=== PATIENT | female | born 1940 | race African-American/Black ===

== ENCOUNTER 2018-07-02 09:41 | Inpatient (IN) | payer OTHER ==
[2018-07-02] MEDS ORDERED: ATROPINE SULF 1 MG/10 ML SYR IV ONE (10:00)
[2018-07-02] MEDS ORDERED: NA CHLORIDE 0.9% 1,000 ML ONE (10:00)
[2018-07-02 10:28] LABS: Absolute Lymphocytes (CBC) 0.7 K/uL (0.7-4.9); Absolute Monocytes 0.2 K/uL (0.1-1.3); Basophils % 0.2 % (0-1.3); Eosinophils % 1.6 % (0-4.4); Hematocrit 30.8 % (36.0-45.0); Lymphocytes % 24.1 % (15.3-44.8); MCH 28.4 pg (27.0-35.0); MCV 88.4 fL (80-100); MPV 7.7 fL (7.6-11.3); Monocytes % 6.3 % (3.3-12.3); RBC Red Blood Cell Count 3.49 M/uL (3.86-4.86)
[2018-07-02 10:29] LABS: Protime INR 1.03
[2018-07-02] MEDS ORDERED: VANCOMYCIN 0 GM/0 ML BAG ONE (10:38)
[2018-07-02] MEDS ORDERED: NA CHLORIDE 0.9% 2,000 ML ONE (10:38)
[2018-07-02] MEDS ORDERED: PIPER/TAZO/NS 3.375gm 0 GM/0 ML BAG ONE (10:38)
[2018-07-02] MEDS ORDERED: Levofloxacin 750mg IV 750 MG/150 ML BAG IV ONE (10:38)
[2018-07-02 10:45] LABS: ALT/SGPT 71 U/L (12-78); AST/SGOT 72 U/L (15-37); Albumin 2.8 g/dL (3.4-5.0); Alkaline Phosphatase 123 U/L (45-117); BUN Blood Urea Nitrogen 32 mg/dL (7-18); Bicarbonate 27 mmol/L (21-32); Glucose Level 173 mg/dL (74-106); Lipase 374 U/L (73-393); Potassium 5.3 mmol/L (3.5-5.1); Protein, Total 7.2 g/dL (6.4-8.2); Sodium Level 145 mmol/L (136-145)
[2018-07-02] MEDS ORDERED: NOREPINEPHRINE 4 MG in D5W 250 ML IV PRN ×2 (10:45→19:56)
--- NOTE | 2018-07-02 11:13 | RAD REPORT ---
EXAM DESCRIPTION: RAD - Chest Single View - 07/02/2018 10:44 am CLINICAL HISTORY: Altered mental status, hypotension, bradycardia COMPARISON: None. TECHNIQUE: AP portable chest image was obtained 1030 hours . FINDINGS: Lung volumes are low. Patchy lung base opacification B bilateral atelectasis or bilateral pneumonia. Elevation of the right hemidiaphragm noted. Cardiomegaly is present without vascular engor gement. Significant failure or volume overload are doubtful. Lung markings are accentuated by signifi cantly shallow inspiratory effort. No measurable pleural effusion and no pneumothorax. No gross bony abnormality seen. No acute aortic findings suspected. IMPRESSION: Limited shallow inspiration film showing bilateral lung base opacification that could be atelectasis or pneumonia.
[2018-07-02] MEDS ORDERED: PIPER/TAZO/NS 3.375gm 3.375 GM/100 ML BAG ONE (11:19)
[2018-07-02 11:27] LABS: Bilirubin Total < 0.1 mg/dL (0.2-1.0)
[2018-07-02 11:27] LABS: Urine Blood NEGATIVE (NEG); Urine Glucose NEGATIVE (NEG); Urine Protein 2+ (NEG); Urine Specific Gravity 1.025 (1.005-1.030); Urine pH 5.5 (5.0-7.0)
[2018-07-02 11:42] LABS: Urine Amorphous Sediment 2+ /HPF (NONE SEEN); Urine Bacteria <20 /HPF (<20); Urine Culture Reflex Order NOT NEEDED; Urine RBC <5 /HPF (NONE SEEN)
--- NOTE | 2018-07-02 12:28 | RAD REPORT ---
EXAM DESCRIPTION: [place] Single View07/02/2018 12:16 pm CLINICAL HISTORY: Device placement central line placement COMPARISON: July 02, 2018 FINDINGS: A central line has been inserted with its tip in the superior vena cava. A pneumothorax is not seen. No other change is noted IMPRESSION: Central venous line with its tip in the superior vena cava
[2018-07-02] MEDS ORDERED: VANCOMYCIN 1 GM/250 ML BAG ONE (13:10)
--- NOTE | 2018-07-02 13:17 | ER ---
Nurse's Notes [facility] Name: Sharda Dewey Age: 78 yrs Sex: Female : 1940 Arrival Date: 07/02/2018 Time: 09:48 Bed 2 Private MD: Diagnosis: Altered Mental Status;Bradycardia;Hypotension;Bilateral Pneumonia;Lactic Acidosis Presentation: 07/02 10:00 Initial Sepsis Screen: Does the patient have a suspected source of infection? No. aj Patient's initial sepsis screen is negative. 10:06 Presenting complaint: EMS states: PT with increased AMS, hypotension and bradycardia, la1 recent history or UTI at long term. Transition of care: patient was not received from another setting of care. Onset of symptoms was July 02, 2018. Risk Assessment: Do you want to hurt yourself or someone else? Patient reports no desire to harm self or others. Initial Sepsis Screen: Does the patient meet any 2 criteria? No. Patient's initial sepsis screen is negative. Care prior to arrival: None. 10:06 Method Of Arrival: EMS: [facility] la1 10:06 Acuity: TITUS 2 la1 Historical: - Allergies: 10:15 No Known Allergies; la1 - Home Meds: 10:15 allopurinol 100 mg Oral tab 1 tab once daily [Active]; amlodipine 2.5 mg tab 1 tab once la1 daily [Active]; Aricept 10 mg Oral tab 1 tab once daily [Active]; aspirin 81 mg Oral TbEC 1 tab once daily [Active]; carvedilol 12.5 mg oral tab 1 tab 2 times per day [Active]; Celexa 10 mg Oral tab 1 tab every other day [Active]; ferrous sulfate 325 mg (65 mg iron) Oral tab [Active]; lorazepam 0.5 mg Oral tab 1 tab at bedtime [Active]; losartan 100 mg oral tab 1 tab once daily [Active]; memantine 28mg oral tab once daily [Active]; metformin 500 mg Oral Tb24 1 tab 2 times per day [Active]; Norvasc 5 mg Oral tab 1 tab BID [Active]; Novolog 100 unit/mL Sub-Q soln [Active]; risperidone 0.5 mg oral tab 1 tabs once daily [Active]; Tresiba FlexTouch U-100 100 unit/mL (3 mL) subcutaneous inpn [Active]; - PMHx: 10:15 Alzheimers; Anxiety; Diabetes - NIDDM; Anemia; dysphagia; ataxic gait; Hypertension; la1 - PSHx: 10:15 None; la1 - Immunization history:: Adult Immunizations up to date. - Social history:: Smoking status: Patient/guardian denies using tobacco. - Ebola Screening: : No symptoms or risks identified at this time. Screenin:57 Abuse screen: Denies threats or abuse. Denies injuries from another. Nutritional aj screening: No deficits noted. Tuberculosis screening: No symptoms or risk factors identified. Fall Risk None identified. Assessment: 10:35 Reassessment: Placed on REGINE Hugger warmer. aj 10:53 General: Appears in no apparent distress. comfortable, Behavior is calm, cooperative, aj appropriate for age. Pain: Denies pain. Neuro: Level of Consciousness is awake, confused, lethargic, Oriented to none Speech with expressive aphasia noted. Neuro: Reports Family reports patient is not oriented to norm. Respiratory: Airway is patent Respiratory effort is even, unlabored, Respiratory pattern is regular, symmetrical. Derm: Skin is intact, is healthy with good turgor, Skin is dry, Skin is normal, Skin temperature is cool. 12:00 Reassessment: Patient appears in no apparent distress at this time. No changes from aj previously documented assessment. Patient and/or family updated on plan of care and expected duration. Pain level reassessed. Patient repositioned in bed. NAD. 13:37 Reassessment: Patient appears in no apparent distress at this time. No changes from aj previously documented assessment. Patient and/or family updated on plan of care and expected duration. Pain level reassessed. Escorted patient to CT with no complications. Patient in room with daughter at bedside. Patient is awake but not alert. 14:28 Reassessment: Dr. Valencia requests to have MRI obtained and resulted prior to giving ss room assignment. 16:43 Reassessment: Patient returned to room by MRI. aj 16:50 Reassessment: Patient appears in no apparent distress at this time. No changes from aj previously documented assessment. Patient and/or family updated on plan of care and expected duration. Pain level reassessed. Patient repositioned in bed. Vital Signs: 09:53 BP 86 / 55; Pulse 36; Resp 12; Pulse Ox 96% on R/A; jb4 09:59 BP 97 / 54; Pulse 36; Resp 13; ss 10:25 Weight 68.04 kg (R); la1 10:26 BP 86 / 66; Pulse 45; Resp 16; Pulse Ox 95% on R/A; la1 10:27 Temp 85(C); la1 10:33 BP 79 / 58; Pulse 44; Resp 16; Temp 85.2(C); Pulse Ox 95% on R/A; dh3 10:50 BP 117 / 72; Pulse 62; Resp 15; Temp 85.5(C); Pulse Ox 99% on R/A; aj 10:55 BP 92 / 64; Pulse 50; Resp 16; Temp 85.5(C); Pulse Ox 98% on R/A; aj 11:00 BP 86 / 59; Pulse 45; Resp 17; Temp 85.7; Pulse Ox 96% on R/A; aj 11:05 BP 65 / 48; Pulse 43; Resp 9; Temp 85.7; Pulse Ox 95% ; dm5 11:10 BP 97 / 57; Pulse 64; Resp 15; Temp 86; Pulse Ox 97% ; dm5 11:15 BP 109 / 72; Pulse 59; Resp 10; Pulse Ox 100% ; dm5 11:20 BP 117 / 71; Pulse 58; Resp 10; dm5 11:25 BP 131 / 68; Pulse 59; Resp 10; Pulse Ox 100% ; dm5 11:30 BP 101 / 65; Pulse 58; Resp 12; Pulse Ox 100% ; dm5 12:12 BP 100 / 63; Pulse 57; Resp 12; Pulse Ox 100% on R/A; dh3 12:20 BP 101 / 67; Pulse 55; Resp 12; Pulse Ox 99% ; sv 12:25 BP 106 / 65; Pulse 55; Resp 11; Pulse Ox 100% ; sv 12:30 BP 94 / 70; Pulse 55; Resp 11; Pulse Ox 100% ; sv 12:52 BP 137 / 110; Pulse 58; Resp 13; Temp 88.3(C); Pulse Ox 99% on R/A; aj 12:59 BP 199 / 181; Pulse 55; Resp 15; Temp 88.6(C); Pulse Ox 97% on R/A; aj 13:13 BP 182 / 117; Pulse 56; Resp 16; Pulse Ox 96% ; aj 13:35 BP 95 / 63; Pulse 56; Resp 15; Pulse Ox 97% on R/A; aj 13:49 BP 100 / 61; Pulse 58; Resp 16; Temp 90.0; Pulse Ox 99% on R/A; aj 14:02 BP 114 / 63; Pulse 60; Resp 12; Temp 90.2; Pulse Ox 99% on R/A; aj 14:12 BP 109 / 67; Pulse 59; Resp 17; Pulse Ox 96% on R/A; aj 14:20 BP 104 / 79; Pulse 61; Resp 11; Temp 90.8(C); Pulse Ox 100% ; sv 14:25 BP 107 / 85; Pulse 64; Resp 12; Pulse Ox 100% on R/A; sv 14:30 BP 91 / 73; Pulse 60; Resp 12; Pulse Ox 99% on R/A; sv 14:40 BP 104 / 70; Pulse 64; Resp 14; Pulse Ox 99% ; sv 14:45 BP 113 / 81; Pulse 64; Resp 14; Temp 91.4; Pulse Ox 99% ; sv 14:50 BP 111 / 74; Pulse 66; Resp 18; Temp 91.7(C); Pulse Ox 100% ; sv 16:44 BP 127 / 72; Pulse 59; Resp 17; Pulse Ox 97% on R/A; aj 16:55 BP 148 / 97; Pulse 64; Resp 19; Pulse Ox 99% on R/A; aj 12:52 Cuff repositioned and levophed deccreased aj Vitals: 09:59 Cardiac Rhythm Assessment Sinus zuly W/couplets. ss ED Course: 09:45 Inserted saline lock: 22 gauge in right forearm, using aseptic technique. Blood ss collected. insertion by Sanket Anaya RN. 09:48 Patient arrived in ED. la1 09:52 Reji Noble MD is Attending Physician. ps1 09:53 EKG done, by operating room tech. reviewed by Reji Noble MD. at1 09:59 cafeteria monitor on. Pulse ox on. NIBP on. ss 10:00 Patient has correct armband on for positive identification. Placed in gown. Bed in low aj position. Side rails up X2. Adult w/ patient. Warm blanket given. 10:00 Patient placed in an exam room. aj 10:07 Triage completed. la1 10:30 Inserted saline lock: 20 gauge in left antecubital area, using aseptic technique. dh3 10:35 Dowell cath inserted, using sterile technique, 16 Fr., by me, balloon inflated, to aj gravity drainage, urine specimen collected. returned clear yellow urine. Patient tolerated well. 10:43 Chest Single View XRAY In Process Unspecified. EDMS 10:52 Sima Olmstead, RN is Primary Nurse. aj 10:56 Note: delay per shannan to call when pt ready. kw1 11:26 Notified ED physician of a critical lab result(s). Lactate 2.2. la1 11:32 Assisted provider with central line placement. Set up central line tray. Triple lumen aj line placed in right internal jugular. Line placed by Reji Noble MD Placement verified by blood return, Dressed with Tegaderm, Patient tolerated well. Before procedure, did Practitioner(s) obtain informed consent? Yes. Patient \\T\\ family education about procedure, CLABSI prevention and S/S of infection? Yes. Time-out/Briefing performed prior to start of procedure? Yes. Was handwashing/sanitizing done immediately prior to procedure? Yes. Was patient positioned to in a way to prevent air embolism? Yes. Was procedure site sterilized? Yes, with chlorhexidine. Was the site allowed to dry? Yes. Was local anesthetic and/or sedation utilized? Yes. During the procedure, did the Practitioner(s) maintain a sterile field? Yes. Were unused ports clamped during insertion? Yes. Was a 2nd qualified MD obtained after 3 unsuccessful insertion attempts? No. Was blood aspirated from each lumen? Yes. After the procedure, did the Practitioner(s) clean the site and apply a sterile dressing? Yes. 12:16 XRAY Chest (1 view) In Process Unspecified. EDMS 12:58 Notified ED physician of other Vital signs. Order to discontinue Levophed. aj 13:14 Rishabh Hoff DO is Hospitalizing Provider. ps1 13:27 CT completed. Patient tolerated procedure well. Patient moved to CT via stretcher. vr Patient moved back from CT. 13:28 CT Head Brain wo Cont In Process Unspecified. EDMS 14:48 Attempted to call report to ICU. Gretchen "We were told not to take report until the MRI aj report was back.". 14:59 underwriting technician at bedside. aj 15:19 Patient moved to MRI via stretcher. sv 15:19 Dowell cath removed intact, balloon deflated, MRI advised removal of Criticore dowell as aj wire could be problematic. Dr Noble ordered dowell to be removed and not replaced, to prevent infection. 16:33 Patient moved back from MRI. sv 17:00 Patient admitted, IV remains in place. intact. aj 17:04 Attempted to give report. Oralia "Let me see if I can find her." Placed on hold for 5 aj min. Unable to give report. 17:15 Report given to Irlanda HOPKINS. Administered Medications: Discontinued: Norepinephrine (4 mg/250 mL D5W) 4 mcg/min IV at calculated rate Per protocol; (final concentration is 16 microgram/mL) 09:58 Drug: Atropine 0.5 mg {Note: administered by SANDEEP Coles.} Route: IVP; Site: right forearm; ss 10:25 Follow up: Response: Other; HR increased la1 10:55 Drug: NS 0.9% (30 ml/kg) 30 ml/kg Route: IV; Rate: bolus; Site: right forearm; sv 11:50 Follow up: Response: No adverse reaction; IV Status: Completed infusion; IV Intake: sv 2000ml 10:55 Drug: LevaQUIN 750 mg Volume: 150 ml; Route: IVPB; Infused Over: 90 mins; Site: left aj antecubital; 12:22 Follow up: Response: No adverse reaction; IV Status: Completed infusion; IV Intake: sv 150ml 11:20 Drug: Norepinephrine (4 mg/250 mL D5W) 5 mcg/min Route: IV; Rate: calculated rate; sv Site: right jugular; 12:52 Follow up: Rate change 3 mcg/kg/min aj 12:23 Drug: Zosyn 3.375 grams Route: IVPB; Infused Over: 60 mins; Site: left antecubital; sv 13:12 Drug: vancoMYCIN 1 grams Route: IVPB; Infused Over: 2 hrs; Site: right jugular; aj 14:30 Follow up: Response: No adverse reaction; IV Status: Completed infusion; IV Intake: aj 200ml 16:00 Drug: Ativan 1 mg Route: IVP; Site: right jugular; aj 17:06 Follow up: Response: No adverse reaction Point of Care Testing: Blood Glucose: 09:59 Blood Glucose: 176 mg/dL; ss 17:07 Blood Glucose: 173 mg/dL; aj Ranges: Intake: 11:50 IV: 2000ml; Total: 2000ml. sv 12:22 IV: 150ml; Total: 2150ml. sv 14:30 IV: 200ml; Total: 2350ml. aj Outcome: 13:16 Decision to Hospitalize by Provider. ps1 17:20 Admitted to ICU accompanied by nurse, accompanied by tech, via stretcher, room 3. aj 17:20 Condition: stable 17:20 Instructed on the need for admit. 17:22 Patient left the ED. ss 17:44 Patient left the ED. aj Signatures: Dispatcher [employer] EDMS Vanda Vargas RN RN dm5 Verde, Stephanie RN Sima Kaplan RN RN aj Smirch, Shelby, RN RN ss Davis, Victoria vr gonzales, Amanda, learning operations specialist EKG Tat1 Sanket Anaya RN RN la1 Bryson, James RN RN [id number] Bonnie Leon 3 Reji Noble MD MD ps1 Josee Lama kw1 Corrections: (The following items were deleted from the chart) 10:00 09:45 Inserted saline lock: 22 gauge in right forearm, using aseptic technique. Blood ss collected. ss 10:56 10:50 BP 117 / 72; Pulse 92bpm; Resp 15bpm; Pulse Ox 99% RA; Temp 85.5F Catheter; aj aj 15:38 15:19 Dowell cath removed intact, balloon deflated, aj aj 17:41 16:50 Reassessment: Patient appears in no apparent distress at this time. No changes aj from previously documented assessment. Patient and/or family updated on plan of care and expected duration. Pain level reassessed. Patient repositioned in bed. aj :42 17:41 Patient admitted, IV remains in place. intact, bleeding controlled, No aj redness/swelling at site. Pressure dressing applied, aj :42 17:00 Patient admitted, IV remains in place. intact, bleeding controlled, No aj redness/swelling at site. Pressure dressing applied, aj
--- NOTE | 2018-07-02 13:17 | EDPHYS ---
Physician Documentation [facility] Name: Sharda Dewey Age: 78 yrs Sex: Female : 1940 Arrival Date: 07/02/2018 Time: 09:48 Bed 2 Private MD: ED Physician Reji Noble HPI: 07/02 09:53 This 78 yrs old Black Female presents to ER via Unassigned with complaints of altered ps1 mental status. 09:53 NH patient with recent UTI was treated with rocephin yesterday. Progressive decline and ps1 now unresponsive and bradycardic in 30s and hypotensive. Pt not providing history. . Historical: - Allergies: 10:15 No Known Allergies; la1 - Home Meds: 10:15 allopurinol 100 mg Oral tab 1 tab once daily [Active]; amlodipine 2.5 mg tab 1 tab once la1 daily [Active]; Aricept 10 mg Oral tab 1 tab once daily [Active]; aspirin 81 mg Oral TbEC 1 tab once daily [Active]; carvedilol 12.5 mg oral tab 1 tab 2 times per day [Active]; Celexa 10 mg Oral tab 1 tab every other day [Active]; ferrous sulfate 325 mg (65 mg iron) Oral tab [Active]; lorazepam 0.5 mg Oral tab 1 tab at bedtime [Active]; losartan 100 mg oral tab 1 tab once daily [Active]; memantine 28mg oral tab once daily [Active]; metformin 500 mg Oral Tb24 1 tab 2 times per day [Active]; Norvasc 5 mg Oral tab 1 tab BID [Active]; Novolog 100 unit/mL Sub-Q soln [Active]; risperidone 0.5 mg oral tab 1 tabs once daily [Active]; Tresiba FlexTouch U-100 100 unit/mL (3 mL) subcutaneous inpn [Active]; - PMHx: 10:15 Alzheimers; Anxiety; Diabetes - NIDDM; Anemia; dysphagia; ataxic gait; Hypertension; la1 - PSHx: 10:15 None; la1 - Immunization history:: Adult Immunizations up to date. - Social history:: Smoking status: Patient/guardian denies using tobacco. - Ebola Screening: : No symptoms or risks identified at this time. ROS: 10:08 Unable to obtain ROS due to altered mental status. ps1 Exam: 09:53 Head/Face: Normocephalic, atraumatic. Eyes: Pupils equal round and reactive to light, ps1 extra-ocular motions intact. Lids and lashes normal. Conjunctiva and sclera are non-icteric and not injected. Chest/axilla: Normal chest wall appearance and motion. Nontender with no deformity. No lesions are appreciated. Respiratory: Lungs have equal breath sounds bilaterally, clear to auscultation and percussion. No rales, rhonchi or wheezes noted. No increased work of breathing, no retractions or nasal flaring. Abdomen/GI: Soft, non-tender, with normal bowel sounds. No distension or tympany. No guarding or rebound. No evidence of tenderness throughout. Skin: Warm, dry with normal turgor. Normal color with no rashes, no lesions, and no evidence of cellulitis. MS/ Extremity: Pulses equal, no cyanosis. Neurovascular intact. Full, normal range of motion. 09:53 Constitutional: The patient appears alert, lethargic. 09:53 Cardiovascular: Rate: bradycardic, Rhythm: regular, Pulses: no pulse deficits are appreciated. Vital Signs: 09:53 BP 86 / 55; Pulse 36; Resp 12; Pulse Ox 96% on R/A; jb4 09:59 BP 97 / 54; Pulse 36; Resp 13; ss 10:25 Weight 68.04 kg (R); la1 10:26 BP 86 / 66; Pulse 45; Resp 16; Pulse Ox 95% on R/A; la1 10:27 Temp 85(C); la1 10:33 BP 79 / 58; Pulse 44; Resp 16; Temp 85.2(C); Pulse Ox 95% on R/A; dh3 10:50 BP 117 / 72; Pulse 62; Resp 15; Temp 85.5(C); Pulse Ox 99% on R/A; aj 10:55 BP 92 / 64; Pulse 50; Resp 16; Temp 85.5(C); Pulse Ox 98% on R/A; aj 11:00 BP 86 / 59; Pulse 45; Resp 17; Temp 85.7; Pulse Ox 96% on R/A; aj 11:05 BP 65 / 48; Pulse 43; Resp 9; Temp 85.7; Pulse Ox 95% ; dm5 11:10 BP 97 / 57; Pulse 64; Resp 15; Temp 86; Pulse Ox 97% ; dm5 11:15 BP 109 / 72; Pulse 59; Resp 10; Pulse Ox 100% ; dm5 11:20 BP 117 / 71; Pulse 58; Resp 10; dm5 11:25 BP 131 / 68; Pulse 59; Resp 10; Pulse Ox 100% ; dm5 11:30 BP 101 / 65; Pulse 58; Resp 12; Pulse Ox 100% ; dm5 12:12 BP 100 / 63; Pulse 57; Resp 12; Pulse Ox 100% on R/A; dh3 12:20 BP 101 / 67; Pulse 55; Resp 12; Pulse Ox 99% ; sv 12:25 BP 106 / 65; Pulse 55; Resp 11; Pulse Ox 100% ; sv 12:30 BP 94 / 70; Pulse 55; Resp 11; Pulse Ox 100% ; sv 12:52 BP 137 / 110; Pulse 58; Resp 13; Temp 88.3(C); Pulse Ox 99% on R/A; aj 12:59 BP 199 / 181; Pulse 55; Resp 15; Temp 88.6(C); Pulse Ox 97% on R/A; aj 13:13 BP 182 / 117; Pulse 56; Resp 16; Pulse Ox 96% ; aj 13:35 BP 95 / 63; Pulse 56; Resp 15; Pulse Ox 97% on R/A; aj 13:49 BP 100 / 61; Pulse 58; Resp 16; Temp 90.0; Pulse Ox 99% on R/A; aj 14:02 BP 114 / 63; Pulse 60; Resp 12; Temp 90.2; Pulse Ox 99% on R/A; aj 14:12 BP 109 / 67; Pulse 59; Resp 17; Pulse Ox 96% on R/A; aj 14:20 BP 104 / 79; Pulse 61; Resp 11; Temp 90.8(C); Pulse Ox 100% ; sv 14:25 BP 107 / 85; Pulse 64; Resp 12; Pulse Ox 100% on R/A; sv 14:30 BP 91 / 73; Pulse 60; Resp 12; Pulse Ox 99% on R/A; sv 14:40 BP 104 / 70; Pulse 64; Resp 14; Pulse Ox 99% ; sv 14:45 BP 113 / 81; Pulse 64; Resp 14; Temp 91.4; Pulse Ox 99% ; sv 14:50 BP 111 / 74; Pulse 66; Resp 18; Temp 91.7(C); Pulse Ox 100% ; sv 16:44 BP 127 / 72; Pulse 59; Resp 17; Pulse Ox 97% on R/A; aj 16:55 BP 148 / 97; Pulse 64; Resp 19; Pulse Ox 99% on R/A; aj 12:52 Cuff repositioned and levophed deccreased aj Procedures: 11:47 Central Line: the site was prepped with Betadine, in sterile fashion, a triple lumen ps1 catheter was inserted, in the right internal jugular vein, in 1 attempts. placement was verified, by CXR, by blood return, the site was dressed with Tegaderm, using sterile technique, the patient tolerated the procedure, well. MDM: 10:36 Patient medically screened. ps1 07/02 10:08 Order name: Glucose, Ancillary Testing; Complete Time: 10:36 EDMS 07/02 10:08 Order name: Blood Culture Adult (2) ps1 07/02 10:08 Order name: CBC with Diff; Complete Time: 10:36 ps1 07/02 10:08 Order name: Lactate; Complete Time: 12:14 ps1 07/02 10:08 Order name: Lipase; Complete Time: 12:14 ps1 07/02 10:08 Order name: Protime (+inr); Complete Time: 10:36 ps1 07/02 10:08 Order name: Troponin (emerg Dept Use Only); Complete Time: 10:50 ps1 07/02 10:08 Order name: CMP; Complete Time: 12:14 ps1 07/02 10:55 Order name: Urine Microscopic Only; Complete Time: 12:14 07/02 10:55 Order name: Urine Culture 07/02 11:01 Order name: Urine Dipstick--Ancillary (enter results); Complete Time: 12:14 ss 07/02 13:28 Order name: Blood Culture EDCA 07/02 13:28 Order name: Potassium EDMS 07/02 10:08 Order name: Chest Single View XRAY; Complete Time: 12:14 ps1 07/02 10:32 Order name: CT Head Brain wo Cont; Complete Time: 14:40 ps1 07/02 11:58 Order name: XRAY Chest (1 view); Complete Time: 12:33 ag 07/02 13:28 Order name: Echo with Doppler ED[facility] 07/02 13:28 Order name: Procalcitonin [facility] 07/02 13:28 Order name: Lactate [facility] 07/02 14:17 Order name: Lactate Sepsis 2 HR Follow-up; Complete Time: 14:40 EDMS 07/02 17:01 Order name: MRI; Complete Time: 17:07 EDMS 07/02 17:04 Order name: MRI; Complete Time: 17:07 EDCA 07/02 10:08 Order name: Accucheck; Complete Time: 10:16 ps1 07/02 10:08 Order name: Cardiac monitoring; Complete Time: 10:16 ps1 07/02 10:08 Order name: EKG - Nurse/Tech; Complete Time: 10:16 ps1 07/02 10:08 Order name: IV Saline Lock - Large Bore; Complete Time: 10:17 ps1 07/02 10:08 Order name: Labs collected and sent; Complete Time: 10:17 ps1 07/02 10:08 Order name: O2 Per Protocol; Complete Time: 10: ps1 07/02 10:08 Order name: O2 Sat Monitoring; Complete Time: 10: ps1 07/02 10:08 Order name: Urine Dipstick-Ancillary (obtain specimen); Complete Time: 10:59 ps1 07/02 11:01 Order name: EKG Electrocardiogram [facility] 07/02 13:28 Order name: CONS Pharmacy Consult [facility] 07/02 13:28 Order name: CONS Physician Consult [facility] 07/02 13:28 Order name: Respiratory Therapy Consult [facility] 07/02 13:28 Order name: Heart Healthy EDCA Administered Medications: Discontinued: Norepinephrine (4 mg/250 mL D5W) 4 mcg/min IV at calculated rate Per protocol; (final concentration is 16 microgram/mL) 09:58 Drug: Atropine 0.5 mg {Note: administered by SANDEEP Coles.} Route: IVP; Site: right forearm; ss 10:25 Follow up: Response: Other; HR increased la1 10:55 Drug: NS 0.9% (30 ml/kg) 30 ml/kg Route: IV; Rate: bolus; Site: right forearm; sv 11:50 Follow up: Response: No adverse reaction; IV Status: Completed infusion; IV Intake: sv 2000ml 10:55 Drug: LevaQUIN 750 mg Volume: 150 ml; Route: IVPB; Infused Over: 90 mins; Site: left aj antecubital; 12:22 Follow up: Response: No adverse reaction; IV Status: Completed infusion; IV Intake: sv 150ml 11:20 Drug: Norepinephrine (4 mg/250 mL D5W) 5 mcg/min Route: IV; Rate: calculated rate; sv Site: right jugular; 12:52 Follow up: Rate change 3 mcg/kg/min aj 12:23 Drug: Zosyn 3.375 grams Route: IVPB; Infused Over: 60 mins; Site: left antecubital; sv 13:12 Drug: vancoMYCIN 1 grams Route: IVPB; Infused Over: 2 hrs; Site: right jugular; aj 14:30 Follow up: Response: No adverse reaction; IV Status: Completed infusion; IV Intake: aj 200ml 16:00 Drug: Ativan 1 mg Route: IVP; Site: right jugular; aj 17:06 Follow up: Response: No adverse reaction Point of Care Testing: Blood Glucose: 09:59 Blood Glucose: 176 mg/dL; 17:07 Blood Glucose: 173 mg/dL; Ranges: Critical Glucose Levels:Adult <50 mg/dl or >400 mg/dl <40 mg/dl or >180 mg/dl Disposition: 07/02/18 13:16 Hospitalization ordered by Rishabh Hoff for Inpatient Admission. Preliminary diagnosis are Altered Mental Status, Bradycardia, Hypotension, Bilateral Pneumonia, Lactic Acidosis. - Bed requested for Intensive Care Unit. - Status is Inpatient Admission. aj - Condition is Serious. - Problem is new. - Symptoms have worsened. UTI on Admission? No Signatures: Dispatcher [employer] [facility] Loretta Joe RN RN sv Myers, Amanda, RN RN aj Smirch, Shelby, RN RN Sanket Anaya RN RN laAislinn Durán Diane RN Reji Toth MD MD ps1 Corrections: (The following items were deleted from the chart) 10:10 10:09 BASIC METABOLIC PANEL+[id number].LAB.BRZ ordered. [facility] 14:42 13:16 Hospitalization Ordered by Rishabh Hoff DO for Inpatient Admission. Preliminary ag diagnosis is Altered Mental Status; Bradycardia; Hypotension; Bilateral Pneumonia; Lactic Acidosis. Bed requested for Intensive Care Unit. Status is Inpatient Admission. Condition is Serious. Problem is new. Symptoms have worsened. UTI on Admission? No. ps1 17:11 14:42 07/02/2018 13:16 Hospitalization Ordered by Rishabh Hoff DO for Inpatient df Admission. Preliminary diagnosis is Altered Mental Status; Bradycardia; Hypotension; Bilateral Pneumonia; Lactic Acidosis. Bed requested for Intensive Care Unit. Status is Inpatient Admission. Condition is Serious. Problem is new. Symptoms have worsened. UTI on Admission? No. ag 17:22 17:11 07/02/2018 13:16 Hospitalization Ordered by Rishabh Hoff DO for Inpatient ss Admission. Preliminary diagnosis is Altered Mental Status; Bradycardia; Hypotension; Bilateral Pneumonia; Lactic Acidosis. Bed requested for Intensive Care Unit. Status is Inpatient Admission. Condition is Serious. Problem is new. Symptoms have worsened. UTI on Admission? No. df 17:44 17:22 07/02/2018 13:16 Hospitalization Ordered by Rishabh Hoff DO for Inpatient aj Admission. Preliminary diagnosis is Altered Mental Status; Bradycardia; Hypotension; Bilateral Pneumonia; Lactic Acidosis. Bed requested for Intensive Care Unit. Status is Inpatient Admission. Condition is Serious. Problem is new. Symptoms have worsened. UTI on Admission? No. ss
[2018-07-02] MEDS ORDERED: LORazepam 2 MG/ML VIAL IV PRN (13:18)
[2018-07-02] MEDS ORDERED: ONDANSETRON 4 MG/2 ML VIAL IV PRN (13:18)
[2018-07-02] MEDS ORDERED: ACETAMINOPHEN 500 MG TAB PO PRN (13:18)
[2018-07-02] MEDS ORDERED: ZIPRASIDONE MESYLA 20 MG/VIAL IM PRN (13:18)
[2018-07-02] MEDS ORDERED: WATER FOR INJ,STERILE 10 ML IM PRN (13:18)
[2018-07-02] MEDS ORDERED: SODIUM CHLORIDE 0.9% 10ML INJ IV PRN (13:18)
[2018-07-02] MEDS ORDERED: ACETAMINOPHEN 650MG/RECT SUPP PR PRN (13:18)
--- NOTE | 2018-07-02 13:41 | RAD REPORT ---
EXAM DESCRIPTION: CT - Head Brain Wo Cont - 07/02/2018 1:28 pm CLINICAL HISTORY: Transient alteration of awareness, hypotension and bradycardia COMPARISON: None. TECHNIQUE: Axial 5 mm thick images of the head were obtained without IV contrast. All CT scans are performed using dose optimization technique as appropriate and may include automated exposure control or mA/KV adjustment according to patient size. FINDINGS: No intracranial hemorrhage, mass, edema or shift of mid-line structures. No acute cortical based infarction. There is no cortical edema or sulcal effacement. Arterial and physiologic calcific ations are present. The patient has prominent chronic ischemic change throughout the cerebral white m atter. Focal diminished attenuation in the right thalamus is probably old ischemic injury. Atrophy is moderate. Ventricles are enlarged out of proportion to the amount of volume loss. The No abnormal ex tra-axial fluid collections. Mastoid air cells and visualized portions of the paranasal sinuses are clear. No acute bony findings. IMPRESSION: No hemorrhage or mass lesion present. No acute cortical based infarction. Moderate chronic ischemic change. Diminished attenuation in the right thalamus is also believed to be old ischemia. Nonhemorrhagic infarction can easily be masked by this extent of chronic ischemic wei ge. Moderate atrophy with ventriculomegaly out of proportion to volume loss. Correlation is needed with a ny exam findings for normal pressure hydrocephalus.
--- NOTE | 2018-07-02 13:43 | EKG ---
Test Date: 2018-07-02 Test Time: 09:46:51 Scientist: VEENA MEASUREMENT RESULTS: Intervals: Rate: 35 MD: 254 QRSD: 94 QT: 600 QTc: 458 Speed: P: 63 MD: 254 QRS: -6 T: 161 INTERPRETIVE STATEMENTS: Marked sinus bradycardia with 1st degree AV block Moderate voltage criteria for LVH, may be normal variant T wave abnormality, consider lateral ischemia Abnormal ECG No previous ECG available for comparison Electronically Signed On 07-02-18 13:42:25 CDT by Jason Shrestha
[2018-07-02] MEDS: ENOXAPARIN 40 MG/0.4 ML SQ SCH (14:00)
--- NOTE | 2018-07-02 14:10 | P.HP ---
Certification for Inpatient Patient admitted to: Inpatient With expected LOS: >2 Midnights Patient will require the following post-hospital care: Other Practitioner: I am a practitioner with admitting privileges, knowledge of patient current condition, hospital course, and medical plan of care. Services: Services provided to patient in accordance with Admission requirements found in Title 42 Section 412.3 of the Code of Federal Regulations Patient History Date of Service: 07/02/18 Primary Care Provider: [facility] Reason for admission: Altered mental status History of Present Illness: 78-year-old Afro[place] female [facility] with altered mental status. Patient with history of severe dementia, hypertension and diabetes. Most information came from the ER physician and daughter who was present. Daughter reports that the patient was feeling weak yesterday. The daughter reports that the patient was able to get to the dining alfred using her wheelchair but did not eat. This was unusual for her. ER reports that the patient had gotten Rocephin in the [facility]. This morning she had altered mental status changes. She was not acting appropriately. Daughter reports that she has been having a cough recently. In the ER patient was evaluated. Blood pressures were low with systolics in the 60s. She was also hypothermic with a temperature of 83 F. patient was also bradycardic. In the ER patient got a central line placed. She Received atropine and started on Levophed. Blood pressures have improved. She is currently off Levophed at this time. Blood pressure now elevated. White count 3.0. Hemoglobin 9.9. Sodium 145, potassium 5.3. BUN of 32, creatinine 1.1. GFR 58. Glucose 173. Lactic acid 2.2. Urinalysis showed possible UTI. X-ray shows possible pneumonia. CT scan shows no hemorrhagic or mass lesion. Moderate chronic ischemic changes noted. Diminished attenuation to the right thalamus believed to be old ischemia noted. Nonhemorrhagic infarction cannot be excluded. Moderate atrophy and ventriculomegaly noted. Possible normal pressure hydrocephalus noted. When I saw the patient the ER, she appeared stable. Patient was severe dementia. Daughter at bedside. Patient does not smoke or drink. [facility]. Patient has not had any prior medical problems except hypertension and diabetes along with dementia. Allergies No Known Allergies Allergy (Unverified 07/02/18 10:45) Home medications list reviewed: No - Past Medical/Surgical History Diabetic: Yes -: Diabetes mellitus type 2 -: Hypertension -: Severe dementia Past Surgical History: Patient denies surgical history Psychosocial/ Personal History: [facility] in a [facility] for almost 2 years. She has 2 children. She is currently . - Family History Family History: Reviewed- Non-Contributory - Social History Alcohol use: No CD- Drugs: No Caffeine use: No [facility] Review of Systems General: Weakness, Malaise, As per HPI Eyes: Unremarkable ENT: Unremarkable Respiratory: Cough, As per HPI Cardiovascular: Unremarkable Gastrointestinal: Unremarkable Genitourinary: As per HPI Musculoskeletal: As per HPI Integumentary: As per HPI Neurological: Weakness, Confusion, As per HPI Lymphatics: Unremarkable Physical Examination - Physical Exam General: Alert, In no apparent distress, Demented (Patient was severe dementia) HEENT: Atraumatic, Normocephalic, Other (Dry mucous membranes) Neck: Supple, No Thyromegaly Respiratory: Crackles/rales (To the bases bilateral) Cardiovascular: Normal pulses, Regular rate/rhythm Gastrointestinal: Normal bowel sounds, Soft and benign, Non-distended, No tenderness, No masses, No rebound, No guarding Musculoskeletal: No erythema, No tenderness, No warmth Integumentary: No erythema, No warmth, No cyanosis Neurological: Normal strength at 5/5 x4 extr, Normal tone, Other (Patient appears to be moving all 4s appropriately.), Dementia (Severe dementia) - Studies Laboratory Data (last 24 hrs) 07/02/18 09:45: PT 12.2, INR 1.03 18 09:45: WBC 3.0 L, Hgb 9.9 L, Hct 30.8 L, Plt Count 248 07/02/18 09:45: Sodium 145, Potassium 5.3 H, BUN 32 H, Creatinine 1.10, Glucose 173 H, Total Bilirubin < 0.1 L, AST 72 H, ALT 71, Alkaline Phosphatase 123 H, Lipase 374 Assessment and Plan - Problems (Diagnosis) (1) Encephalopathy Current Visit: Yes Status: Acute Plan: Encephalopathy likely related to infectious process. We need to rule out stroke. Patient with severe dementia. CT scan shows possible old stroke. Spoke with Neurology. Neurology recommends to get stroke protocol MRI prior to admission if significantly abnormal patient may require transfer to higher level of care center to further assess. Patient currently on IV antibiotic therapy. Blood cultures and urine cultures obtained. Will consult pulmonology and Neurology. (2) Septic shock Current Visit: Yes Status: Acute Plan: Patient off Levophed. Blood and urine cultures obtained. Continue IV fluids and antibiotics. (3) Pneumonia Current Visit: Yes Status: Acute Plan: Bilateral pneumonia noted. Continue antibiotic therapy. Pulmonology consulted. Will maintain sats above 90%. Qualifiers: Aspiration pneumonia type: unspecified Laterality: bilateral Lung location: lower lobe of lung (4) UTI (urinary tract infection) Current Visit: Yes Status: Acute Plan: UTI suspected. Continue as above. Qualifiers: Urinary tract infection type: site unspecified Hematuria presence: without hematuria Qualified Code(s): N39.0 - Urinary tract infection, site not specified (5) Hypothermia Current Visit: Yes Status: Acute Plan: Continue with bear hugger to improved temperature. Qualifiers: Encounter type: initial encounter Qualified Code(s): T68.XXXA - Hypothermia , initial encounter (6) Hypotension Current Visit: Yes Status: Acute Plan: Patient with initially hypotension. Now with elevated blood pressure. Will provide medication. Patient off Levophed. Qualifiers: Hypotension type: other hypotension type Qualified Code(s): I95.89 - Other hypotension (7) Bradycardia Current Visit: Yes Status: Acute Plan: Likely from hypothermia. Improved. Will monitor closely. (8) Dementia Current Visit: Yes Status: Chronic Plan: Patient with severe dementia likely vascular. Continue as above. Discuss case with neurology. Qualifiers: Dementia type: unspecified type (9) Hyperkalemia Current Visit: Yes Status: Acute Plan: Will recheck potassium. Patient may require Kayexalate. (10) CVA (cerebral vascular accident) Current Visit: Yes Status: Suspected Plan: CT scan shows possible old or subacute infarct. Patient with severe dementia and chronic ischemic changes. Case discussed at length with Neurology. Recommend stroke protocol MRI to further evaluate her encephalopathy. If significantly abnormal patient may require transfer to higher level of care center. If unremarkable patient will be admitted for further treatment. (11) Normal pressure hydrocephalus Current Visit: Yes Status: Suspected Plan: Normal-pressure hydrocephalus possible. MRI stroke protocol obtained. If abnormal patient may require higher level of care. This will need to be verified. Case discussed with Neurology. (12) Anemia Current Visit: Yes Status: Chronic Plan: This is likely chronic. Will check iron and B12 studies. Qualifiers: Anemia type: unspecified type Qualified Code(s): D64.9 - Anemia, unspecified (13) Diabetes mellitus Current Visit: Yes Status: Acute Plan: Will provide sliding scale. Will check A1c. Qualifiers: Diabetes mellitus type: type 2 Diabetes mellitus intermediate insulin use: without supervisor intermediates use Diabetes mellitus complication status: with other specified complication Qualified Code(s): E11.69 - Type 2 diabetes mellitus with other specified complication Discharge Plan: [facility] Plan to discharge in: Greater than 2 days - Advance Directives Does patient have a Living Will: No Does patient have a Durable POA for Healthcare: No - Code Status/Comfort Care Code Status Assessed: Yes (Discuss with family. Patient full code.) Time Spent Managing Pts Care (In Minutes): 65
[2018-07-02] MEDS ORDERED: LORazepam 2 MG/ML VIAL ONE (15:47)
[2018-07-02] MEDS: INSULIN -REGULAR HUMAN 50 UNIT/0.5 ML ML SQ SCH ×2 (16:30→21:00)
[2018-07-02] MEDS ORDERED: PIPER/TAZO/NS 3.375gm 3.375 GM/100 ML BAG IVPB SCH (17:00)
--- NOTE | 2018-07-02 17:00 | RAD REPORT ---
EXAM DESCRIPTION: MRI - Brain Wo Cont - 07/02/2018 4:29 pm CLINICAL HISTORY: ENCEPHALOPATHY CVA COMPARISON: MRA Head Wo Cont dated 07/02/2018; Head Brain Wo Cont dated 07/02/2018 TECHNIQUE: Multi-sequence, multiplanar MR imaging of the brain was performed without contrast. FINDINGS: Motion degradation is present on multiple sequences, degrading image quality. No intracran ial hemorrhage, hydrocephalus or extra-axial fluid collections. Advanced confluent T2/FLAIR hyperinte nsity in the periventricular and deep white matter is present compatible with chronic microvascular i schemic changes. No edema or shift of midline structures. No findings to suspect brain mass. DWI is n egative for acute CVA. Midline structures are normally formed. Mastoid air cells and paranasal sinuses are clear. IMPRESSION: No evidence of acute CVA or other acute intracranial process. Examination is limited by patient motion artifact.
--- NOTE | 2018-07-02 17:04 | RAD REPORT ---
EXAM DESCRIPTION: MRI - MRA Head Wo Cont - 07/02/2018 4:29 pm CLINICAL HISTORY: Encephalopathy, Evaluate for CVA COMPARISON: Head Brain Wo Cont dated 07/02/2018; Brain Wo Cont dated 07/02/2018 FINDINGS: Motion degradation is present. 3D noncontrast [id number] MR angiography of the [place] was performed. No flow-limiting stenosis, vascular malformation or aneurysm seen. IMPRESSION: No significant flow abnormality of the [place] is identified.
[2018-07-02] MEDS ORDERED: ENOXAPARIN 40 MG/0.4 ML SQ ONE (17:09)
[2018-07-02] MEDS: NA CHLORIDE 0.9% 1,000 ML IV SCH (18:30)
[2018-07-02] MEDS ORDERED: VANCOMYCIN/NS 1 gm 1 GM/250 ML BAG IVPB ONE (21:00)
[2018-07-02] MEDS ORDERED: GLUCAGON 1 MG/VIAL IM PRN (21:23)
[2018-07-03] MEDS: PIPER/TAZO/NS 3.375gm 3.375 GM/100 ML BAG IVPB SCH ×3 (00:14→17:01)
[2018-07-03] MEDS: NA CHLORIDE 0.9% 1,000 ML IV SCH ×2 (05:01)
[2018-07-03 05:03] LABS: Absolute Lymphocytes (CBC) 0.9 K/uL (0.7-4.9); Absolute Monocytes 0.7 K/uL (0.1-1.3); Absolute Neutrophil 4.4 K/uL (1.8-8.0); Basophils % 0.3 % (0-1.3); Eosinophils % 0.4 % (0-4.4); Hematocrit 27.4 % (36.0-45.0); Lymphocytes % 14.8 % (15.3-44.8); MCH 28.8 pg (27.0-35.0); MCV 88.1 fL (80-100); MPV 7.4 fL (7.6-11.3); Monocytes % 11.2 % (3.3-12.3); RBC Red Blood Cell Count 3.11 M/uL (3.86-4.86)
[2018-07-03] MEDS: INSULIN -REGULAR HUMAN 50 UNIT/0.5 ML ML SQ SCH ×5 (05:29→23:53)
[2018-07-03 05:32] LABS: Magnesium 1.6 mg/dL (1.8-2.4); Potassium 5.3 mmol/L (3.5-5.1)
[2018-07-03 05:37] LABS: Thyroid Stimulating Hormone 4.27 uIU/mL (0.36-3.74)
[2018-07-03] MEDS ORDERED: SOD POLYSTYREN SUL 15 GM/60 ML UCUP PO ONE ×2 (08:28→16:19)
[2018-07-03] MEDS: D5 0.45 NS 1,000 ML IV SCH ×2 (08:36→17:10)
[2018-07-03] MEDS: ENOXAPARIN 40 MG/0.4 ML SQ SCH (08:45)
[2018-07-03] MEDS: PANTOPRAZOLE 40 MG INJ IVP SCH (08:46)
[2018-07-03] MEDS ORDERED: VANCOMYCIN 1 GM in NA CHLORIDE 0.9% 500 ML IVPB SCH (09:00)
[2018-07-03] MEDS ORDERED: MAGNESIUM SULFATE 1 gm IVPB 1 GM/100 ML BAG IV ONE (09:00)
--- NOTE | 2018-07-03 11:31 | RAD REPORT ---
EXAM DESCRIPTION: RAD - Chest Single View - 07/03/2018 6:07 am CLINICAL HISTORY: follow up pneumonia Chest pain. COMPARISON: No comparisonsChest Single View dated 07/02/2018; Chest Single View dated 07/02/2018 FINDINGS: Portable technique limits examination quality. The lungs are grossly clear. The heart is mildly enlarged in size. Right-sided venous catheter tip in the SVC. Degenerative changes present both shoulders. IMPRESSION: No acute intrathoracic process suspected.
--- NOTE | 2018-07-03 12:06 | RAD REPORT ---
EXAM DESCRIPTION: RAD - Abdomen 1 View (KUB) - 07/03/2018 11:49 am CLINICAL HISTORY: dobhoff placement Enteric tube placement. COMPARISON: No comparisons FINDINGS: The tip of the enteric tube is just entering the stomach.
--- NOTE | 2018-07-03 13:40 | RAD REPORT ---
EXAM DESCRIPTION: CT - Abdomen Pelvis Wo Contrast - 07/03/2018 1:29 pm CLINICAL HISTORY: Abdominal pain. ridigd abd COMPARISON: None TECHNIQUE: CT imaging of the abdomen and pelvis was performed without contrast. Solid organ, bowel a nd vascular assessment is limited due to lack of IV and oral contrast. All CT scans are performed using dose optimization technique as appropriate and may include automated exposure control or mA/KV adjustment according to patient size. FINDINGS: Mild linear atelectasis with trace pleural fluid is present in both posterior lung bases.E nteric tube descends into the stomach. The liver, spleen, pancreas, adrenal glands and kidneys are within normal limits for a limited non-co ntrast examination. No bowel obstruction, free air, free fluid or abscess. Small fat containing umbilical hernia. The sam endix is normal. The uterus appears markedly enlarged with multiple calcified fibroids. Moderate lumbosacral degenerative changes.Old catheter is present in the urinary bladder. IMPRESSION: Significant enlargement of the uterus with multiple calcified fibroids. No acute intra-abdominopelvic finding identified. A limited non-contrast examination was performed as detailed.
[2018-07-03] MEDS: JEVITY 1.5 CAL LIQUID 1,000 ML BOT FT SCH (17:11)
[2018-07-03] MEDS ORDERED: JEVITY 1.5 CAL LIQUID 1,000 ML BOT FT SCH (18:00)
[2018-07-04] MEDS: PIPER/TAZO/NS 3.375gm 3.375 GM/100 ML BAG IVPB SCH ×3 (01:01→16:32)
[2018-07-04] MEDS: HYDRALAZINE HCL 20 MG/ML VIAL IV PRN ×2 (01:29→14:55)
[2018-07-04] MEDS: D5 0.45 NS 1,000 ML IV SCH ×2 (02:27→14:52)
--- NOTE | 2018-07-04 03:05 | HP ---
Date of Admission: 07/02/2018 Chief Complaint: Altered mental status and low blood pressure. History Of Present Illness: This is a 78-year-old female patient living at [facility], o was in her usual state of health until evening. Nurse contacted and informed me that the patient's urine was foul smelling and was concerned about possibility of urinary tract infection, so at that time nurse was advised to collect a straight cath urine specimen for urinalysis and urine cul ture and give 1 dose of Rocephin 1 g IM and start the patient on Bactrim DS 1 tablet p.o. b.i.d., whi ch was initiated yesterday, and the patient received her Rocephin injection night. Yesterda y morning, nurse contacted me from [facility] and informed me that the patient's condition had wors ened, now she has altered mental status, and blood pressure was running low between systolic 100 to 1 10. Normally, she has hypertension problem requiring antihypertensive medication. In any case, with this change in condition, she was sent to emergency room after she was evaluated in ER. The patient was admitted to the hospital. After patient was evaluated in ER, ER physician did not realize this was my patient and admitted the patient to hospitalist, and Dr. Hoff had evaluated the patient and then later on in the evening, I did communicate with Dr. Hoff about this mistake, and I took over h er care. When I saw her this morning, she was lying in bed in ICU, not in any distress, did not resp ond or answer any questions. Family member was at bedside. Allergies: NO KNOWN ALLERGIES. Medications: List reviewed. 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 Genitourinary: As mentioned above. All other systems unable to obtain because of the patient's altered mental status and current conditi on. Social History: Negative for smoking and alcohol use. Family History: Not pertinent. Past Medical History: Significant for hypertension, diabetes mellitus, dementia. Past Surgical History: Negative. Physical Examination: Vital Signs: Height 5 feet 1 inch, weight 162 pounds, initial blood pressure 88/55, respiratory rate 12, pulse rate 36, temperature 91.4. General: The patient lying in bed, not in any distress, but not answering any questions, not followi ng any commands. HEENT: Head atraumatic, normocephalic. Conjunctivae nonerythematous. Sclerae white. Mouth, no thr ush or edema noted. Ears/Nose, no mass, lesion, discharge noted. Neck: Supple. No JVD, lymph nodes, bruit, thyromegaly noted. Lungs: Bilateral good equal air entry. Clear to auscultation. No rhonchi. No rales. Heart: Normal heart sounds, no murmur or gallop. Abdomen: Appeared slightly firm. Bowel sounds normoactive. No guarding, rigidity. No tenderness. Extremities: No leg edema. No calf tenderness. Skin: No rash, ulcer, cellulitis. Lymphatics: No lymph node enlargement in neck, supraclavicular, infraclavicular region. Neuro: No focal neurological deficit. Chest: Unremarkable. External Genitalia: Deferred. Rectal: Deferred. Laboratory Data: White count 3, hemoglobin 9.9, platelets 248 yesterday. Today, white count 6, hemo globin 9, platelets 225. INR 1.03 yesterday. Sodium 145, potassium 5.3, chloride 114, bicarb 27, BU N 32, creatinine 1.10, glucose 173. SGOT 72, SGPT 71, alkaline phosphatase 123, troponin 0.02, lacti c acid 2.2. Procalcitonin level less than 0.04. This morning, sodium 148, potassium 5.3, chloride 1 20, BUN 33, creatinine 1.60, glucose 78. TSH 4.2. Urinalysis shows trace esterase, 5 to 10 wbc's, b acteria less than 20. On 07/01/2018, urinalysis had shown bacteria less than 20, wbc less than 5, es terase negative. Chest x-ray shows limited shallow inspiration film showing bilateral lung base opacification that cou ld be atelectasis or pneumonia. CAT scan of the head negative for any acute intracranial changes. M RI of the brain, no evidence of acute stroke or any other acute intracranial process. Electrocardiog efrain; sinus bradycardia, first-degree AV block. Impression: 1.Encephalopathy. 2.Septic shock. 3.Pneumonia. 4.Urinary tract infection. 5.Anemia. 6.Hypothermia. 7.Hypotension. 8.Hyperkalemia. 9.Dementia. 10.Diabetes mellitus. 11.Hypertension. Plan: Admit the patient to hospital for further evaluation and management of this problem. The jonathan ent is appropriate for inpatient and is expected to spend 2 midnights in hospital. IV fluid was give n to patient. IV antibiotics were started. We will continue current empiric antibiotic. Follow up on culture results. Currently, the patient is on Zosyn and vancomycin. Pharmacy consultation is in place for monitoring and managing vancomycin dose. The patient has received vasopressor medication, and when I saw her this morning, she did not require vasopressor medication at that time. Blood pres sure was stable. We will continue to monitor in ICU. The patient's altered mental status has not im proved this morning yet. IV fluid was ordered using D5 half-normal saline at 100 cc/hour, and also, it was ordered to have a Dobhoff tube placement and then to start her on feeding through the Dobhoff tube. We will continue current IV fluid. Monitor electrolytes, renal function. After I examined he r, CAT scan of the abdomen and pelvis was done today without contrast, which came back unremarkable f or any acute change except uterus appears to be enlarged consistent with fibroid uterus, but no other acute intraabdominal abnormality detected. We will keep the patient in ICU today. DVT prophylaxis and GI prophylaxis are in place using Lovenox and Protonix. Overall, prognosis is guarded. I will see her tomorrow for followup. ANUPAMA/RANDALL Voice ID: [id number]
[2018-07-04 05:49] LABS: Absolute Lymphocytes (CBC) 1.5 K/uL (0.7-4.9); Absolute Monocytes 1.2 K/uL (0.1-1.3); Absolute Neutrophil 4.2 K/uL (1.8-8.0); Basophils % 0.1 % (0-1.3); Eosinophils % 0.9 % (0-4.4); Hematocrit 24.9 % (36.0-45.0); Lymphocytes % 21.9 % (15.3-44.8); MCH 28.9 pg (27.0-35.0); MCV 86.7 fL (80-100); MPV 7.8 fL (7.6-11.3); Monocytes % 17.4 % (3.3-12.3); RBC Red Blood Cell Count 2.87 M/uL (3.86-4.86)
[2018-07-04] MEDS: INSULIN -REGULAR HUMAN 50 UNIT/0.5 ML ML SQ SCH ×3 (06:00→18:21)
[2018-07-04] MEDS: D50W 25 GM/50 ML SYRINGE IV PRN ×3 (06:10→06:50)
[2018-07-04 06:19] LABS: Magnesium 1.8 mg/dL (1.8-2.4); Potassium 3.6 mmol/L (3.5-5.1)
[2018-07-04] MEDS ORDERED: MAGNESIUM SULFATE 1 gm IVPB 1 GM/100 ML BAG IV ONE (06:32)
[2018-07-04] MEDS ORDERED: D50W 25 GM/50 ML SYRINGE IV ONE (08:31)
[2018-07-04] MEDS: PANTOPRAZOLE 40 MG INJ IVP SCH (08:34)
[2018-07-04] MEDS: ENOXAPARIN 30 MG/0.3 ML SQ SCH (08:35)
[2018-07-04] MEDS ORDERED: VANCOMYCIN 1.5 GM in NA CHLORIDE 0.9% 500 ML IVPB SCH (09:00)
[2018-07-04 09:25] LABS: Blood Morphology Comment NOT SEEN (NOT SEEN); Platelet Estimate ADEQ
[2018-07-04 09:47] LABS: Arterial Blood Carboxyhemoglob 0.1 % (0-1.5); Blood Gas Oxyhemoglobin 94.6 % (94-97)
--- NOTE | 2018-07-04 09:54 | P.CNS ---
Date of Consult: 07/04/18 Primary Care Provider: longterm physician Chief Complaint: Altered mental status History of Present Illness: Patient is 78 years of age a [facility] resident admitted with altered mental status hypotension tachycardia as a history of end-stage dementia. Admitted with possible sepsis patient was found to be hypoglycemic secondary to an insulin drip he is unresponsive oxygenation satisfactory. Cultures so far negative Vital signs are satisfactory patient admitted with mild renal insufficiency anemia and no history of GI bleed Allergies No Known Allergies Allergy (Verified 07/02/18 18:57) Home Medications: Acetaminophen [Tylenol] 650 mg PO DAILY PRN 07/02/18 Allopurinol 100 mg PO BID 07/02/18 Amlodipine [Norvasc] 5 mg PO BID 07/02/18 Aspirin Chewable [Aspirin Chewable*] 81 mg PO DAILY 07/02/18 Carvedilol [Coreg] 12.5 mg PO BID 07/02/18 Cholecalciferol (Vitamin D3) [Vitamin D 5,000 Iu Cap] 5,000 unit PO DAILY Citalopram [Celexa] 10 mg PO BEDTIME 07/02/18 Donepezil [Aricept*] 10 mg PO BEDTIME 07/02/18 Ferrous Sulfate [Feosol] 325 mg PO DAILY 07/02/18 Insulin Aspart [Novolog Flexpen] See Protocol SQ AC 07/02/18 Insulin Degludec [Tresiba Flextouch U-100] 8 units SQ BEDTIME 07/02/18 Lorazepam [Ativan] 0.5 mg PO BEDTIME 07/02/18 Losartan Potassium [Cozaar] 100 mg PO DAILY 07/02/18 Mag Hydroxide 8% [Milk Of Magnesia] 30 ml PO Q7D 07/02/18 Memantine HCl [Memantine HCl ER] 28 mg PO DAILY 07/02/18 Metformin HCl [Glucophage] 500 mg PO BIDWM 07/02/18 Multivitamin [Multivitamins] 1 each PO DAILY 07/02/18 Sennosides/Docusate Sodium [Stimulant Laxative Plus Tablet] 1 each PO DAILY 09/09 risperiDONE [Risperdal 0.25 MG TAB*] 1 tab PO DAILY 07/02/18 - Past Medical/Surgical History Diabetic: Yes -: Diabetes mellitus type 2 -: Hypertension -: Severe dementia -: CAD -: anemia -: muscle weakness -: depression Psychosocial/ Personal History: [facility] lives in a [facility] for almost [facility] years. She has 2 children. She is currently . - Social History Alcohol use: No CD- Drugs: No Caffeine use: No Place of Residence: Intermediate Review of Systems is unable to be obtained Physical Examination Temp Pulse Resp BP Pulse Ox 98.7 F 89 15 150/76 H 99 07/04/18 09:05 07/04/18 07:00 07/04/18 07:00 07/04/18 07:00 07/04/18 07:00 General: Comatose Neck: Supple Respiratory: Clear to auscultation bilaterally, Diminished Cardiovascular: No edema, Normal S1 S2 Gastrointestinal: Normal bowel sounds, Soft and benign - Problems (1) Altered auditory perception Current Visit: Yes Status: Acute Plan: Patient is 78 years of a [facility] resident with dementia admitted with altered mental status she is currently unresponsive hypoglycemic at the glycemia probably secondary to the insulin drip which has been discontinued mildly anemic normal white count cultures are so far negative vital signs stable oxygenation satisfactory ABGs satisfactory patient's chest x-rays clear free T4 is normal she is currently a broad-spectrum antibiotics extensive workup including MRI is negative
[2018-07-04] MEDS: THIAMINE 200 MG/2 ML INJ IVP SCH (11:24)
--- NOTE | 2018-07-04 12:01 | PN ---
Date of Progress Note: 07/04/2018 Subjective: The patient was seen this morning for followup. She was lying in bed, not following any commands, but was making some moaning type of noise as respiratory therapist was trying to do suctio n. Details were discussed with ICU nursing staff yesterday. During the course of day, she was tryin g to grab things, but still did not wake up, did not get back to her baseline. Overnight, her condit ion remained stable, except early this morning, she had hypoglycemia noted on the blood test. Her ch em-7 drawn at 5 a.m. had shown blood glucose of 11. Her last fingerstick blood sugar was 138 at 2351 last night. Nursing staff contacted physician who was fashion journalist for me and IV D50 was given for treat ment of this hypoglycemia problem. By the time I saw her this morning in ICU, her glucose was back t o normal anywhere in range of 140 to 200 range. Objective: Vital signs: Reviewed. Intake and output records reviewed. HEENT: Unremarkable. Lungs: Clear to auscultation. No rhonchi or rales. Heart: Sounds normal. Abdomen: Soft. Bowel sounds normal. No guarding, rigidity, tenderness, distention. Extremities: No leg edema. Laboratory Data: Sodium 149, potassium 3.6, chloride 119, bicarb 22, BUN 21, creatinine 1.40, glucos e 11, magnesium 1.8. Blood gas done this morning; pH 7.34, pCO2 38.2, pO2 90.9, this was done on [place] m air. White count 7, hemoglobin 8.3, platelets 185. Impression: 1.Urinary tract infection. 2.Pneumonia. 3.Septic shock. 4.Probable stroke. 5.Hypoglycemia. 6.Diabetes mellitus. 7.Hypertension. 8.Volume depletion. 9.Dementia. Plan: So far culture remains negative, we will continue current empiric antibiotics. Continue IV fl uid. Her hypernatremia problem and volume depletion problem are slowly improving. We will continue that current IV fluid, her Dobhoff tube feeding. She was getting currently at 50 cc/hour and is tole rating that very well, we will continue that. Her CAT scan of the brain and MRI of the brain were ne gative when she came into the hospital, but I still suspect that we need to keep in mind about possib ility of small stroke along with septic shock to account for this current altered mental status. Oth er contributing factor as of this morning for this hypoglycemia that she has could be that medication entered by night nurse. It was brought to my attention by ICU nurse this morning that she found out insulin bag that was supposed to be given to another ICU patient was hanging on this the patient's I V pole and nurse did not know if the patient received this insulin dose or not and as soon as she inf ormed me, I have asked her to investigate this and notify appropriate hospital lease administrator to inves tigate this matter into details so that way appropriate actions can be taken. 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 In any case, we will continue to keep her in ICU for close monitoring. I also have informed the patient's daughter about all these details including possibility of medica tions. Prior to finding of this medication, I did communicate with the patient's son as well this mo rning. As per my discussion with the patient's son this morning, the patient remains full code. Det ails were also discussed with Dr. Joaquin, security risk analyst. ANUPAMA/MODL Voice ID: [id number] Report ID: [id number]
[2018-07-04] MEDS: JEVITY 1.5 CAL LIQUID 1,000 ML BOT FT SCH (16:33)
[2018-07-04] MEDS ORDERED: GLUCAGON 1 MG/VIAL IM PRN (18:25)
[2018-07-04] MEDS ORDERED: D50W 25 GM/50 ML SYRINGE IV PRN (18:25)
[2018-07-05] MEDS: INSULIN -REGULAR HUMAN 50 UNIT/0.5 ML ML SQ SCH ×4 (00:34→18:00)
[2018-07-05] MEDS: PIPER/TAZO/NS 3.375gm 3.375 GM/100 ML BAG IVPB SCH ×3 (00:34→16:14)
[2018-07-05] MEDS: HYDRALAZINE HCL 20 MG/ML VIAL IV PRN (01:15)
[2018-07-05] MEDS: D5 0.45 NS 1,000 ML IV SCH (01:18)
[2018-07-05 05:24] LABS: Absolute Lymphocytes (CBC) 1.3 K/uL (0.7-4.9); Absolute Monocytes 1.2 K/uL (0.1-1.3); Basophils % 0.6 % (0-1.3); Eosinophils % 1.8 % (0-4.4); Hematocrit 27.8 % (36.0-45.0); Lymphocytes % 16.6 % (15.3-44.8); MCH 28.5 pg (27.0-35.0); MCV 86.2 fL (80-100); MPV 8.1 fL (7.6-11.3); Monocytes % 15.4 % (3.3-12.3); RBC Red Blood Cell Count 3.23 M/uL (3.86-4.86)
[2018-07-05 05:50] LABS: Magnesium 1.9 mg/dL (1.8-2.4); Potassium 4.1 mmol/L (3.5-5.1)
--- NOTE | 2018-07-05 07:02 | ECHO ---
HEIGHT: 5 ft 1 in WEIGHT: 172 lb 1.6 oz DATE OF STUDY: 07/02/[address]: Rishabh Hoff DO 2-DIMENSIONAL: YES M.MODE: YES DOPPLER: YES COLOR FLOW: YES TDS: PORTABLE: DEFINITY: BUBBLE STUDY: DIAGNOSIS: HYPERTENSION, SEPSIS CARDIAC HISTORY: CATHERIZATION: NO SURGERY: NO PROSTHETIC VALVE: NO PACEMAKER: NO MEASUREMENTS (cm) DIASTOLIC (NORMALS) SYSTOLIC (NORMALS) IVSd 1.0 (0.6-1.2) LA Diam 3.8 (1.9-4.0) LVEF 73% LVIDd 4.3 (3.5-5.7) LVIDs 2.5 (2.0-3.5) %FS 42% LVPWd 1.0 (0.6-1.2) Ao Diam 2.8 (2.0-3.7) 2 DIMENSIONAL ASSESSMENT: RIGHT ATRIUM: NORMAL LEFT ATRIUM: NORMAL RIGHT VENTRICLE: NORMAL LEFT VENTRICLE: NORMAL TRICUSPID VALVE: NORMAL MITRAL VALVE: MITRAL ANNULAR CALCIFICATION PULMONIC VALVE: NORMAL AORTIC VALVE: SCLEROSIS PERICARDIAL EFFUSION: NONE AORTIC ROOT: NORMAL LEFT VENTRICULAR WALL MOTION: DOPPLER/COLOR FLOW: MILD TRICUSPID REGURGITATION. MILD PULMONARY HYPERTENSION. NO AORTIC STENOSIS OR AORTIC REGURGITATION. ESTIMATED RIGHT VENTRICULAR SYSTOLIC PRESSURE 38 mmHg. COMMENTS: NORMAL LEFT VENTRICULAR EJECTION FRACTION. MITRAL ANNULAR CALCIFICATION. AORTIC SCLEROSIS WITH NO AORTIC STENOSIS OR AORTIC REGURGITATION. MILD TRICUSPID REGURGITATION. MILD PULMONARY HYPERTENSION. TECHNOLOGIST: DELFINA OLIVAS
[2018-07-05] MEDS: PANTOPRAZOLE 40 MG INJ IVP SCH (08:24)
[2018-07-05] MEDS: ENOXAPARIN 30 MG/0.3 ML SQ SCH (08:24)
[2018-07-05] MEDS: THIAMINE 200 MG/2 ML INJ IVP SCH (08:25)
[2018-07-05] MEDS: INSULIN GLARGINE 100 UNITS/ML SQ SCH (08:25)
[2018-07-05] MEDS: VANCOMYCIN 1.5 GM in NA CHLORIDE 0.9% 500 ML IVPB SCH (09:28)
[2018-07-05] MEDS ORDERED: D5 0.45 NS 1,000 ML IV SCH (11:00)
[2018-07-05] MEDS ORDERED: FUROSEMIDE 40 MG/4 ML VIAL IV ONE (11:21)
--- NOTE | 2018-07-05 12:20 | RAD REPORT ---
EXAM DESCRIPTION: Charissa Single View07/05/2018 11:55 am CLINICAL HISTORY: Shortness of breath COMPARISON: July 03, 2018 FINDINGS: The lungs appear clear of acute infiltrate. The heart is mildly to moderately enlarged. A central venous line has its tip in the superior vena cava. A feeding tube has its tip 6 centimeters into the stomach IMPRESSION: No acute abnormalities displayed
[2018-07-05] MEDS: JEVITY 1.5 CAL LIQUID 1,000 ML BOT FT SCH (17:32)
--- NOTE | 2018-07-05 22:12 | PN ---
Date of Progress Note: 07/05/2018 Subjective: The patient was seen this morning for followup. She was lying in bed in ICU. No new co mplaints or problems reported by her, but her mental status was better. She was noted to be moving h er left upper extremity spontaneously, and she did try to communicate with me, even though her speech was not quite clear, but at least this is much better than last 2 to 3 days. Objective: Vital Signs: Reviewed. HEENT: Unremarkable. Lungs: Bilateral good equal air entry. No rhonchi or rales. Heart: Sounds normal. Abdomen: Soft. Bowel sounds normal. No guarding, rigidity, tenderness, or distention. Extremities: No leg edema. Laboratory Data: Labs reviewed. Impression: 1.Urinary tract infection. 2.Pneumonia. 3.Septic shock. 4.Hypovolemia. 5.Probable stroke. 6.Diabetes mellitus. 7.Hypertension. Plan: Fingerstick blood sugar readings reviewed. When I saw her this morning, she had nasal trumpet in place in left nostril, and she was sounding nasally congested, and I did ask nurse to see if Dr. Joaquin is okay to remove this nasal trumpet, and her IV fluid was reduced to 40 cc/hour. She is to lerating tube feeding very well through Dobhoff tube, which is at 50 cc/hour. Her volume depletion p roblem has improved. Hypernatremia problem has improved. We will continue current antibiotics and I V fluid rate was reduced to 40 cc/hour. This afternoon when nurse contacted and informed me that the patient had rales in both lungs, at that time, IV fluid was ordered to be stopped and chest x-ray wa s ordered and 40 mg Lasix IV times 1 dose was ordered. I will see her tomorrow for followup. Depend ing on her condition tomorrow, we will decide if we can move her out of ICU to regular room tomorrow or not. Hypoglycemia and hypothermia problems have resolved. ANUPAMA/MODL Voice ID: [id number] Report ID: [id number]
[2018-07-06] MEDS: PIPER/TAZO/NS 3.375gm 3.375 GM/100 ML BAG IVPB SCH ×3 (00:21→16:24)
[2018-07-06] MEDS: INSULIN -REGULAR HUMAN 50 UNIT/0.5 ML ML SQ SCH ×5 (04:59→23:23)
[2018-07-06 05:38] LABS: Absolute Lymphocytes (CBC) 1.4 K/uL (0.7-4.9); Absolute Monocytes 1.3 K/uL (0.1-1.3); Absolute Neutrophil 3.6 K/uL (1.8-8.0); Basophils % 0.3 % (0-1.3); Eosinophils % 3.7 % (0-4.4); Hematocrit 26.6 % (36.0-45.0); Lymphocytes % 20.8 % (15.3-44.8); MCH 28.6 pg (27.0-35.0); MCV 86.7 fL (80-100); MPV 8.1 fL (7.6-11.3); Monocytes % 19.7 % (3.3-12.3); RBC Red Blood Cell Count 3.06 M/uL (3.86-4.86)
[2018-07-06 05:42] LABS: Magnesium 1.8 mg/dL (1.8-2.4); Potassium 4.1 mmol/L (3.5-5.1)
[2018-07-06] MEDS ORDERED: MAGNESIUM SULFATE 1 gm IVPB 1 GM/100 ML BAG IV ONE (05:51)
[2018-07-06] MEDS: THIAMINE 200 MG/2 ML INJ IVP SCH (08:44)
[2018-07-06] MEDS: PANTOPRAZOLE 40 MG INJ IVP SCH (08:44)
[2018-07-06] MEDS: ENOXAPARIN 40 MG/0.4 ML SQ SCH (08:45)
[2018-07-06] MEDS: INSULIN GLARGINE 100 UNITS/ML SQ SCH (08:46)
[2018-07-06] MEDS: VANCOMYCIN 1.5 GM in NA CHLORIDE 0.9% 500 ML IVPB SCH (08:47)
[2018-07-06] MEDS: CARVEDILOL 12.5 MG TAB FT SCH ×2 (08:54→20:40)
[2018-07-06] MEDS: MULTIVIT W/ MINERAL TAB FT SCH (08:54)
[2018-07-06] MEDS: AMLODIPINE 5 MG TAB FT SCH ×2 (08:54→20:40)
[2018-07-06] MEDS: ASPIRIN 81 MG CHEWABLE TABLET FT SCH (08:55)
[2018-07-06] MEDS: ALLOPURINOL 100 MG TAB FT SCH ×2 (08:55→20:39)
[2018-07-06] MEDS ORDERED: MAGNESIUM HYDROXIDE 8% 30 ML FT SCH (09:00)
[2018-07-06] MEDS: JEVITY 1.5 CAL LIQUID 1,000 ML BOT FT SCH (14:26)
[2018-07-06] MEDS: CITALOPRAM 10 MG TABLET FT SCH (20:39)
[2018-07-06] MEDS: DONEPEZIL HCL 5 MG TAB FT SCH (20:39)
[2018-07-07] MEDS: PIPER/TAZO/NS 3.375gm 3.375 GM/100 ML BAG IVPB SCH ×3 (00:04→16:47)
--- NOTE | 2018-07-07 00:28 | PN ---
Date of Progress Note: 07/06/2018 Subjective: The patient was seen this morning for followup. She was lying in bed in ICU, not in dis tress. Dobhoff tube present. Tolerating feeding very well. Intake and output records reviewed. Objective: Vital Signs: Reviewed. HEENT: Unremarkable. Lungs: Clear to auscultation. No rhonchi. No rales. Heart: Sounds normal. Abdomen: Soft, bowel sounds normal. No guarding, rigidity, tenderness, or distention. Extremities: No leg edema. 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 She does not follow commands to m ove her upper extremity on verbal command, but spontaneously she was noted to be moving left upper ex tremity. She does not move her right upper extremity. Laboratory Data: Chest x-ray from yesterday, no acute changes. White count today 6.6, hemoglobin 8. 8, platelets 187. Sodium 142, potassium 4.1, chloride 108, bicarb 27, BUN 15, creatinine 1.10, gluco se 174, magnesium 1.8. Impression: 1.Septic shock, improved. 2.Pneumonia. 3.Urinary tract infection. 4.Hypoglycemia, resolved. 5.Anemia. 6.Hypertension. 7.Diabetes mellitus. 8.Probable stroke. Plan: We will go ahead and consult Physical Therapy, Speech Therapy, Occupational Therapy. Continue current tube feeding. Home medications will be continued including antihypertensive medication per order and I will see her tomorrow for followup. The patient's family has decided do not intubate as the decision for advance directive as per my discussion with [facility] nursing staff. ANUPAMA/MODL Voice ID: [id number] Report ID: [id number]
[2018-07-07] MEDS: INSULIN -REGULAR HUMAN 50 UNIT/0.5 ML ML SQ SCH ×3 (05:04→18:00)
[2018-07-07 05:44] LABS: Absolute Lymphocytes (CBC) 0.9 K/uL (0.7-4.9); Absolute Monocytes 1.4 K/uL (0.1-1.3); Absolute Neutrophil 4.9 K/uL (1.8-8.0); Basophils % 0.2 % (0-1.3); Eosinophils % 5.2 % (0-4.4); Hematocrit 27.1 % (36.0-45.0); Lymphocytes % 12.5 % (15.3-44.8); MCH 28.6 pg (27.0-35.0); MCV 86.7 fL (80-100); MPV 7.8 fL (7.6-11.3); Monocytes % 18.2 % (3.3-12.3); RBC Red Blood Cell Count 3.13 M/uL (3.86-4.86)
[2018-07-07 05:49] LABS: Magnesium 2.4 mg/dL (1.8-2.4); Potassium 4.6 mmol/L (3.5-5.1)
[2018-07-07] MEDS: PANTOPRAZOLE 40 MG INJ IVP SCH (09:06)
[2018-07-07] MEDS: INSULIN GLARGINE 100 UNITS/ML SQ SCH (09:06)
[2018-07-07] MEDS: THIAMINE 200 MG/2 ML INJ IVP SCH (09:06)
[2018-07-07] MEDS: MULTIVIT W/ MINERAL TAB FT SCH (09:07)
[2018-07-07] MEDS: ENOXAPARIN 40 MG/0.4 ML SQ SCH (09:07)
[2018-07-07] MEDS: ALLOPURINOL 100 MG TAB FT SCH ×2 (09:07→21:10)
[2018-07-07] MEDS: CARVEDILOL 12.5 MG TAB FT SCH ×2 (09:07→21:12)
[2018-07-07] MEDS: ASPIRIN 81 MG CHEWABLE TABLET FT SCH (09:08)
[2018-07-07] MEDS: AMLODIPINE 5 MG TAB FT SCH ×2 (09:08→21:11)
--- NOTE | 2018-07-07 12:28 | RAD REPORT ---
EXAM DESCRIPTION: RAD - Barium Swallow Modified - 07/07/2018 11:54 am CLINICAL HISTORY: Coughing/choking FINDINGS: Laryngeal Penetration: not cleared with thin via teaspoon Aspiration: no cough with thin via cup sip. Pharyngeal residue: Vallecular and Pyriform. Fluoroscopy time 2 minutes 19 seconds Fifteen fluoroscopic spot series were obtained
[2018-07-07] MEDS: JEVITY 1.5 CAL LIQUID 1,000 ML BOT FT SCH (12:52)
[2018-07-07] MEDS ORDERED: VANCOMYCIN 1.5 GM in NA CHLORIDE 0.9% 500 ML IVPB SCH (21:00)
[2018-07-07] MEDS: DONEPEZIL HCL 5 MG TAB FT SCH (21:10)
[2018-07-07] MEDS: CITALOPRAM 10 MG TABLET FT SCH (21:10)
[2018-07-08] MEDS: PIPER/TAZO/NS 3.375gm 3.375 GM/100 ML BAG IVPB SCH ×3 (00:27→18:29)
--- NOTE | 2018-07-08 02:14 | PN ---
Date of Progress Note: 07/07/2018 Subjective: The patient was seen this morning for followup. No new complaints or problems reported by ICU nurse. The patient was sleeping, not in distress. Dobbhoff tube was present. Objective: Vital Signs: Reviewed. HEENT: Unremarkable. Lungs: Clear to auscultation. Heart: Heart sounds normal. Abdomen: Soft. Bowel sounds normal. No guarding, rigidity, tenderness, or distention. Extremities: No leg edema. Laboratory Data: Reviewed. Impression: 1.Urinary tract infection. 2.Pneumonia. 3.Volume depletion. 4.Diabetes mellitus. 5.Hypertension. 6.Stroke. Plan: We will continue current medications. Speech therapy and modified barium swallow were done to day. Diet was started as per recommendation from speech therapy, which she has tolerated very well. Order was given to ICU nurse to go ahead and continue Dobhoff tube feeding with current formula that she has in her bag and after that, not to reorder any more tube feeding, but to continue to keep her Dobbhoff tube in place in case if she needed and in next day or 2 days, we will decide if we can rem ove Dobbhoff tube or not. Continue other current medications. Fingerstick blood sugar readings revi ewed. We will continue current insulin and antihypertensive medications. We will see her tomorrow for judy vital. ANUPAMA/MODL Voice ID: [id number] Report ID: [id number]
[2018-07-08] MEDS: INSULIN -REGULAR HUMAN 50 UNIT/0.5 ML ML SQ SCH ×5 (06:00→21:00)
[2018-07-08 06:14] LABS: Absolute Lymphocytes (CBC) 1.2 K/uL (0.7-4.9); Absolute Monocytes 1.4 K/uL (0.1-1.3); Absolute Neutrophil 5.1 K/uL (1.8-8.0); Basophils % 0.2 % (0-1.3); Eosinophils % 4.5 % (0-4.4); Hematocrit 26.3 % (36.0-45.0); MCH 28.4 pg (27.0-35.0); MCV 86.4 fL (80-100); Monocytes % 17.2 % (3.3-12.3); RBC Red Blood Cell Count 3.04 M/uL (3.86-4.86)
[2018-07-08 06:31] LABS: Magnesium 2.3 mg/dL (1.8-2.4); Potassium 4.9 mmol/L (3.5-5.1)
[2018-07-08 07:34] LABS: Blood Morphology Comment NOT SEEN (NOT SEEN); Platelet Estimate ADEQ; Urine White Blood Cell Casts OK
[2018-07-08] MEDS: CARVEDILOL 12.5 MG TAB FT SCH ×2 (08:31→22:16)
[2018-07-08] MEDS: AMLODIPINE 5 MG TAB FT SCH ×2 (08:31→22:16)
[2018-07-08] MEDS: MULTIVIT W/ MINERAL TAB FT SCH (08:31)
[2018-07-08] MEDS: ASPIRIN 81 MG CHEWABLE TABLET FT SCH (08:34)
[2018-07-08] MEDS: ENOXAPARIN 40 MG/0.4 ML SQ SCH (08:34)
[2018-07-08] MEDS: THIAMINE 200 MG/2 ML INJ IVP SCH (08:34)
[2018-07-08] MEDS: PANTOPRAZOLE 40 MG INJ IVP SCH (08:35)
[2018-07-08] MEDS: ALLOPURINOL 100 MG TAB FT SCH ×2 (08:35→22:17)
[2018-07-08] MEDS: INSULIN GLARGINE 100 UNITS/ML SQ SCH (08:45)
[2018-07-08] MEDS ORDERED: D50W 25 GM/50 ML SYRINGE IV PRN (10:17)
[2018-07-08] MEDS ORDERED: GLUCAGON 1 MG/VIAL IM PRN (10:17)
[2018-07-08] MEDS: CITALOPRAM 10 MG TABLET FT SCH (22:16)
[2018-07-08] MEDS: DONEPEZIL HCL 5 MG TAB FT SCH (22:17)
--- NOTE | 2018-07-09 00:30 | PN ---
Date of Progress Note: 07/08/2018 Subjective: The patient was seen this morning for followup. She was lying in bed in ICU, not in dis tress. She was trying to communicate answer, but not appropriately because of her underlying dementi a problem. She was smiling and she is back to her normal self as far as her overall appearance and a bility to communicate these concerns. Objective: Vital Signs: Reviewed. HEENT: Examination unremarkable. Lungs: Clear to auscultation. Heart: Sounds normal. Abdomen: Soft. Bowel sounds normal. No guarding, rigidity, tenderness, or distention. Extremities: No leg edema. Laboratory Data: White count 8.1, hemoglobin 8.6, platelets 195. Sodium 140, potassium 4.9, chlorid e 106, bicarb 31, BUN 19, creatinine 1.10, glucose 126, magnesium 2.3. Impression: 1.Urinary tract infection. 2.Septic shock, resolved. 3.Hypertension. 4.Diabetes mellitus. 5.Anemia. 6.Stroke. 7.Dementia. Plan: We will continue current medications. Continue current antibiotic. Vancomycin was discontinu ed yesterday. We will continue Zosyn. Continue current diabetes management and antihypertensive med ication. Physical therapy to continue to work with the patient. The patient is tolerating diet very well. She did pull out her Dobhoff tube last night and considering she is tolerating diet very well . As per recommendation from Speech Therapy, there is no need to replace tube at this point. The lenin marquis is stable for transfer from out of ICU to regular medical floor and see copy of transfer order for more details. ANUPAMA/MODL Voice ID: [id number] Report ID: [id number]
[2018-07-09] MEDS: PIPER/TAZO/NS 3.375gm 3.375 GM/100 ML BAG IVPB SCH ×3 (00:59→16:24)
[2018-07-09] MEDS: HYDRALAZINE HCL 20 MG/ML VIAL IV PRN (04:41)
[2018-07-09] MEDS: INSULIN -REGULAR HUMAN 50 UNIT/0.5 ML ML SQ SCH ×4 (07:30→21:00)
[2018-07-09] MEDS: INSULIN GLARGINE 100 UNITS/ML SQ SCH (08:44)
[2018-07-09] MEDS: MULTIVIT W/ MINERAL TAB FT SCH (09:00)
[2018-07-09] MEDS: ENOXAPARIN 40 MG/0.4 ML SQ SCH (09:00)
[2018-07-09] MEDS: ASPIRIN 81 MG CHEWABLE TABLET FT SCH (09:00)
[2018-07-09] MEDS: AMLODIPINE 5 MG TAB FT SCH ×2 (09:00→21:20)
[2018-07-09] MEDS: ALLOPURINOL 100 MG TAB FT SCH ×2 (09:00→21:21)
[2018-07-09] MEDS: CARVEDILOL 12.5 MG TAB FT SCH ×2 (09:00→21:21)
[2018-07-09] MEDS: THIAMINE 200 MG/2 ML INJ IVP SCH (09:00)
[2018-07-09] MEDS: PANTOPRAZOLE 40 MG INJ IVP SCH (09:00)
[2018-07-09] MEDS: CITALOPRAM 10 MG TABLET FT SCH (21:20)
[2018-07-09] MEDS: DONEPEZIL HCL 5 MG TAB FT SCH (21:20)
[2018-07-10] MEDS: PIPER/TAZO/NS 3.375gm 3.375 GM/100 ML BAG IVPB SCH ×3 (01:55→16:50)
--- NOTE | 2018-07-10 03:32 | PN ---
Date of Progress Note: 07/09/2018 Subjective: The patient was seen this morning for followup. No new complaints or problems reported by her. She was lying in bed. She was trying to communicate with me, but it was hard to understand, but this is like her back to normal self. She is smiling every time we try to communicate with her. Objective: Vital Signs: Reviewed. HEENT: Examination unremarkable. Lungs: Clear to auscultation. Heart: Sounds normal. Abdomen: Soft. Bowel sounds normal. No guard ing, rigidity, tenderness, or distention. Extremities: No leg edema. Impression: 1.Septic shock. 2.Urinary tract infection. 3.Hypertension. 4.Diabetes mellitus. Plan: Continue current medications. Continue Zosyn. Lovenox other current antihypertensive medicat ion, diabetes management. I will see her tomorrow for followup. ANUPAMA/MODL Voice ID: [id number] Report ID: [id number]
[2018-07-10] MEDS: INSULIN -REGULAR HUMAN 50 UNIT/0.5 ML ML SQ SCH ×4 (07:30→21:00)
[2018-07-10] MEDS: PANTOPRAZOLE 40 MG INJ IVP SCH (09:25)
[2018-07-10] MEDS: CARVEDILOL 12.5 MG TAB FT SCH ×2 (09:25→21:29)
[2018-07-10] MEDS: MULTIVIT W/ MINERAL TAB FT SCH (09:25)
[2018-07-10] MEDS: ENOXAPARIN 40 MG/0.4 ML SQ SCH (09:25)
[2018-07-10] MEDS: AMLODIPINE 5 MG TAB FT SCH ×2 (09:25→21:28)
[2018-07-10] MEDS: ALLOPURINOL 100 MG TAB FT SCH ×2 (09:26→21:30)
[2018-07-10] MEDS: ASPIRIN 81 MG CHEWABLE TABLET FT SCH (09:26)
[2018-07-10] MEDS: THIAMINE 200 MG/2 ML INJ IVP SCH (09:26)
[2018-07-10] MEDS: INSULIN GLARGINE 100 UNITS/ML SQ SCH (10:22)
[2018-07-10 11:07] LABS: Absolute Lymphocytes (CBC) 1.1 K/uL (0.7-4.9); Absolute Monocytes 0.8 K/uL (0.1-1.3); Absolute Neutrophil 3.7 K/uL (1.8-8.0); Basophils % 0.4 % (0-1.3); Eosinophils % 4.4 % (0-4.4); Hematocrit 28.5 % (36.0-45.0); Lymphocytes % 18.6 % (15.3-44.8); MCV 86.4 fL (80-100); MPV 7.3 fL (7.6-11.3); Monocytes % 14.3 % (3.3-12.3)
[2018-07-10 11:21] LABS: Potassium 5.1 mmol/L (3.5-5.1)
--- NOTE | 2018-07-10 12:35 | RAD REPORT ---
EXAM DESCRIPTION: Charissa Single View07/10/2018 11:56 am CLINICAL HISTORY: Chest pain COMPARISON: July 05 FINDINGS: The right hemidiaphragm is elevated The lungs appear clear of acute infiltrate. The heart is mildly enlarged A central venous line has its tip in the superior vena cava
--- NOTE | 2018-07-10 14:37 | PN ---
Date of Progress Note: 07/10/2018 Subjective: The patient was seen this morning for followup. No new complaints or problems reported by patient, lying in bed. She is smiling, communicating lot better today than last few days. Her fa alicia was present with her at bedside. Objective: Vital Signs: Reviewed. HEENT: Examination unremarkable. Lungs: Clear to auscultation. No rhonchi or rales. Heart: Sounds normal. Abdomen: Soft. Bowel sounds normal. No guarding, rigidity, tenderness, or distention. Extremities: No leg edema. Laboratory Data: White count 6, hemoglobin 9.3, platelets 240. Sodium 139, potassium 5.1, chloride 105, bicarb 28, BUN 23, creatinine 1.40, glucose 155. Impression: 1.Pneumonia. 2.Urinary tract infection. 3.Hypertension. 4.Diabetes mellitus. 5.Anemia. 6.Stroke with right-sided hemiparesis. Plan: We will continue current medications. Continue current antihypertensive medication, diabetes management. Fingerstick blood sugar readings reviewed. We will get a chest x-ray done today. Remove Londono catheter and possible discharge to go to snf tomorrow. Details were discussed with the patient and family. ANUPAMA/MODL Voice ID: [id number] Report ID: [id number]
[2018-07-10] MEDS: CITALOPRAM 10 MG TABLET FT SCH (21:29)
[2018-07-10] MEDS: DONEPEZIL HCL 5 MG TAB FT SCH (21:29)
[2018-07-11] MEDS: PIPER/TAZO/NS 3.375gm 3.375 GM/100 ML BAG IVPB SCH ×3 (00:07→16:46)
[2018-07-11 06:49] VITALS: BMI 31.2
[2018-07-11] MEDS: INSULIN -REGULAR HUMAN 50 UNIT/0.5 ML ML SQ SCH ×4 (07:30→21:00)
[2018-07-11] MEDS: ENOXAPARIN 40 MG/0.4 ML SQ SCH (09:18)
[2018-07-11] MEDS: AMLODIPINE 5 MG TAB FT SCH ×2 (09:18→20:36)
[2018-07-11] MEDS: ASPIRIN 81 MG CHEWABLE TABLET FT SCH (09:18)
[2018-07-11] MEDS: ALLOPURINOL 100 MG TAB FT SCH ×2 (09:18→20:37)
[2018-07-11] MEDS: MULTIVIT W/ MINERAL TAB FT SCH (09:18)
[2018-07-11] MEDS: PANTOPRAZOLE 40 MG INJ IVP SCH (09:18)
[2018-07-11] MEDS: THIAMINE 200 MG/2 ML INJ IVP SCH (09:19)
[2018-07-11] MEDS: CARVEDILOL 12.5 MG TAB FT SCH ×2 (09:19→20:36)
[2018-07-11] MEDS: INSULIN GLARGINE 100 UNITS/ML SQ SCH (09:54)
--- NOTE | 2018-07-11 15:15 | PN ---
Date of Progress Note: 07/11/2018 Subjective: The patient was seen this morning for followup. She was sitting in bed. Denied any com plaints. Not in any distress. Objective: Vital Signs: Reviewed. HEENT: Unremarkable. Lungs: Clear to auscultation. Heart: Sounds normal. Abdomen: Soft. Bowel sounds normal. No guarding, rigidity, tenderness, distention. Extremities: No leg edema. Impression: 1.Pneumonia. 2.Urinary tract infection. 3.Hypertension. 4.Diabetes mellitus. 5.Septic shock, resolved. 6.Anemia. Plan: We will continue current medication. Continue current antibiotics. The patient is tolerating diet very well. Continue current blood pressure medicine, diabetes management, and I did communicat e with the senior care today about possible discharge and senior care has suggested to possibly drea t until tomorrow as they will need some more clinical information from hospital. The patient will no t require any IV medications or IV antibiotics at senior care, but she will need physical therapy, o ccupational therapy and speech therapy at senior care upon discharge. ANUPAMA/MODL Voice ID: [id number] Report ID: [id number]
[2018-07-11] MEDS: DONEPEZIL HCL 5 MG TAB FT SCH (20:37)
[2018-07-11] MEDS: CITALOPRAM 10 MG TABLET FT SCH (20:37)
[2018-07-11 22:44] VITALS: O2SAT 98
[2018-07-12] MEDS: PIPER/TAZO/NS 3.375gm 3.375 GM/100 ML BAG IVPB SCH (00:52)
[2018-07-12 06:40] LABS: Potassium 4.3 mmol/L (3.5-5.1)
[2018-07-12] MEDS: INSULIN -REGULAR HUMAN 50 UNIT/0.5 ML ML SQ SCH ×3 (07:22→16:30)
[2018-07-12] MEDS: INSULIN GLARGINE 100 UNITS/ML SQ SCH (08:52)
[2018-07-12] MEDS: PANTOPRAZOLE 40 MG INJ IVP SCH (08:53)
[2018-07-12] MEDS: ENOXAPARIN 40 MG/0.4 ML SQ SCH (08:54)
[2018-07-12] MEDS: THIAMINE 200 MG/2 ML INJ IVP SCH (08:55)
[2018-07-12] MEDS: MULTIVIT W/ MINERAL TAB FT SCH (08:56)
[2018-07-12] MEDS: ASPIRIN 81 MG CHEWABLE TABLET FT SCH (08:56)
[2018-07-12] MEDS: AMLODIPINE 5 MG TAB FT SCH (08:56)
[2018-07-12] MEDS: ALLOPURINOL 100 MG TAB FT SCH (08:57)
[2018-07-12] MEDS: CARVEDILOL 12.5 MG TAB FT SCH (08:57)
--- NOTE | 2018-07-12 11:43 | PN ---
Date of Progress Note: 07/12/2018 Subjective: The patient was seen this morning for followup. No new complaints or problems reported by the patient. She was lying in bed, not in distress. Objective: Vital Signs: Reviewed. HEENT: Unremarkable. Lungs: Clear to auscultation. No rhonchi or rales. Heart: Sounds normal. Abdomen: Soft. Bowel sounds normal. No guarding, rigidity, tenderness, distention. Extremities: No leg edema. Laboratory Data: Sodium 140, potassium 4.3, chloride 106, bicarb 28, BUN 16, creatinine 1.10, glucos e 66 this morning. Repeat glucose from recent lab that was just done about 2 minutes ago is pending. Impression: 1.Pneumonia, resolved. 2.Urinary tract infection, resolved. 3.Hypertension. 4.Diabetes mellitus. 5.Septic shock, resolved. 6.Anemia, stable. Plan: We will go ahead and discontinue IV antibiotic which is Zosyn. The patient is clinically now stable for discharge. We will wait for snf to evaluate the patient and plan for discharge h opefully today. ANUPAMA/MODL Voice ID: [id number] Report ID: [id number]
[2018-07-12 18:06] VITALS: BP 119/59; TEMP 97.6
--- NOTE | 2018-07-13 06:14 | DS ---
Date of Discharge: 07/12/2018 Disposition: Discharged to go home. Physical Examination: HEENT: Unremarkable. Lungs: Clear to auscultation. Heart: Sounds normal. Abdomen: Soft. Bowel sounds normal. No guarding, rigidity, tenderness, or distention. Extremities: No leg edema. Neuro: Right-sided hemiparesis, old. Laboratory Data: Labs done during this hospitalization, initial white count 3, hemoglobin 9.9, plate lets 248. Last white count yesterday 6, hemoglobin 9.3, platelets 240. Initial sodium 145, potassiu m 5.3, chloride 114, bicarb 27, BUN 32, creatinine 1.10, glucose 173. Lactic acid 2.2. SGOT 72, SGP T 71, alkaline phosphatase 123, troponin 0.02. Last chemistry today, creatinine 1.10, day before yes terday creatinine 1.40. Hospital Course: A 78-year-old female patient living at longterm came into emergency room with a ltered mental status and low blood pressure. Please see dictated H and P for more information. Afte r the patient was evaluated in the ER, she will be admitted to ICU. She also had hypothermia. She d id receive IV fluid and vasopressor medication and warming blankets. Overall, her condition improved and stabilized in ICU. Vasopressor medication was discontinued. She was started on empiric IV anti biotic, vancomycin, and Zosyn for pneumonia and urinary tract infection. She had brief period of hyp oglycemia, which was due to accidental insulin administration by ICU nurse, which was corrected. Sub sequently, her condition started improving and she is now back to her normal self, which is confused due to her underlying dementia, but at least she tries to communicate, not necessarily answering any questions appropriately. She tries to talk, smiles every time we try to talk to her. Speech Therapy , Physical Therapy, Occupational Therapy was consulted. Modified barium swallow was done and as per speech therapist's recommendation diet order was started and the patient has tolerated diet very well . Once her condition was stable, she was transferred out of ICU to regular room, and we discontinued her IV vancomycin few days ago and Zosyn was discontinued yesterday. Overall, the patient's conditi on has improved back to her normal usual self. Advance directive according to the patient's family m ember do not intubate order was written per family's decision. Her CAT scan of the brain was negativ e, MRI of the brain was negative for any stroke. Final Diagnoses: 1.Toxic encephalopathy. 2.Septic shock. 3.Pneumonia. 4.Urinary tract infection. 5.Anemia. 6.Hypothermia. 7.Hyperkalemia. 8.Dementia. 9.Hypertension. 10.Diabetes mellitus. ANUPAMA/MODL Voice ID: [id number] Report ID: [id number]
== END 2018-07-12 18:05 | DRG 871 ==
LOC: ER 09:41 → ERHOLD 13:18 → 3RD-ICU 17:15 → 4TH 07-08 14:25
PROVIDERS: ADMIT Internal Medicine; ATTEND Internal Medicine
PROC: 02HV33Z Insertion of Infusion Device into Superior Vena Cava, Percutaneous Approach (ICD-10-PCS; principal; 2018-07-02)
PROC: 3E033XZ Introduction of Vasopressor into Peripheral Vein, Percutaneous Approach (ICD-10-PCS; 2018-07-02)
DX: A41.9 Sepsis, unspecified organism (principal); G93.41 Metabolic encephalopathy; R65.21 Severe sepsis with septic shock; J69.0 Pneumonitis due to inhalation of food and vomit; N39.0 Urinary tract infection, site not specified; E87.2 Acidosis; E87.0 Hyperosmolality and hypernatremia; I69.351 Hemiplegia and hemiparesis following cerebral infarction affecting right dominant side; T68.XXXA Hypothermia, initial encounter; R00.1 Bradycardia, unspecified; F01.50 Vascular dementia, unspecified severity, without behavioral disturbance, psychotic disturbance, mood disturbance, and anxiety; E87.5 Hyperkalemia; D64.9 Anemia, unspecified; Z79.82 Long term (current) use of aspirin; Z79.4 Long term (current) use of insulin; E11.649 Type 2 diabetes mellitus with hypoglycemia without coma; T38.3X5A Adverse effect of insulin and oral hypoglycemic [antidiabetic] drugs, initial encounter; Y92.230 Patient room in hospital as the place of occurrence of the external cause
CPT/HCPCS: 36415; 51702; 70450; 70544; 70551; 71045; 74018; 74176; 74230; 80048; 80053; 80061; 80202; 81003; 81015; 82805; 82947; 82962; 83605; 83690; 83735; 84132; 84145; 84439; 84443; 84484; 85025; 85610; 87040; 87086; 87088; 93005; 93306; 97163; 99291; 99292; C9113; J0360; J1650; J2543; J3370; J3411; J3475; J7030; J7060

== ENCOUNTER 2018-07-18 21:21 | Inpatient (IN) | payer OTHER ==
[2018-07-18] MEDS ORDERED: NA CHLORIDE 0.9% 1,000 ML ONE (21:58)
[2018-07-18 21:59] LABS: Urine Blood NEGATIVE (NEG); Urine Glucose NEGATIVE (NEG); Urine Protein 2+ (NEG); Urine Specific Gravity >1.030 (1.005-1.030)
[2018-07-18 22:12] LABS: Absolute Lymphocytes (CBC) 0.5 K/uL (0.7-4.9); Absolute Monocytes 0.3 K/uL (0.1-1.3); Absolute Neutrophil 10.8 K/uL (1.8-8.0); Basophils % 0.2 % (0-1.3); Eosinophils % 0.2 % (0-4.4); Hematocrit 24.2 % (36.0-45.0); Lymphocytes % 4.4 % (15.3-44.8); MCH 28.7 pg (27.0-35.0); MCV 88.5 fL (80-100); MPV 7.3 fL (7.6-11.3); Monocytes % 2.3 % (3.3-12.3); RBC Red Blood Cell Count 2.74 M/uL (3.86-4.86)
[2018-07-18 22:30] LABS: Protime INR 1.08
[2018-07-18 22:35] LABS: Urine Amorphous Sediment 3+ /HPF (NONE SEEN); Urine Bacteria <20 /HPF (<20); Urine Culture Reflex Order NOT NEEDED; Urine RBC <5 /HPF (NONE SEEN); Urine Yeast PRESENT (NONE SEEN)
[2018-07-18 22:37] LABS: ALT/SGPT 38 U/L (12-78); AST/SGOT 33 U/L (15-37); Albumin 2.6 g/dL (3.4-5.0); Alkaline Phosphatase 127 U/L (45-117); BUN Blood Urea Nitrogen 43 mg/dL (7-18); Bicarbonate 24 mmol/L (21-32); Bilirubin Direct < 0.1 mg/dL (0-0.2); CKMB Creatine Kinase MB 3.9 ng/mL (0.3-3.6); Creatine Phosphokinase 32 U/L (26-192); Glucose Level 131 mg/dL (74-106); Lipase 10654 U/L (73-393); Potassium 4.8 mmol/L (3.5-5.1); Protein, Total 7.1 g/dL (6.4-8.2); Sodium Level 149 mmol/L (136-145)
[2018-07-18 22:46] LABS: Bilirubin Total < 0.1 mg/dL (0.2-1.0)
[2018-07-18 23:15] LABS: Blood Morphology Comment NOT SEEN (NOT SEEN); Platelet Estimate ADEQ
[2018-07-18] MEDS ORDERED: DOPAMINE/D5W 400 MG/250 ML BAG IV ONE (23:28)
[2018-07-19] MEDS ORDERED: CEFTRIAXONE/SWI 1gm 1 GM/10 ML SYR ONE (00:28)
[2018-07-19] MEDS ORDERED: Levofloxacin 750mg IV 750 MG/150 ML BAG IV ONE (01:55)
[2018-07-19] MEDS ORDERED: NA CHLORIDE 0.9% 1,000 ML ONE (01:55)
--- NOTE | 2018-07-19 02:58 | ER ---
Nurse's Notes [facility] Name: Sharda Dewey Age: 78 yrs Sex: Female : 1940 Arrival Date: 07/18/2018 Time: 21:36 Bed 2 Private MD: Diagnosis: Hypothermia;Pneumonia;Dehydration;Acute pancreatitis;Hypotension Presentation: 07/18 21:20 Presenting complaint: EMS states: that they were toned out for pt having low fc temperature. Heart rate also low in the 40's. Pt also lethargic. Was ok at dinner time per care home. Transition of care: patient was received from another setting of care (long-term care [facility]. Onset of symptoms was July 18, 2018. Risk Assessment: Do you want to hurt yourself or someone else? Patient reports no desire to harm self or others. Initial Sepsis Screen: Does the patient meet any 2 criteria? Temp <36.0*C (96.8*F)) or > 38.3*C (100.4*F). Mean Arterial Pressure (MAP) < 65. Altered Mental Status. Yes Does the patient have a suspected source of infection? Yes: Other: currently being treated for pneumonia. Care prior to arrival: Medication(s) given: Normal saline infusion, IV initiated. 20 GA, in the left antecubital area, Glucose check: 180. 21:20 Method Of Arrival: EMS: [facility] 21:20 Acuity: TITUS 2 Triage Assessment: 22:35 General: Behavior is cooperative, drowsy. ak1 Historical: - Allergies: 22:01 No Known Allergies; fc - Home Meds: 22:01 allopurinol 100 mg Oral tab 1 tab 2 times per day [Active]; amlodipine 5 mg oral tab 1 fc tab twice a day [Active]; aspirin 81 mg oral chew 1 tab once daily [Active]; carvedilol 12.5 mg Oral tab 1 tab 2 times per day [Active]; Celexa 10 mg Oral tab 1 tab nightly [Active]; Aricept 10 mg Oral tab 1 tab nightly [Active]; ferrous sulfate 325 mg (65 mg iron) Oral tab daily [Active]; lorazepam 0.5 mg Oral tab 1 tab at bedtime [Active]; losartan 100 mg Oral tab 1 tab once daily [Active]; memantine 28mg Oral tab once daily [Active]; Milk of Magnesia 400 mg/5 mL Oral susp 30 mL every thursday [Active]; multivitamin oral tab daily [Active]; Novolin R Sub-Q per sliding scale tid [Active]; risperidone 0.25 mg oral TbDL daily [Active]; sennosides-docusate sodium 8.6-50 mg oral tab 2 tabs twice a day [Active]; Tresiba FlexTouch U-100 100 unit/mL (3 mL) subcutaneous inpn 8 unit nightly [Active]; tylenol 325 mg 2 tab daily [Active]; Vitamin D Oral 5000 unit daily [Active]; - PMHx: 22:01 Allergic Rhinitis; Anxiety; Delusional disorder; Pneumonia; Anemia; Diabetes - NIDDM; fc Dementia; Depression; Alzheimers; insomnia; Hypertension; CAD; DYSPHAGIA; ataxic gait; - Immunization history:: Last tetanus immunization: unknown. - Social history:: Smoking status: unknown. - Ebola Screening: : Patient negative for fever greater than or equal to 101.5 degrees Fahrenheit, and additional compatible Ebola Virus Disease symptoms Patient denies exposure to infectious person Patient denies travel to an Ebola-affected area in the 21 days before illness onset. - Family history:: not pertinent. - Hospitalizations: : The patient was recently seen at [facility]. Screenin:20 Abuse screen: Denies threats or abuse. Nutritional screening: No deficits noted. fc Tuberculosis screening: No symptoms or risk factors identified. Fall Risk Fall in past 12 months (25 points). Secondary diagnosis (15 points) Alzheimer's, dementia, IV access (20 points). Ambulatory Aid- None/Bed Rest/Nurse Assist (0 pts). Gait- Impaired (20 pts.). Mental Status- Overestimates/Forgets Limitations (15 pts.). Total Lara Fall Scale indicates High Risk Score (45 or more points). Fall prevention measures have been instituted. Side Rails Up X 2 Placed Close to Nursing Station Frequent Obs/Assessments Occuring As available patient and family educated on Fall Prevention Program and Strategies. Assessment: 21:40 General: Appears uncomfortable. Pain: Unable to use pain scale. Patient is disoriented. ao Pain: Unable to use pain scale. Neuro: Level of Consciousness is awake, confused, lethargic, listless, Oriented to none Weakness. Neuro: Level of Consciousness is. Cardiovascular: Capillary refill is > 3 seconds is sluggish fingers skin cold. Respiratory: Airway is patent Respiratory effort is even, unlabored, Respiratory pattern is regular. GI: Abdomen is round obese, bruised on right lower quadrant and left lower quadrant. : Londono cath inserted. Urine cloudy cliff in color returned about 40 ml. EENT: No signs and/or symptoms were reported regarding the EENT system. Derm: Skin is intact, Skin is normal, Skin temperature is cool. Musculoskeletal: Amputation of Range of motion: intact in all extremities. 21:55 Reassessment: Patient had a large BM. Patient had been cleaned and a new diaper had ao been put. 22:17 Reassessment: Started fluids with the fluids warmer as ordered by Dr Aguirre. ao 22:26 Reassessment: pt daughter at bedside. ak1 22:42 Reassessment: Patient and/or family updated on plan of care and expected duration. Pain ao level reassessed. 23:40 Reassessment: assist Dr. Aguirre with central line. Dopamine started at 5mcg/kg/min. to ak1 right femoral cental line. US at bedside at this time. pt suctioned while in Trendelenburg position but able to swallow own secretions once placed back upright with head of bed at 30 degrees. 07/19 00:38 Reassessment: pt remains on bear hugger and warmed fluids. pt dopamine remains at ak1 5mcg/kg/min to central line. 01:03 Reassessment: Patient back from CT. Continue with fluids and Dopamine. ao 01:57 Reassessment: pt remains on bear hugger and warmed fluids. pt dopamine remains at ak1 5mcg/kg/min to central line. 04:08 Reassessment: pt remains on bear hugger and warmed fluids. pt dopamine remains at ak1 5mcg/kg/min. to central line. 05:20 Reassessment: Patient and/or family updated on plan of care and expected duration. Pain ao level reassessed. Pt remains on bear hugger and warmed fluids, Pt on dopamine at 5mcg/kg/min. 06:18 Reassessment: Patient and/or family updated on plan of care and expected duration. Pain ao level reassessed. Pt remains on bear hugger and warmed fluids. Pt on dopamine at 5mcg/kg/min. 06:55 Reassessment: pt remains on warmed fluids and bear hugger, bear hugger temperature ak1 reduced to low. pt dopamine remains at 5mcg/kg/min. 07:10 Reassessment: report given to Andrea. ak1 07:15 Reassessment: See [facility] for future documentation. ao Vital Signs: 07/18 21:20 BP 94 / 65; Pulse 45; Resp 18; Temp 86.8(R); Pulse Ox 97% on R/A; Weight 104.33 kg (R); fc Height 5 ft. 8 in. (172.72 cm) (R); Pain 0/10; 22:17 BP 88 / 58; Pulse 44; Resp 12; Temp 87.2(C); Pulse Ox 99% on R/A; ao 22:34 BP 91 / 51; Pulse 42; Resp 10; Temp 87.7(C); Pulse Ox 98% on R/A; Pain 0/10; ak1 22:58 BP 72 / 44; Pulse 47; Resp 12; Temp 88.6; Pulse Ox 99% on R/A; Pain 0/10; ak1 23:09 BP 72 / 46; Pulse 37; Resp 12 S; Temp 88.6(C); Pulse Ox 99% on R/A; Pain 0/10; ak1 23:21 BP 63 / 45; Pulse 37; Resp 12; Temp 88.8(C); Pulse Ox 97% on R/A; ak1 23:39 BP 105 / 62; Pulse 53; Resp 13; Temp 89.4(C); Pulse Ox 96% on R/A; Pain 0/10; ak1 23:53 BP 102 / 51; Pulse 60; Resp 21; Temp 89.7(C); Pulse Ox 97% on R/A; Pain 0/10; ak1 07/19 00:00 BP 111 / 56; Pulse 62; Resp 19; Temp 90.3(C); Pulse Ox 99% on R/A; Pain 0/10; ak1 00:15 BP 112 / 55; Pulse 67; Resp 18; Temp 90.6(C); Pulse Ox 97% on R/A; Pain 0/10; ak1 00:37 BP 103 / 54; Pulse 67; Resp 18; Temp 91.0(C); Pulse Ox 97% on R/A; Pain 0/10; ak1 01:02 BP 98 / 49; Pulse 61; Resp 12; Temp 91.5(C); Pulse Ox 98% on R/A; ak1 01:15 BP 97 / 68; Pulse 73; Resp 12; Temp 92.0(C); Pulse Ox 96% on R/A; ak1 01:30 BP 113 / 47; Pulse 77; Resp 20; Temp 92.4(C); Pulse Ox 96% on R/A; ak1 01:53 BP 104 / 49; Pulse 72; Resp 17; Temp 92.4(C); Pulse Ox 97% ; ao 02:02 BP 109 / 91; Pulse 76; Resp 15; Temp 93.2(C); Pulse Ox 97% on R/A; ak1 02:30 BP 93 / 63; Pulse 80; Resp 17; Temp 93.9(C); Pulse Ox 98% on R/A; ak1 02:45 BP 109 / 82; Pulse 84; Resp 15; Temp 94.2(C); Pulse Ox 97% on R/A; ak1 03:00 BP 124 / 53; Pulse 82; Resp 18; Temp 94.9(C); Pulse Ox 97% on R/A; Pain 0/10; ak1 03:15 BP 120 / 52; Pulse 86; Resp 18; Temp 95.1(C); Pulse Ox 97% on R/A; ak1 03:30 BP 109 / 56; Pulse 84; Resp 20; Temp 95.5(C); Pulse Ox 97% on R/A; ak1 03:45 BP 109 / 66; Pulse 83; Resp 17; Temp 95.9(C); Pulse Ox 97% on R/A; ak1 04:00 BP 109 / 85; Pulse 81; Resp 18; Temp 96.3(C); Pulse Ox 97% on R/A; ak1 04:15 BP 114 / 52; Pulse 98; Resp 21; Temp 96.7(C); Pulse Ox 95% on R/A; ak1 04:32 BP 114 / 52; Pulse 84; Resp 25; Temp 97.0(C); Pulse Ox 97% on R/A; ao 04:45 BP 117 / 50; Pulse 83; Resp 20; Temp 97.3(C); Pulse Ox 98% on R/A; ao 05:00 BP 99 / 86; Pulse 86; Resp 20; Temp 97.6(C); Pulse Ox 99% ; ao 05:15 BP 138 / 54; Pulse 86; Resp 18; Temp 97.9; Pulse Ox 94% ; ao 05:30 BP 116 / 54; Pulse 86; Resp 18; Temp 98.1; Pulse Ox 96% ; ao 05:45 BP 114 / 53; Pulse 88; Resp 21; Temp 98.4(C); Pulse Ox 97% ; ao 06:18 BP 118 / 50; Pulse 90; Resp 21; Temp 98.9; Pulse Ox 97% ; Pain 0/10; ao 06:54 BP 122 / 57; Pulse 96; Resp 23; Temp 99.3(C); Pulse Ox 96% on R/A; ak1 07/18 21:20 Body Mass Index 34.97 (104.33 kg, 172.72 cm) fc ED Course: 07/18 21:20 Arm band placed on Patient placed in an exam room, on a stretcher, on cardiac care unit nurse, fc on pulse oximetry. 21:20 Placed in gown. Bed in low position. Call light in reach. Side rails up X2. Cardiac fc monitor on. Pulse ox on. NIBP on. 21:20 Maintain EMS IV. Dressing intact. Good blood return noted. Site clean \T\ dry. Gauge \T\ fc site: 20 gauge to left a/c. 21:20 Inserted saline lock: 20 gauge in right antecubital area, using aseptic technique. ak1 21:35 Londono cath inserted, using sterile technique, 16 Fr., by ED staff, balloon inflated, to fc gravity drainage, other per Suleman HOPKINS. 21:36 Patient arrived in ED. kb 21:42 Landry Aguirre MD is Attending Physician. rn 21:46 Triage completed. fc 21:52 Suleman Guerrero, SANDEEP is Primary Nurse. ao 22:35 Chest Single View XRAY In Process Unspecified. EDMS 23:37 Radiology exam delayed due to Patient currently having US done. kw1 23:42 US Abdomen Limited Sent. ak1 23:45 Accessed cental line to right groin placed by Dr. Aguirre. Good blood return. Flushes ak1 easily. 23:45 Assisted provider with central line placement. Set up central line tray. Triple lumen ak1 line placed in right femoral. Line placed by Landry Aguirre MD Patient tolerated well. 23:46 US Abdomen Limited In Process Unspecified. EDMS 07/19 00:[address] via stretcher. kw1 01:00 CT completed. Patient tolerated procedure well. Patient moved back from CT. kw1 01:02 CT Abd/Pelvis - Without Cont In Process Unspecified. EDMS 02:56 Ghassan Savage MD is Hospitalizing Provider. rn 02:57 German Govea MD is Hospitalizing Provider. rn 06:00 Patient admitted, IV remains in place. ao : Report given to montrell Holder RN. Patient to be admitted to ICU after shift change. ao 08:07 Agustín Rodriguez RN is Primary Nurse. jl7 Administered Medications: 07/18 22:13 Drug: NS 0.9% 1000 ml Route: IV; Rate: 125 ml/hr; Site: right antecubital; ao 07/19 03:35 Follow up: IV Status: Infusion continued upon admission ak1 07/18 23:00 Drug: NS 0.9% 500 ml Route: IV; Rate: bolus; Site: left antecubital; ak1 23:09 Follow up: IV Status: Completed infusion ak1 :28 Drug: Dopamine drip 3 mcg/kg/min - (DOPamine 400 mg, D5W 250 ml) {Note: 5mcg/kg/min .} ak1 Route: IV; Rate: calculated rate; Site: right femoral; 07/19 03:35 Follow up: IV Status: Infusion continued upon admission ak1 07/18 23:28 Drug: NS 0.9% 500 ml Route: IV; Rate: bolus; Site: right antecubital; ak1 07/19 00:00 Follow up: IV Status: Completed infusion ak1 Drug: Rocephin - (cefTRIAXone) 1 grams Route: IVPB; Infused Over: 30 mins; Site: right ao antecubital; 01:00 Follow up: IV Status: Completed infusion ak1 01:56 Drug: LevaQUIN 750 mg Volume: 150 ml; Route: IVPB; Infused Over: 90 mins; Site: right ak1 femoral; 03:34 Follow up: IV Status: Completed infusion ak1 Point of Care Testing: Blood Glucose: 07/18 21:52 Blood Glucose: 140 mg/dL; ao Ranges: Outcome: 07/19 02:57 Decision to Hospitalize by Provider. rn 06:00 Admitted to ER Hold. Please see [facility] for further documentation. ao 06:00 Condition: stable 06:00 Instructed on the need for admit. 13:19 Patient left the ED. ashlie Signatures: Dispatcher [employer] EDMS Ute Sullivan, MANAGER ORGANIZATIONAL-C MANAGER ORGANIZATIONAL-Sima Way RN RN Mallory Santizo RN Landry Rangel MD MD rn Krenek, Amber, RN RN ak1 Suleman Guerrero RN RN ao Leal, Jahala, RN RN jl7 Wilhelm, Kimberly kw1 Corrections: (The following items were deleted from the chart) 07/18 23:38 23:[address] via stretcher. kw1 kw1 07/19 01:03 00:15 BP 112 / 55; Pulse 67bpm; Resp 18bpm; Pulse Ox 97% RA; Temp 90.6F Temporal; Pain ak1 0/10; ak1 03:11 02:45 BP 124 / 53; Pulse 82bpm; Resp 18bpm; Pulse Ox 97% RA; Temp 94.9F Catheter; Pain ak1 0/10; ak1 03:33 07/18 21:20 Transition of care: patient was not received from another setting of care. fc fc
--- NOTE | 2018-07-19 02:58 | EDPHYS ---
Physician Documentation [facility] Name: Sharda Dewey Age: 78 yrs Sex: Female : 1940 Arrival Date: 07/18/2018 Time: 21:36 Bed 2 Private MD: ED Physician Landry Aguirre HPI: 07/18 22:48 This 78 yrs old Black Female presents to ER via EMS with complaints of Hypothermic. rn 22:48 The patient presents with confusion, decreased mental status, decreased responsiveness. rn Onset: The symptoms/episode began/occurred today. Possible causes: unknown. Associated signs and symptoms: Pertinent positives: confusion. Current symptoms: In the emergency department the patient's symptoms are unchanged from the initial presentation. The patient has not experienced similar symptoms in the past. The patient has been recently seen by a physician:. Recently admitted and treated for pneumonia, sent to group home, daughter states normally more alert, unsure when began declining again, sent here because temp low, decreased responsiveness, daughter states full code.. Historical: - Allergies: 22:01 No Known Allergies; fc - Home Meds: 22:01 allopurinol 100 mg Oral tab 1 tab 2 times per day [Active]; amlodipine 5 mg oral tab 1 fc tab twice a day [Active]; aspirin 81 mg oral chew 1 tab once daily [Active]; carvedilol 12.5 mg Oral tab 1 tab 2 times per day [Active]; Celexa 10 mg Oral tab 1 tab nightly [Active]; Aricept 10 mg Oral tab 1 tab nightly [Active]; ferrous sulfate 325 mg (65 mg iron) Oral tab daily [Active]; lorazepam 0.5 mg Oral tab 1 tab at bedtime [Active]; losartan 100 mg Oral tab 1 tab once daily [Active]; memantine 28mg Oral tab once daily [Active]; Milk of Magnesia 400 mg/5 mL Oral susp 30 mL every thursday [Active]; multivitamin oral tab daily [Active]; Novolin R Sub-Q per sliding scale tid [Active]; risperidone 0.25 mg oral TbDL daily [Active]; sennosides-docusate sodium 8.6-50 mg oral tab 2 tabs twice a day [Active]; Tresiba FlexTouch U-100 100 unit/mL (3 mL) subcutaneous inpn 8 unit nightly [Active]; tylenol 325 mg 2 tab daily [Active]; Vitamin D Oral 5000 unit daily [Active]; - PMHx: 22:01 Allergic Rhinitis; Anxiety; Delusional disorder; Pneumonia; Anemia; Diabetes - NIDDM; fc Dementia; Depression; Alzheimers; insomnia; Hypertension; CAD; DYSPHAGIA; ataxic gait; - Immunization history:: Last tetanus immunization: unknown. - Social history:: Smoking status: unknown. - Ebola Screening: : Patient negative for fever greater than or equal to 101.5 degrees Fahrenheit, and additional compatible Ebola Virus Disease symptoms Patient denies exposure to infectious person Patient denies travel to an Ebola-affected area in the 21 days before illness onset. - Family history:: not pertinent. - Hospitalizations: : The patient was recently seen at [facility]. ROS: 22:48 Unable to obtain ROS due to altered mental status, baseline dementia. rn Exam: 22:48 Constitutional: thin female, awake but doesn't seem aware of her surroundings rn Head/Face: Normocephalic, atraumatic. ENT: dry MM Neck: Trachea midline, no thyromegaly or masses palpated, and no cervical lymphadenopathy. Supple, full range of motion without nuchal rigidity, or vertebral point tenderness. No Meningismus. Cardiovascular: regular, bradycardic, no murmur Respiratory: slow respirations with poor inspiratory air movement Abdomen/GI: soft, non tender, non-distended MS/ Extremity: Pulses equal, no cyanosis. Neuro: Awake, does not answer or follow commands, withdraws all 4 ext from pain Vital Signs: 21:20 BP 94 / 65; Pulse 45; Resp 18; Temp 86.8(R); Pulse Ox 97% on R/A; Weight 104.33 kg (R); fc Height 5 ft. 8 in. (172.72 cm) (R); Pain 0/10; 22:17 BP 88 / 58; Pulse 44; Resp 12; Temp 87.2(C); Pulse Ox 99% on R/A; ao 22:34 BP 91 / 51; Pulse 42; Resp 10; Temp 87.7(C); Pulse Ox 98% on R/A; Pain 0/10; ak1 22:58 BP 72 / 44; Pulse 47; Resp 12; Temp 88.6; Pulse Ox 99% on R/A; Pain 0/10; ak1 23:09 BP 72 / 46; Pulse 37; Resp 12 S; Temp 88.6(C); Pulse Ox 99% on R/A; Pain 0/10; ak1 23:21 BP 63 / 45; Pulse 37; Resp 12; Temp 88.8(C); Pulse Ox 97% on R/A; ak1 23:39 BP 105 / 62; Pulse 53; Resp 13; Temp 89.4(C); Pulse Ox 96% on R/A; Pain 0/10; ak1 23:53 BP 102 / 51; Pulse 60; Resp 21; Temp 89.7(C); Pulse Ox 97% on R/A; Pain 0/10; ak1 07/19 00:00 BP 111 / 56; Pulse 62; Resp 19; Temp 90.3(C); Pulse Ox 99% on R/A; Pain 0/10; ak1 00:15 BP 112 / 55; Pulse 67; Resp 18; Temp 90.6(C); Pulse Ox 97% on R/A; Pain 0/10; ak1 00:37 BP 103 / 54; Pulse 67; Resp 18; Temp 91.0(C); Pulse Ox 97% on R/A; Pain 0/10; ak1 01:02 BP 98 / 49; Pulse 61; Resp 12; Temp 91.5(C); Pulse Ox 98% on R/A; ak1 01:15 BP 97 / 68; Pulse 73; Resp 12; Temp 92.0(C); Pulse Ox 96% on R/A; ak1 01:30 BP 113 / 47; Pulse 77; Resp 20; Temp 92.4(C); Pulse Ox 96% on R/A; ak1 01:53 BP 104 / 49; Pulse 72; Resp 17; Temp 92.4(C); Pulse Ox 97% ; ao 02:02 BP 109 / 91; Pulse 76; Resp 15; Temp 93.2(C); Pulse Ox 97% on R/A; ak1 02:30 BP 93 / 63; Pulse 80; Resp 17; Temp 93.9(C); Pulse Ox 98% on R/A; ak1 02:45 BP 109 / 82; Pulse 84; Resp 15; Temp 94.2(C); Pulse Ox 97% on R/A; ak1 03:00 BP 124 / 53; Pulse 82; Resp 18; Temp 94.9(C); Pulse Ox 97% on R/A; Pain 0/10; ak1 03:15 BP 120 / 52; Pulse 86; Resp 18; Temp 95.1(C); Pulse Ox 97% on R/A; ak1 03:30 BP 109 / 56; Pulse 84; Resp 20; Temp 95.5(C); Pulse Ox 97% on R/A; ak1 03:45 BP 109 / 66; Pulse 83; Resp 17; Temp 95.9(C); Pulse Ox 97% on R/A; ak1 04:00 BP 109 / 85; Pulse 81; Resp 18; Temp 96.3(C); Pulse Ox 97% on R/A; ak1 04:15 BP 114 / 52; Pulse 98; Resp 21; Temp 96.7(C); Pulse Ox 95% on R/A; ak1 04:32 BP 114 / 52; Pulse 84; Resp 25; Temp 97.0(C); Pulse Ox 97% on R/A; ao 04:45 BP 117 / 50; Pulse 83; Resp 20; Temp 97.3(C); Pulse Ox 98% on R/A; ao 05:00 BP 99 / 86; Pulse 86; Resp 20; Temp 97.6(C); Pulse Ox 99% ; ao 05:15 BP 138 / 54; Pulse 86; Resp 18; Temp 97.9; Pulse Ox 94% ; ao 05:30 BP 116 / 54; Pulse 86; Resp 18; Temp 98.1; Pulse Ox 96% ; ao 05:45 BP 114 / 53; Pulse 88; Resp 21; Temp 98.4(C); Pulse Ox 97% ; ao 06:18 BP 118 / 50; Pulse 90; Resp 21; Temp 98.9; Pulse Ox 97% ; Pain 0/10; ao 06:54 BP 122 / 57; Pulse 96; Resp 23; Temp 99.3(C); Pulse Ox 96% on R/A; ak1 07/18 21:20 Body Mass Index 34.97 (104.33 kg, 172.72 cm) fc Procedures: 07/18 23:35 Central Line: the site was prepped with Betadine, in sterile fashion, a triple lumen rn catheter was inserted, in the right in 1 attempts. placement was verified, by blood return, the patient tolerated the procedure, well. MDM: 21:42 Patient medically screened. rn 07/19 02:55 Differential Diagnosis: electrolyte abnormality, pneumonia, sepsis, UTI, volume rn depletion. Data reviewed: vital signs, nurses notes, lab test result(s), EKG, radiologic studies, CT scan, ultrasound, and as a result, I will admit patient. Counseling: I had a detailed discussion with the patient and/or guardian regarding: the historical points, exam findings, and any diagnostic results supporting the discharge/admit diagnosis, lab results, radiology results, the need for further work-up and treatment in the hospital. Response to treatment: the patient's symptoms have mildly improved after treatment, and as a result, I will admit patient. Admission orders: after a detailed discussion of the patient's condition and case, the admit orders are written by me. ED course: Pt with pneumonia, likely aspiration, hypothermia, which has improved to 94.5 from 86 with warmed fluids and antony hugger. CT shows acute pancreatitis without clear etiology, will admit here to Dr. Govea in ICu.. 07/18 21:43 Order name: Urine Culture rn 07/18 21:43 Order name: Urine Microscopic Only; Complete Time: 22:56 07/18 21:43 Order name: Basic Metabolic Panel; Complete Time: 22:56 07/18 21:43 Order name: Blood Culture Adult (2) rn 07/18 21:43 Order name: CBC with Diff; Complete Time: 23:20 07/18 21:43 Order name: Ckmb; Complete Time: 22:56 07/18 21:43 Order name: CPK; Complete Time: 22:56 07/18 21:43 Order name: Lactate; Complete Time: 22:56 07/18 21:43 Order name: LFT's; Complete Time: 22:56 07/18 21:43 Order name: Lipase; Complete Time: 22:56 07/18 21:43 Order name: Procalcitonin; Complete Time: 22:56 07/18 21:43 Order name: Protime (+inr); Complete Time: 22:56 07/18 21:43 Order name: Ptt, Activated; Complete Time: 22:56 rn 07/18 21:43 Order name: Troponin (emerg Dept Use Only); Complete Time: 22:56 rn 07/18 21:43 Order name: Chest Single View XRAY rn 07/18 21:43 Order name: Accucheck; Complete Time: 21:58 rn 07/18 21:43 Order name: Cardiac monitoring; Complete Time: 21:58 rn 07/18 21:43 Order name: EKG - Nurse/Tech; Complete Time: 22:14 rn 07/18 21:43 Order name: TSH; Complete Time: 22:56 rn 07/18 21:43 Order name: T4 Free; Complete Time: 22:56 rn 07/18 21:46 Order name: Urine Dipstick--Ancillary (enter results); Complete Time: 22:24 mt 07/18 22:58 Order name: CT Abd/Pelvis - Without Cont rn 07/18 22:58 Order name: US Abdomen Limited rn 07/18 23:15 Order name: Manual Differential; Complete Time: 23:20 EDMS 07/18 21:43 Order name: IV Saline Lock - Large Bore; Complete Time: 21:58 rn 07/18 21:43 Order name: Labs collected and sent; Complete Time: 21:58 rn 07/18 21:43 Order name: O2 Per Protocol; Complete Time: 21:58 rn 07/18 21:43 Order name: O2 Sat Monitoring; Complete Time: 21:58 rn 07/18 21:43 Order name: Urine Dipstick-Ancillary (obtain specimen); Complete Time: 21:58 rn 07/18 21:43 Order name: Antony Mendez; Complete Time: 21:57 rn Administered Medications: 07/18 22:13 Drug: NS 0.9% 1000 ml Route: IV; Rate: 125 ml/hr; Site: right antecubital; ao 07/19 03:35 Follow up: IV Status: Infusion continued upon admission ak1 07/18 23:00 Drug: NS 0.9% 500 ml Route: IV; Rate: bolus; Site: left antecubital; ak1 23:09 Follow up: IV Status: Completed infusion ak1 23:28 Drug: Dopamine drip 3 mcg/kg/min - (DOPamine 400 mg, D5W 250 ml) {Note: 5mcg/kg/min .} ak1 Route: IV; Rate: calculated rate; Site: right femoral; 07/19 03:35 Follow up: IV Status: Infusion continued upon admission ak1 07/18 23:28 Drug: NS 0.9% 500 ml Route: IV; Rate: bolus; Site: right antecubital; ak1 07/19 00:00 Follow up: IV Status: Completed infusion ak1 00:27 Drug: Rocephin - (cefTRIAXone) 1 grams Route: IVPB; Infused Over: 30 mins; Site: right ao antecubital; 01:00 Follow up: IV Status: Completed infusion ak1 01:56 Drug: LevaQUIN 750 mg Volume: 150 ml; Route: IVPB; Infused Over: 90 mins; Site: right ak1 femoral; 03:34 Follow up: IV Status: Completed infusion ak1 Point of Care Testing: Blood Glucose: 07/18 21:52 Blood Glucose: 140 mg/dL; ao Ranges: Critical Glucose Levels:Adult <50 mg/dl or >400 mg/dl <40 mg/dl or >180 mg/dl Disposition: 07/19 02:55 Critical Care:. rn Disposition: 07/19/18 02:57 Hospitalization ordered by German Govea for Inpatient Admission. Preliminary diagnosis are Hypothermia, Pneumonia, Dehydration, Acute pancreatitis, Hypotension. - Bed requested for Intensive Care Unit. - Status is Inpatient Admission. aj - Condition is Fair. - Problem is new. - Symptoms have improved. UTI on Admission? No Critical care time excluding procedures: 02:55 Critical care time: Bedside Care: 55 minutes, Family Intervention: 10 minutes. Total rn time: 65 minutes Signatures: Dispatcher [employer] EDJosee Palacio RN RN kl Myers, Amanda, RN RN aj Chretien, Felicia, RN RN fc Nieto, Roman, MD MD rn Krenek, Amber, RN RN ak1 Ortiz, Alex, RN RN ao Fitzgerald, Diane RN SANDEEP df Corrections: (The following items were deleted from the chart) 06:17 02:57 Hospitalization Ordered by German Govea MD for Inpatient Admission. Preliminary kl diagnosis is Hypothermia; Pneumonia; Dehydration; Acute pancreatitis; Hypotension. Bed requested for Intensive Care Unit. Status is Inpatient Admission. Condition is Fair. Problem is new. Symptoms have improved. UTI on Admission? No. rn 11:48 06:17 07/19/2018 02:57 Hospitalization Ordered by A Jeferson ARREOLA for Inpatient Admission. df Preliminary diagnosis is Hypothermia; Pneumonia; Dehydration; Acute pancreatitis; Hypotension. Bed requested for [facility] ER HOLD. Status is Inpatient Admission. Condition is Fair. Problem is new. Symptoms have improved. UTI on Admission? No. kl 13:19 11:48 07/19/2018 02:57 Hospitalization Ordered by A Jeferson ARREOLA for Inpatient Admission. aj Preliminary diagnosis is Hypothermia; Pneumonia; Dehydration; Acute pancreatitis; Hypotension. Bed requested for Intensive Care Unit. Status is Inpatient Admission. Condition is Fair. Problem is new. Symptoms have improved. UTI on Admission? No. df
[2018-07-19] MEDS ORDERED: D5.45NS W/KCL 20MEQ 20 MEQ/1,000 ML BAG IV SCH (06:00)
--- NOTE | 2018-07-19 06:45 | RAD REPORT ---
EXAM DESCRIPTION: RAD - Chest Single View - 07/18/2018 10:35 pm CLINICAL HISTORY: Hypothermia, shortness of breath. A preliminary report was provided at the time of the study and reviewed prior to final report. COMPARISON: July 10 TECHNIQUE: AP portable chest image was obtained 2222 hours . FINDINGS: Lung volumes are low. Cardiomegaly is present. No peripheral mass or consolidation. Centra l vasculature and lung markings are prominent. Trachea is midline. No measurable pleural effusion and no pneumothorax. No gross bony abnormality seen. No acute aortic findings suspected. IMPRESSION: Limited shallow inspiration film without peripheral mass or consolidation. Cardiomegaly, vasculature and lung markings are accentuated by low lung volumes. Minimal failure or volume overload suspected.
--- NOTE | 2018-07-19 06:49 | RAD REPORT ---
EXAM DESCRIPTION: US - Abdomen Exam Limited - 07/18/2018 11:46 pm CLINICAL HISTORY: Abdominal pain, right upper quadrant pain COMPARISON: None. FINDINGS: No gallstones, sludge or other abnormalities within the gallbladder lumen. There is no wal l thickening or pericholecystic fluid. No common duct stone or biliary tree dilatation identified. IMPRESSION: Normal gallbladder and biliary tree ultrasound.
--- NOTE | 2018-07-19 07:58 | RAD REPORT ---
EXAM DESCRIPTION: CT - Abdomen Pelvis Wo Contrast - 07/19/2018 5:36 am CLINICAL HISTORY: Fever, bradycardia, lethargy COMPARISON: CT imaging July 03, 2018 TECHNIQUE: Axial [address] imaging of the abdomen and pelvis was performed without IV contrast. No IV contrast was given because of allergy, abnormal renal function, patient refusal or physician re quest. Oral contrast was given. All CT scans are performed using dose optimization technique as appropriate and may include automated exposure control or mA/KV adjustment according to patient size. FINDINGS: Airspace consolidation is present in the right lung base. This is only partially imaged on this study. Right lower lobe pneumonia is likely. No pericardial thickening or effusion. The liver and spleen show no suspicious findings. No gallbladder or biliary tree abnormality. Motion degradation is present in the upper abdomen. Body and tail of the pancreas show no significant findings. There is some questionable stranding or edema in the region of the pancreatic head. Patien t likely has a moderate-sized duodenal diverticulum. No hydronephrosis or suspicious renal mass. No significant adrenal finding. Isodense renal masses an d pyelonephritis cannot be excluded in the absence of IV contrast. Urinary bladder is contracted arou nd a Londono catheter. The patient has a massive multi fibroid uterus with most of the fibroids contain ing dense calcification. Pattern is similar to the short interval July 03 study. No dilated bowel loops or bowel wall thickening. No free air, free fluid or inflammatory stranding. N o other mass and no bulky lymphadenopathy. Fat only umbilical hernia is present. No acute bone finding. IMPRESSION: Right lower lobe pneumonia. Questionable fluid in stranding around the head of the pancreas in a motion degraded portion of the examination. No discrete masses seen on noncontrast imaging. Correlation is needed with any clinical or laboratory findings of pancreatitis. Massive multi fibroid uterus. Full assessment is limited is the absence of IV contrast.
--- NOTE | 2018-07-19 09:41 | EKG ---
Test Date: 2018-07-18 Test Time: 22:05:08 Property Consultant: LEYDI MEASUREMENT RESULTS: Intervals: Rate: 43 MS: QRSD: 104 QT: 550 QTc: 464 Sage: P: MS: QRS: 15 T: 64 INTERPRETIVE STATEMENTS: Sinus bradycardia First degree AV block Non specific T abnormality Cannot rule out Anterior infarct, age undetermined Abnormal ECG Compared to ECG 07/02/2018 09:46:51 questionable myocardial infarct finding now present Left ventricular hypertrophy no longer present Electronically Signed On 07-19-18 09:40:40 CDT by Jason Shrestha
[2018-07-19] MEDS ORDERED: NA CHLORIDE 0.9% 500 ML ONE (10:12)
[2018-07-19] MEDS ORDERED: PNEUMOCOCCAL VACCINE 0.5 ML IMVAC ONE (11:00)
[2018-07-19] MEDS ORDERED: IPRATROPIUM BROM 0.5MG/2.5ML NEB PRN (12:49)
[2018-07-19] MEDS ORDERED: DOPAMINE/D5W 400 MG/250 ML BAG IV PRN (12:49)
[2018-07-19] MEDS ORDERED: ONDANSETRON 4 MG/2 ML VIAL IV PRN (12:49)
[2018-07-19] MEDS ORDERED: GLUCAGON 1 MG/VIAL IM PRN (13:41)
[2018-07-19] MEDS ORDERED: VANCOMYCIN 1.75 GM in NA CHLORIDE 0.9% 500 ML IVPB SCH (14:00)
[2018-07-19] MEDS ORDERED: D5 0.45 NS 1,000 ML IV SCH (14:00)
[2018-07-19] MEDS: PIPER/TAZO/NS 3.375gm 3.375 GM/100 ML BAG IVPB SCH (14:31)
[2018-07-19 14:35] LABS: Absolute Lymphocytes (CBC) 0.6 K/uL (0.7-4.9); Absolute Monocytes 0.6 K/uL (0.1-1.3); Absolute Neutrophil 6.8 K/uL (1.8-8.0); Basophils % 0.1 % (0-1.3); Eosinophils % 0.3 % (0-4.4); Hematocrit 21.9 % (36.0-45.0); Lymphocytes % 7.9 % (15.3-44.8); MCH 28.9 pg (27.0-35.0); MCV 87.9 fL (80-100); MPV 6.9 fL (7.6-11.3); Monocytes % 7.8 % (3.3-12.3); RBC Red Blood Cell Count 2.49 M/uL (3.86-4.86)
[2018-07-19 14:51] LABS: Magnesium 2.3 mg/dL (1.8-2.4); Potassium 5.5 mmol/L (3.5-5.1)
[2018-07-19] MEDS: INSULIN -REGULAR HUMAN 50 UNIT/0.5 ML ML SQ SCH ×2 (17:56→23:46)
[2018-07-19] MEDS ORDERED: D50W 25 GM/50 ML SYRINGE IV ONE (21:11)
[2018-07-19] MEDS ORDERED: INSULIN -REGULAR HUMAN 50 UNIT/0.5 ML ML IV ONE (21:13)
[2018-07-19] MEDS: ALBUTEROL 2.5 MG/3 ML NEB SOL NEB PRN (21:18)
[2018-07-19] MEDS: D5W 1,000 ML IV SCH (21:31)
[2018-07-19] MEDS: ENOXAPARIN 30 MG/0.3 ML SQ SCH (21:31)
[2018-07-19] MEDS: D50W 25 GM/50 ML SYRINGE IV PRN (23:45)
[2018-07-20] MEDS: PIPER/TAZO/NS 3.375gm 3.375 GM/100 ML BAG IVPB SCH ×3 (00:21→18:18)
[2018-07-20] MEDS: ALBUTEROL 2.5 MG/3 ML NEB SOL NEB PRN (00:31)
[2018-07-20] MEDS: D5W 1,000 ML IV SCH ×3 (03:57→20:16)
--- NOTE | 2018-07-20 05:09 | HP ---
Date of Admission: 07/19/2018 Chief Complaint: Hypothermia. History Of Presenting Illness: A 78-year-old female patient who was admitted to the hospital and rel eased approximately 1 week ago during her last hospital admission. She had septic shock, urinary tra ct infection, and pneumonia problem. She had complete workup done during her last hospital admission including CAT scan and MRI of the brain shows no evidence of any stroke. She also had a modified ba rium swallow test done and speech therapy consultation. According to speech therapy, diet was starte d which she tolerated very well and she was discharged to go to shelter and she was back to her normal baseline state. I saw her yesterday at shelter and this was yesterday morning when I saw her for my routine visit and she was sitting in the wheelchair as per my discussion with the shelter nurse. She was back to her normal usual self and eating well, had no complaints. Yesterday evening, nurse from shelter contacted me, informed me that the patient's temperature was low and with that she was sent to emergency room. After she was evaluated in the ER, she was admitted to hospital. Her temperature dropped down further in the emergency room. Blood pressure dropped down. Heart rate dropped down. She was given IV fluid, IV antibiotics, dopamine drip was started, and he r condition was stabilized and I was contacted requesting admission to ICU. Franko Hugger was started. Warm IV fluid was given to help with her core body temperature. When I saw her this morning, she w as in the emergency room, lying in bed, not communicating, not in any distress and there was no famil y member in the emergency room when I saw her. Medications: List reviewed. Review of Systems: Constitutional: As mentioned above. All other systems unable to obtain due to patient's current condition and there are no family member at bedside. Allergies: NO KNOWN ALLERGIES. Social History: Negative for smoking or alcohol use. Family History: Not pertinent. Past Medical History: Significant for hypertension, diabetes mellitus, dementia, and prior history o f stroke with right-sided hemiparesis. Past Surgical History: Negative. Physical Examination: Vital Signs: Her initial body temperature was 86.8 degrees Fahrenheit, respiratory rate 18, oxygen s aturation 97%, weight 104.33 kg, height 5 feet 8 inches, pulse rate was 45, blood pressure 94/65. Lo west blood pressure in the emergency room was 63/45 with pulse rate 37. General: The patient is not communicating, not answering any questions. Not in any distress. HEENT: Head atraumatic, normocephalic. Conjunctivae nonerythematous. Sclerae white. Mouth, no thr ush or edema noted. Ears/Nose, no mass, lesion, discharge noted. Neck: Supple. No JVD, lymph nodes, bruit, thyromegaly noted. Lungs: Bilateral good equal air entry. Clear to auscultation. No rhonchi. No rales. Heart: Normal heart sounds, no murmur or gallop. Abdomen: Soft, bowel sounds normal. No guarding, rigidity, tenderness, mass, hepatosplenomegaly, dis tention, or bruit noted. Extremities: Right groin examination has presence of central line catheter which was placed in the e [facility] room. Skin: No rash, ulcer, cellulitis. Lymphatics: No lymph node enlargement in neck, supraclavicular, infraclavicular region. Neuro: No focal neurological deficit. Chest: Unremarkable. External Genitalia: Deferred. Rectal: Deferred. WIRING TECHNICIAN: Detail exam not possible because patient does not follow any commands. Laboratory Data: White count 11.6, hemoglobin 7.8, platelets 332. Sodium 149, potassium 4.8, chlori de 117, bicarb 24, BUN 43, creatinine 1.80, glucose 131, lactic acid 1.8. Procalcitonin 2.17. TSH 2 .08. Liver function tests unremarkable. Troponin 0.02. Lipase 10,654. Urinalysis negative for nit rite, esterase, 2+ protein, negative for wbc and bacteria. Chest x-ray limited shallow inspiration f ilm, no acute changes noted on the x-ray. Right upper quadrant abdominal ultrasound shows normal gal lbladder and biliary tree. Impression: 1.Septic shock. 2.Pneumonia, rule out aspiration pneumonia. 3.Anemia. 4.Volume depletion. 5.Hypothermia. 6.Diabetes mellitus. 7.Dementia. 8.History of stroke with right-sided hemiparesis. 9.Hypertension. Plan: Admit the patient to hospital for further evaluation and management of this problem. The jonathan ent is appropriate for inpatient and is expected to spend 2 midnights in hospital. We will admit her to ICU. IV fluid, IV antibiotics, DVT prophylaxis using Lovenox. Monitor the patient's hemoglobin. If necessary give blood transfusion. Monitor electrolytes and renal function and we will consult g astroenterologist and we will discuss with family to see if family is agreeable for any kind of feedi ng tube type placement as I am concerned that the patient might have aspiration pneumonia problem cau sing this recent hospital admission. I did see her yesterday morning and she was in her normal usual state of health and yesterday evening, her condition deteriorated significantly enough to require ho spital admission to intensive care unit, and as per my discussion with ER physician when he talked to family, they wanted everything done, so she remains full code. During her last hospital admission i nitially, she was full code and later on family had decided to have decision of do not intubate, but this admission to start which she remains full code. ANUPAMA/MODL Voice ID: [id number]
[2018-07-20] MEDS: INSULIN -REGULAR HUMAN 50 UNIT/0.5 ML ML SQ SCH ×3 (06:00→18:00)
[2018-07-20 06:06] LABS: Potassium 4.4 mmol/L (3.5-5.1)
[2018-07-20 06:07] LABS: Absolute Lymphocytes (CBC) 1.3 K/uL (0.7-4.9); Absolute Monocytes 0.8 K/uL (0.1-1.3); Basophils % 0.6 % (0-1.3); Eosinophils % 0.9 % (0-4.4); Hematocrit 21.6 % (36.0-45.0); Lymphocytes % 12.5 % (15.3-44.8); MCH 28.9 pg (27.0-35.0); MCV 87.7 fL (80-100); MPV 7.6 fL (7.6-11.3); Monocytes % 8.1 % (3.3-12.3); RBC Red Blood Cell Count 2.46 M/uL (3.86-4.86)
--- NOTE | 2018-07-20 12:20 | P.CNS ---
Date of Consult: 07/20/18 Chief Complaint: Sepsis possible pneumonia History of Present Illness: Patient is 69 years of age was just recently discharged with a diagnosis of sepsis and hypernatremia she is found to be hypothermic lethargic low pulse this with the [facility] admitted with a diagnosis of sepsis also was found to have possible pancreatitis. CT scan of the abdomen shows a new right lower lobe infiltrate patient has a chronically elevated right hemidiaphragm. Patient is nonverbal Allergies No Known Allergies Allergy (Verified 07/02/18 18:57) Home Medications: Acetaminophen [Tylenol] 650 mg PO DAILY PRN 07/02/18 Allopurinol 100 mg PO BID 07/02/18 Amlodipine [Norvasc] 5 mg PO BID 07/02/18 Aspirin Chewable [Aspirin Chewable*] 81 mg PO DAILY 07/02/18 Carvedilol [Coreg] 12.5 mg PO BID 07/02/18 Cholecalciferol (Vitamin D3) [Vitamin D 5,000 Iu Cap] 5,000 unit PO DAILY Citalopram [Celexa] 10 mg PO BEDTIME 07/02/18 Donepezil [Aricept*] 10 mg PO BEDTIME 07/02/18 Ferrous Sulfate [Feosol] 325 mg PO DAILY 07/02/18 Insulin Aspart [Novolog Flexpen] See Protocol SQ AC 07/02/18 Insulin Degludec [Tresiba Flextouch U-100] 8 units SQ BEDTIME 07/02/18 Lorazepam [Ativan] 0.5 mg PO BEDTIME 07/02/18 Losartan Potassium [Cozaar] 100 mg PO DAILY 07/02/18 Mag Hydroxide 8% [Milk Of Magnesia] 30 ml PO Q7D 07/02/18 Memantine HCl [Memantine HCl ER] 28 mg PO DAILY 07/02/18 Metformin HCl [Glucophage] 500 mg PO BIDWM 07/02/18 Multivitamin [Multivitamins] 1 each PO DAILY 07/02/18 Sennosides/Docusate Sodium [Stimulant Laxative Plus Tablet] 1 each PO DAILY 09/09 risperiDONE [Risperdal 0.25 MG TAB*] 1 tab PO DAILY 07/02/18 - Past Medical/Surgical History Diabetic: Yes -: Diabetes mellitus type 2 -: Hypertension -: Severe dementia -: CAD -: anemia -: muscle weakness -: depression Psychosocial/ Personal History: Patient lives in a custodial for almost 2 years. She has 2 children. She is currently . - Social History Alcohol use: No CD- Drugs: No Caffeine use: No Review of Systems is unable to be obtained Physical Examination Temp Pulse Resp BP Pulse Ox 97.1 F 91 H 22 H 147/70 H 100 07/20/18 04:00 07/20/18 09:00 07/20/18 09:00 07/20/18 09:00 07/20/18 08:00 General: Unresponsive Respiratory: Clear to auscultation bilaterally Cardiovascular: No edema, Normal S1 S2 Gastrointestinal: Normal bowel sounds, Tenderness (Generalized tenderness) Musculoskeletal: No clubbing, No swelling Integumentary: Skin breakdown (Patient has decubitus ulcers) - Problems (1) Pneumonia Onset Date: 07/05/18 Current Visit: No Status: Acute Plan: Patient is 78 years of age admitted with a right lower lobe infiltrate possible pneumonia this appears to be new waited lipase possible pancreatitis no evidence of gallstones patient is anemic worsening renal function hypernatremic with altered mental status previous barium swallow possible aspiration patient is now hemodynamically stable oxygenation satisfactory of ordered IV thymine patient is on IV fluids patient's lipase was over 10,000 is not declining patient is high risk for aspiration Qualifiers: Pneumonia type: due to unspecified organism
[2018-07-20] MEDS ORDERED: THIAMINE 200 MG/2 ML INJ IVP ONE (12:22)
[2018-07-20] MEDS: ENOXAPARIN 30 MG/0.3 ML SQ SCH (20:17)
--- NOTE | 2018-07-20 23:48 | PN ---
Date of Progress Note: 07/20/2018 Subjective: The patient was seen this morning. She was in ICU, sitting in bed, not in distress. bello was more responsive today than yesterday, does not communicate but at least tries to open her eyes. Objective: Vital Signs: Reviewed. Intake and output records reviewed. HEENT: Unremarkable. Lungs: Clear to auscultation. No rhonchi or rales. Heart: Heart sounds normal. Abdomen: Soft. Bowel sounds normal. No guarding, rigidity, tenderness, or distention. Extremities: Soft. No leg edema. Laboratory Data: White count 10.3, hemoglobin 7.1, platelets 321. Sodium 148, potassium 4.4, chlori de 118, bicarb 21, BUN 39, creatinine 2.30, glucose 90, lipase 1492. Impression: 1.Septic shock. 2.Aspiration pneumonia. 3.Acute pancreatitis. 4.Acute renal failure. 5.Anemia. 6.Hypertension. 7.Diabetes mellitus. Plan: We will continue current medications. Continue IV fluid. Renal failure has gotten slightly w orse. I am hoping by tomorrow, we should see some improvement in renal function. Sodium level is be tter today than yesterday. GI consultation is pending. I have requested consultation from Lauri sandro to evaluate and see if the patient will benefit from feeding tube placement. She did have maris fied barium swallow test done about a week to 2 weeks ago, so no need to repeat it at this point. We will continue current antibiotics which is Zosyn, discontinue vancomycin. I did try to reach out to the patient's daughter this morning and she was not available. The patient's son-in-law answered e phone and I tried to reach the patient's daughter this evening and she was not available this evening. ANUPAMA/MODL Voice ID: [id number] Report ID: [id number]
[2018-07-21] MEDS: PIPER/TAZO/NS 3.375gm 3.375 GM/100 ML BAG IVPB SCH ×3 (01:34→17:01)
[2018-07-21] MEDS: D5W 1,000 ML IV SCH ×3 (05:31→21:17)
[2018-07-21 05:43] LABS: Absolute Lymphocytes (CBC) 1.1 K/uL (0.7-4.9); Absolute Monocytes 0.7 K/uL (0.1-1.3); Basophils % 0.2 % (0-1.3); Eosinophils % 3.3 % (0-4.4); Hematocrit 21.5 % (36.0-45.0); Lymphocytes % 15.3 % (15.3-44.8); MCH 29.5 pg (27.0-35.0); MCV 86.8 fL (80-100); MPV 7.2 fL (7.6-11.3); Monocytes % 10.4 % (3.3-12.3); RBC Red Blood Cell Count 2.48 M/uL (3.86-4.86)
[2018-07-21 05:51] LABS: Magnesium 1.9 mg/dL (1.8-2.4); Potassium 4.3 mmol/L (3.5-5.1)
[2018-07-21] MEDS: INSULIN -REGULAR HUMAN 50 UNIT/0.5 ML ML SQ SCH ×4 (05:58→17:43)
--- NOTE | 2018-07-21 07:40 | RAD REPORT ---
EXAM DESCRIPTION: Charissa Single View07/21/2018 7:01 am CLINICAL HISTORY: Shortness of breath COMPARISON: July 18, 2018 FINDINGS: Partial resolution in right lower lobe opacities has occurred. No other change is noted IMPRESSION: Mild improvement in a right lower lobe pneumonia
--- NOTE | 2018-07-21 14:25 | CON ---
Date of Consultation: 07/20/2018 Reason For Consultation: Pancreatitis. History Of Present Illness: The patient is a 78-year-old woman, who was just discharged around a wee k ago from the hospital. She had been admitted with UTI and pneumonia and had been in septic shock. At that time, she had, had a CT and MRI of the brain without any stroke. Also had undergone a modif ied barium swallow by Speech Pathology and had passed. She was in the senior living and then apparent ly by evening time found to be unresponsive with an altered mental status and hypothermic, was sent t o the ER, currently being managed for sepsis, a new pneumonia as well as acute pancreatitis. GI cons ultation has been requested. Also, there is a suspicion of possible aspiration even though the modif ied barium study was negative last time around without any evidence. Medications: List reviewed. Past Medical History: Hypertension, diabetes, dementia, history of stroke with right-sided hemipares is. Past Surgical History: None. Family History: Noncontributory. Social History: Unable to obtain due to her current status. Review of Systems: Unable to obtain due to current status. Allergies: NO KNOWN DRUG ALLERGIES. Physical Examination: Vitals: Initial body temperature actually was 86.8 degrees Fahrenheit, then subsequently improved to 97, pulse of 78, respiratory rate 13, and blood pressure 147/73. General: She seems to be awake and alert, but oriented x0. HEENT: Pupils are equally reactive. Neck: Supple. Chest: Bilateral air entry heard. Abdomen: Obese, but soft, nontender, does not appear to be tender. Bowel sounds are present. Extremities: Trace pedal edema. CVS: S1 and S2 plus. Imaging: Reviewed. She did have a CT, which is showing fluid and stranding around head of the pancr eas, also pneumonia. Laboratory Data: Reviewed. White count was initially 11.6, improved to 10.3, her hemoglobin is 7.1- 7.2. Coagulation profile shows INR of 1.08. Chemistry panel also reviewed. Her lipase has improved from 10,000 to 1400 today. Impression: A 78-year-old woman with a recent hospitalization with septic shock, however, this impro osiel with treatment and discharged, now presents with sepsis, hypothermia and also found to have pancr eatitis. Also, there is a question of she has high risk for aspiration, however, with negative modif ied barium swallow last time around. Plan: At this time, we will continue current management. Broad-spectrum antibiotics as she is alrea dy on. Continue fluid. Etiology of pancreatitis exactly is unclear. Of course, alcohol and gallsto jameel have been ruled out. Could be related to hypothermia and sepsis, but difficult to say at this po int, however, the pancreatitis seems to be improving quite rapidly. In regard to the swallowing, we will have to wait for a better swallow study to be done, maybe she may need to be more awake for that , probably Speech Pathology will have to come and re-evaluate for the modified barium swallow versus doing a regular barium esophagogram. If she fails the studies or if the calorie count is deemed to b e insufficient, she may be a candidate for PEG tube placement only if the family wants it to be done. We will likely have to wait for several days because of the fluid around the pancreas and the duode num that has been due to the pancreatitis. Also, we will need for the pancreatitis to significantly improve or so, GI will continue to follow. US/MODL Voice ID: [id number] Report ID: [id number]
[2018-07-21] MEDS: ENOXAPARIN 30 MG/0.3 ML SQ SCH (21:18)
--- NOTE | 2018-07-21 22:55 | PN ---
Date of Progress Note: 07/21/2018 Subjective: The patient was seen this morning for followup. She was lying in bed, not in any distre ss, sleeping. Intake and output records reviewed. Objective: Vital Signs: Vital signs reviewed. HEENT: Examination unremarkable. Lungs: Clear to auscultation. No rhonchi. No rales. Heart: Heart sounds normal. Abdomen: Soft. Bowel sounds normal. No guarding, rigidity, tenderness, or distention. Extremities: No leg edema. Laboratory Data: White count 7.1, hemoglobin 7.3, platelets 302. Lipase 407. Sodium 141, potassium 4.3, chloride 110, bicarb 23, BUN 26, creatinine 1.70, and glucose 95. Impression: 1.Aspiration pneumonia. 2.Septic shock, resolved. 3.Acute renal failure, improving. 4.Anemia. 5.Hypertension. 6.Diabetes mellitus. Plan: We will go ahead and continue current antibiotic, which is Zosyn. The patient's condition is improving. Renal failure is improving. We will continue IV fluid. Dr. Montemayor has seen her from [facility], and he has communicated with family regarding feeding tube placement. Today, he has order ed modified barium swallow. Depending on that result, he will make his final decision. Speech Therapy consultation reviewed. ANUPAMA/MODL Voice ID: [id number] Report ID: [id number]
[2018-07-22] MEDS: PIPER/TAZO/NS 3.375gm 3.375 GM/100 ML BAG IVPB SCH ×3 (00:54→17:46)
[2018-07-22] MEDS: D5W 1,000 ML IV SCH ×3 (04:59→19:20)
[2018-07-22 05:32] LABS: Absolute Lymphocytes (CBC) 1.1 K/uL (0.7-4.9); Absolute Monocytes 0.8 K/uL (0.1-1.3); Absolute Neutrophil 4.9 K/uL (1.8-8.0); Basophils % 0.2 % (0-1.3); Eosinophils % 2.4 % (0-4.4); Hematocrit 23.5 % (36.0-45.0); Lymphocytes % 15.2 % (15.3-44.8); MCH 29.6 pg (27.0-35.0); MCV 85.8 fL (80-100); MPV 7.2 fL (7.6-11.3); Monocytes % 11.6 % (3.3-12.3); RBC Red Blood Cell Count 2.74 M/uL (3.86-4.86)
[2018-07-22 05:56] LABS: Magnesium 1.7 mg/dL (1.8-2.4); Potassium 3.9 mmol/L (3.5-5.1)
[2018-07-22] MEDS: INSULIN -REGULAR HUMAN 50 UNIT/0.5 ML ML SQ SCH ×4 (06:00→17:47)
[2018-07-22] MEDS ORDERED: MAGNESIUM SULFATE 1 gm IVPB 1 GM/100 ML BAG IV ONE (06:01)
[2018-07-22] MEDS ORDERED: KCL 20 MEQ/100 mL IVPB 20 MEQ/100 ML BAG IV SCH (07:00)
--- NOTE | 2018-07-22 08:45 | RAD REPORT ---
EXAM DESCRIPTION: RAD - Abdomen 1 View (KUB) - 07/22/2018 8:02 am CLINICAL HISTORY: Device placement Dobhoff tube placement FINDINGS: The tip of a Dobhoff tube lies within the distal stomach. The tip is coiled
--- NOTE | 2018-07-22 12:20 | RAD REPORT ---
EXAM DESCRIPTION: RAD - Barium Swallow Modified - 07/22/2018 12:01 pm CLINICAL HISTORY: swallowing evaluation COMPARISON: Abdomen Pelvis Wo Contrast dated 07/19/2018 TECHNIQUE: The patient was given liquid, semi-solid and solid forms of barium. Lateral view fluorosc opic imaging was performed in conjunction with speech pathology service. FINDINGS: LARYNGEAL PENETRATION: NOT CLEARED WITH NECTAR THICK LIQUID ASPIRATION LIKELY TO OCCUR BY WAY OF GRAVITY. Pharyngeal residue: Vallecular and Pyriform, significant anount fatigue is a factor Delay in swallow approximate @ 45-60 sec with max stimulation. Total fluoroscopy time: 7 minutes and 56 seconds.
[2018-07-22] MEDS: ENOXAPARIN 30 MG/0.3 ML SQ SCH (22:44)
[2018-07-23] MEDS: PIPER/TAZO/NS 3.375gm 3.375 GM/100 ML BAG IVPB SCH ×3 (01:42→16:31)
--- NOTE | 2018-07-23 02:30 | PN ---
Date of Progress Note: 07/22/2018 Subjective: The patient was seen this morning for followup. No new complaints or problems reported by the patient's nurse in ICU. She was lying in bed. Dobhoff tube was present. This was placed thi s morning. Objective: Vital Signs: Reviewed. HEENT: Examination. Lungs: Clear to auscultation. Heart: Sounds normal. Abdomen: Soft. Bowel sounds normal. No guarding, rigidity, tenderness, or distention. Extremities: No leg edema. Laboratory Data: White count 6.9, hemoglobin 8.1, and platelets 354. Sodium 141, potassium 3.9, chl oride 108, bicarb 25, BUN 16, creatinine 1.50, glucose 81, and magnesium 1.7. Impression: 1.Aspiration pneumonia. 2.Old stroke with right-sided hemiparesis. 3.Hypertension. 4.Diabetes mellitus. 5.Anemia. 6.Dementia. Plan: We will continue current medication, antibiotics, and IV fluids. Tube feeding will be started today. Monitor fingerstick blood sugar, vital signs. At some point, we will have to consider to re start her antihypertensive medication. We will continue to monitor fingerstick blood sugar and continue to follow up with service car driver for decision on PEG tube pl acement. ANUPAMA/MODL Voice ID: [id number] Report ID: [id number]
[2018-07-23] MEDS: INSULIN -REGULAR HUMAN 50 UNIT/0.5 ML ML SQ SCH ×4 (06:00→17:50)
[2018-07-23] MEDS: D5W 1,000 ML IV SCH ×3 (07:15→22:53)
[2018-07-23] MEDS: ALBUTEROL 2.5 MG/3 ML NEB SOL NEB PRN (14:31)
[2018-07-23] MEDS ORDERED: GLUCERNA 1.5 CAL 1,000 ML BOT RTH SCH (15:00)
--- NOTE | 2018-07-23 16:59 | P.PN ---
Subjective Date of Service: 07/23/18 Chief Complaint: Sepsis possible pneumonia Patient seen and examined at bedside with RN. Chart reviewed. -No complaints to offer overnight -patient still remained weak easily arousable however not able to swallow are not able to follow commands appropriately. Review of Systems 10-point ROS is otherwise unremarkable Physical Examination - Vital Signs Temperature: 97.6 F Blood Pressure: 156/68 Pulse: 90 Respirations: 15 Pulse Ox (%): 98 - Physical Exam General: Alert, Oriented x1, Mild distress, Other (Lethargic) HEENT: Atraumatic, PERRLA, EOMI Neck: Supple, JVD not distended Respiratory: Normal air movement, Rhonchi/gurgles Cardiovascular: Regular rate/rhythm, Normal S1 S2 Gastrointestinal: Normal bowel sounds, Soft and benign, Non-distended, No tenderness Musculoskeletal: No tenderness Integumentary: Other (Left lower extremity with abscess on the fregoso) Lymphatics: No axilla or inguinal lymphadenopathy - Studies Medications List Reviewed: Yes Assessment And Plan - Current Problems (Diagnosis) (1) Pneumonia Onset Date: 07/05/18 Current Visit: No Status: Acute Plan: Aspiration pneumonia -currently on IV antibiotics. Will continue at this time. -follow up with the sputum culture and blood culture -patient currently has been debilitated due to acute sickness. Nutrition is of concern currently on TPN. GI has been consulted. Patient to have a repeat modified barium swallow once more alert and oriented. Will continue TPN until then. Will follow up with dietary in GI recommendation as well Qualifiers: Pneumonia type: aspiration pneumonia Aspiration pneumonia type: due to gastric secretions Laterality: right Lung location: lower lobe of lung Qualified Code(s): J69.0 - Pneumonitis due to inhalation of food and vomit (2) Dementia Onset Date: 07/05/18 Current Visit: No Status: Chronic Qualifiers: Dementia type: unspecified type Dementia behavioral disturbance: without behavioral disturbance Qualified Code(s): F03.90 - Unspecified dementia without behavioral disturbance (3) CVA (cerebral vascular accident) Onset Date: 07/05/18 Current Visit: No Status: Chronic Qualifiers: CVA mechanism: embolism Precerebral and cerebral artery: unspecified precerebral artery Qualified Code(s): I63.10 - Cerebral infarction due to embolism of unspecified precerebral artery (4) Diabetes mellitus Onset Date: 07/05/18 Current Visit: No Status: Acute Qualifiers: Diabetes mellitus type: type 2 Diabetes mellitus skilled nursing insulin use: without skilled nursing use Diabetes mellitus complication status: with other specified complication Qualified Code(s): E11.69 - Type 2 diabetes mellitus with other specified complication Discharge Plan: Home Plan to discharge in: 72 Hours - Code Status/Comfort Care Code Status Assessed: Yes Critical Care: No
--- NOTE | 2018-07-23 19:34 | RAD REPORT ---
EXAM DESCRIPTION: US - Extremity Nonvascular Complete - 07/23/2018 7:08 pm CLINICAL HISTORY: Left leg mass COMPARISON: none FINDINGS: The patient has a palpable mass within the anterolateral aspect of lower leg inferior to k nee. Ultrasound demonstrates a 5.4 x 0.6 x 2.3 centimeter hypoechoic mass. It is heterogeneous containing hypo and isoechoic areas. Blood flow within the mass is not noted. IMPRESSION: 5.4 x 0.6 x 2.3 centimeter heterogeneous mass along the anterolateral aspect of the lowe r leg which is palpable. It has a nonspecific appearance on ultrasound. It may represent a hematoma o r benign complex cyst. A malignancy is doubtful. Followup ultrasound in 2 months would be helpful to assess stability/resolution
[2018-07-23] MEDS: ENOXAPARIN 30 MG/0.3 ML SQ SCH (22:53)
[2018-07-24] MEDS: PIPER/TAZO/NS 3.375gm 3.375 GM/100 ML BAG IVPB SCH ×3 (02:04→16:54)
[2018-07-24] MEDS: INSULIN -REGULAR HUMAN 50 UNIT/0.5 ML ML SQ SCH ×4 (06:00→17:27)
[2018-07-24 07:18] LABS: Magnesium 2.1 mg/dL (1.8-2.4)
[2018-07-24] MEDS: D5W 1,000 ML IV SCH ×2 (08:17→13:00)
--- NOTE | 2018-07-24 13:56 | P.PN ---
Subjective Date of Service: 07/24/18 Chief Complaint: Sepsis possible pneumonia Patient seen and examined at bedside with RN. Chart reviewed. -No complaints to offer overnight -patient still remained weak easily arousable however not able to swallow are not able to follow commands appropriately. -Family still deciding on PEG tube placement. Will F.u with GI and family Review of Systems 10-point ROS is otherwise unremarkable Physical Examination - Vital Signs Temperature: 97.2 F Blood Pressure: 137/98 Pulse: 85 Respirations: 16 Pulse Ox (%): 98 - Physical Exam General: Alert, Oriented x1, Cachectic, Other (Lethargic) HEENT: Atraumatic, PERRLA, EOMI Neck: Supple, JVD not distended Respiratory: Normal air movement, Crackles/rales Cardiovascular: Regular rate/rhythm, Normal S1 S2 Gastrointestinal: Normal bowel sounds, Soft and benign, Non-distended, No tenderness Musculoskeletal: No tenderness Integumentary: No rashes Neurological: Normal speech, Normal tone, Normal affect Lymphatics: No axilla or inguinal lymphadenopathy - Studies Microbiology Data (last 24 hrs): 07/18/18 22:10 Blood - Blood Aerobic Blood Culture - Final No growth in 5 days. 07/18/18 22:10 Blood - Blood Anaerobic Blood Culture - Final No growth in 5 days. 07/18/18 21:50 Blood - Blood Aerobic Blood Culture - Final No growth in 5 days. 07/18/18 21:50 Blood - Blood Anaerobic Blood Culture - Final No growth in 5 days. Medications List Reviewed: Yes Assessment And Plan - Current Problems (Diagnosis) (1) Pneumonia Onset Date: 07/05/18 Current Visit: No Status: Acute Plan: Aspiration pneumonia -currently on IV antibiotics. Will continue at this time. -follow up with the sputum culture and blood culture -patient currently has been debilitated due to acute PNA. Nutrition is of concern, is however, currently on TPN. GI has been consulted. Patient to have a repeat modified barium swallow once more alert and oriented. Will continue TPN until then. Will follow up with dietary in GI recommendation as well. Family still deciding on PEG tube placement Qualifiers: Pneumonia type: aspiration pneumonia Aspiration pneumonia type: due to gastric secretions Laterality: right Lung location: lower lobe of lung Qualified Code(s): J69.0 - Pneumonitis due to inhalation of food and vomit (2) Dementia Onset Date: 07/05/18 Current Visit: No Status: Chronic Qualifiers: Dementia type: unspecified type Dementia behavioral disturbance: without behavioral disturbance Qualified Code(s): F03.90 - Unspecified dementia without behavioral disturbance (3) CVA (cerebral vascular accident) Onset Date: 07/05/18 Current Visit: No Status: Chronic Qualifiers: CVA mechanism: embolism Precerebral and cerebral artery: unspecified precerebral artery Qualified Code(s): I63.10 - Cerebral infarction due to embolism of unspecified precerebral artery (4) Diabetes mellitus Onset Date: 07/05/18 Current Visit: No Status: Acute Qualifiers: Diabetes mellitus type: type 2 Diabetes mellitus mcfp insulin use: without intermodal dispatcher use Diabetes mellitus complication status: with other specified complication Qualified Code(s): E11.69 - Type 2 diabetes mellitus with other specified complication Discharge Plan: Senior Care Plan to discharge in: 72 Hours - Code Status/Comfort Care Code Status Assessed: Yes Critical Care: No
--- NOTE | 2018-07-24 19:40 | CON ---
Date of Consultation: 07/23/2018 Brief History Of Present Illness: The patient is a 78-year-old female admitted to [facility] 1 week prior with septic shock, urinary tract infection, pneumonia. She had a workup, wh ich did not reveal a stroke at that time. She was started on a diet, went to a retirement and retu rned with a low-grade temperature, evaluated in the ER, and found to have hypothermia, hypotension, a nd bradycardia. She was brought to the ICU for management at that time. Past Medical History: Significant for hypertension, diabetes, and dementia. Prior history of a stro ke with right-sided hemiparesis. Past Surgical History: Negative and unable to obtain. I am unable to obtain a history from the jonathan ent as she is nonverbal during my examination. Family History: All unremarkable. Social History: All unremarkable. Allergies: NO KNOWN DRUG ALLERGIES BY REPORT. Review of Systems: Unable to obtain. Physical Examination: General: At the time of my examination, she is awake, but non-conversive. Vital Signs: Blood pressure 152/76, pulse is 93, respiratory rate 16, temperature 97.2. Head: On examination of her head, she has a left to midline frontal soft cystic mass consistent with a sebaceous cyst. Extremities: Focused examination of her left tibia, which was the reason for my consultation, shows a soft tissue cystic mass of the left tibial region, which is approximately 5 cm in size. There is n o evidence of infection. There is no tenderness to palpation. There is no erythematous change. No skin changes overlying this. This likely has been present for some time versus a possible hematoma. I am unable to do a neurologic exam for distal involvement of our neurologic dysfunction. Laboratory Data: Revealed a white blood cell count of 6.9, hemoglobin 8.1, hematocrit 23.5, platelet count is 354. Her coags showed a PT 12.7, INR 1.08, PTT is 42.6. Chemistry was not drawn recently. Urine was reviewed. Assessment And Plan: This is a 78-year-old female who has a cystic mass of the left tibia. 1.Order ultrasound of this area to better delineate and better define this. 2.Serial exams. 3.Continue medical management. I will follow along with you. Thank you for this interesting consult. ARMAND/RANDALL Voice ID: [id number] Report ID: [id number]
[2018-07-24] MEDS: ENOXAPARIN 30 MG/0.3 ML SQ SCH (21:48)
[2018-07-25] MEDS: PIPER/TAZO/NS 3.375gm 3.375 GM/100 ML BAG IVPB SCH ×3 (00:32→16:59)
[2018-07-25] MEDS: D5W 1,000 ML IV SCH ×4 (00:36→19:56)
[2018-07-25] MEDS: INSULIN -REGULAR HUMAN 50 UNIT/0.5 ML ML SQ SCH ×4 (06:00→18:00)
[2018-07-25] MEDS: D50W 25 GM/50 ML SYRINGE IV PRN (11:58)
--- NOTE | 2018-07-25 12:16 | P.PN ---
Subjective Date of Service: 07/25/18 Chief Complaint: Sepsis possible pneumonia Patient seen and examined at bedside with RN. Chart reviewed. -No complaints to offer overnight -patient still remained weak easily arousable however not able to swallow are not able to follow commands appropriately. -Family still deciding on PEG tube placement. Will F.u with GI and family Review of Systems 10-point ROS is otherwise unremarkable Physical Examination - Vital Signs Temperature: 97.6 F Blood Pressure: 158/56 Pulse: 71 Respirations: 16 Pulse Ox (%): 100 - Physical Exam General: In no apparent distress, Cachectic HEENT: Atraumatic, PERRLA, EOMI Neck: Supple, JVD not distended Respiratory: Normal air movement, Crackles/rales Cardiovascular: Regular rate/rhythm, Normal S1 S2 Gastrointestinal: Normal bowel sounds, No tenderness Musculoskeletal: No tenderness Integumentary: No rashes Neurological: Normal speech, Normal tone, Normal affect Lymphatics: No axilla or inguinal lymphadenopathy - Studies Medications List Reviewed: Yes Assessment And Plan - Current Problems (Diagnosis) (1) Pneumonia Onset Date: 07/05/18 Current Visit: No Status: Acute Plan: Aspiration pneumonia -currently on IV antibiotics. Will continue at this time. -follow up with the sputum culture and blood culture -patient currently has been debilitated due to acute PNA. Nutrition is of concern, is however, currently on TPN. GI has been consulted. Patient to have a repeat modified barium swallow once more alert and oriented. Will continue TPN until then. Will follow up with dietary in GI recommendation as well. Family still deciding on PEG tube placement Qualifiers: Pneumonia type: aspiration pneumonia Aspiration pneumonia type: due to gastric secretions Laterality: right Lung location: lower lobe of lung Qualified Code(s): J69.0 - Pneumonitis due to inhalation of food and vomit (2) Dementia Onset Date: 07/05/18 Current Visit: No Status: Chronic Qualifiers: Dementia type: unspecified type Dementia behavioral disturbance: without behavioral disturbance Qualified Code(s): F03.90 - Unspecified dementia without behavioral disturbance (3) CVA (cerebral vascular accident) Onset Date: 07/05/18 Current Visit: No Status: Chronic Qualifiers: CVA mechanism: embolism Precerebral and cerebral artery: unspecified precerebral artery Qualified Code(s): I63.10 - Cerebral infarction due to embolism of unspecified precerebral artery (4) Diabetes mellitus Onset Date: 07/05/18 Current Visit: No Status: Acute Qualifiers: Diabetes mellitus type: type 2 Diabetes mellitus usp insulin use: without usp use Diabetes mellitus complication status: with other specified complication Qualified Code(s): E11.69 - Type 2 diabetes mellitus with other specified complication Discharge Plan: Group Home Plan to discharge in: Greater than 2 days - Code Status/Comfort Care Code Status Assessed: Yes Critical Care: No
[2018-07-25] MEDS: ENOXAPARIN 30 MG/0.3 ML SQ SCH (19:56)
[2018-07-26] MEDS: PIPER/TAZO/NS 3.375gm 3.375 GM/100 ML BAG IVPB SCH ×3 (01:08→16:51)
[2018-07-26 04:46] VITALS: BMI 24.8
[2018-07-26] MEDS: INSULIN -REGULAR HUMAN 50 UNIT/0.5 ML ML SQ SCH ×4 (05:19→18:00)
[2018-07-26] MEDS: D5W 1,000 ML IV SCH ×3 (05:20→20:01)
[2018-07-26 07:12] LABS: Absolute Lymphocytes (CBC) 1.1 K/uL (0.7-4.9); Absolute Monocytes 0.8 K/uL (0.1-1.3); Absolute Neutrophil 4.3 K/uL (1.8-8.0); Basophils % 0.3 % (0-1.3); Eosinophils % 3.3 % (0-4.4); Hematocrit 24.3 % (36.0-45.0); Lymphocytes % 17.5 % (15.3-44.8); MCH 28.5 pg (27.0-35.0); MCV 86.6 fL (80-100); MPV 7.4 fL (7.6-11.3); Monocytes % 12.3 % (3.3-12.3)
--- NOTE | 2018-07-26 07:27 | RAD REPORT ---
EXAM DESCRIPTION: RAD - Chest Single View - 07/26/2018 6:54 am CLINICAL HISTORY: aspiration pneumonia<Reason For Exam>aspiration pneumonia COMPARISON: Abdomen 1 View (KUB) dated 07/22/2018; Chest Single View dated 07/21/2018; Chest Single Vi ew dated 07/18/2018; Chest Single View dated 07/10/2018<Comparisons> TECHNIQUE: AP portable chest image was obtained 0641 hours . FINDINGS: Lung volumes are low. Continued improvement in the right lung base opacification. Cardiac silhouette remains enlarged. No new or progressive vascular engorgement. No measurable pleural effusi on and no pneumothorax. No gross bony abnormality seen. No acute aortic findings suspected. IMPRESSION: Further clearing of right base opacification. Stable cardiomegaly.
[2018-07-26 07:28] LABS: Albumin 2.4 g/dL (3.4-5.0); Bilirubin Total 0.2 mg/dL (0.2-1.0); Magnesium 2.1 mg/dL (1.8-2.4); Potassium 4.8 mmol/L (3.5-5.1); Protein, Total 7.4 g/dL (6.4-8.2)
[2018-07-26] MEDS: CARVEDILOL 6.25 MG TAB FT SCH ×2 (08:32→20:00)
--- NOTE | 2018-07-26 11:26 | PN ---
Date of Progress Note: 07/26/2018 Subjective: The patient was seen this morning for followup. She was lying in bed in ICU, not in dis tress. Has a Dobhoff tube present and tolerating feeding very well through the Dobhoff tube. She wa s sleeping, but she did wake up with verbal commands and was trying to talk and was smiling. This is like her normal usual self when you try to communicate with her when I normally see her at the [facility] at her baseline condition. Objective: Vital Signs: Reviewed. HEENT: Unremarkable. Lungs: Clear to auscultation. Heart: Sounds normal. Abdomen: Soft. Bowel sounds normal. No guarding, rigidity, tenderness, or distention. Extremities: No leg edema. Left lower anterior [id number]-fqf-[id number] has soft to firm swelling consistent with lipoma type of swelling. No evidence of any abscess. Extremity exam does not show any edema. BOWL SANDER: Right hemiparesis old. Laboratory Data: White count 6.5, hemoglobin 8, platelets 282 this morning. Sodium 140, potassium 4 .8, chloride 104, bicarb 30, BUN 16, creatinine 1.50, glucose 119. Liver function tests unremarkable . Lipase 1189. Chest x-ray from this morning, further clearing of right base opacification. Impression: 1.Aspiration pneumonia. 2.Volume depletion. 3.Anemia. 4.Hypertension. 5.Diabetes mellitus. Plan: Blood pressure has been elevated. She is currently not on any antihypertensive medication [facility]lynn [facility] and in view of her vitals signs, we will initiate carvedilol 6.25 mg twice a day as of this morning. Continue Dobhoff tube feeding. I did talk to Dr. Sim baxter ast week on Thursday. He was planning to consider PEG tube placement sometime this week. In view of p ancreatitis problem that she had presented with, he wanted to wait for a while. That is why I repeat ed another lipase level and lipase was in range of 400 last week on Thursday. Today, it has gone up. We will continue to follow up with Dr. Montemayor. The patient has central line catheter present in he r groin and I have asked ICU nurse to try to get a PICC line so we can remove the central line from t he groin to reduce chances of any infection and once we remove the central line, then we will remove Londono catheter. I have also requested nurse to contact me when the patient's daughter visits her tod ay, so I can communicate with her. ANUPAMA/RANDALL Voice ID: [id number] Report ID: [id number]
[2018-07-26] MEDS: ENOXAPARIN 30 MG/0.3 ML SQ SCH (20:00)
--- NOTE | 2018-07-26 23:38 | RAD REPORT ---
EXAM DESCRIPTION: RAD - Chest Single View - 07/26/2018 11:15 pm CLINICAL HISTORY: S/P PICC insertion COMPARISON: Chest Single View dated 07/26/2018; Abdomen 1 View (KUB) dated 07/22/2018; Chest Single Vie w dated 07/21/2018; Chest Single View dated 07/18/2018 FINDINGS: Portable chest was obtained following placement of a right upper extremity PICC line. The catheter tip projects over the SVC - right atrium junction.
[2018-07-27] MEDS: PIPER/TAZO/NS 3.375gm 3.375 GM/100 ML BAG IVPB SCH ×3 (00:30→16:52)
[2018-07-27] MEDS ORDERED: SODIUM CHLORIDE 0.9% 10ML INJ IV PRN (04:38)
[2018-07-27] MEDS: D5W 1,000 ML IV SCH ×3 (05:00→21:00)
[2018-07-27] MEDS: INSULIN -REGULAR HUMAN 50 UNIT/0.5 ML ML SQ SCH ×5 (06:00→23:53)
--- NOTE | 2018-07-27 08:33 | RAD REPORT ---
EXAM DESCRIPTION: RAD - Abdomen 1 View (KUB) - 07/27/2018 3:28 am CLINICAL HISTORY: Enteric tube placement. Pain COMPARISON: Abdomen 1 View (KUB) dated 07/22/2018; Abdomen 1 View (KUB) dated 07/03/2018 FINDINGS: The bowel gas pattern is non-obstructive. No evidence of free air or pneumatosis. No suspi cious calcifications. Enteric tube appears to be within the stomach proximally however kinked/ turned on itself.
[2018-07-27] MEDS: CARVEDILOL 6.25 MG TAB FT SCH ×2 (09:00→21:00)
--- NOTE | 2018-07-27 10:28 | RAD REPORT ---
EXAM DESCRIPTION: CT - Abdomen Pelvis Wo Contrast - 07/27/2018 9:43 am CLINICAL HISTORY: Pancreatitis, abdominal pain, possible pneumonia COMPARISON: CT study July 19 TECHNIQUE: Axial [address] imaging of the abdomen and pelvis was performed without IV contrast. No IV contrast was given because of allergy, abnormal renal function, patient refusal or physician re quest. All CT scans are performed using dose optimization technique as appropriate and may include automated exposure control or mA/KV adjustment according to patient size. FINDINGS: Right lower lobe airspace disease has almost fully resolved. There is some minimal atelect asis change present. No progressive lung base finding. No pericardial thickening or effusion. Heart s ize is stable. The liver, spleen, gallbladder and biliary tree show no suspicious findings. Motion degradation is pr esent in the upper abdomen. There does appear to be some stranding in the peripancreatic fat adjacent to the head of the pancreas. No new or enlarging solid or cystic mass of the pancreas. Mild dilatation of the right pelvis and proximal ureter without obstructing or nonobstructing calculi . No left-sided hydronephrosis. No significant adrenal finding. Isodense renal masses and pyelonephr itis cannot be excluded in the absence of IV contrast. Urinary bladder is only partially filled. 2 sm all air collections are present in the bladder presumed to be from a catheterization procedure. Patie nt previously had a Londono catheter. The catheter has been removed. Again noted is the extremely large multi fibroid uterus most of which contain dense calcifications. No clear change from prior imaging. The mass effect of the multi fibroid uterus likely causes extrinsic compression of the right ureter. No dilated bowel loops or bowel wall thickening. No free air or pneumatosis. No abnormal free fluid c ollection. No new mass or bulky lymphadenopathy. No new hernia findings. Disc and bony degenerative changes are present and stable. Calcifications of the arterial tree noted. IMPRESSION: Mild pancreatitis changes are seen around the head of the pancreas. No new pancreatic ma ss seen. Detail is limited by the absence of contrast and presence of motion. Near complete resolution of the posterior right base pneumonia. Minimal infiltrate and atelectasis re main. Additional nonacute findings detailed in the body of the report. Full assessment is limited is the absence of IV contrast.
[2018-07-27] MEDS: ENOXAPARIN 30 MG/0.3 ML SQ SCH (21:01)
[2018-07-28] MEDS: D5W 1,000 ML IV SCH ×3 (00:23→17:53)
[2018-07-28] MEDS: PIPER/TAZO/NS 3.375gm 3.375 GM/100 ML BAG IVPB SCH ×3 (00:23→17:55)
--- NOTE | 2018-07-28 01:29 | PN ---
Date of Progress Note: 07/27/2018 Subjective: The patient was seen this morning for followup. No new complaints problems reported by nursing staff. The patient was lot more awake, alert this morning. Last night, the patient pulled o ut her Dobhoff tube and nurse did replace another Dobhoff tube and she pulled that out also. So when nurse contacted me early this morning, she was advised not to replace anymore Dobhoff tube as I was planning to do CAT scan. Objective: Vital Signs: Reviewed. HEENT: Unremarkable. Lungs: Clear to auscultation. Heart: Sounds normal. Abdomen: Soft. Bowel sounds normal. No guarding, rigidity, tenderness, distention. Extremities: No leg edema. Laboratory Data: Reviewed from yesterday. Today's CAT scan results reviewed. Impression: 1.Acute pancreatitis. 2.Aspiration pneumonia. 3.Hypertension. 4.Dementia. 5.Diabetes mellitus. Plan: We will continue current medication, antibiotic, IV fluid and we will repeat blood work tomorr ow. The patient's mental status has improved as of this morning when I saw her and depending on jorge gaffney's lab results, we will communicate with family regarding PEG tube placement. Yesterday, I had a long discussion with the patient's daughter. Also had discussion with Dr. Montemayor regarding PEG tu be placement. The patient's family is leaning towards having PEG tube placement. They have not deci ded for sure but they are not ready right now as we speak. There was no evidence of pseudocyst of pancreas on the CAT scan today. ANUPAMA/MODL Voice ID: [id number] Report ID: [id number]
[2018-07-28 05:27] LABS: Absolute Lymphocytes (CBC) 1.2 K/uL (0.7-4.9); Absolute Monocytes 0.7 K/uL (0.1-1.3); Absolute Neutrophil 3.2 K/uL (1.8-8.0); Basophils % 0.8 % (0-1.3); Eosinophils % 4.8 % (0-4.4); Hematocrit 24.4 % (36.0-45.0); Lymphocytes % 22.3 % (15.3-44.8); MCH 29.1 pg (27.0-35.0); MPV 7.5 fL (7.6-11.3); Monocytes % 13.5 % (3.3-12.3); RBC Red Blood Cell Count 2.84 M/uL (3.86-4.86)
[2018-07-28 05:43] LABS: Potassium 4.2 mmol/L (3.5-5.1)
[2018-07-28 05:44] LABS: Albumin 2.3 g/dL (3.4-5.0); Bilirubin Total 0.3 mg/dL (0.2-1.0); Magnesium 1.9 mg/dL (1.8-2.4); Protein, Total 7.4 g/dL (6.4-8.2)
[2018-07-28] MEDS: INSULIN -REGULAR HUMAN 50 UNIT/0.5 ML ML SQ SCH ×3 (06:00→17:39)
[2018-07-28 07:21] LABS: Protime INR 1.14
[2018-07-28] MEDS: CARVEDILOL 6.25 MG TAB FT SCH ×2 (08:17→21:00)
[2018-07-28] MEDS: ENOXAPARIN 30 MG/0.3 ML SQ SCH (21:00)
--- NOTE | 2018-07-28 23:07 | PN ---
Date of Progress Note: 07/28/2018 Subjective: The patient was seen this morning for followup. The patient's daughter and son were pre sent in room. She was lying in bed. This morning, she was not quite as awake and alert as yesterday . Objective: Vital Signs: Reviewed. HEENT: Unremarkable. Lungs: Clear to auscultation. Heart: Heart sounds normal. Abdomen: Soft. Bowel sounds normal. No guarding, rigidity, tenderness, distention. Extremities: No leg edema. Laboratory Data: White count 5.5, hemoglobin 8.3, platelets 303. Potassium 4.2, chloride 103, bicar b 30, BUN 13, creatinine 1.70, glucose 128, lipase 645 and amylase 135. Impression: 1.Acute pancreatitis. 2.Aspiration pneumonia. 3.Hypertension. 4.Diabetes mellitus. Plan: We will continue current IV fluid. Continue antibiotics. Pneumonia has almost resolved with current antibiotics. I did talk to patient's family members in detail and they have decided to go ah ead and go with a PEG tube placement. I did call and discuss details with Dr. Montemayor regarding tod ay's blood test results as well as yesterday's CAT scan result and he is planning to do EGD with PEG tube placement for tomorrow. I also informed different possibilities to patient's family member this morning, but for some technical reason, if Dr. Montemayor is not able to put the feeding tube tomorrow through endoscopy, then next option would be to place a feeding tube surgically and if we are not ab le to do that, then last option will be to consider to take the patient back [facility]. All of this detail discussion happened this morning in the patient's room and family's ques tions were answered. I will see her tomorrow for followup. The family also had question if she will come back to her baseline or not and I did inform them that there is a good possibility that she may not be able to get back to her baseline and that is something that we do observe in patients like th at every time they get sick, they may not get back to their previous level of functioning, but only t vasquez will tell us. ANUPAMA/MODL Voice ID: [id number] Report ID: [id number]
[2018-07-29] MEDS: PIPER/TAZO/NS 3.375gm 3.375 GM/100 ML BAG IVPB SCH ×3 (01:01→17:06)
[2018-07-29] MEDS: D5W 1,000 ML IV SCH ×3 (02:00→21:12)
[2018-07-29] MEDS: INSULIN -REGULAR HUMAN 50 UNIT/0.5 ML ML SQ SCH ×4 (06:00→17:15)
[2018-07-29] MEDS ORDERED: NA CHLORIDE 0.9% 1,000 ML ONE (06:41)
[2018-07-29] MEDS ORDERED: PROPOFOL 200 MG/20 ML VIAL IV ONE (06:46)
[2018-07-29] MEDS ORDERED: LIDOCAINE 1% MPF 2 ML AMPULE ONE (06:46)
[2018-07-29] MEDS: CARVEDILOL 6.25 MG TAB FT SCH ×2 (09:00→21:00)
[2018-07-29] MEDS: NITROGLYCERIN 1 GM PKT TD SCH ×2 (12:17→17:06)
[2018-07-29] MEDS: ENOXAPARIN 30 MG/0.3 ML SQ SCH (21:13)
--- NOTE | 2018-07-30 00:32 | PN ---
Date of Progress Note: 07/29/2018 Subjective: The patient was seen this morning for followup. She was seen downstairs in the endoscop y room after her PEG tube placement this morning by Dr. Montemayor. Objective: Vital signs: Reviewed. Family was at bedside. HEENT: Examination unremarkable. Lungs: Clear to auscultation. No rhonchi. No rales. Heart: Sounds normal. Abdomen: Soft. Bowel sounds normal. No guarding, rigidity, tenderness, or distention. Extremities: No leg edema. Impression: 1.Aspiration pneumonia. 2.Dysphagia. 3.Diarrhea. 4.Stroke. 5.Hypertension. Plan: After the patient had feeding tube placement, she was brought back to her room; and later on d uring the course of day, nurse called and informed me that the patient had diarrhea, and stool was fo ul-smelling. There was concerned about Clostridium difficile. The stool was sent for Clostridium di fficile test. We will follow up on the result. As per Dr. Montemayor, we will start percutaneous endo scopic gastrostomy tube feeding tomorrow. Continue IV fluid today. Continue current antibiotic Zosy n. Her blood pressure was elevated this afternoon, and nitro paste 1 inch every 6 hours was ordered. Starting tomorrow, we will start using percutaneous endoscopic gastrostomy tube for medication administration as well, and we will start percutaneous endoscopic gastrostomy tube fee ding tomorrow. ANUPAMA/MODL Voice ID: [id number] Report ID: [id number]
[2018-07-30] MEDS: PIPER/TAZO/NS 3.375gm 3.375 GM/100 ML BAG IVPB SCH ×3 (01:11→16:50)
[2018-07-30 05:06] LABS: Absolute Lymphocytes (CBC) 1.7 K/uL (0.7-4.9); Absolute Monocytes 0.9 K/uL (0.1-1.3); Absolute Neutrophil 5.1 K/uL (1.8-8.0); Basophils % 0.7 % (0-1.3); Eosinophils % 3.5 % (0-4.4); Hematocrit 23.3 % (36.0-45.0); Lymphocytes % 21.3 % (15.3-44.8); MCH 29.5 pg (27.0-35.0); MCV 85.5 fL (80-100); MPV 7.1 fL (7.6-11.3); Monocytes % 11.5 % (3.3-12.3); RBC Red Blood Cell Count 2.72 M/uL (3.86-4.86)
[2018-07-30 05:25] LABS: Albumin 2.4 g/dL (3.4-5.0); Bilirubin Total 0.3 mg/dL (0.2-1.0); Magnesium 1.6 mg/dL (1.8-2.4); Potassium 3.6 mmol/L (3.5-5.1); Protein, Total 7.5 g/dL (6.4-8.2)
[2018-07-30] MEDS ORDERED: MAGNESIUM SULFATE 1 gm IVPB 1 GM/100 ML BAG IV ONE (05:54)
[2018-07-30] MEDS: INSULIN -REGULAR HUMAN 50 UNIT/0.5 ML ML SQ SCH ×4 (06:00→18:00)
[2018-07-30] MEDS ORDERED: KCL 20 MEQ/100 mL IVPB 20 MEQ/100 ML BAG IV SCH (06:00)
[2018-07-30] MEDS: D5W 1,000 ML IV SCH ×3 (06:53→21:33)
[2018-07-30] MEDS: NITROGLYCERIN 1 GM PKT TD SCH ×4 (07:01→16:47)
[2018-07-30] MEDS: CARVEDILOL 6.25 MG TAB FT SCH ×2 (08:31→21:32)
[2018-07-30] MEDS ORDERED: GLUCERNA 1.2 CAL 1,000 ML BOT FT SCH ×2 (09:00)
[2018-07-30] MEDS ORDERED: GLUCERNA 1.5 CAL 1,000 ML BOT RTH SCH (10:00)
[2018-07-30] MEDS: ENOXAPARIN 30 MG/0.3 ML SQ SCH (21:33)
[2018-07-31] MEDS: NITROGLYCERIN 1 GM PKT TD SCH ×4 (00:51→17:28)
[2018-07-31] MEDS: PIPER/TAZO/NS 3.375gm 3.375 GM/100 ML BAG IVPB SCH ×3 (00:52→17:27)
[2018-07-31 05:10] LABS: Magnesium 1.9 mg/dL (1.8-2.4); Potassium 3.8 mmol/L (3.5-5.1)
[2018-07-31] MEDS: INSULIN -REGULAR HUMAN 50 UNIT/0.5 ML ML SQ SCH ×4 (06:00→18:00)
[2018-07-31] MEDS ORDERED: KCL 20 MEQ/100 mL IVPB 20 MEQ/100 ML BAG IV SCH (06:00)
[2018-07-31] MEDS: D5W 1,000 ML IV SCH ×3 (06:04→17:28)
[2018-07-31] MEDS: CARVEDILOL 6.25 MG TAB FT SCH (08:48)
[2018-07-31] MEDS ORDERED: AMLODIPINE 5 MG TAB FT ONE (09:24)
[2018-07-31] MEDS ORDERED: MEMANTINE HCL 10 MG TABLET FT SCH (09:45)
--- NOTE | 2018-07-31 09:49 | PN ---
Date of Progress Note: 07/30/2018 Subjective: The patient was seen this morning for followup. No new complaints or problems reported by her or nursing staff. This morning, she was lot more awake, alert, just like the way she was day before yesterday. Objective: Vital Signs: Reviewed. HEENT: Unremarkable. Lungs: Clear to auscultation. Heart: Sounds normal. Abdomen: Soft. Bowel sounds normal. No guarding, rigidity, tenderness, or distention. Extremities: No leg edema. Laboratory Data: White count 8, hemoglobin 8, platelets 384. BUN 9, creatinine 1.80, glucose 122, m agnesium 1.6. Amylase 109, lipase 312. Impression: 1.Aspiration pneumonia. 2.Dysphagia. 3.Anemia. 4.Chronic kidney disease, stage 3. 5.Hypomagnesemia. 6.Hypertension. 7.Diabetes mellitus. Plan: We will continue current medication, antibiotic. PEG tube feeding will be started today as pe r order and was started at 10 cc/hour and increase the rate as per order as she tolerates. Nursing s taff to check residual, and if residual is more than 200 cc, then to hold the feeding and recheck it in 1 hour, and if it is still more than 200 cc, then to contact physician. All these specific instru ctions were redone. Pancreatitis problem has improved, and I will see her tomorrow for followup. Pl an is to discharge her to go back to [facility] hopefully in next 2 to 3 days which is hopefully by Thursday of next week. Replac e magnesium per protocol. ANUPAMA/MODL Voice ID: [id number] Report ID: [id number]
[2018-07-31] MEDS ORDERED: MAGNESIUM HYDROXIDE 8% 30 ML FT SCH (10:00)
[2018-07-31] MEDS: LOSARTAN POTASSIUM 50 MG TABLET FT SCH (10:10)
[2018-07-31] MEDS: CLOTRIMAZ/BETAMETH CREAM 15GM TOP SCH ×2 (11:53→21:57)
--- NOTE | 2018-07-31 12:46 | PN ---
Date of Progress Note: 07/31/2018 Subjective: The patient was seen this morning for followup. Her daughter was present with her at [facility]. She is tolerating PEG tube feeding very well at 60 cc/hour. No residual problem. No nausea, vomiting. She did have a bowel movement last night as reported by nursing staff. Objective: HEENT: Unremarkable. Lungs: Clear to auscultation. Heart: Sounds normal. Abdomen: Soft. Bowel sounds normal. No guarding, rigidity, tenderness, distention. Extremities: No leg edema. Skin: The patient's face has red color rash on both cheeks, more so on right side than the left side . Her skin was examined in her buttocks, sacrococcygeal region, groin area, and she has pink color r bola in all this region, but there is no evidence of any decubitus ulcer. Laboratory Data: Reviewed. Impression: 1.Aspiration pneumonia. 2.Dysphagia. 3.Hypertension. 4.Dermatophytosis. 5.Rosacea. Plan: We will continue current antibiotics. Hopefully, we might be able to discontinue her antibiot ics by tomorrow. Continue current antihypertensive medication, and I have made some adjustment on he r antihypertensive medication because blood pressure is elevated, and we will continue to monitor her blood pressure also. For her dermatophytosis, we will start her on Lotrisone cream and wanted to st art her on Metrogel cream for the rosacea on her face, but it is not available in the hospital [facility] [employer] Details were discussed with the patient's daughter. I will see her tomorrow for followup and gini dorado was made aware of our plan of possible discharge this coming week on Thursday. ANUPAMA/RANDALL Voice ID: [id number] Report ID: [id number]
[2018-07-31] MEDS: CARVEDILOL 12.5 MG TAB PO SCH (21:54)
[2018-07-31] MEDS: LORAZEPAM 1 MG TABLET FT SCH (21:54)
[2018-07-31] MEDS: CITALOPRAM 10 MG TABLET FT SCH (21:55)
[2018-07-31] MEDS: ALLOPURINOL 100 MG TAB FT SCH (21:55)
[2018-07-31] MEDS: AMLODIPINE 5 MG TAB FT SCH (21:55)
[2018-07-31] MEDS: ENOXAPARIN 30 MG/0.3 ML SQ SCH (21:57)
[2018-07-31] MEDS: DONEPEZIL HCL 5 MG TAB FT SCH (22:00)
[2018-08-01] MEDS: NITROGLYCERIN 1 GM PKT TD SCH ×4 (00:59→17:05)
[2018-08-01] MEDS: PIPER/TAZO/NS 3.375gm 3.375 GM/100 ML BAG IVPB SCH ×3 (01:07→17:11)
[2018-08-01] MEDS: INSULIN -REGULAR HUMAN 50 UNIT/0.5 ML ML SQ SCH ×4 (06:00→18:00)
[2018-08-01] MEDS: D5W 1,000 ML IV SCH (06:18)
[2018-08-01] MEDS: CARVEDILOL 12.5 MG TAB PO SCH ×2 (08:36→20:47)
[2018-08-01] MEDS: ASPIRIN 81 MG CHEWABLE TABLET FT SCH (08:36)
[2018-08-01] MEDS: LOSARTAN POTASSIUM 50 MG TABLET FT SCH (08:36)
[2018-08-01] MEDS: MULTIVITAMIN TAB PO SCH (08:37)
[2018-08-01] MEDS: ALLOPURINOL 100 MG TAB FT SCH ×2 (08:37→20:49)
[2018-08-01] MEDS: RISPERIDONE 0.25 MG TABLET FT SCH (08:37)
[2018-08-01] MEDS: MEMANTINE HCL 10 MG TABLET FT SCH ×2 (08:37→20:48)
[2018-08-01] MEDS: CLOTRIMAZ/BETAMETH CREAM 15GM TOP SCH ×2 (08:38→20:49)
[2018-08-01] MEDS: AMLODIPINE 5 MG TAB FT SCH ×2 (08:39→20:47)
[2018-08-01] MEDS: DOCUSATE NA/SENNA CONC 1 TAB FT SCH (08:40)
[2018-08-01 08:58] LABS: Absolute Lymphocytes (CBC) 1.2 K/uL (0.7-4.9); Absolute Monocytes 0.7 K/uL (0.1-1.3); Absolute Neutrophil 5.3 K/uL (1.8-8.0); Basophils % 0.5 % (0-1.3); Eosinophils % 5.2 % (0-4.4); Hematocrit 22.1 % (36.0-45.0); Lymphocytes % 15.9 % (15.3-44.8); MCH 29.2 pg (27.0-35.0); MCV 86.6 fL (80-100); MPV 7.2 fL (7.6-11.3); Monocytes % 8.8 % (3.3-12.3); RBC Red Blood Cell Count 2.55 M/uL (3.86-4.86)
[2018-08-01] MEDS ORDERED: AMLODIPINE 5 MG TAB FT SCH (09:00)
[2018-08-01 09:20] LABS: Potassium 4.8 mmol/L (3.5-5.1)
[2018-08-01 09:21] LABS: Bilirubin Total 0.1 mg/dL (0.2-1.0); Protein, Total 7.3 g/dL (6.4-8.2)
[2018-08-01 09:22] LABS: Albumin 2.3 g/dL (3.4-5.0)
[2018-08-01 09:23] LABS: Magnesium 1.9 mg/dL (1.8-2.4)
--- NOTE | 2018-08-01 12:24 | PN ---
Date of Progress Note: 08/01/2018 Subjective: The patient was seen this morning for followup. No new complaints or problems reported by the patient. Lying in bed, she is still somewhat sleepy this morning when I saw her. Objective: HEENT: Examination unremarkable. Lungs: Clear to auscultation. Heart: Sounds normal. Abdomen: Soft. Bowel sounds normal. No guarding, rigidity, tenderness, or distention. Extremities: No leg edema. Laboratory Data: Labs were pending when I saw her. The only result that is available right now to sobia monsalve is hemoglobin 7.5. Impression: 1.Aspiration pneumonia. 2.Anemia. 3.Dysphagia. 4.Hypertension. 5.Diabetes mellitus. Plan: We will continue current medications. Continue PEG tube feeding. She has tolerated that very well. We will continue iron supplement and her lowest hemoglobin during this hospitalization was 7. 3 on 07/21/2018 and without blood transfusion her hemoglobin had improved to 8.3 and it is down to 7. 5. No need to do any further intervention except monitoring at this point and continue iron suppleme nt. Possible discharge to go to [facility] tomorrow depending on her condition. Her blood pressur e is much better today with adjustment of antihypertensive medication, which was made yesterday. ANUPAMA/MODL Voice ID: [id number] Report ID: [id number]
[2018-08-01] MEDS: ENOXAPARIN 30 MG/0.3 ML SQ SCH (20:46)
[2018-08-01] MEDS: LORAZEPAM 1 MG TABLET FT SCH (20:46)
[2018-08-01] MEDS: DONEPEZIL HCL 5 MG TAB FT SCH (20:48)
[2018-08-01] MEDS: CITALOPRAM 10 MG TABLET FT SCH (20:48)
[2018-08-01] MEDS: GLUCERNA 1.2 CAL 1,000 ML BOT RTH SCH (22:12)
[2018-08-02] MEDS: NITROGLYCERIN 1 GM PKT TD SCH ×5 (00:03→23:53)
[2018-08-02] MEDS: PIPER/TAZO/NS 3.375gm 3.375 GM/100 ML BAG IVPB SCH ×2 (00:08→08:46)
[2018-08-02 05:00] LABS: Absolute Lymphocytes (CBC) 1.2 K/uL (0.7-4.9); Absolute Monocytes 0.7 K/uL (0.1-1.3); Absolute Neutrophil 5.9 K/uL (1.8-8.0); Basophils % 0.5 % (0-1.3); Eosinophils % 6.2 % (0-4.4); Hematocrit 22.6 % (36.0-45.0); Lymphocytes % 14.1 % (15.3-44.8); MCV 86.2 fL (80-100); MPV 7.1 fL (7.6-11.3); Monocytes % 8.7 % (3.3-12.3); RBC Red Blood Cell Count 2.63 M/uL (3.86-4.86)
[2018-08-02] MEDS: INSULIN -REGULAR HUMAN 50 UNIT/0.5 ML ML SQ SCH ×4 (05:27→18:00)
[2018-08-02] MEDS: CARVEDILOL 12.5 MG TAB PO SCH ×2 (08:46→22:38)
[2018-08-02] MEDS: ALLOPURINOL 100 MG TAB FT SCH ×2 (08:47→22:37)
[2018-08-02] MEDS: AMLODIPINE 5 MG TAB FT SCH ×2 (08:47→22:39)
[2018-08-02] MEDS: DOCUSATE NA/SENNA CONC 1 TAB FT SCH (08:48)
[2018-08-02] MEDS: RISPERIDONE 0.25 MG TABLET FT SCH (08:48)
[2018-08-02] MEDS: MEMANTINE HCL 10 MG TABLET FT SCH ×2 (08:48→22:38)
[2018-08-02] MEDS: MULTIVITAMIN TAB PO SCH (08:48)
[2018-08-02] MEDS: LOSARTAN POTASSIUM 50 MG TABLET FT SCH (08:48)
[2018-08-02] MEDS: ASPIRIN 81 MG CHEWABLE TABLET FT SCH (08:49)
[2018-08-02] MEDS: CLOTRIMAZ/BETAMETH CREAM 15GM TOP SCH ×2 (08:49→22:40)
[2018-08-02] MEDS: GLUCERNA 1.2 CAL 1,000 ML BOT RTH SCH (15:43)
[2018-08-02] MEDS: ENOXAPARIN 30 MG/0.3 ML SQ SCH (22:37)
[2018-08-02] MEDS: DONEPEZIL HCL 5 MG TAB FT SCH (22:37)
[2018-08-02] MEDS: LORAZEPAM 1 MG TABLET FT SCH (22:38)
[2018-08-02] MEDS: CITALOPRAM 10 MG TABLET FT SCH (22:39)
--- NOTE | 2018-08-03 | PN ---
Date of Progress Note: 08/02/2018 Subjective: The patient was seen this morning for followup. No new complaints or problems reported by her, lying in bed, not in distress. Objective: Vital Signs: Reviewed. HEENT: Unremarkable. Lungs: Clear to auscultation. No rhonchi or rales. Heart: Sounds normal. Abdomen: Soft. Bowel sounds normal. No guarding, rigidity, tenderness, or distention. Extremities: No leg edema. Laboratory Data: White count 8.3, hemoglobin 7.9, platelets 494. Impression: 1.Aspiration pneumonia. 2.Dysphagia. 3.Old stroke with right-sided hemiparesis. 4.Hypertension. 5.Diabetes mellitus. Plan: We will continue current medications. Continue PEG tube feeding. She is tolerating that very well. We will discontinue her antibiotic, which is Zosyn as she has received adequate duration of a ntibiotic, and consultation was placed for Social Service to make arrangements for the patient to go back to senior care, and my plan is to discharge her to go to senior care tomorrow. Fingerstick bl ood sugar readings reviewed. I will see her tomorrow for followup. ANUPAMA/MODL Voice ID: [id number] Report ID: [id number]
--- NOTE | 2018-08-03 02:52 | OP ---
Date of Procedure: 07/29/2018 Surgeon: Derrek Montemayor MD Procedure To Be Performed: Esophagogastroduodenoscopy with PEG placement. Performing Physician: Derrek Montemayor M.D. Indication For Procedure: Recurrent aspirations, dysphagia, failure to thrive. Plan For Anesthesia: Monitored anesthesia care. Complexity: High due to the patient's medical status, comorbidities, and high-risk procedure. Technique: After obtaining informed consent from the patient's family and explaining risks and compl ications which include, but are not limited to bleeding, infection, perforation, anesthesia complicat ions, and cardiorespiratory distress, the patient was placed in a supine position and sedation was gi terri. From then on, the scope was advanced in the mouth and carefully guided up until the second port ion of the duodenum. After the completion of examination and all therapeutic and diagnostic maneuver s, the scope and equipment were withdrawn and procedure terminated in a safe manner. Findings: Esophagus: No gross lesion seen in the entire esophagus. Stomach: Mild erythema seen an d patchy erythema seen in the antrum. Retroflexion did reveal a possible submucosal lesion, which ap peared to be smooth in the fundus. This was small. Biopsies were taken from this area. Duodenum: The duodenal papilla appeared more prominent. Biopsies were also taken from this region. Subsequent ly, attention was placed to the gastric body. With the help of transillumination and one-to-one pres sure, good area was identified for PEG tube placement. The skin was then cleaned and stabilized, and then with the help of a pull guidewire technique, [employer] 20-Wolof PEG was placed under a septic condition. The external bumper was around 3.5 to 4 cm. Position was also confirmed by repeat endoscopy. Complications: None. Tolerance To Anesthesia: Excellent. Postoperative Diagnoses: Questionable submucosal gastric lesion, prominent duodenal papilla, mild ga stritis, status post PEG placement. Plan: 1.Await pathology results. 2.Keep n.p.o. for 24 hours. 3.Start diet tomorrow 20 cc/hour and then advance as tolerated. Keep head of the bed elevated to 45 degrees. Recall GI if needed. US/MODL Voice ID: [id number] Report ID: [id number]
[2018-08-03] MEDS: NITROGLYCERIN 1 GM PKT TD SCH ×3 (05:39→18:21)
[2018-08-03] MEDS: INSULIN -REGULAR HUMAN 50 UNIT/0.5 ML ML SQ SCH ×4 (06:00→18:00)
[2018-08-03 06:23] LABS: Magnesium 2.1 mg/dL (1.8-2.4); Potassium 5.1 mmol/L (3.5-5.1)
[2018-08-03] MEDS: CLOTRIMAZ/BETAMETH CREAM 15GM TOP SCH ×2 (09:00→22:08)
[2018-08-03 09:06] LABS: Absolute Lymphocytes (CBC) 1.3 K/uL (0.7-4.9); Absolute Monocytes 0.7 K/uL (0.1-1.3); Absolute Neutrophil 5.3 K/uL (1.8-8.0); Basophils % 0.6 % (0-1.3); Eosinophils % 7.5 % (0-4.4); Hematocrit 23.5 % (36.0-45.0); Lymphocytes % 16.7 % (15.3-44.8); MCV 87.2 fL (80-100); MPV 6.9 fL (7.6-11.3); Monocytes % 8.7 % (3.3-12.3)
[2018-08-03] MEDS: DOCUSATE NA/SENNA CONC 1 TAB FT SCH (10:00)
[2018-08-03] MEDS: ASPIRIN 81 MG CHEWABLE TABLET FT SCH (10:00)
[2018-08-03] MEDS: LOSARTAN POTASSIUM 50 MG TABLET FT SCH (10:00)
[2018-08-03] MEDS: MULTIVITAMIN TAB PO SCH (10:00)
[2018-08-03] MEDS: MEMANTINE HCL 10 MG TABLET FT SCH ×2 (10:00→22:06)
[2018-08-03] MEDS: AMLODIPINE 5 MG TAB FT SCH ×2 (10:01→22:06)
[2018-08-03] MEDS: RISPERIDONE 0.25 MG TABLET FT SCH (10:03)
[2018-08-03] MEDS: CARVEDILOL 12.5 MG TAB PO SCH ×2 (10:03→22:07)
[2018-08-03] MEDS: ALLOPURINOL 100 MG TAB FT SCH ×2 (10:03→22:06)
[2018-08-03 11:04] VITALS: O2SAT 97
[2018-08-03] MEDS: DONEPEZIL HCL 5 MG TAB FT SCH (22:06)
[2018-08-03] MEDS: CITALOPRAM 10 MG TABLET FT SCH (22:06)
[2018-08-03] MEDS: LORAZEPAM 1 MG TABLET FT SCH (22:07)
--- NOTE | 2018-08-04 | PN ---
Date of Progress Note: 08/03/2018 Subjective: Patient was seen this morning for followup. No new complaints or problems reported by h er, but nursing staff reported that dressing around the PEG tube site was saturated with blood. Ther e was no active oozing or bleeding. Objective: Vital signs: Reviewed. HEENT: Unremarkable. Lungs: Clear to auscultation. Heart: Sounds normal. Abdomen: Soft. Bowel sounds normal. No guarding, rigidity, tenderness, or distention. Extremities: No leg edema. Laboratory Data: Reviewed. CBC and chem-7 from today reviewed. Impression: 1.Dysphagia. 2.Aspiration pneumonia. 3.Anemia. 4.Hypertension. 5.Diabetes mellitus. Plan: The patient is tolerating tube feeding very well. We will continue current medications. Cont inue current tube feeding and Dr. Montemayor was requested to evaluate the patient for this bleeding pr oblem. Hemoglobin is stable. No need for blood transfusion. We will monitor her for bleeding today and then possible discharge to go to senior living tomorrow. ANUPAMA/MODL Voice ID: [id number] Report ID: [id number]
[2018-08-04] MEDS: NITROGLYCERIN 1 GM PKT TD SCH ×3 (00:25→12:24)
[2018-08-04] MEDS: INSULIN -REGULAR HUMAN 50 UNIT/0.5 ML ML SQ SCH ×3 (06:00→12:00)
[2018-08-04 07:41] LABS: Absolute Lymphocytes (CBC) 1.6 K/uL (0.7-4.9); Absolute Monocytes 0.8 K/uL (0.1-1.3); Absolute Neutrophil 4.5 K/uL (1.8-8.0); Basophils % 1.1 % (0-1.3); Eosinophils % 8.4 % (0-4.4); Hematocrit 23.1 % (36.0-45.0); Lymphocytes % 21.1 % (15.3-44.8); MCH 29.3 pg (27.0-35.0); MCV 86.7 fL (80-100); MPV 7.2 fL (7.6-11.3); Monocytes % 10.8 % (3.3-12.3); RBC Red Blood Cell Count 2.67 M/uL (3.86-4.86)
[2018-08-04 07:47] LABS: Potassium 5.4 mmol/L (3.5-5.1)
[2018-08-04] MEDS: DOCUSATE NA/SENNA CONC 1 TAB FT SCH (09:23)
[2018-08-04] MEDS: MULTIVITAMIN TAB PO SCH (09:23)
[2018-08-04] MEDS: AMLODIPINE 5 MG TAB FT SCH (09:25)
[2018-08-04] MEDS: CARVEDILOL 12.5 MG TAB PO SCH (09:26)
[2018-08-04] MEDS: MEMANTINE HCL 10 MG TABLET FT SCH (09:27)
[2018-08-04] MEDS: LOSARTAN POTASSIUM 50 MG TABLET FT SCH (09:27)
[2018-08-04] MEDS: RISPERIDONE 0.25 MG TABLET FT SCH (09:27)
[2018-08-04] MEDS: ALLOPURINOL 100 MG TAB FT SCH (09:27)
[2018-08-04] MEDS: CLOTRIMAZ/BETAMETH CREAM 15GM TOP SCH (09:28)
[2018-08-04] MEDS: ASPIRIN 81 MG CHEWABLE TABLET FT SCH (09:28)
[2018-08-04] MEDS ORDERED: SOD POLYSTYREN SUL 15 GM/60 ML UCUP FT ONE (09:44)
[2018-08-04 12:25] VITALS: BP 165/70
[2018-08-04 13:25] VITALS: TEMP 97.1
--- NOTE | 2018-08-05 17:16 | DS ---
Date of Discharge: 08/04/2018 Disposition: Discharged to go to [facility]. Physical Examination: HEENT: Unremarkable. Lungs: Clear to auscultation. Heart: Sounds normal. Abdomen: Soft. Bowel sounds normal. No guarding, rigidity, tenderness, distention. Extremities: No leg edema. Laboratory Data: Yesterday, white count 8, hemoglobin 7.8, platelets 520. Yesterday, sodium 140, po tassium 5.1, chloride 105, bicarb 31, BUN 25, creatinine 1.50, glucose 137. Today, potassium was 5.4 and Kayexalate 30 g was ordered to be given per PEG tube. Hospital Course: A 78-year-old female patient, living at [facility], was admitted to the hospital with hypothermia problem. Please see dictated H and P for more information. The patient was evaluat ed in ER and was admitted to ICU with septic shock. She had hypothermia, bradycardia, and hypotensio n. Etiology for this septic shock was aspiration pneumonia. She did not require any ventilator supp ort. Initially, she was kept n.p.o. and subsequently we did start her on Dobhoff feeding. Speech Th erapy was consulted and GI consultation was obtained from Dr. Montemayor. She did receive IV antibioti c, which was Zosyn. Her pneumonia problem has improved and multiple chest x-rays were done for follo wup. Speech Therapy and Dr. Montemayor recommended PEG tube placement and that was my recommendation a s well for the patient to have PEG tube placement and not to eat or drink anything by mouth and not t o take any medications by mouth because of this aspiration pneumonia. Family was agreeable and Dr. Jayde moreau did place this feeding tube last week. After the feeding tube was placed, she was started on PEG tube feeding. She has tolerated that very well. She had some bleeding from the PEG tube site t hat was noted on the dressing yesterday by nursing staff and Dr. Montemayor did evaluate her and did no t suggest any further intervention. Her hemoglobin has remained stable for that. Final Diagnoses: 1.Septic shock. 2.Aspiration pneumonia. 3.Anemia. 4.Volume depletion. 5.Hyperkalemia. 6.Diabetes mellitus. 7.Hypertension. 8.Dementia. 9.History of stroke with right-sided hemiparesis. Discharge Medications And Instructions: 1.Continue all prior home medications, except discontinue insulin Tresiba, discontinue Namenda 23 mg dose and discontinue metformin. 2.Start Namenda 5 mg 2 times a day. 3.The patient should not eat or drink anything by mouth and should not take any medications by mouth . 4.All of her medications to be given via PEG tube. 5.Provide PEG tube feeding using Glucerna 1.2 at 60 cc/hour. 6.Flush back tube with 50 cc water before and after each use and give 100 cc water via PEG tube ever y 6 hours. 7.Check PEG tube residual every 6 hours and p.r.n. and if residual is higher than 200 cc, then hold PEG tube feeding and recheck residual in 1 hour, and if it is still higher than 200 cc, then contact physician. 8.Keep the patient's upper body which is head and chest elevated at 45 degrees all the time. 9.Consult dietitian at [facility] and have dietitian make adjustment on PEG tube feeding and water intake per recommendation. Dietitian to change PEG tube feeding from continuous feeding to bolus fe ANUPAMA/MODL Voice ID: [id number] Report ID: [id number]
== END 2018-08-04 12:40 | DRG 871 ==
LOC: ER 21:21 → ERHOLD 07-19 05:08 → 3RD-ICU 07-19 12:47 → 4TH 07-26 18:26
PROVIDERS: ADMIT Internal Medicine; ATTEND Internal Medicine
PROC: 06HM33Z Insertion of Infusion Device into Right Femoral Vein, Percutaneous Approach (ICD-10-PCS; 2018-07-19)
PROC: 3E043XZ Introduction of Vasopressor into Central Vein, Percutaneous Approach (ICD-10-PCS; 2018-07-19)
PROC: 02HV33Z Insertion of Infusion Device into Superior Vena Cava, Percutaneous Approach (ICD-10-PCS; 2018-07-26)
PROC: 0DB98ZX Excision of Duodenum, Via Natural or Artificial Opening Endoscopic, Diagnostic (ICD-10-PCS; 2018-07-29)
PROC: 0DB68ZX Excision of Stomach, Via Natural or Artificial Opening Endoscopic, Diagnostic (ICD-10-PCS; 2018-07-29)
PROC: 0DH63UZ Insertion of Feeding Device into Stomach, Percutaneous Approach (ICD-10-PCS; principal; 2018-07-29 07:00)
DX: A41.9 Sepsis, unspecified organism (principal); R65.21 Severe sepsis with septic shock; J69.0 Pneumonitis due to inhalation of food and vomit; K85.90 Acute pancreatitis without necrosis or infection, unspecified; I69.351 Hemiplegia and hemiparesis following cerebral infarction affecting right dominant side; N17.9 Acute kidney failure, unspecified; D64.9 Anemia, unspecified; F03.90 Unspecified dementia, unspecified severity, without behavioral disturbance, psychotic disturbance, mood disturbance, and anxiety; E11.9 Type 2 diabetes mellitus without complications; E87.5 Hyperkalemia; E86.9 Volume depletion, unspecified; R13.10 Dysphagia, unspecified; R62.7 Adult failure to thrive; K29.70 Gastritis, unspecified, without bleeding; A48.8 Other specified bacterial diseases; L71.9 Rosacea, unspecified; E11.22 Type 2 diabetes mellitus with diabetic chronic kidney disease; I12.9 Hypertensive chronic kidney disease with stage 1 through stage 4 chronic kidney disease, or unspecified chronic kidney disease; N18.3 Chronic kidney disease, stage 3 (moderate); R19.7 Diarrhea, unspecified; M85.662 Other cyst of bone, left lower leg; E66.9 Obesity, unspecified; Z79.82 Long term (current) use of aspirin; Z79.4 Long term (current) use of insulin; F32.9 Major depressive disorder, single episode, unspecified; T68.XXXA Hypothermia, initial encounter; Z68.34 Body mass index [BMI] 34.0-34.9, adult
CPT/HCPCS: 36415; 51702; 71045; 74018; 74176; 74230; 76705; 76881; 80048; 80053; 80076; 81003; 81015; 82150; 82550; 82553; 82962; 83605; 83690; 83735; 84145; 84439; 84443; 84484; 85025; 85610; 85730; 87040; 87086; 87088; 87493; 88305; 88312; 93005; 94640; 94667; 94760; 97163; 99285; J0696; J1265; J1650; J2001; J2543; J3411; J3475; J7030

== ENCOUNTER 2018-08-20 21:38 | Inpatient (IN) | payer OTHER ==
[2018-08-20] MEDS: JEVITY 1.5 CAL LIQUID 1,000 ML BOT FT SCH (22:00)
[2018-08-20] MEDS: CARVEDILOL 12.5 MG TAB FT SCH (22:00)
[2018-08-20] MEDS: AMLODIPINE 5 MG TAB FT SCH (22:00)
[2018-08-20] MEDS ORDERED: NA CHLORIDE 0.9% 500 ML ONE (22:35)
[2018-08-20] MEDS ORDERED: NA CHLORIDE 0.9% 1,000 ML ONE (22:35)
[2018-08-20] MEDS ORDERED: THIAMINE 200 MG/2 ML INJ ONE (22:35)
[2018-08-20 23:34] LABS: Absolute Lymphocytes (CBC) 1.8 K/uL (0.7-4.9); Absolute Monocytes 1.1 K/uL (0.1-1.3); Absolute Neutrophil 4.9 K/uL (1.8-8.0); Basophils % 0.2 % (0-1.3); Eosinophils % 3.2 % (0-4.4); Hematocrit 26.9 % (36.0-45.0); Lymphocytes % 22.6 % (15.3-44.8); MCH 29.7 pg (27.0-35.0); MCV 87.6 fL (80-100); MPV 7.6 fL (7.6-11.3); Monocytes % 13.6 % (3.3-12.3); RBC Red Blood Cell Count 3.07 M/uL (3.86-4.86)
[2018-08-20 23:38] LABS: Protime INR 1.03
[2018-08-20 23:46] LABS: Urine Blood NEGATIVE (NEG); Urine Glucose NEGATIVE (NEG); Urine Protein NEGATIVE (NEG)
[2018-08-21 00:10] LABS: ALT/SGPT 27 U/L (12-78); AST/SGOT 26 U/L (15-37); Albumin 2.7 g/dL (3.4-5.0); Alkaline Phosphatase 133 U/L (45-117); BUN Blood Urea Nitrogen 51 mg/dL (7-18); Bicarbonate 27 mmol/L (21-32); Bilirubin Direct < 0.1 mg/dL (0-0.2); Bilirubin Total 0.2 mg/dL (0.2-1.0); Glucose Level 86 mg/dL (74-106); Lipase 715 U/L (73-393); Magnesium 2.6 mg/dL (1.8-2.4); NT PRO-BNP 141 pg/mL (<450); Protein, Total 8.1 g/dL (6.4-8.2); Sodium Level 130 mmol/L (136-145); Troponin (Emerg Dept Use Only) < 0.02 ng/mL (0.0-0.045)
[2018-08-21 00:11] LABS: Potassium 6.8 mmol/L (3.5-5.1)
[2018-08-21] MEDS ORDERED: CEFTRIAXONE/SWI 1gm 1 GM/10 ML SYR ONE (00:18)
[2018-08-21] MEDS ORDERED: FUROSEMIDE 20 MG/ 2ML VIAL ONE (00:33)
[2018-08-21] MEDS ORDERED: D50W 25 GM/50 ML SYRINGE IV ONE ×2 (00:34→06:52)
[2018-08-21] MEDS ORDERED: IPRATROPIUM BROM 0.5MG/2.5ML ONE (00:34)
[2018-08-21] MEDS ORDERED: INSULIN -REGULAR HUMAN 50 UNIT/0.5 ML ML ONE (00:34)
[2018-08-21] MEDS ORDERED: ALBUTEROL 2.5 MG/3 ML NEB SOL ONE (00:34)
[2018-08-21] MEDS ORDERED: NA CHLORIDE 0.9% 100 ML IV ONE (00:34)
[2018-08-21] MEDS ORDERED: SOD POLYSTYREN SUL 15 GM/60 ML UCUP ONE (00:35)
--- NOTE | 2018-08-21 00:42 | ER ---
Nurse's Notes [facility] Name: Sharda Dewey Age: 78 yrs Sex: Female : 1940 Arrival Date: 08/20/2018 Time: 21:41 Bed 7 Private MD: Diagnosis: Altered mental status, unspecified;Unspecified kidney failure;Hyperkalemia;Dementia in other diseases classified elsewhere;Anemia, unspecified;Cystitis Presentation: 08/20 21:42 Presenting complaint: EMS states: NH staff reports pt to have AMS and decrease in LOC aa1 and has been drooling on herself as well. States symptoms began 2 days ago. Reports pt has hx of dementia and normally mumbles and has minimal verbal response however for the past 3 days her level of responsiveness has been much less than normal. Upon arrival to ED pt responds to noxious stimuli only and is drooling on herself with no verbal response. Transition of care: patient was received from another setting of care (long-term care facility), [facility]. Onset of symptoms was August 18, 2018. Risk Assessment: Do you want to hurt yourself or someone else? Other: unable to answer. Initial Sepsis Screen: Does the patient meet any 2 criteria? No. Patient's initial sepsis screen is negative. Does the patient have a suspected source of infection? No. Patient's initial sepsis screen is negative. Care prior to arrival: Glucose check: 138. 21:42 Method Of Arrival: EMS: [facility] aa1 21:42 Acuity: TITUS 2 aa1 Historical: - Allergies: 22:23 No Known Allergies; aa1 - Home Meds: 22:23 TYLENOL 325 MG 2 tab every 6 hours [Active]; allopurinol 100 mg Oral tab 1 tab 2 times aa1 per day [Active]; amlodipine 5 mg tab 1 tab twice a day [Active]; Aricept 10 mg Oral tab 1 tab nightly [Active]; aspirin 81 mg Oral chew 1 tab once daily [Active]; Celexa 10 mg Oral tab 1 tab nightly [Active]; Vitamin D Oral 5000 unit daily [Active]; carvedilol 12.5 mg Oral tab 1 tab 2 times per day [Active]; ferrous sulfate 325 mg (65 mg iron) Oral tab daily [Active]; lorazepam 0.5 mg Oral tab 1 tab at bedtime [Active]; losartan 100 mg Oral tab 1 tab once daily [Active]; memantine 5 mg oral tab 1 tabs 2 times per day [Active]; Milk of Magnesia 400 mg/5 mL Oral susp 30 mL every Thursday [Active]; multivitamin Oral tab daily [Active]; Novolog 100 unit/mL Sub-Q soln sliding scale [Active]; risperidone 0.25 mg oral tab 1 tabs nightly [Active]; - PMHx: 22:23 Allergic rhinitis; Alzheimers; Anemia; Anxiety; ataxic gait; CAD; Delusional disorder; aa1 Dementia; Depression; Diabetes - NIDDM; DYSPHAGIA; Hypertension; insomnia; Pneumonia; - PSHx: 22:23 PEG tube; aa1 - Immunization history:: Adult Immunizations unknown. - Social history:: Smoking status: unknown. - Family history:: not pertinent. - Ebola Screening: : Unable to complete screening because patient is disoriented, . Screenin:45 Abuse screen: unable to complete screening as pt cannot answer questions. Nutritional aa1 screening: On NPO diet, Difficulty chewing/swallowing? Yes. Tuberculosis screening: No symptoms or risk factors identified. Fall Risk None identified. Assessment: 21:45 General: Appears in no apparent distress. comfortable, Behavior is listless. Pain: aa1 Unable to use pain scale. Patient is disoriented. FLACC scale score is 0 out of 10. Neuro: Level of Consciousness is awake, listless, Oriented to none Speech does not respond verbally. Pt drooling from mouth and slumped over to her L side. Unable to manually extend L arm. Reaction to noxious stimuli is withdrawal. Cardiovascular: Heart tones S1 S2 present Capillary refill < 3 seconds Clubbing of nail beds is absent JVD is absent Patient's skin is warm and dry. Respiratory: Airway is patent Respiratory effort is even, unlabored, Respiratory pattern is regular, symmetrical. GI: Abdomen is non-distended, PEG tube in place, clamped. Site clean. : No deficits noted. EENT: No signs and/or symptoms were reported regarding the EENT system. Derm: Skin is intact, is healthy with good turgor, Skin is pink, warm \T\ dry. Musculoskeletal: Circulation, motion, and sensation intact. Capillary refill < 3 seconds, Range of motion: limited in left shoulder and left elbow. 22:30 Reassessment: Patient appears in no apparent distress at this time. No changes from aa1 previously documented assessment. Patient and/or family updated on plan of care and expected duration. Pain level reassessed. 23:40 Reassessment: Patient appears in no apparent distress at this time. No changes from aa1 previously documented assessment. Patient and/or family updated on plan of care and expected duration. Pain level reassessed. Awaiting lab results. Son \T\ daughter at bedside. 08/21 00:30 Reassessment: Patient appears in no apparent distress at this time. No changes from aa1 previously documented assessment. Pt awaiting admission to floor. 01:50 Reassessment: Patient appears in no apparent distress at this time. Fresh brief placed aa1 on pt and taken up to 4th floor at this time. Vital Signs: 08/20 21:42 BP 130 / 71; Pulse 80; Resp 18; Temp 98.2(A); Pulse Ox 99% on R/A; aa1 22:30 BP 122 / 54; Pulse 78; Resp 18; Pulse Ox 98% on R/A; aa1 23:44 BP 136 / 64; Pulse 84; Resp 18; Pulse Ox 98% on R/A; aa1 08/21 01:18 BP 122 / 59; Pulse 90; Resp 16; Pulse Ox 100% ; Pain 0/10; aa1 ED Course: 08/20 21:41 Patient arrived in ED. aa1 21:42 Arm band placed on right wrist. Patient placed in an exam room, on a stretcher. aa1 21:43 Vidal Sanchez MD is Attending Physician. mirian 21:45 Patient has correct armband on for positive identification. Placed in gown. Bed in low aa1 position. Side rails up X2. laboratory monitor on. Pulse ox on. NIBP on. Warm blanket given. 22:01 Any Padilla, SANDEEP is Primary Nurse. aa1 22:10 Triage completed. aa1 22:[address] kc3 22:25 CT Traumagram (Head C Spine CAP wo con) In Process Unspecified. EDMS 22:48 XRAY Chest (1 view) In Process Unspecified. EDMS 23:10 Initial lab(s) drawn, by me, sent to lab. First set of blood cultures drawn by me. bb Inserted saline lock: 20 gauge in right hand, using aseptic technique. Blood collected. 23:10 EKG done, by ED staff, reviewed by Vidal Sanchez MD. aa1 23:30 Cleaned of incontinence. Linen changed. aa1 23:35 Londono cath inserted, using sterile technique, 16 Fr., by tx, balloon inflated, to aa1 gravity drainage, urine specimen collected. returned cloudy urine. Patient tolerated well. 08/21 00:39 Manuel Govea MD is Hospitalizing Provider. [facility] 01:19 No provider procedures requiring assistance completed. Patient admitted, IV remains in aa1 place. Administered Medications: 08/20 23:20 Drug: Thiamine 100 mg Route: IV; Rate: bolus; Site: right hand; aa1 23:30 Follow up: IV Status: Completed infusion aa1 23:20 Drug: NS 0.9% 500 ml Route: IV; Rate: bolus; Site: right hand; aa1 08/21 00:24 Follow up: IV Status: Completed infusion aa1 00:19 Not Given (Other Intervention Used): Rocephin - (cefTRIAXone) 1 grams IVPB once over 30 aa1 mins; (mix in 50 mL NS) 00:23 Drug: Rocephin 1 grams Route: IV; Rate: calculated rate; Site: left hand; aa1 00:33 Follow up: IV Status: Completed infusion aa1 00:24 Drug: NS 0.9% 500 ml Route: IV; Rate: bolus; Site: right hand; aa1 01:00 Follow up: IV Status: Completed infusion aa1 00:30 Drug: Albuterol - atroVENT (3:1) (2.5 mg - 0.5 mg) 3 ml Route: Nebulizer; aa1 01:50 Follow up: Response: No adverse reaction aa1 00:45 Drug: Lasix 20 mg Route: IVP; Site: right hand; aa1 01:50 Follow up: Urine output 900 ml aa1 00:47 Drug: Insulin Regular Human 10 units {Co-Signature: aa1 (Any Padilla RN).} Route: IVP; bb Site: right hand; 01:50 Follow up: Response: No adverse reaction aa1 00:48 Drug: D50W 50 ml Route: IVP; Site: right hand; aa1 01:50 Follow up: Response: No adverse reaction aa1 00:49 Drug: Calcium Gluconate 1 grams Route: IVPB; Infused Over: 60 mins; Site: right hand; aa1 01:50 Follow up: IV Status: Infusion continued upon admission aa1 00:50 Drug: NS 0.9% 1000 ml Route: IV; Rate: 125 ml/hr; Site: right hand; aa1 01:02 Follow up: IV Status: Infusion continued upon admission aa1 01:30 Drug: Kayexalate 45 grams Route: PO; aa1 01:50 Follow up: Response: No adverse reaction aa1 Output: 01:50 Urine: 900ml; Total: 900ml. aa1 Outcome: 00:41 Decision to Hospitalize by Provider. mirian 01:57 Admitted to Tele accompanied by tech, via stretcher, room 415, with chart, Report aa1 called to Vic 01:57 Condition: stable 01:57 Discharge instructions given to family, Instructed on the need for admit, Demonstrated understanding of instructions. 02:01 Patient left the ED. aa1 Signatures: Dispatcher [employer] Any Ramon RN RN aa1 Vidal Sanchez MD MD cha Ballard, Brenda, RN RN Jordyn Betancourt kc3 Any Padilla RN aa1
--- NOTE | 2018-08-21 00:42 | EDPHYS ---
Physician Documentation [facility] Name: Sharda Dewey Age: 78 yrs Sex: Female : 1940 Arrival Date: 08/20/2018 Time: 21:41 Bed 7 Private MD: ED Physician Vidal Sanchez HPI: 08/20 22:05 This 78 yrs old Black Female presents to ER via Unassigned with complaints of Altered mirian Mental Status. 22:05 The patient presents with confusion. Onset: The symptoms/episode began/occurred 3 mirian day(s) ago. Possible causes: unknown. Associated signs and symptoms: The patient has no apparent associated signs or symptoms. Current symptoms: In the emergency department the patient's symptoms are unchanged from the initial presentation. Patient's baseline: Neuro: alert but confused. The patient has not experienced similar symptoms in the past. Historical: - Allergies: 22:23 No Known Allergies; aa1 - Home Meds: 22:23 TYLENOL 325 MG 2 tab every 6 hours [Active]; allopurinol 100 mg Oral tab 1 tab 2 times aa1 per day [Active]; amlodipine 5 mg tab 1 tab twice a day [Active]; Aricept 10 mg Oral tab 1 tab nightly [Active]; aspirin 81 mg Oral chew 1 tab once daily [Active]; Celexa 10 mg Oral tab 1 tab nightly [Active]; Vitamin D Oral 5000 unit daily [Active]; carvedilol 12.5 mg Oral tab 1 tab 2 times per day [Active]; ferrous sulfate 325 mg (65 mg iron) Oral tab daily [Active]; lorazepam 0.5 mg Oral tab 1 tab at bedtime [Active]; losartan 100 mg Oral tab 1 tab once daily [Active]; memantine 5 mg oral tab 1 tabs 2 times per day [Active]; Milk of Magnesia 400 mg/5 mL Oral susp 30 mL every Thursday [Active]; multivitamin Oral tab daily [Active]; Novolog 100 unit/mL Sub-Q soln sliding scale [Active]; risperidone 0.25 mg oral tab 1 tabs nightly [Active]; - PMHx: 22:23 Allergic rhinitis; Alzheimers; Anemia; Anxiety; ataxic gait; CAD; Delusional disorder; aa1 Dementia; Depression; Diabetes - NIDDM; DYSPHAGIA; Hypertension; insomnia; Pneumonia; - PSHx: 22:23 PEG tube; aa1 - Immunization history:: Adult Immunizations unknown. - Social history:: Smoking status: unknown. - Family history:: not pertinent. - Ebola Screening: : Unable to complete screening because patient is disoriented, . ROS: 22:05 Constitutional: Negative for fever, chills, and weight loss, Eyes: Negative for injury, mirian pain, redness, and discharge, ENT: Negative for injury, pain, and discharge, Neck: Negative for injury, pain, and swelling, Cardiovascular: Negative for chest pain, palpitations, and edema, Respiratory: Negative for shortness of breath, cough, wheezing, and pleuritic chest pain, Abdomen/GI: Negative for abdominal pain, nausea, vomiting, diarrhea, and constipation, Back: Negative for injury and pain, : Negative for injury, bleeding, discharge, and swelling, MS/Extremity: Negative for injury and deformity, Skin: Negative for injury, rash, and discoloration, Psych: Negative for depression, anxiety, suicide ideation, homicidal ideation, and hallucinations, Allergy/Immunology: Negative for hives, rash, and allergies, Endocrine: Negative for neck swelling, polydipsia, polyuria, polyphagia, and marked weight changes, Hematologic/Lymphatic: Negative for swollen nodes, abnormal bleeding, and unusual bruising. 22:05 Neuro: Positive for altered mental status, weakness. Exam: 22:05 Constitutional: This is a well developed, well nourished patient who is awake, alert, mirian and in no acute distress. Head/Face: Normocephalic, atraumatic. Eyes: Pupils equal round and reactive to light, extra-ocular motions intact. Lids and lashes normal. Conjunctiva and sclera are non-icteric and not injected. Cornea within normal limits. Periorbital areas with no swelling, redness, or edema. ENT: Nares patent. No nasal discharge, no septal abnormalities noted. Tympanic membranes are normal and external auditory canals are clear. Oropharynx with no redness, swelling, or masses, exudates, or evidence of obstruction, uvula midline. Mucous membranes moist. Neck: Trachea midline, no thyromegaly or masses palpated, and no cervical lymphadenopathy. Supple, full range of motion without nuchal rigidity, or vertebral point tenderness. No Meningismus. Chest/axilla: Normal chest wall appearance and motion. Nontender with no deformity. No lesions are appreciated. Cardiovascular: Regular rate and rhythm with a normal S1 and S2. No gallops, murmurs, or rubs. Normal PMI, no JVD. No pulse deficits. Respiratory: Lungs have equal breath sounds bilaterally, clear to auscultation and percussion. No rales, rhonchi or wheezes noted. No increased work of breathing, no retractions or nasal flaring. Abdomen/GI: Soft, non-tender, with normal bowel sounds. No distension or tympany. No guarding or rebound. No evidence of tenderness throughout. Back: No spinal tenderness. No costovertebral tenderness. Full range of motion. Female : Normal external genitalia. MS/ Extremity: Pulses equal, no cyanosis. Neurovascular intact. Full, normal range of motion. Psych: Awake, alert, with orientation to person, place and time. Behavior, mood, and affect are within normal limits. 22:05 Neuro: Orientation: unable to test, Mentation: inappropriate for stated age, Memory: unable to test, Cranial nerves: no acute changes, Cerebellar function: unable to test, Motor: unable to test, Sensation: unable to test, seizure activity, is not displayed by the patient. Vital Signs: 21:42 BP 130 / 71; Pulse 80; Resp 18; Temp 98.2(A); Pulse Ox 99% on R/A; aa1 22:30 BP 122 / 54; Pulse 78; Resp 18; Pulse Ox 98% on R/A; aa1 23:44 BP 136 / 64; Pulse 84; Resp 18; Pulse Ox 98% on R/A; aa1 08/21 01:18 BP 122 / 59; Pulse 90; Resp 16; Pulse Ox 100% ; Pain 0/10; aa1 MDM: 08/20 21:44 Patient medically screened. [facility] 08/21 00:55 Data reviewed: vital signs, nurses notes, lab test result(s), EKG, radiologic studies, [facility] CT scan, plain films. 08/20 22:05 Order name: Basic Metabolic Panel; Complete Time: 00:14 [facility] 08/20 22:05 Order name: CBC with Diff; Complete Time: 23:44 [facility] 08/20 22:05 Order name: LFT's; Complete Time: 00:14 [facility] 08/20 22:05 Order name: Magnesium; Complete Time: 00:14 [facility] 08/20 22:05 Order name: NT PRO-BNP; Complete Time: 00:14 [facility] 08/20 22:05 Order name: PT-INR; Complete Time: 00:00 [facility] 08/20 22:05 Order name: Troponin (emerg Dept Use Only); Complete Time: 00:14 [facility] 08/20 22:05 Order name: Lipase; Complete Time: 00:14 [facility] 08/20 22:05 Order name: Urine Culture [facility] 08/20 22:05 Order name: Blood Culture Adult (2) [facility] 08/20 22:05 Order name: Procalcitonin; Complete Time: 00:14 [facility] 08/20 23:31 Order name: Urine Dipstick--Ancillary (enter results) [facility] 08/21 00:17 Order name: Type And Screen [facility] 08/21 00:18 Order name: Chem 7; Complete Time: 01:38 [facility] 08/20 22:05 Order name: XRAY Chest (1 view) [facility] 08/20 22:05 Order name: CT Traumagram (Head C Spine CAP wo con) [facility] 08/21 00:55 Order name: Basic Metabolic Panel [facility] 08/21 00:55 Order name: Basic Metabolic Panel [facility] 08/21 00:55 Order name: CBC with Automated Diff [facility] 08/21 00:55 Order name: CBC with Automated Diff [facility] 08/21 00:55 Order name: Troponin I [facility] 08/21 00:55 Order name: Troponin I [facility] 08/21 00:55 Order name: Troponin I [facility] 08/21 00:55 Order name: Chest Single View [facility] 08/21 00:55 Order name: Chest Single View [facility] 08/20 22:05 Order name: EKG; Complete Time: 22:06 [facility] 08/20 22:05 Order name: Cardiac monitoring; Complete Time: 23:24 [facility] 08/20 22:05 Order name: EKG - Nurse/Tech; Complete Time: 23:24 [facility] 08/20 22:05 Order name: IV Saline Lock; Complete Time: 23:24 [facility] 08/20 22:05 Order name: Labs collected and sent; Complete Time: 23:28 [facility] 08/20 22:05 Order name: O2 Per Protocol; Complete Time: 23:24 [facility] 08/20 22:05 Order name: O2 Sat Monitoring; Complete Time: 23:25 [facility] 08/20 22:05 Order name: Urine Dipstick-Ancillary (obtain specimen); Complete Time: 23:27 [facility] 08/20 22:05 Order name: Spring; Complete Time: 23:27 [facility] 08/21 00:55 Order name: CONS Physician Consult EDMT 08/21 00:55 Order name: EKG Electrocardiogram EDMS 08/21 00:55 Order name: EKG Electrocardiogram EDMS 08/21 00:55 Order name: EKG Electrocardiogram EDMT 08/21 00:55 Order name: EKG Electrocardiogram EDMS Administered Medications: 08/20 23:20 Drug: Thiamine 100 mg Route: IV; Rate: bolus; Site: right hand; aa1 23:30 Follow up: IV Status: Completed infusion aa 23:20 Drug: NS 0.9% 500 ml Route: IV; Rate: bolus; Site: right hand; aa1 08/21 00:24 Follow up: IV Status: Completed infusion aa1 00:19 Not Given (Other Intervention Used): Rocephin - (cefTRIAXone) 1 grams IVPB once over 30 aa1 mins; (mix in 50 mL NS) 00:23 Drug: Rocephin 1 grams Route: IV; Rate: calculated rate; Site: left hand; aa1 00:33 Follow up: IV Status: Completed infusion aa 00:24 Drug: NS 0.9% 500 ml Route: IV; Rate: bolus; Site: right hand; aa1 01:00 Follow up: IV Status: Completed infusion aa1 00:30 Drug: Albuterol - atroVENT (3:1) (2.5 mg - 0.5 mg) 3 ml Route: Nebulizer; aa1 01:50 Follow up: Response: No adverse reaction aa1 00:45 Drug: Lasix 20 mg Route: IVP; Site: right hand; aa1 01:50 Follow up: Urine output 900 ml aa1 00:47 Drug: Insulin Regular Human 10 units {Co-Signature: aa1 (Any Padilla RN).} Route: IVP; bb Site: right hand; 01:50 Follow up: Response: No adverse reaction aa1 00:48 Drug: D50W 50 ml Route: IVP; Site: right hand; aa 01:50 Follow up: Response: No adverse reaction aa1 00:49 Drug: Calcium Gluconate 1 grams Route: IVPB; Infused Over: 60 mins; Site: right hand; aa 01:50 Follow up: IV Status: Infusion continued upon admission 00:50 Drug: NS 0.9% 1000 ml Route: IV; Rate: 125 ml/hr; Site: right hand; 01:02 Follow up: IV Status: Infusion continued upon admission aa 01:30 Drug: Kayexalate 45 grams Route: PO; 01:50 Follow up: Response: No adverse reaction aa1 Disposition: 08/21/18 00:41 Hospitalization ordered by Manuel Govea for Inpatient Admission. Preliminary diagnosis are Altered mental status, unspecified, Unspecified kidney failure, Hyperkalemia, Dementia in other diseases classified elsewhere, Anemia, unspecified, Cystitis. - Bed requested for Telemetry/MedSurg (Inpatient). - Status is Inpatient Admission. aa1 - Condition is Stable. - Problem is new. - Symptoms have improved. UTI on Admission? Yes Signatures: Dispatcher [employer] EDMT Tina Huggins RN RN Any Padilla RN RN aa1 Vidal Sanchez MD MD cha Ballard, Brenda, RN RN Any Padilla RN aa1 Corrections: (The following items were deleted from the chart) 00:43 00:41 Hospitalization Ordered by Manuel Govea MD for Inpatient Admission. Preliminary diagnosis is Altered mental status, unspecified; Unspecified kidney failure; Hyperkalemia; Dementia in other diseases classified elsewhere; Anemia, unspecified; Cystitis. Bed requested for Telemetry/MedSurg (Inpatient). Status is Inpatient Admission. Condition is Stable. Problem is new. Symptoms have improved. UTI on Admission? Yes. mirian 02: 00:43 08/21/2018 00:41 Hospitalization Ordered by Manuel Govea MD for Inpatient aa1 Admission. Preliminary diagnosis is Altered mental status, unspecified; Unspecified kidney failure; Hyperkalemia; Dementia in other diseases classified elsewhere; Anemia, unspecified; Cystitis. Bed requested for Telemetry/MedSurg (Inpatient). Status is Inpatient Admission. Condition is Stable. Problem is new. Symptoms have improved. UTI on Admission? Yes. alonzo
[2018-08-21] MEDS ORDERED: ONDANSETRON 4 MG/2 ML VIAL IV PRN (00:44)
[2018-08-21] MEDS ORDERED: ACETAMINOPHEN 500 MG TAB PO PRN (00:44)
[2018-08-21] MEDS ORDERED: CALCIUM GLUCONATE 1 GM IVPB 1 GM/50 ML BAG IV ONE (00:51)
[2018-08-21] MEDS: ALBUTEROL 2.5 MG/3 ML NEB SOL NEB SCH ×4 (00:59→20:00)
[2018-08-21] MEDS: IPRATROPIUM BROM 0.5MG/2.5ML NEB SCH ×4 (01:00→19:55)
[2018-08-21 01:15] LABS: Potassium 6.5 mmol/L (3.5-5.1)
[2018-08-21] MEDS: NA CHLORIDE 0.9% 1,000 ML IV SCH ×2 (03:00→06:18)
[2018-08-21 03:50] LABS: BUN Blood Urea Nitrogen 49 mg/dL (7-18); Bicarbonate 25 mmol/L (21-32); Glucose Level 55 mg/dL (74-106); Potassium 5.3 mmol/L (3.5-5.1); Sodium Level 139 mmol/L (136-145); Troponin I < 0.02 ng/mL (0.0-0.045)
--- NOTE | 2018-08-21 08:00 | RAD REPORT ---
EXAM DESCRIPTION: CT - Head C Spine Cap Wo Con - 08/21/2018 5:07 am CLINICAL HISTORY: Unknown trauma history, altered mental status, dementia, head, neck, chest and abd omen pain A preliminary report was provided at the time of the study and reviewed prior to final report. COMPARISON: CT abdomen and pelvis July 27, CT head July 02 TECHNIQUE: Axial [address] head images were obtained. Axial [address] cervical spine images were obtain ed with sagittal and coronal reconstruction images reviewed. Axial 5 mm images of the chest, abdomen and pelvis were obtained. All CT scans are performed using dose optimization technique as appropriate and may include automated exposure control or mA/KV adjustment according to patient size. FINDINGS: No intracranial hemorrhage, mass or edema. No midline shift or abnormal fluid collection. Mastoid air cells and paranasal sinuses are clear. No skull fracture. Patient has a baseline of adva nced chronic ischemic change. Atrophy changes are present as well. Ventriculomegaly is present during slightly out of proportion to the amount of volume loss. Patient could have normal pressure hydrocep halus. Follow-up can be obtained as warranted. Ventricular dilatation matches the June comparison s tudy. Physiologic and arterial calcifications are present. Cervical bodies are normal in height. Slight anterior subluxation of C4 secondary to facet degenerati ve change. Prominent C5-6 disc and endplate degenerative change. Mid cervical facet joint degenerativ e changes are present. No fracture or acute bone finding. No prevertebral soft tissue thickening or p araspinal mass.Central canal detail is inherently limited on CT imaging.Carotid calcifications are pr esent. CT chest shows no pneumothorax, pulmonary contusion or pleural fluid collection. No mediastinal hem atoma and the aorta and pulmonary arteries are unremarkable. No chest will mass or abnormal axillary finding. No displaced rib fracture or other significant bony finding. CT abdomen and pelvis show no injury to solid abdominal viscera. Gallbladder and biliary tree are unr emarkable. No bowel injury or significant finding. No free air, free fluid or abnormal stranding. No hernia or bulky lymphadenopathy. PEG tube is in place with no acute component seen. No urinary bladd er abnormality. Patient has a very large lobulated uterus filling the pelvis. This contains multiple calcified fibroids. Pattern is similar to the July 27 study. Disc and bony degenerative changes are present without an acute or pathologic bone process confirmed. Patient has a sclerotic focus in the T2 body. This is nonspecific and additional sclerotic foci are not confirmed. Given patient's general debility long-term significance is not likely significant. Thi s can be monitored as clinical findings warrant. IMPRESSION: No hemorrhage or acute intracranial findings. Patient has advanced atrophy and chronic i schemic change matching the July 02 study. Ventriculomegaly may reflect normal pressure hydrocephal us. Cervical spine degenerative change without acute finding. No acute CT chest finding. Small T2 sclerotic focus is not fully characterized. No other sclerotic fo ci. Long-term significance doubtful given overall patient condition. No acute CT abdomen or pelvis finding. Again noted is the very large bulky multi fibroid uterus filli ng the pelvis.
--- NOTE | 2018-08-21 08:28 | RAD REPORT ---
EXAM DESCRIPTION: RAD - Chest Single View - 08/20/2018 10:48 pm CLINICAL HISTORY: Altered mental status, decreased level of consciousness, dementia, cough, shortnes s of breath COMPARISON: July 26 TECHNIQUE: AP portable chest image was obtained 2240 hours . FINDINGS: Lung volumes remain low. Interstitial markings are prominent but nonprogressive. Significa nt failure or volume overload are doubtful. Cardiac silhouette is enlarged but stable. Significant ac linda failure or volume overload are not suspected. No measurable pleural effusion and no pneumothorax. Bony degenerative changes are present and stable. No acute aortic findings suspected. IMPRESSION: Shallow inspiration film showing stable interstitial lung disease. No new or progressive finding.
[2018-08-21] MEDS ORDERED: CEFTRIAXONE 1 GM/NS 50 ML 1 GM/50 ML BAG IV SCH (09:00)
[2018-08-21] MEDS ORDERED: FAMOTIDINE 20 MG/2 ML VIAL IV SCH (09:00)
[2018-08-21] MEDS: D5 0.9 NS 1,000 ML IV SCH ×2 (09:03→20:38)
--- NOTE | 2018-08-21 09:23 | EKG ---
Test Date: 2018-08-20 Test Time: 22:53:37 Whitesmith: ELÍAS MEASUREMENT RESULTS: Intervals: Rate: 82 GA: 204 QRSD: 96 QT: 334 QTc: 390 [place]: P: 61 GA: 204 QRS: -35 T: 134 INTERPRETIVE STATEMENTS: Normal sinus rhythm Left axis deviation Minimal voltage criteria for LVH, may be normal variant ST & T wave abnormality, consider lateral ischemia Abnormal ECG Compared to ECG 07/18/2018 22:05:08 Left-axis deviation now present ST (T wave) deviation now present Sinus bradycardia no longer present First degree AV block no longer present Electronically Signed On 08-21-18 09:23:31 CDT by Jason Shrestha
[2018-08-21] MEDS ORDERED: ACETAMINOPHEN 325 MG TABLET FT PRN (10:25)
[2018-08-21] MEDS: ASPIRIN EC 81 MG TAB PO SCH (11:36)
[2018-08-21] MEDS: FAMOTIDINE 20 MG/2 ML VIAL IV SCH (11:38)
[2018-08-21] MEDS: SOD POLYSTYREN SUL 15 GM/60 ML UCUP FT SCH ×3 (11:38→20:36)
[2018-08-21] MEDS: JEVITY 1.5 CAL LIQUID 1,000 ML BOT FT SCH ×2 (12:54→18:11)
[2018-08-21] MEDS ORDERED: SOD POLYSTYREN SUL 15 GM/60 ML UCUP PO ONE (15:24)
--- NOTE | 2018-08-21 16:02 | P.PN ---
Subjective Date of Service: 08/21/18 Chief Complaint: ckd Subjective: NPO (patient gets feeds via peg. on kayaxelate already. sbp 120- 130s. watery diarrhea.), Demented patient seen/examined. not able to examine properly. patient with watery diarrhea...being cleaned by nursing. non-verbal. pinching/attacking staff at times. not able to give answers/has PEG tube. hx of stroke. ? hx of ckd. does not look volume overloaded. calm during my exam. vs stable lungs cta anteriorly cvs regular abd soft/nt/bs positive ext no edema watery stool/bloated. labs: reviewed. a/p: k at 5.3 but already has gotten kayaxelate and bp is not high and having diarrhea. check c.diff...discussed with RN stop losartan. d/c my order of kayaxelate. fall precautions. poor/guarded prognosis. try to keep clean and turn as best as patient allows to prevent ulcers. monitor vitals. repeat chem 7/cbc is already ordered on patient. Physical Examination - Vital Signs Temperature: 96.7 F Blood Pressure: 125/66 Pulse: 63 Respirations: 16 Pulse Ox (%): 98 - Studies Laboratory Data (last 24 hrs) 08/21/18 00:40: Sodium 134 L, Potassium 6.5 H*, BUN 49 H, Creatinine 1.80 H, Glucose 75 08/20/18 23:10: PT 12.1, INR 1.03 08/20/18 23:10: WBC 8.1, Hgb 9.1 L, Hct 26.9 L, Plt Count 337 08/20/18 23:10: Sodium 130 L, Potassium 6.8 H*, BUN 51 H, Creatinine 2.00 H, Glucose 86, Magnesium 2.6 H D, Total Bilirubin 0.2, AST 26, ALT 27, Alkaline Phosphatase 133 H, Lipase 715 H
[2018-08-21] MEDS: DONEPEZIL HCL 5 MG TAB FT SCH (20:37)
[2018-08-21] MEDS: RISPERIDONE 0.25 MG TABLET FT SCH (20:37)
[2018-08-21] MEDS: ALLOPURINOL 100 MG TAB FT SCH (20:37)
[2018-08-21] MEDS: MEMANTINE HCL 10 MG TABLET FT SCH (20:38)
[2018-08-21] MEDS: CITALOPRAM 10 MG TABLET FT SCH (20:38)
[2018-08-21] MEDS: LORAZEPAM 0.5 MG TABLET FT SCH (20:39)
--- NOTE | 2018-08-22 00:50 | HP ---
Date of Admission: 08/21/2018 Chief Complaint: Altered mental status. History Of Present Illness: This is a 78-year-old female patient, living at care home, was sent to emergency room yesterday evening after nurse from care home contacted me yesterday evening to inform me that the patient was having altered mental status for last 2-3 days. Yesterday evening was the first time that I was notified about this, so decision was made to send the patient to the emergency room after she was evaluated in the ER, she was admitted to the hospital. Because of patient's altered mental status and her significant dementia problem, she does not provide any details or information. Medications: List reviewed. Review of Systems: MARINE ENGINEER CPVEC: As mentioned above. All other systems unable to review because patient is not able to answer any questions. Allergies: NO KNOWN ALLERGIES. Family History: Not pertinent. Social History: Negative for smoking and alcohol use. Past Medical History: Significant for aspiration pneumonia, dysphagia, recent PEG tube placement beginning of this month, hypertension, diabetes mellitus, dementia, prior history of stroke with right-sided hemiparesis, chronic kidney disease stage 3. Past Surgical History: Significant for PEG tube placement. Physical Examination: Vital Signs: Last temperature this morning 96.1, pulse 67, respiratory rate 16 , blood pressure 115/58. Oxygen saturation 98%. Height 5 feet 5 inches, weight 144 pounds. General: The patient lying in bed, semiupright position with her eyes closed. Does not answer any questions, but when I was trying to talk to her and examine her, she was trying to push my hands away with her left hand. She was not in any distress. HEENT: Head atraumatic, normocephalic. Conjunctivae nonerythematous. Sclerae white. Mouth, no thrush or edema noted. Ears/Nose, no mass, lesion, discharge noted. Neck: Supple. No JVD, lymph nodes, bruit, thyromegaly noted. Lungs: Bilateral good equal air entry. Clear to auscultation. No rhonchi. No rales. Heart: Normal heart sounds, no murmur or gallop. Abdomen: Presence of PEG tube in the left upper quadrant. Surrounding skin around the PEG tube insertion site is normal. Abdomen soft. Bowel sounds normal. No guarding, rigidity, tenderness, or distention. Extremities: No leg edema. No calf tenderness. Skin: No rash, ulcer, cellulitis. Lymphatics: No lymph node enlargement in neck, supraclavicular, infraclavicular region. Neuro: Right-sided hemiparesis and the patient was noted to have some drooling of saliva from left side of the mouth corner. Chest: Unremarkable. External Genitalia: Deferred. Rectal: Deferred. Laboratory Data: Chest x-ray: No acute cardiopulmonary changes. CAT scan of head, neck, chest, abdomen, pelvis done in the emergency room: No acute intracranial changes noted. The patient has significant cerebral atrophy with dilated ventricles. She also has large uterine fibroid. White count 8.1, hemoglobin 9.1, platelets 337. Initial sodium 130, potassium 6.8, chloride 96, bicarb 27, BUN 51, creatinine 2, glucose 86. Liver function tests unremarkable. Troponin less than 0.02 x3. Procalcitonin 0.05. Last sodium this morning 139, potassium 5.3, chloride 104, bicarb 25. BUN 49, creatinine 1.90, glucose 55. Urinalysis: Trace leukocyte esterase, otherwise negative. Impression: 1. Altered mental status. 2. Volume depletion. 3. Hyperkalemia. 4. Hyponatremia. 5. Anemia, chronic. 6. Stroke with right-sided hemiparesis, old. 7. Urinary tract infection. 8. Hypertension. 9. Diabetes mellitus. 10. Senile dementia. Plan: Admit the patient to hospital for further evaluation and management of this problem. The patient is appropriate for inpatient and is expected to spend 2 midnights in hospital. We will go ahead and change IV fluid from normal saline to D5 normal saline considering hypoglycemia problem that was noted this morning. We will give empiric antibiotic, ceftriaxone per order. Nephrology consultation was requested. The patient's hyperkalemia was treated in the emergency room. We will monitor the patient's electrolytes, renal function, and provide treatment for electrolyte imbalance as it becomes necessary. Her home medications will be continued per order. Hold antihypertensive medication if systolic blood pressure less than 130. Start her on PEG tube feeding using Jevity 1 can 4 times a day and pertinent orders were written regarding PEG tube care and to check residual, provide adequate amount of water per PEG tube, flush PEG tube, etc. We will provide suction on a p.r.n. basis. Offload heels. Keep head, chest, and upper half of body elevated per order. The patient's CAT scan has not shown any evidence of acute stroke. It is possible that she may have small stroke that is not detected on CAT scan and MRI may detect such abnormality, but even if we detect something like stroke, she is really not a candidate for any kind of aggressive treatment for that. Her ventricles appears to be dilated and radiologist has raised possibility of normal-pressure hydrocephalus. It is possible, but at the same time, one has to keep in mind that with significant cerebral atrophy that we are seeing that could be the reason why her ventricles appears to be dilated. Even if she has normal-pressure hydrocephalus, she is not a candidate for any kind of surgical intervention. She does not communicate, she is also not ambulatory, she is bedbound and wheelchair bound. Her overall prognosis is poor. Other possibility one has to keep in mind is if she has any underlying atypical seizure type of activity to cause this altered mental status. All these details were discussed with the patient's daughter who was contacted on the phone. We also discussed about advanced directive and as per the patient's daughter, who informed me that the patient's son and daughter they both are in agreement with the decision of advance directive, which is do not intubate in the event of cardiopulmonary arrest, but they do want CPR as well as defibrillation if it becomes necessary. Nephrology consultation has been requested. Her hyperkalemia could be due to her chronic kidney disease problem , but also considering diabetes, one has to keep in mind about possibility of renal tubular acidosis and losartan that she takes could contribute to that problem as well. DVT prophylaxis will be provided per order. We will see her tomorrow for followup. ANUPAMA/MODL Voice ID: [id number] [id number]
[2018-08-22] MEDS: ALBUTEROL 2.5 MG/3 ML NEB SOL NEB SCH ×4 (01:45→20:17)
[2018-08-22] MEDS: IPRATROPIUM BROM 0.5MG/2.5ML NEB SCH ×4 (01:45→20:17)
[2018-08-22] MEDS: SOD POLYSTYREN SUL 15 GM/60 ML UCUP FT SCH ×2 (02:00→10:37)
[2018-08-22] MEDS: CEFTRIAXONE/SWI 1gm 1 GM/10 ML SYR IV SCH (05:26)
[2018-08-22 06:02] LABS: Absolute Lymphocytes (CBC) 0.8 K/uL (0.7-4.9); Absolute Monocytes 1.2 K/uL (0.1-1.3); Absolute Neutrophil 4.3 K/uL (1.8-8.0); Basophils % 0.4 % (0-1.3); Eosinophils % 4.9 % (0-4.4); Hematocrit 25.6 % (36.0-45.0); Lymphocytes % 11.9 % (15.3-44.8); MCV 89.2 fL (80-100); MPV 7.5 fL (7.6-11.3); Monocytes % 17.9 % (3.3-12.3); RBC Red Blood Cell Count 2.87 M/uL (3.86-4.86)
[2018-08-22 06:25] LABS: Potassium 4.2 mmol/L (3.5-5.1)
[2018-08-22 06:50] LABS: Blood Morphology Comment NOT SEEN (NOT SEEN); Platelet Estimate ADEQ
[2018-08-22] MEDS ORDERED: HOME MED 1 EA UNK (Multivitamin [Multivitamins] 1 EACH) FT SCH (09:00)
[2018-08-22] MEDS ORDERED: LOSARTAN POTASSIUM 50 MG TABLET FT SCH ×2 (09:00)
[2018-08-22] MEDS: AMLODIPINE 5 MG TAB FT SCH ×2 (10:34→20:28)
[2018-08-22] MEDS: D5W 1,000 ML IV SCH (10:34)
[2018-08-22] MEDS: ALLOPURINOL 100 MG TAB FT SCH ×2 (10:35→20:29)
[2018-08-22] MEDS: MEMANTINE HCL 10 MG TABLET FT SCH ×2 (10:35→20:29)
[2018-08-22] MEDS: CARVEDILOL 12.5 MG TAB FT SCH ×2 (10:35→20:29)
[2018-08-22] MEDS: MULTIVITAMINS 5 ML ORAL SYR FT SCH (10:36)
[2018-08-22] MEDS: FAMOTIDINE 20 MG/2 ML VIAL IV SCH (10:36)
[2018-08-22] MEDS: ASPIRIN EC 81 MG TAB PO SCH (10:36)
[2018-08-22] MEDS: JEVITY 1.5 CAL LIQUID 1,000 ML BOT FT SCH ×4 (10:37→20:30)
--- NOTE | 2018-08-22 11:44 | RAD REPORT ---
EXAM DESCRIPTION: RAD - Chest Single View - 08/22/2018 6:23 am CLINICAL HISTORY: Chest Pain Chest pain. COMPARISON: Chest Single View dated 08/20/2018; Abdomen 1 View (KUB) dated 07/27/2018; Chest Single Vie w dated 07/26/2018; Chest Single View dated 07/26/2018 FINDINGS: Portable technique limits examination quality. The lungs are grossly clear. The heart is normal in size. No displaced fractures.Degenerate changes a re present in both shoulders. IMPRESSION: No acute intrathoracic process suspected.
--- NOTE | 2018-08-22 13:30 | PN ---
Date of Progress Note: 08/22/2018 Subjective: The patient was seen this morning for followup. The patient was lying in bed, not in any distress, sleeping. Altered mental status that was noted yesterday has remained unchanged. Objective: Vital Signs: Reviewed. HEENT: Examination unremarkable. Lungs: Clear to auscultation. Heart: Sounds normal. Abdomen: Soft. Bowel sounds normal. No guarding, rigidity, tenderness, or distention. Extremities: No leg edema. Laboratory Data: White count 6.6, hemoglobin 8.3, platelets 297. Sodium 147, potassium 4.2, chloride 112, bicarb 28, BUN 34, creatinine 1.60, glucose 170. Blood culture negative. Urine culture, mixed mario with yeast. Impression: 1. Altered mental status. 2. Volume depletion. 3. Urinary tract infection. 4. Hypertension. 5. Diabetes mellitus. 6. Dementia. 7. Anemia. Plan: We will go ahead and continue current medications. Empiric antibiotic, which is ceftriaxone. IV fluid will be changed to D5W per order. Renal function is better today than yesterday. We will continue PEG tube feeding and other current medical management. ANUPAMA/MODL Voice ID: [id number] Report ID: [id number]
[2018-08-22] MEDS: MAGNESIUM HYDROXIDE 8% 30 ML FT SCH (14:28)
[2018-08-22] MEDS: LORAZEPAM 0.5 MG TABLET FT SCH (20:28)
[2018-08-22] MEDS: DONEPEZIL HCL 5 MG TAB FT SCH (20:28)
[2018-08-22] MEDS: CITALOPRAM 10 MG TABLET FT SCH (20:29)
[2018-08-22] MEDS: RISPERIDONE 0.25 MG TABLET FT SCH (20:29)
[2018-08-23] MEDS: ALBUTEROL 2.5 MG/3 ML NEB SOL NEB SCH ×4 (01:30→20:11)
[2018-08-23] MEDS: IPRATROPIUM BROM 0.5MG/2.5ML NEB SCH ×4 (01:30→20:11)
[2018-08-23] MEDS: D5W 1,000 ML IV SCH ×2 (05:09→09:56)
[2018-08-23] MEDS: CEFTRIAXONE/SWI 1gm 1 GM/10 ML SYR IV SCH (05:09)
[2018-08-23 06:25] LABS: Potassium 3.7 mmol/L (3.5-5.1)
--- NOTE | 2018-08-23 06:47 | EKG ---
Test Date: 2018-08-22 Test Time: 11:07:06 Nike Athlete: SPIKE MEASUREMENT RESULTS: Intervals: Rate: 96 AR: 164 QRSD: 92 QT: 310 QTc: 391 [place]: P: 51 AR: 164 QRS: -3 T: 150 INTERPRETIVE STATEMENTS: Normal sinus rhythm Left ventricular hypertrophy with repolarization abnormality Abnormal ECG Compared to ECG 08/20/2018 22:53:37 Left-axis deviation no longer present Electronically Signed On 08-23-18 06:47:03 CDT by Jason Shrestha
--- NOTE | 2018-08-23 07:41 | EKG ---
Test Date: 2018-08-22 Test Time: 11:14:41 Medical Assistant Supervisor: SPIKE MEASUREMENT RESULTS: Intervals: Rate: 93 MO: 156 QRSD: 88 QT: 354 QTc: 440 [place]: P: 42 MO: 156 QRS: -12 T: 141 INTERPRETIVE STATEMENTS: Normal sinus rhythm Left ventricular hypertrophy with repolarization abnormality Abnormal ECG Compared to ECG 08/22/2018 11:12:35 First degree AV block no longer present Myocardial infarct finding no longer present Electronically Signed On 08-23-18 07:40:16 CDT by Jason Shrestha
[2018-08-23] MEDS: MULTIVITAMINS 5 ML ORAL SYR FT SCH (09:56)
[2018-08-23] MEDS: MEMANTINE HCL 10 MG TABLET FT SCH ×2 (09:57→21:56)
[2018-08-23] MEDS: ASPIRIN EC 81 MG TAB PO SCH (09:57)
[2018-08-23] MEDS: CARVEDILOL 12.5 MG TAB FT SCH ×2 (09:57→21:55)
[2018-08-23] MEDS: ALLOPURINOL 100 MG TAB FT SCH ×2 (09:57→21:56)
[2018-08-23] MEDS: MAGNESIUM HYDROXIDE 8% 30 ML FT SCH (09:58)
[2018-08-23] MEDS: AMLODIPINE 5 MG TAB FT SCH ×2 (09:58→21:55)
[2018-08-23] MEDS: FAMOTIDINE 20 MG/2 ML VIAL IV SCH (09:58)
[2018-08-23] MEDS: JEVITY 1.5 CAL LIQUID 1,000 ML BOT FT SCH ×4 (09:59→21:57)
--- NOTE | 2018-08-23 19:56 | RAD REPORT ---
EXAM DESCRIPTION: MRI - Brain Wo Cont - 08/23/2018 7:09 pm CLINICAL HISTORY: Transient alteration of awareness COMPARISON: CT head August 20, MRI July 02 TECHNIQUE: Sagittal T1-weighted images were obtained along with axial PD, heavily T2-weighted and T2 -FLAIR images. Axial DWI and ADC mapping sequences were also obtained along with coronal heavily T2-w eighted images. FINDINGS: No intracranial hemorrhage, mass or acute infarction. There is no edema or shift of midlin e structures. No extra-axial fluid collections. Davis-matter/white matter junction is preserved. Signa l voids are seen as a normal finding in the major intracranial vessels. Patient has advanced chronic ischemic change. Ventriculomegaly is present matching the June examination. Correlation is needed w ith any findings for normal pressure hydrocephalus. No globe or orbital content abnormality. No paranasal sinus or mastoid air cell significant finding. Exam has significant motion degradation limitation. IMPRESSION: No acute infarction. No hemorrhage, mass or acute intracranial finding. Prominent chronic ischemic change in ventriculomegaly matching the June examination. Findings can r eflect normal pressure hydrocephalus.
[2018-08-23] MEDS: LORAZEPAM 0.5 MG TABLET FT SCH (21:55)
[2018-08-23] MEDS: CITALOPRAM 10 MG TABLET FT SCH (21:55)
[2018-08-23] MEDS: RISPERIDONE 0.25 MG TABLET FT SCH (21:56)
[2018-08-23] MEDS: DONEPEZIL HCL 5 MG TAB FT SCH (21:56)
--- NOTE | 2018-08-23 22:48 | CON ---
Reason For Consultation: Consultation called by Dr. Govea because of altered mental status. History Of Present Illness: Ms. Dewey is a 78-year-old patient who has advanced dementia and is a resident of [facility]. From chart review and discussion with the patient's nurse, she was at baseline at her [facility] about 5 days ago. At baseline consists of normal mumbling, no intelligible communication. The patient at times with the interactive and alert , but not quite following the commands. However, onset around , she began having less responsiveness, apparently drooling and not interacting with staff. She was brought into [facility] and evaluation included chest x-ray, which showed shallow inspiration, but stable interstitial lung findings. She had a sepsis screen and that was negative. Her head, chest, abdomen and pelvis CT scan was remarkable for the advanced cerebral atrophy with ventriculomegaly. The report did suggest possibility of normal-pressure hydrocephalus, although my review of the scan is not consistent with that. The scan shows advanced small vessel ischemic disease and exvacuo dilatation. The patient's chest CT scan showed no acute findings. However, there were small T2 sclerotic focus seen, not fully characterized and no abdomen and pelvis findings in the scan, although there was a very large bulky multi-fibroid uterus filling the pelvis. Her white blood cell count was normal at 8.1, hemoglobin 9.1, hematocrit 26.9, neutrophils were 60.4. INR normal at 1.03. Chemistries showed when she was admitted very elevated potassium of 6.8 with low sodium 130, BUN elevated at 51 , creatinine elevated to 2, magnesium high at 2.6. Procalcitonin was normal at 0.05 and urinalysis showed 1+ esterase. Her electrolyte abnormality were addressed and today her potassium is corrected to 3.7, and slightly elevated glucose ranged from 115-252. Nursing staff indicated the patient is at baseline level of functioning with poor interaction, largely nonverbal and does not follow commands well, requires repeated instructions and the patient may resist movement of her arms, especially more on the left than on the right side and also indicates she does not want her legs stimulated when her each leg is stimulated individually. Past Medical History: Advanced dementia, insulin-dependent diabetes mellitus, coronary artery disease, hypertension, insomnia, pneumonia. Past Surgical History: PEG tube placement. Allergies: NO KNOWN DRUG ALLERGIES. Home Medications: Tylenol 650 mg every 6 hours, allopurinol 100 mg twice daily , amlodipine 5 mg twice daily, aspirin 81 mg daily, Celexa 10 mg at night, vitamin D 5000 international units daily, carvedilol 12.5 mg twice daily, ferrous sulfate 325 mg daily, lorazepam 0.5 mg at night, losartan 100 mg daily, memantine 5 mg tablets twice daily, milk of magnesia 400 mg as needed, multivitamin daily, NovoLog sliding scale, and risperidone 0.25 mg at night. Family History: Noncontributory. Social History: As indicated, resides at [facility], typically nonverbal. The patient is assisted with activities of daily living. Review of Systems: Unable to complete as the patient does not respond with sentences or meaningful communication to questions. Physical Examination: Vital Signs: Blood pressure 141/61, pulse 82, respiratory rate 16, temp 97.7, oxygen saturation 98% on room air, weight 144 pounds, height 5 feet 4 inches. Neurological: Ms. Dewey is resting in bed with eyes closed. She required significant stimulation, and she opens the eyes briefly. She withdraws her hands more on the left than right to stimulation and does state she does not want her legs touched when her legs are stimulated. She did focally withdrawal the extremities. Tone appears normal. Strength unable to fully assess sensation, unable to fully assess. Reflexes symmetric and depressed. Gait unable to assess. Assessment: Ms. Dewey is a 78-year-old patient with an advanced dementia as seen by a very advanced cortical atrophy. There is a suggestion of normal- pressure hydrocephalus. I think that is less likely diagnosis. The patient does have advanced vascular dementia. She did come to the hospital with severe hyperkalemia which could be a contributing factor to her drooling and change in mental status. She does not appear to have a systemic infection as evidenced by a normal white count. She also did have dehydration with elevated creatinine. Plan: 1. Continue with oral hydration. 2. Continue with the current medication list including Aricept 10 mg at bedtime and memantine 5 mg twice daily. May use Ativan at night for agitation. Also continue aspirin 81 mg daily in management of hypertension. 3. At this point, the patient will be discharged to [facility]. She is back to her baseline level of functioning. No further neurological evaluation is required. JAYY/RANDALL Voice ID: [id number] Report ID: [id number]
--- NOTE | 2018-08-23 23:34 | PN ---
Date of Progress Note: 08/23/2018 Subjective: The patient was seen this morning for followup. She was sleeping with oxygen on, did no t wake up to talk to me, not in any respiratory distress. Her altered mental status remains unchange d. Objective: Vital Signs: Reviewed. HEENT: Unremarkable. Lungs: Clear to auscultation. Heart: Sounds normal. Abdomen: Soft. Bowel sounds normal. No guarding, rigidity, tenderness, distention. Extremities: No leg edema. Laboratory Data: Sodium 149, potassium 3.7, chloride 111, bicarb 30, BUN 25, creatinine 1.30, glucos e 129. Impression: 1.Altered mental status. 2.History of stroke with right-sided hemiparesis. 3.Hypertension. 4.Diabetes mellitus. 5.Urinary tract infection. 6.Anemia. 7.Volume depletion. Plan: We will continue current medications. Continue current IV fluid, empiric antibiotics. We belem l follow up with neurologist for his recommendation, and I have ordered EEG and MRI of brain to be do ne today. Continue PEG tube feeding. I will see her tomorrow for followup. ANUPAMA/MODL Voice ID: [id number] Report ID: [id number]
[2018-08-24] MEDS: D5W 1,000 ML IV SCH ×3 (02:00→22:00)
[2018-08-24] MEDS: ALBUTEROL 2.5 MG/3 ML NEB SOL NEB SCH ×4 (02:03→19:58)
[2018-08-24] MEDS: IPRATROPIUM BROM 0.5MG/2.5ML NEB SCH ×4 (02:03→19:58)
[2018-08-24] MEDS: CEFTRIAXONE/SWI 1gm 1 GM/10 ML SYR IV SCH (05:30)
[2018-08-24 07:50] LABS: Absolute Lymphocytes (CBC) 1.8 K/uL (0.7-4.9); Absolute Neutrophil 3.4 K/uL (1.8-8.0); Basophils % 0.7 % (0-1.3); Eosinophils % 12.2 % (0-4.4); Hematocrit 24.3 % (36.0-45.0); MCH 28.8 pg (27.0-35.0); MCV 87.7 fL (80-100); MPV 7.2 fL (7.6-11.3); Monocytes % 14.3 % (3.3-12.3); RBC Red Blood Cell Count 2.77 M/uL (3.86-4.86)
[2018-08-24 08:03] LABS: Magnesium 2.1 mg/dL (1.8-2.4); Potassium 4.1 mmol/L (3.5-5.1)
[2018-08-24] MEDS: ASPIRIN EC 81 MG TAB PO SCH (09:31)
[2018-08-24] MEDS: FAMOTIDINE 20 MG/2 ML VIAL IV SCH (09:31)
[2018-08-24] MEDS: MAGNESIUM HYDROXIDE 8% 30 ML FT SCH (09:31)
[2018-08-24] MEDS: MEMANTINE HCL 10 MG TABLET FT SCH ×2 (09:31→20:44)
[2018-08-24] MEDS: CARVEDILOL 12.5 MG TAB FT SCH ×2 (09:32→20:44)
[2018-08-24] MEDS: MULTIVITAMINS 5 ML ORAL SYR FT SCH (09:32)
[2018-08-24] MEDS: ALLOPURINOL 100 MG TAB FT SCH ×2 (09:33→20:44)
[2018-08-24] MEDS: AMLODIPINE 5 MG TAB FT SCH ×2 (09:33→20:42)
[2018-08-24] MEDS: JEVITY 1.5 CAL LIQUID 1,000 ML BOT FT SCH ×4 (09:34→20:45)
--- NOTE | 2018-08-24 11:00 | EEG ---
CHART: [id number] TEST ID#: [id number] DATE OF STUDY: 08/23/2018 THE EEG WAS RECORDED PORTABLE IN THE PATIENTS ON A 17 CHANNEL MACHINE. ELECTRODES WERE APPLIED IN THE USUAL MANNER USING THE INTERNATIONAL 10-20 SYSTEM. THE WAKING BACKGROUND RHYTHM IN THIS RECORD CONSISTS OF POORLY DEVELOPED AND POORLY ORGANIZED WAVES OF 7.5 HZ., IN A WIDE DISTRIBUTION WHICH ATTENUATE POORLY WITH EYE OPENING. MODERATE VOLTAGE OF 1.5-3 HZ MIXED WITH LOW-MODERATE VOLTAGE 4-6 HZ ACTIVITY IS EXPRESSED IN THE FRONTAL AND CENTRAL REGIONS. LOW VOLTAGE 15-18 HZ ACTIVITY IS EXPRESSED IN THE FRONTAL REGION. THERE ARE NO FOCAL OR LATERALIZING FEATURES. NO EPILEPTIFORM ACTIVITY APPEARS. SLEEP OCCURRED NATURALLY. IN ADDITION TO NORMAL SLEEP PATTERNS ARE PRESENT. HYPERVENTILATION WAS NOT PREFORMED. PHOTIC STIMULATION PRODUCED POOR DRIVING BILATERALLY. IMPRESSION: THIS IS A MODERATELY ABNORMAL EEG DUE TO A MODERATELY SLOW BACKGROUND. THIS IS A NON-SPECIFIC FINDING INDICATNG THE PRESENSE OF A MODERATE DIFFUSE DISTURBANCE IN CEREBRAL ACTIVITY. NO EPILEPTIFORM WAS RECORED.
[2018-08-24] MEDS: LORAZEPAM 0.5 MG TABLET FT SCH (20:42)
[2018-08-24] MEDS: CITALOPRAM 10 MG TABLET FT SCH (20:42)
[2018-08-24] MEDS: DONEPEZIL HCL 5 MG TAB FT SCH (20:43)
[2018-08-24] MEDS: RISPERIDONE 0.25 MG TABLET FT SCH (20:43)
--- NOTE | 2018-08-24 21:24 | P.PN ---
Date of Service: 08/24/18 Vital Signs Temp Pulse Resp BP Pulse Ox 97.4 F 74 18 138/65 98 08/24/18 20:00 08/24/18 20:44 08/24/18 20:00 08/24/18 20:44 08/24/18 20:00 Medications Acetaminophen (Tylenol -Tablet) 650 mg FT Q6HP PRN PRN Reason: PAIN Stop: 09/20/18 10:26 Albuterol Sulfate (Proventil 0.083% Neb Soln) 2.5 mg NEB [id number] SHERRI Stop: 09/20/18 02:01 Last Admin: 08/24/18 19:58 Dose: 2.5 mg Allopurinol (Zyloprim) 100 mg FT BID SHERRI Stop: 09/20/18 21:01 Last Admin: 08/24/18 20:44 Dose: 100 mg Amlodipine Besylate (Norvasc) 5 mg FT BID SHERRI Stop: 09/20/18 21:01 Last Admin: 08/24/18 20:42 Dose: 5 mg Aspirin (Aspirin Ec) 81 mg PO DAILY SHERRI Stop: 09/20/18 09:01 Last Admin: 08/24/18 09:31 Dose: 81 mg Carvedilol (Coreg) 12.5 mg FT BID SHERRI Stop: 09/20/18 21:01 Last Admin: 08/24/18 20:44 Dose: 12.5 mg Citalopram Hydrobromide (Celexa) 10 mg FT BEDTIME SHERRI Stop: 09/20/18 21:01 Last Admin: 08/24/18 20:42 Dose: 10 mg Donepezil HCl (Aricept) 10 mg FT BEDTIME SHERRI Stop: 09/20/18 21:01 Last Admin: 08/24/18 20:43 Dose: 10 mg Famotidine (Pepcid) 20 mg IV DAILY SHERRI Stop: 09/20/18 09:01 Last Admin: 08/24/18 09:31 Dose: 20 mg Ceftriaxone Sodium/Sodium Chloride (Rocephin 1 Gm/10 Ml Swi Ivp) 1 gm in 10 mls @ 600 mls/hr IV [id number] SHERRI; Protocol Stop: 09/21/18 06:01 Last Admin: 08/24/18 05:30 Dose: 10 mls Dextrose/Water (Dextrose In Water (1-Liter)) 1,000 mls @ 50 mls/hr IV .Q20H SHERRI Stop: 09/21/18 10:01 Last Admin: 08/24/18 09:31 Dose: 1,000 mls Ipratropium [place] (Atrovent Neb) 0.5 mg NEB [id number] SHERRI Stop: 09/20/18 02:01 Last Admin: 08/24/18 19:58 Dose: 0.5 mg Lorazepam (Ativan) 0.5 mg FT BEDTIME SHERRI Stop: 09/20/18 21:01 Last Admin: 08/24/18 20:42 Dose: 0.5 mg Magnesium Hydroxide (Milk Of Magnesia) 30 ml FT DAILY SHERRI Stop: 09/21/18 09:01 Last Admin: 08/24/18 09:31 Dose: 30 ml Memantine (Namenda) 5 mg FT BID SHERRI Stop: 09/20/18 21:01 Last Admin: 08/24/18 20:44 Dose: 5 mg Multivitamins (Theravite Liq) 5 ml FT DAILY SHERRI Stop: 09/21/18 09:01 Last Admin: 08/24/18 09:32 Dose: 5 ml Ondansetron HCl (Zofran) 4 mg IV Q6H PRN PRN Reason: NAUSEA / VOMITING Stop: 09/20/18 00:45 Risperidone (Risperdal 0.25 Mg Tab) 0.25 mg FT BEDTIME SHERRI Stop: 09/20/18 21:01 Last Admin: 08/24/18 20:43 Dose: 0.25 mg Sodium Chloride (Normal Saline Flush) 10 ml IV BID SHERRI Stop: 09/20/18 09:01 Last Admin: 08/24/18 20:44 Dose: Not Given Lab Results (last 24 hrs) 08/20/18 23:31: POC Glucose 93 Microbiology Results 08/20/18 23:30 Blood - Blood Aerobic Blood Culture - Preliminary 08/20/18 23:30 Blood - Blood Gram Stain - Preliminary 08/20/18 23:30 Blood - Blood Anaerobic Blood Culture - Preliminary No growth in 24 hours. 08/20/18 23:26 Catheterized Urine [place] Count - Final >100,000 CFU/ML. 08/20/18 23:26 Catheterized Urine - Final 08/20/18 23:10 Blood - Blood Aerobic Blood Culture - Preliminary No growth in 24 hours. 08/20/18 23:10 Blood - Blood Anaerobic Blood Culture - Preliminary No growth in 24 hours. Assessment/ Plan: Nephrology. Limited IH/ ROS due to AMS. CPS improved without CP or SOB. No acute events overnight. Vitals, medications, blood work and imaging reviewed in the chart. NAD. MMM. Neck supple. CTA. Kyphosis. RRR. Soft Abd. PEG. No C/C/E. No Rash. Awake. No speech. A/ LUH improving. Hyperkalemia, improved. Hypernatremia. Anemia in chronic illness. HTN. DM II. Moderate malnutrition. AMS. P/ Continue current POC and Medications. Maintain nutrition. No NSAIDs. AM labs. Daily weight.
[2018-08-25] MEDS: IPRATROPIUM BROM 0.5MG/2.5ML NEB SCH ×3 (02:05→14:00)
[2018-08-25] MEDS: ALBUTEROL 2.5 MG/3 ML NEB SOL NEB SCH ×3 (02:05→14:00)
--- NOTE | 2018-08-25 02:24 | PN ---
Date of Progress Note: 08/24/2018 Subjective: The patient was seen this morning for followup. This morning, her mental status was bet ter than last few days. She actually answered simple question. This morning when I asked her, she a nswered by saying yes or no. Objective: Vital Signs: Reviewed. HEENT: Unremarkable. Lungs: Clear to auscultation. Heart: Sounds normal. Abdomen: Soft. Bowel sounds normal. No guarding, rigidity, tenderness. Extremities: No leg edema. Laboratory Data: White count 7.1, hemoglobin 8, platelets 257. Sodium 138, potassium 4.1, chloride 104, bicarb 29, BUN 19, creatinine 1.10, glucose 117. Impression: 1.Altered mental status. 2.Urinary tract infection. 3.Vascular dementia. 4.Hypertension. 5.Diabetes mellitus. 6.Anemia. Plan: We will go ahead and continue current medication. The patient's MRI of the brain done yesterd ay was negative for any acute stroke. EEG was unremarkable for any acute abnormality. Neurology consultation was appreciated from Dr. Valencia. Plan is to discharge her to go [facility]. ANUPAMA/MODL Voice ID: [id number] Report ID: [id number]
[2018-08-25] MEDS: CEFTRIAXONE/SWI 1gm 1 GM/10 ML SYR IV SCH (05:09)
[2018-08-25 05:15] VITALS: BMI 24.1
[2018-08-25] MEDS: MAGNESIUM HYDROXIDE 8% 30 ML FT SCH (10:21)
[2018-08-25] MEDS: FAMOTIDINE 20 MG/2 ML VIAL IV SCH (10:21)
[2018-08-25] MEDS: MEMANTINE HCL 10 MG TABLET FT SCH (10:21)
[2018-08-25] MEDS: ASPIRIN EC 81 MG TAB PO SCH (10:22)
[2018-08-25] MEDS: ALLOPURINOL 100 MG TAB FT SCH (10:22)
[2018-08-25] MEDS: CARVEDILOL 12.5 MG TAB FT SCH (10:22)
[2018-08-25] MEDS: AMLODIPINE 5 MG TAB FT SCH (10:22)
[2018-08-25] MEDS: MULTIVITAMINS 5 ML ORAL SYR FT SCH (10:22)
[2018-08-25] MEDS: JEVITY 1.5 CAL LIQUID 1,000 ML BOT FT SCH ×2 (10:23→13:59)
[2018-08-25 13:39] VITALS: BP 120/64; TEMP 98
[2018-08-25 19:00] VITALS: O2SAT 100
--- NOTE | 2018-08-25 20:16 | P.PN ---
Date of Service: 08/25/18 Vital Signs Temp Pulse Resp BP Pulse Ox 98 F 69 18 120/64 98 08/25/18 12:00 08/25/18 12:00 08/25/18 12:00 08/25/18 12:00 08/25/18 12:00 Microbiology Results 08/20/18 23:30 Blood - Blood Aerobic Blood Culture - Final 08/20/18 23:30 Blood - Blood Gram Stain - Final 08/20/18 23:30 Blood - Blood Anaerobic Blood Culture - Final No growth in 5 days. 08/20/18 23:26 Catheterized Urine [place] Count - Final >100,000 CFU/ML. 08/20/18 23:26 Catheterized Urine - Final 08/20/18 23:10 Blood - Blood Aerobic Blood Culture - Preliminary No growth in 24 hours. 08/20/18 23:10 Blood - Blood Anaerobic Blood Culture - Preliminary No growth in 24 hours. Assessment/ Plan: Nephrology. Limited IH/ ROS due to AMS. CPS improved without CP or SOB. No acute events overnight. Vitals, medications, blood work and imaging reviewed in the chart. NAD. MMM. Neck supple. CTA. Kyphosis. RRR. Soft Abd. PEG. No C/C/E. No Rash. Awake. No speech. A/ LUH improving. Hyperkalemia, improved. Hypernatremia. Anemia in chronic illness. HTN. DM II. Moderate malnutrition. AMS. P/ Continue current POC and Medications. Maintain nutrition. No NSAIDs. AM labs. Daily weight.
--- NOTE | 2018-08-26 04:46 | DS ---
Date of Discharge: 08/25/2018 Disposition: Discharged to go to assisted. Physical Examination: HEENT: Unremarkable. Lungs: Clear to auscultation. Heart: Sounds normal. Abdomen: Soft. Bowel sounds normal. No guarding, rigidity, tenderness, or distention. Extremities: No leg edema. Laboratory Data: Last white count yesterday 7.1, hemoglobin 8, platelets 257. Initial white count w hen she came in 8.1, platelets 337. Last chemistry yesterday; sodium 138, potassium 4.1, chloride 10 4, bicarb 29, BUN 19, creatinine 1.10, glucose 117, magnesium 2.1. When she came in, her sodium was 130, potassium 6.8, chloride 96, bicarb 51.0. Hospital Course: A 78-year-old female patient living at assisted, was brought into emergency [place] with altered mental status. Please see dictated H and P for more information. After patient was e valuated in the emergency room, she was admitted to the hospital. Her urinalysis had showed trace le ukocyte esterase. She was given IV Rocephin for urinary tract infection. Urine culture did not grow any specific bacteria. Blood culture was negative except 1 bottle showed skin contaminant. Her hyp erkalemia was treated in the beginning. Potassium came down to normal and remained normal. Her bianka l insufficiency was treated with IV fluid. PEG tube feeding was continued and the patient was given free water per PEG tube as well. Her assisted medications were continued through PEG tube. Neur ology consultation was obtained from Dr. Valencia because of her altered mental status. Her mental s tatus noted during this hospital admission was different than her prior baseline as we have seen defi nitely deterioration in her mental status, so CAT scan of the brain that was done when she first came into the emergency room was negative for any acute changes. They did show advanced cerebral atrophy and dilated ventricle. MRI of the brain was done which was negative for any acute stroke. EEG was negative for any epileptic type of activity. Neurology consultation was obtained from Dr. Valencia. Dr. Valencia and myself we both believe that the patient's dilated ventricle was very likely due to her advanced cerebral atrophy and not normal-pressure hydrocephalus. I did talk to patient's mary jane about all these different details and also explained even if she does have normal-pressure hydrocep halus. She is really not a good candidate for any kind of surgical intervention. We believe that th is is her new baseline now the way she has responded so far to the treatment. She has significant va scular dementia as we believe, and overall prognosis is guarded. Advance directive was discussed wit h daughter and do not intubate order was written in the chart per family's decision. She was dischar [facility] to go back to assisted today in stable condition. Final Diagnoses: 1.Volume depletion. 2.Acute kidney injury. 3.Urinary tract infection. 4.Altered mental status. 5.Hyperkalemia. 6.Hyponatremia. 7.Anemia, chronic. 8.Senile dementia. 9.Stroke with right-sided hemiparesis, old. 10.Hypertension. 11.Diabetes mellitus. Discharge Medications And Instructions: 1.Continue all prior home medications. 2.Give Jevity 1.5 one can per PEG tube 4 times a day. 3.Flush PEG tube with 50-100 cc water before and after each use. 4.Change PEG tube dressing daily. 5.Give 200 cc of water per PEG tube every 4 hours. 6.Check PEG tube residual before giving Jevity and before giving water, and if it has higher than 20 0 cc residual, then do not give any Jevity or water and recheck residual after 1 hour, and if it stil l remains higher than 200 cc, then to call physician. If residual is less than 200 cc, then give Jev ity or water per order. 7.Keep head and chest elevated at 45 degrees. 8.Offload heels. 9.Air mattress. 10.Suction mouth p.r.n. ANUPAMA/MODL Voice ID: [id number] Report ID: [id number]
== END 2018-08-25 15:58 | DRG 884 ==
LOC: ER 21:38 → 4TH 08-21 01:30
PROVIDERS: ADMIT Internal Medicine; ATTEND Internal Medicine
PROC: 3E0G76Z Introduction of Nutritional Substance into Upper GI, Via Natural or Artificial Opening (ICD-10-PCS; principal; 2018-08-21)
DX: F01.50 Vascular dementia, unspecified severity, without behavioral disturbance, psychotic disturbance, mood disturbance, and anxiety (principal); N39.0 Urinary tract infection, site not specified; N17.9 Acute kidney failure, unspecified; E87.1 Hypo-osmolality and hyponatremia; I69.351 Hemiplegia and hemiparesis following cerebral infarction affecting right dominant side; E44.0 Moderate protein-calorie malnutrition; E87.5 Hyperkalemia; Z79.82 Long term (current) use of aspirin; Z79.4 Long term (current) use of insulin; G30.9 Alzheimer's disease, unspecified; F41.9 Anxiety disorder, unspecified; R26.0 Ataxic gait; I25.10 Atherosclerotic heart disease of native coronary artery without angina pectoris; R13.10 Dysphagia, unspecified; Z93.1 Gastrostomy status; I12.9 Hypertensive chronic kidney disease with stage 1 through stage 4 chronic kidney disease, or unspecified chronic kidney disease; E11.22 Type 2 diabetes mellitus with diabetic chronic kidney disease; N18.3 Chronic kidney disease, stage 3 (moderate); Z74.01 Bed confinement status; Z99.3 Dependence on wheelchair; G31.9 Degenerative disease of nervous system, unspecified; G93.89 Other specified disorders of brain; E86.0 Dehydration; R19.7 Diarrhea, unspecified; D63.8 Anemia in other chronic diseases classified elsewhere
CPT/HCPCS: 36415; 51702; 70450; 70551; 71045; 71250; 72125; 80048; 80076; 81003; 82962; 83690; 83735; 83880; 84145; 84484; 85025; 85610; 86850; 86900; 86901; 87040; 87086; 87088; 87205; 87493; 93005; 94640; 95819; 99285; J0610; J0696; J1940; J3411; J7030

== ENCOUNTER 2018-09-07 21:26 | Inpatient (IN) | payer OTHER ==
[2018-09-07 22:41] LABS: Absolute Lymphocytes (CBC) 1.3 K/uL (0.7-4.9); Absolute Monocytes 0.6 K/uL (0.1-1.3); Absolute Neutrophil 3.2 K/uL (1.8-8.0); Basophils % 0.3 % (0-1.3); Eosinophils % 3.8 % (0-4.4); Lymphocytes % 24.9 % (15.3-44.8); MCH 29.1 pg (27.0-35.0); MCV 88.1 fL (80-100); MPV 7.8 fL (7.6-11.3); Monocytes % 10.7 % (3.3-12.3); RBC Red Blood Cell Count 3.18 M/uL (3.86-4.86)
[2018-09-07 22:58] LABS: Albumin 2.9 g/dL (3.4-5.0); Bilirubin Total 0.1 mg/dL (0.2-1.0); Protein, Total 8.1 g/dL (6.4-8.2)
[2018-09-07 23:00] LABS: Potassium 7.2 mmol/L (3.5-5.1)
[2018-09-07] MEDS ORDERED: D50W 25 GM/50 ML SYRINGE IV ONE (23:30)
[2018-09-07] MEDS ORDERED: INSULIN -REGULAR HUMAN 50 UNIT/0.5 ML ML ONE (23:30)
[2018-09-07] MEDS ORDERED: ALBUTEROL 2.5 MG/3 ML NEB SOL ONE (23:30)
[2018-09-07] MEDS ORDERED: FUROSEMIDE 40 MG/4 ML VIAL ONE (23:31)
[2018-09-07] MEDS ORDERED: NA CHLORIDE 0.9% 1,000 ML ONE (23:47)
[2018-09-08] MEDS ORDERED: NA CHLORIDE 0.9% 1,000 ML ONE (00:33)
[2018-09-08 00:34] LABS: Urine Blood TRACE (NEG); Urine Glucose NEGATIVE (NEG); Urine Protein 1+ (NEG); Urine pH 5.5 (5.0-7.0)
[2018-09-08] MEDS ORDERED: DEXAMETHASONE 10 MG/ML VIAL ONE (00:34)
[2018-09-08 00:44] LABS: Urine Amorphous Sediment 2+ /HPF (NONE SEEN); Urine Bacteria <20 /HPF (<20); Urine Culture Reflex Order NOT NEEDED; Urine RBC <5 /HPF (NONE SEEN)
[2018-09-08] MEDS ORDERED: CEFTRIAXONE/SWI 1gm 1 GM/10 ML SYR ONE (01:12)
[2018-09-08 01:21] LABS: Potassium 6.1 mmol/L (3.5-5.1)
--- NOTE | 2018-09-08 02:11 | EDPHYS ---
Physician Documentation [facility] Name: Sharda Dewey Age: 78 yrs Sex: Female : 1940 Arrival Date: 09/07/2018 Time: 21:33 Bed 20 Private MD: German Govea C ED Physician Reji Noble HPI: 09/08 01:23 This 78 yrs old Black Female presents to ER via EMS with complaints of Abnormal Lab ps1 Results. 01:23 patient had labs drawn and had K 6.9. Sent in for evaluation. Patient has baseline ps1 severe dementia and is non-verbal on my examination. Does not appear in pain. . Historical: - Allergies: 09/07 21:25 No Known Allergies; jb4 - Home Meds: 21:25 allopurinol 100 mg Oral tab 1 tab 2 times per day [Active]; amlodipine 5 mg tab 1 tab jb4 twice a day [Active]; Aricept 10 mg Oral tab 1 tab nightly [Active]; aspirin 81 mg Oral chew 1 tab once daily [Active]; carvedilol 12.5 mg Oral tab 1 tab 2 times per day [Active]; Celexa 10 mg Oral tab 1 tab nightly [Active]; ferrous sulfate 325 mg (65 mg iron) Oral tab daily [Active]; lorazepam 0.5 mg Oral tab 1 tab at bedtime [Active]; losartan 100 mg Oral tab 1 tab once daily [Active]; memantine 5 mg Oral tab 1 tabs 2 times per day [Active]; Milk of Magnesia 400 mg/5 mL Oral susp 30 mL every Thursday [Active]; multivitamin Oral tab daily [Active]; Novolog 100 unit/mL Sub-Q soln sliding scale [Active]; risperidone 0.25 mg Oral tab 1 tabs nightly [Active]; TYLENOL 325 MG 2 tab every 6 hours [Active]; Vitamin D Oral 5000 unit daily [Active]; - PMHx: 21:25 Allergic rhinitis; Alzheimers; Anemia; Anxiety; ataxic gait; CAD; Delusional disorder; jb4 Dementia; Depression; Diabetes - NIDDM; Hypertension; insomnia; DYSPHAGIA; Pneumonia; - PSHx: 21:25 PEG tube; jb4 - Immunization history:: Adult Immunizations unknown, Pneumococcal vaccine status is unknown, Flu vaccine status is unknown. - Social history:: Smoking status: unknown. - Ebola Screening: : No symptoms or risks identified at this time. ROS: 09/08 01:23 Unable to obtain ROS due to baseline dementia. ps1 Exam: 01:23 Head/Face: Normocephalic, atraumatic. Eyes: Pupils equal round and reactive to light, ps1 extra-ocular motions intact. Lids and lashes normal. Conjunctiva and sclera are non-icteric and not injected. Chest/axilla: Normal chest wall appearance and motion. Nontender with no deformity. No lesions are appreciated. Cardiovascular: Regular rate and rhythm. No gallops, murmurs, or rubs. Normal PMI, no JVD. No pulse deficits. Respiratory: Lungs have equal breath sounds bilaterally, clear to auscultation and percussion. No rales, rhonchi or wheezes noted. No increased work of breathing, no retractions or nasal flaring. Abdomen/GI: Soft, non-tender, with normal bowel sounds. No distension or tympany. No guarding or rebound. No evidence of tenderness throughout. Skin: Warm, dry with normal turgor. Normal color with no rashes, no lesions, and no evidence of cellulitis. MS/ Extremity: Pulses equal, no cyanosis. Neurovascular intact. Full, normal range of motion. 01:23 Constitutional: The patient appears frail. 01:23 Neuro: Orientation: Not oriented to person, place, time, situation, Mentation: responsive to pain, Memory: unable to test, the patient has a history of dementia. Vital Signs: 09/07 21:25 BP 99 / 51; Pulse 50; Resp 16; Temp 92.1(R); Pulse Ox 96% on R/A; Weight 72.57 kg (R); jb4 Height 5 ft. 6 in. (167.64 cm) (R); 22:30 BP 115 / 50; Pulse 46; Resp 16; Pulse Ox 99% on R/A; jb4 23:30 BP 79 / 45 (man/); Pulse 47; Resp 16; Pulse Ox 96% on R/A; jb4 09/08 00:30 BP 85 / 31; Pulse 72; Resp 16; Temp 93.2(C); Pulse Ox 100% on R/A; jb4 01:00 BP 85 / 44; Pulse 62; Resp 16; Pulse Ox 100% on R/A; jb4 01:33 BP 100 / 71; Pulse 74; Resp 16; Pulse Ox 95% ; jb4 01:40 BP 111 / 51; Pulse 76; Resp 16; Pulse Ox 96% on R/A; jb4 02:00 BP 123 / 63; Pulse 81; Resp 16; Temp 96.2(C); Pulse Ox 96% on R/A; jb4 02:45 BP 103 / 51; Pulse 84; Resp 16; Temp 97.0(C); Pulse Ox 96% on R/A; jb4 09/07 21:25 Body Mass Index 25.82 (72.57 kg, 167.64 cm) jb4 09/07 21:25 Provider notified of temp. jb4 23:30 Physician notified of b/p jb4 MDM: 21:45 Patient medically screened. ps1 09/07 22:03 Order name: CMP ps1 09/07 22:03 Order name: CBC with Diff [facility] 09/07 22:38 Order name: Comprehensive Metabolic Panel; Complete Time: 23:11 EDMS 09/07 22:38 Order name: CBC with Automated Diff; Complete Time: 22:51 EDIL 09/07 23:11 Order name: TSH; Complete Time: 01:48 [facility] 09/07 23:24 Order name: Urine Culture 09/07 23:25 Order name: Urine Dipstick--Ancillary (enter results); Complete Time: 00:36 2 09/07 23:42 Order name: Urine Microscopic Only; Complete Time: 00:57 EDMS 09/08 00:26 Order name: BMP; Complete Time: 01:29 ps1 09/08 00:26 Order name: Cortisol; Complete Time: 01:48 ps1 09/07 23:11 Order name: Chest Single View EDMS 09/08 02:21 Order name: Basic Metabolic Panel EDMS 09/08 02:21 Order name: Basic Metabolic Panel EDMS 09/08 02:21 Order name: Basic Metabolic Panel EDMS 09/08 02:21 Order name: Basic Metabolic Panel EDMS 09/08 02:21 Order name: Basic Metabolic Panel EDMS 09/08 02:21 Order name: Basic Metabolic Panel EDMS 09/08 02:21 Order name: CBC with Automated Diff EDMS 09/08 02:21 Order name: CBC with Automated Diff EDMS 09/08 02:21 Order name: Cortisol EDMS 09/07 22:52 Order name: Urine Dipstick-Ancillary (obtain specimen); Complete Time: 23:23 ps1 09/08 02:21 Order name: Regular EDMS EC:39 Rate is 53 beats/min. Rhythm is regular. QRS [place] is Normal. WA interval is prolonged. ps1 QRS interval is normal. QT interval is normal. No Q waves. T waves are Normal. No ST changes noted. Clinical impression: 1st degree heart block and Sinus bradycardia. Interpreted by me. Administered Medications: 23:35 Drug: Albuterol 15 mg Route: Inhalation; [facility] 09/08 01:01 Follow up: Response: No adverse reaction [facility] 09/07 23:35 Drug: D50W 50 ml Route: IVP; Site: right wrist; 09/08 00:00 Follow up: Response: No adverse reaction [facility] 09/07 23:36 Drug: NS 0.9% 1000 ml Route: IV; Rate: 1000 ml; Site: right wrist; [facility] 09/08 01:01 Follow up: Response: No adverse reaction; IV Status: Completed infusion [facility] 09/07 23:40 Drug: Insulin Regular Human 10 units {Co-Signature: aa1 (Any Padilla RN).} Route: IVP; [facility] Site: right hand; 09/08 01:01 Follow up: Response: No adverse reaction [facility] 00:04 Not Given (Other Intervention Used): Insulin Regular Human 10 units Sub-Q once 4 00:06 Not Given (Hemodynamic Parameters): Lasix 80 mg IVP once 4 00:30 Drug: NS 0.9% 1000 ml Route: IV; Rate: 1000 ml; Site: left antecubital; jb4 01:30 Follow up: Response: No adverse reaction; IV Status: Completed infusion 4 01:00 Drug: Decadron - Dexamethasone 10 mg Route: IVP; Site: left antecubital; jb4 01:01 Follow up: Response: No adverse reaction 4 01:15 Drug: Rocephin - (cefTRIAXone) 1 grams Route: IVPB; Infused Over: 30 mins; Site: right jb4 wrist; 01:17 Follow up: Response: No adverse reaction; IV Status: Completed infusion 4 02:10 Drug: Lasix 60 mg Route: IVP; Site: left antecubital; jb4 02:29 Follow up: Response: No adverse reaction jb4 Point of Care Testing: Blood Glucose: 00:00 Blood Glucose: 159 mg/dL; jb4 Ranges: Critical Glucose Levels:Adult <50 mg/dl or >400 mg/dl <40 mg/dl or >180 mg/dl Disposition: 09/08/18 02:10 Hospitalization ordered by German Govea for Inpatient Admission. Preliminary diagnosis are Hyperkalemia, Hypoglycemia, unspecified, Hypothermia, Acute cystitis, Hypotension. - Bed requested for Telemetry/MedSurg (Inpatient). - Status is Inpatient Admission. jb4 - Condition is Fair. - Problem is new. - Symptoms have improved. UTI on Admission? Yes Signatures: Dispatcher [employer] EDIL Tina Huggins RN RN Hossein Chatterjee RN RN jb4 Reji Noble MD MD ps1 Any Padilla RN aa1 Corrections: (The following items were deleted from the chart) 00:24 00:20 Chest Single View+RAD.RAD.BRZ ordered. [facility] EDIL 00:36 00:20 Comprehensive Metabolic Panel ordered. [facility] EDIL 00:36 00:20 CBC with Automated Diff ordered. [facility] EDIL 00:36 00:20 UA MICROSCOPIC+U.LAB.BRZ ordered. [facility] EDIL 00:42 09/07 23:42 Urine Culture ordered. [facility] 09/08 02:23 02:10 Hospitalization Ordered by A Jeferson ARREOLA for Inpatient Admission. Preliminary diagnosis is Hyperkalemia; Hypoglycemia, unspecified; Hypothermia; Acute cystitis; Hypotension. Bed requested for Telemetry/MedSurg (Inpatient). Status is Inpatient Admission. Condition is Fair. Problem is new. Symptoms have improved. UTI on Admission? Yes. ps1 03:11 02:23 09/08/2018 02:10 Hospitalization Ordered by A Jeferson ARREOLA for Inpatient Admission. jb4 Preliminary diagnosis is Hyperkalemia; Hypoglycemia, unspecified; Hypothermia; Acute cystitis; Hypotension. Bed requested for Telemetry/MedSurg (Inpatient). Status is Inpatient Admission. Condition is Fair. Problem is new. Symptoms have improved. UTI on Admission? Yes. mw
--- NOTE | 2018-09-08 02:11 | ER ---
Nurse's Notes [facility] Name: Sharda Dewey Age: 78 yrs Sex: Female : 1940 Arrival Date: 09/07/2018 Time: 21:33 Bed 20 Private MD: German Govea C Diagnosis: Hyperkalemia;Hypoglycemia, unspecified;Hypothermia;Acute cystitis;Hypotension Presentation: 09/07 21:25 Presenting complaint: EMS states: Pt had some lab work done that revealed a potassium jb4 level of 6.8. Transition of care: patient was received from another setting of care ([facility]. Onset of symptoms was September 07, 2018. Risk Assessment: Do you want to hurt yourself or someone else? Patient reports no desire to harm self or others. Initial Sepsis Screen: Does the patient meet any 2 criteria? No. Patient's initial sepsis screen is negative. Does the patient have a suspected source of infection? No. Patient's initial sepsis screen is negative. Care prior to arrival: Glucose check: 129. 21:25 Method Of Arrival: EMS: [facility] jb4 21:25 Acuity: TITUS 3 jb4 Triage Assessment: 21:25 General: Appears in no apparent distress. comfortable, Behavior is calm. Pain: Denies jb4 pain. EENT: No signs and/or symptoms were reported regarding the EENT system. Neuro: Level of Consciousness is awake, alert, EMS reports the pt is at her baseline.. Oriented to person. Cardiovascular: Heart tones S1 S2 present Patient's skin is warm and dry. Respiratory: Airway is patent Respiratory effort is even, unlabored, Respiratory pattern is regular, symmetrical, Breath sounds are clear bilaterally. GI: No signs and/or symptoms were reported involving the gastrointestinal system. PEG tube. : No signs and/or symptoms were reported regarding the genitourinary system. Derm: Skin is intact, reddening noted to the sacrum. Skin is dry, Skin is normal, Skin temperature is cool. Historical: - Allergies: 21:25 No Known Allergies; jb4 - Home Meds: 21:25 allopurinol 100 mg Oral tab 1 tab 2 times per day [Active]; amlodipine 5 mg tab 1 tab jb4 twice a day [Active]; Aricept 10 mg Oral tab 1 tab nightly [Active]; aspirin 81 mg Oral chew 1 tab once daily [Active]; carvedilol 12.5 mg Oral tab 1 tab 2 times per day [Active]; Celexa 10 mg Oral tab 1 tab nightly [Active]; ferrous sulfate 325 mg (65 mg iron) Oral tab daily [Active]; lorazepam 0.5 mg Oral tab 1 tab at bedtime [Active]; losartan 100 mg Oral tab 1 tab once daily [Active]; memantine 5 mg Oral tab 1 tabs 2 times per day [Active]; Milk of Magnesia 400 mg/5 mL Oral susp 30 mL every Thursday [Active]; multivitamin Oral tab daily [Active]; Novolog 100 unit/mL Sub-Q soln sliding scale [Active]; risperidone 0.25 mg Oral tab 1 tabs nightly [Active]; TYLENOL 325 MG 2 tab every 6 hours [Active]; Vitamin D Oral 5000 unit daily [Active]; - PMHx: 21:25 Allergic rhinitis; Alzheimers; Anemia; Anxiety; ataxic gait; CAD; Delusional disorder; jb4 Dementia; Depression; Diabetes - NIDDM; Hypertension; insomnia; DYSPHAGIA; Pneumonia; - PSHx: 21:25 PEG tube; jb4 - Immunization history:: Adult Immunizations unknown, Pneumococcal vaccine status is unknown, Flu vaccine status is unknown. - Social history:: Smoking status: unknown. - Ebola Screening: : No symptoms or risks identified at this time. Screenin:25 Abuse screen: Denies threats or abuse. Nutritional screening: No deficits noted. jb4 Tuberculosis screening: No symptoms or risk factors identified. Fall Risk Secondary diagnosis (15 points) Alzheimer's, dementia, impaired mobility, Gait- Impaired (20 pts.). Mental Status- Overestimates/Forgets Limitations (15 pts.). Total Lara Fall Scale indicates High Risk Score (45 or more points). Fall prevention measures have been instituted. Side Rails Up X 2 Placed Close to Nursing Station Frequent Obs/Assessments Occuring. Assessment: 21:25 General: see triage assesment.. jb4 22:30 Reassessment: Patient appears in no apparent distress at this time. Patient and/or jb4 family updated on plan of care and expected duration. Pain level reassessed. Respirations are even and unlabored. pt is A\T\Ox1, bear hugger applied with additional warm blankets. family at the bedside. 23:20 Reassessment: Patient appears in no apparent distress at this time. No changes from jb4 previously documented assessment. 23:30 Reassessment: Physician notified of low B/P see [facility] for orders. 4 09/08 00:57 Reassessment: Patient appears in no apparent distress at this time. Patient and/or jb4 family updated on plan of care and expected duration. Pain level reassessed. Respirations are even and unlabored. Pt is resting in bed with family at the bedside. B/p has increased to 85/30. continuing to monitor pt. 02:00 Reassessment: Patient appears in no apparent distress at this time. No changes from jb4 previously documented assessment. Patient and/or family updated on plan of care and expected duration. Pain level reassessed. Pt family has left the bedside. 02:50 Reassessment: Patient appears in no apparent distress at this time. No changes from jb4 previously documented assessment. Patient and/or family updated on plan of care and expected duration. Pain level reassessed. respirations even and unlabored. pt is resting with eyes closed. Vital Signs: 09/07 21:25 BP 99 / 51; Pulse 50; Resp 16; Temp 92.1(R); Pulse Ox 96% on R/A; Weight 72.57 kg (R); jb4 Height 5 ft. 6 in. (167.64 cm) (R); 22:30 BP 115 / 50; Pulse 46; Resp 16; Pulse Ox 99% on R/A; jb4 23:30 BP 79 / 45 (man/); Pulse 47; Resp 16; Pulse Ox 96% on R/A; jb4 09/08 00:30 BP 85 / 31; Pulse 72; Resp 16; Temp 93.2(C); Pulse Ox 100% on R/A; jb4 01:00 BP 85 / 44; Pulse 62; Resp 16; Pulse Ox 100% on R/A; jb4 01:33 BP 100 / 71; Pulse 74; Resp 16; Pulse Ox 95% ; jb4 01:40 BP 111 / 51; Pulse 76; Resp 16; Pulse Ox 96% on R/A; jb4 02:00 BP 123 / 63; Pulse 81; Resp 16; Temp 96.2(C); Pulse Ox 96% on R/A; jb4 02:45 BP 103 / 51; Pulse 84; Resp 16; Temp 97.0(C); Pulse Ox 96% on R/A; jb4 09/07 21:25 Body Mass Index 25.82 (72.57 kg, 167.64 cm) jb4 09/07 21:25 Provider notified of temp. jb4 23:30 Physician notified of b/p jb4 ED Course: 21:25 Arm band placed on left wrist. jb4 21:25 Patient has correct armband on for positive identification. Placed in gown. Bed in low jb4 position. Side rails up X2. monitor technician on. Pulse ox on. NIBP on. 21:25 EKG done, by ED staff, reviewed by Reji Noble MD. jb4 21:30 Inserted saline lock: 22 gauge in right wrist, using aseptic technique. Blood collected.jb4 21:30 Initial lab(s) drawn, by ED staff, sent to lab. jb4 21:33 Patient arrived in ED. fc 21:33 German Govea MD is Private Physician. fc 21:37 Reji Noble MD is Attending Physician. ps1 21:57 Hossein Chatterjee, SANDEEP is Primary Nurse. jb4 21:59 Triage completed. jb4 22:47 Warm blanket given. Pillow given. jp3 09/08 00:11 Chest Single View In Process Unspecified. EDMS 02:08 German Govea MD is Hospitalizing Provider. ps1 03:09 No provider procedures requiring assistance completed. Patient admitted, IV remains in jb4 place. Administered Medications: 09/07 23:35 Drug: Albuterol 15 mg Route: Inhalation; jb4 09/08 01:01 Follow up: Response: No adverse reaction jb4 09/07 23:35 Drug: D50W 50 ml Route: IVP; Site: right wrist; jb4 09/08 00:00 Follow up: Response: No adverse reaction 4 09/07 23:36 Drug: NS 0.9% 1000 ml Route: IV; Rate: 1000 ml; Site: right wrist; jb4 09/08 01:01 Follow up: Response: No adverse reaction; IV Status: Completed infusion 4 09/07 23:40 Drug: Insulin Regular Human 10 units {Co-Signature: aa1 (Any Padilla RN).} Route: IVP; jb4 Site: right hand; 09/08 01:01 Follow up: Response: No adverse reaction jb4 00:04 Not Given (Other Intervention Used): Insulin Regular Human 10 units Sub-Q once jb4 00:06 Not Given (Hemodynamic Parameters): Lasix 80 mg IVP once jb4 00:30 Drug: NS 0.9% 1000 ml Route: IV; Rate: 1000 ml; Site: left antecubital; jb4 01:30 Follow up: Response: No adverse reaction; IV Status: Completed infusion jb4 01:00 Drug: Decadron - Dexamethasone 10 mg Route: IVP; Site: left antecubital; jb4 01:01 Follow up: Response: No adverse reaction jb4 01:15 Drug: Rocephin - (cefTRIAXone) 1 grams Route: IVPB; Infused Over: 30 mins; Site: right jb4 wrist; :17 Follow up: Response: No adverse reaction; IV Status: Completed infusion jb4 02:10 Drug: Lasix 60 mg Route: IVP; Site: left antecubital; jb4 02:29 Follow up: Response: No adverse reaction jb4 Point of Care Testing: Blood Glucose: 00:00 Blood Glucose: 159 mg/dL; jb4 Ranges: Outcome: 02:10 Decision to Hospitalize by Provider. ps1 03:09 Admitted to Med/surg accompanied by nurse, via stretcher, room 232, with chart, Report jb4 called to SANDEEP Marquez 03:09 Condition: stable 03:09 Discharge instructions given to family, Instructed on the need for admit, Demonstrated understanding of instructions. 03:11 Patient left the ED. jb4 Signatures: Dispatcher [employer] EDRI Mallory Agrawal RN RN fc Bryson, James, RN RN jb4 Reji Noble MD MD ps1 Elvis Cuello jp3 Any Padilla RN aa1 Corrections: (The following items were deleted from the chart) 09/07 22:54 21:25 BP 99 / 51; Pulse 50bpm; Resp 16bpm; Pulse Ox 96% RA; 72.57 kg Reported; Height 5 jb4 ft. 6 in. Reported; BMI: 25.8; jb4 23:03 21:25 Cardiovascular: Heart tones S1 S2 present Patient's skin is warm and dry. jb4 jb4 23:03 21:25 Derm: Skin is intact, Skin is dry, Skin is normal, Skin temperature is warm jb4 jb4
[2018-09-08] MEDS ORDERED: ACETAMINOPHEN 500 MG TAB PO PRN (02:15)
[2018-09-08] MEDS ORDERED: ONDANSETRON 4 MG/2 ML VIAL IV PRN (02:15)
[2018-09-08] MEDS ORDERED: NA CHLORIDE 0.9% 1,000 ML IV SCH (03:00)
[2018-09-08 04:30] VITALS: BMI 24.0
[2018-09-08 05:20] LABS: Potassium 6.9 mmol/L (3.5-5.1)
[2018-09-08] MEDS ORDERED: CALCIUM GLUC 10% INJ 4.65 MEQ in NA CHLORIDE 0.9% 100 ML IV ONE (06:04)
[2018-09-08] MEDS ORDERED: SOD POLYSTYREN SUL 15 GM/60 ML UCUP FT ONE ×3 (06:05→19:00)
[2018-09-08] MEDS ORDERED: CALCIUM GLUCONATE 1 GM IVPB 1 GM/50 ML BAG IV ONE (06:30)
[2018-09-08] MEDS ORDERED: D50W 25 GM/50 ML SYRINGE IV ONE (06:40)
[2018-09-08] MEDS ORDERED: NA CHLORIDE 0.9% 50 ML ONE (06:46)
[2018-09-08] MEDS ORDERED: INSULIN -REGULAR HUMAN 50 UNIT/0.5 ML ML IV ONE (07:00)
[2018-09-08] MEDS ORDERED: GLUCAGON 1 MG/VIAL IM PRN (07:38)
[2018-09-08] MEDS ORDERED: ALBUTEROL 2.5 MG/3 ML NEB SOL NEB ONE ×3 (07:38→16:22)
[2018-09-08] MEDS ORDERED: D50W 25 GM/50 ML SYRINGE IV PRN (07:38)
[2018-09-08] MEDS ORDERED: ACETAMINOPHEN 325 MG TABLET FT PRN (07:41)
--- NOTE | 2018-09-08 08:50 | HP ---
Date of Admission: 09/08/2018 Chief Complaint: Abnormal blood test. History Of Present Illness: This is a 78-year-old female patient living at senior living, had outpatient blood tests done yesterday and her potassium was reported high at 6.9, and the patient was sent to emergency room yesterday evening from senior living with this high potassium problem. After she was evaluated, she was admitted to the hospital. The patient because of her advanced dementia, she is not able to provide any information or details. Since her last hospital admission, there has not been any significant change in her health or any complaints or problems reported by nursing staff. She has a feeding tube when she gets her nutrition and water and all medications through the feeding tube. Medications: List reviewed. 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 She does not answer any questions. All other systems unable to review because patient is not able to answer any questions. Allergies: NO KNOWN ALLERGIES. Family History: Not pertinent. Social History: Negative for smoking or alcohol use. Past Surgical History: Significant for PEG tube placement. Past Medical History: Significant for aspiration pneumonia, dysphagia, PEG tube placement last month, hypertension, diabetes mellitus, prior history of stroke with right-sided hemiparesis, chronic kidney disease stage 3, volume depletion and urinary tract infection, senile dementia, anemia. Physical Examination: Vital Signs: This morning temperature 98, pulse 95, respiratory rate 17, blood pressure 142/65. Her lowest blood pressure during midnight was 85/31 and lowest temperature was 93.2 around the same time. General: The patient is lying in bed, does not communicate and does not answer any questions. HEENT: Head atraumatic, normocephalic. Conjunctivae nonerythematous. Sclerae white. Mouth, no thrush or edema noted. Ears/Nose, no mass, lesion, discharge noted. Neck: Supple. No JVD, lymph nodes, bruit, thyromegaly noted. Lungs: Bilateral good equal air entry. Clear to auscultation. No rhonchi. No rales. Heart: Normal heart sounds, no murmur or gallop. Abdomen: Presence of PEG tube. Surrounding skin appears normal. No guarding, rigidity, tenderness, or distention. Bowel sounds normoactive. Extremities: No leg edema. No calf tenderness. Skin: Bilateral groin has rash consistent with dermatophytosis. Lymphatics: No lymph node enlargement in neck, supraclavicular, infraclavicular region. Neuro: Detailed FIRE DEPARTMENT MARINE ENGINEER exam not possible because patient does not follow any commands, does not answer any questions. Chest: Unremarkable. External Genitalia: Deferred. Rectal: Deferred. Laboratory Data: Sodium 132, potassium 7.2, chloride 101, bicarb 29, BUN 60, creatinine 1.50, glucose 68, SGOT 51, SGPT 51, alkaline phosphatase 161. TSH 3. Cortisol level was 19.31. White count 5.3, hemoglobin 9.3, platelets 365. Last potassium this morning was 6.9, BUN 56, creatinine 1.50, bicarb 24, sodium 136, glucose 93. Urinalysis negative for nitrite, esterase 3+, WBC more than 50. Urine culture, blood culture pending. Chest x-ray official Radiology report pending, but no acute cardiopulmonary changes noted. Impression: 1. Hyperkalemia. 2. Volume depletion. 3. Anemia. 4. Diabetes mellitus. 5. Hypertension. 6. Urinary tract infection. 7. Senile dementia. 8. Status post PEG tube placement. 9. Dermatophytosis, groin. Plan: We will go ahead and admit the patient to hospital for further evaluation and management of this problem. The patient is appropriate for inpatient and is expected to spend 2 midnights in hospital. In the emergency room, as I understand, she received treatment for hyperkalemia with D50 and 10 units of regular insulin and Lasix. This morning, considering potassium is still high, I have ordered calcium gluconate, sodium bicarb and another D50 with IV insulin to be given and Kayexalate. I will also order albuterol nebulizer treatment. We will start her on PEG tube feeding. Water will be also given per PEG tube. We will manage diabetes with fingerstick blood sugar and sliding scale insulin. halfway medications will be continued per order. We will not give losartan considering this hyperkalemia problem, but continue other senior living medication per order. We will monitor patient's electrolytes and renal function and provide treatment for correction as it becomes necessary. For urinary tract infection, we will follow up on culture results and start empiric antibiotic, ceftriaxone, per order. ANUPAMA/MODSean Voice ID: [id number] [facility] NOBLE HOSPITALJeffy
[2018-09-08] MEDS ORDERED: CEFTRIAXONE 1 GM/NS 50 ML 1 GM/50 ML BAG IV SCH (09:00)
[2018-09-08] MEDS: CARVEDILOL 12.5 MG TAB FT SCH ×2 (09:00→20:56)
[2018-09-08] MEDS: AMLODIPINE 5 MG TAB FT SCH ×2 (09:00→20:56)
--- NOTE | 2018-09-08 09:11 | RAD REPORT ---
EXAM DESCRIPTION: RAD - Chest Single View - 09/08/2018 12:11 am CLINICAL HISTORY: COUGH Chest pain. COMPARISON: Chest Single View dated 08/22/2018; Chest Single View dated 08/20/2018; Abdomen 1 View ([facility]) dated 07/27/2018; Chest Single View dated 07/26/2018 FINDINGS: Portable technique limits examination quality. Linear subsegmental atelectasis is present in the right lung base. The lungs are otherwise clear. The heart is upper limit normal size. No displaced fractures.Degenerative changes are present both shoul ders. IMPRESSION: Linear subsegmental atelectasis in the right lung base.
[2018-09-08] MEDS: MULTIVITAMINS 5 ML ORAL SYR FT SCH (09:31)
[2018-09-08] MEDS: CEFTRIAXONE/SWI 1gm 1 GM/10 ML SYR IV SCH ×2 (09:31→20:59)
[2018-09-08] MEDS: ALLOPURINOL 100 MG TAB FT SCH ×2 (09:32→20:58)
[2018-09-08] MEDS: ASPIRIN 81 MG CHEWABLE TABLET FT SCH (09:33)
[2018-09-08] MEDS: MEMANTINE HCL 10 MG TABLET FT SCH ×2 (09:34→20:57)
[2018-09-08] MEDS: MAGNESIUM HYDROXIDE 8% 30 ML FT SCH (09:34)
[2018-09-08] MEDS: GLUCERNA 1.5 CAL 1,000 ML BOT FT SCH ×3 (09:35→21:04)
[2018-09-08 09:49] LABS: Potassium 6.4 mmol/L (3.5-5.1)
--- NOTE | 2018-09-08 10:35 | EKG ---
Test Date: 2018-09-07 Test Time: 21:39:09 Systems Project Manager: LULY MEASUREMENT RESULTS: Intervals: Rate: 53 WA: QRSD: 110 QT: 436 QTc: 409 [place]: P: WA: QRS: -27 T: 129 INTERPRETIVE STATEMENTS: Junctional rhythm Left ventricular hypertrophy with repolarization abnormality Abnormal ECG Compared to ECG 08/22/2018 11:14:41 Junctional rhythm now present Sinus rhythm no longer present Electronically Signed On 09-08-18 10:34:45 CDT by Jason Shrestha
[2018-09-08] MEDS: NA CHLORIDE 0.9% 1,000 ML IV SCH ×2 (11:54→21:04)
[2018-09-08] MEDS: INSULIN -REGULAR HUMAN 50 UNIT/0.5 ML ML SQ SCH ×2 (11:58→17:30)
[2018-09-08 13:25] LABS: Potassium 6.1 mmol/L (3.5-5.1)
[2018-09-08 19:02] LABS: Potassium 5.5 mmol/L (3.5-5.1)
[2018-09-08] MEDS: RISPERIDONE 0.25 MG TABLET FT SCH (20:57)
[2018-09-08] MEDS: LORAZEPAM 0.5 MG TABLET FT SCH (20:57)
[2018-09-08] MEDS: CITALOPRAM 10 MG TABLET FT SCH (20:57)
[2018-09-08 21:14] LABS: Potassium 4.7 mmol/L (3.5-5.1)
[2018-09-08] MEDS: NACHLORIDE 0.45% 1,000 ML IV SCH (21:48)
[2018-09-09] MEDS: GLUCERNA 1.5 CAL 1,000 ML BOT FT SCH ×4 (02:10→20:30)
[2018-09-09] MEDS: INSULIN -REGULAR HUMAN 50 UNIT/0.5 ML ML SQ SCH ×4 (06:00→18:00)
[2018-09-09 06:42] LABS: Absolute Lymphocytes (CBC) 1.2 K/uL (0.7-4.9); Absolute Monocytes 1.4 K/uL (0.1-1.3); Absolute Neutrophil 9.5 K/uL (1.8-8.0); Eosinophils % 0.2 % (0-4.4); Hematocrit 22.2 % (36.0-45.0); Lymphocytes % 10.2 % (15.3-44.8); MCH 28.3 pg (27.0-35.0); MCV 89.2 fL (80-100); MPV 7.8 fL (7.6-11.3); Monocytes % 11.6 % (3.3-12.3); RBC Red Blood Cell Count 2.49 M/uL (3.86-4.86)
[2018-09-09 06:56] LABS: Magnesium 2.3 mg/dL (1.8-2.4); Potassium 4.3 mmol/L (3.5-5.1)
[2018-09-09] MEDS: NACHLORIDE 0.45% 1,000 ML IV SCH ×2 (07:54→17:41)
[2018-09-09] MEDS: ALLOPURINOL 100 MG TAB FT SCH ×2 (10:57→20:28)
[2018-09-09] MEDS: ASPIRIN 81 MG CHEWABLE TABLET FT SCH (10:57)
[2018-09-09] MEDS: CARVEDILOL 12.5 MG TAB FT SCH ×2 (10:58→20:26)
[2018-09-09] MEDS: MEMANTINE HCL 10 MG TABLET FT SCH ×2 (10:58→20:29)
[2018-09-09] MEDS: MULTIVITAMINS 5 ML ORAL SYR FT SCH (10:59)
[2018-09-09] MEDS: AMLODIPINE 5 MG TAB FT SCH ×2 (10:59→20:28)
[2018-09-09] MEDS: NYSTATIN 100MU/GM CREAM 15GM TOP SCH ×2 (11:00→20:30)
[2018-09-09] MEDS: CEFTRIAXONE/SWI 1gm 1 GM/10 ML SYR IV SCH ×2 (11:00→20:26)
[2018-09-09] MEDS: MAGNESIUM HYDROXIDE 8% 30 ML FT SCH (11:00)
--- NOTE | 2018-09-09 11:33 | PN ---
Date of Progress Note: 09/09/2018 Subjective: The patient was seen this morning for followup, lying in bed, not in any distress. The patient does not communicate or answer any questions. Objective: Vital signs: Reviewed. She remains afebrile. Last temperature 98.1, pulse 86, respirat ory rate 20, blood pressure 144/68. HEENT: Unremarkable. Lungs: Clear to auscultation. Heart: Sounds normal. Abdomen: Soft. Bowel sounds normal. No guarding, rigidity, tenderness, or distention. Extremities: No leg edema. Laboratory Data: White count 12.2, hemoglobin 7.1, platelets 296. Sodium 150, potassium 4.3, chlori de 113, bicarb 31, BUN 41, creatinine 1.40, glucose 113, magnesium 2.3. Blood culture remains negati ve. Urine culture pending. Impression: 1.Urinary tract infection. 2.Volume depletion. 3.Hyperkalemia. 4.Anemia. 5.Hypertension. 6.Diabetes mellitus. 7.Senile dementia. 8.Dermatophytosis, groin. Plan: We will go ahead and continue current empiric antibiotics. Urine culture is pending. We will continue ceftriaxone, this patient is currently getting. We will repeat blood work tomorrow. Hemog lobin is 7.1. We will decide if she needs blood transfusion or not depending on blood work results. IV fluid yesterday evening was changed to half-normal saline because of high sodium level, yesterday evening was 149 and at that time IV fluid was changed to half-normal saline. This morning it is 150 . We will go ahead and recheck blood work this afternoon and decide if we need to change it to D5 conrad lf NS or not. Potassium is normal this morning. Volume depletion problem is improving well. ANUPAMA/MODL Voice ID: [id number] Report ID: [id number]
[2018-09-09 13:20] LABS: Potassium 4.1 mmol/L (3.5-5.1)
[2018-09-09 13:34] LABS: Absolute Lymphocytes (CBC) 1.8 K/uL (0.7-4.9); Absolute Monocytes 1.5 K/uL (0.1-1.3); Absolute Neutrophil 9.4 K/uL (1.8-8.0); Basophils % 0.4 % (0-1.3); Eosinophils % 0.7 % (0-4.4); Hematocrit 22.8 % (36.0-45.0); Lymphocytes % 14.1 % (15.3-44.8); MCH 29.1 pg (27.0-35.0); MCV 88.8 fL (80-100); MPV 7.7 fL (7.6-11.3); Monocytes % 11.8 % (3.3-12.3); RBC Red Blood Cell Count 2.57 M/uL (3.86-4.86)
[2018-09-09 14:59] LABS: Anisocytosis 1+; Blood Morphology Comment NOTED (NOT SEEN); Platelet Estimate ADEQ; Urine White Blood Cell Casts OK
[2018-09-09] MEDS: CITALOPRAM 10 MG TABLET FT SCH (20:28)
[2018-09-09] MEDS: LORAZEPAM 0.5 MG TABLET FT SCH (20:29)
[2018-09-09] MEDS: RISPERIDONE 0.25 MG TABLET FT SCH (20:29)
[2018-09-10] MEDS: NACHLORIDE 0.45% 1,000 ML IV SCH ×3 (02:09→22:21)
[2018-09-10] MEDS: GLUCERNA 1.5 CAL 1,000 ML BOT FT SCH ×4 (02:10→20:32)
[2018-09-10] MEDS: INSULIN -REGULAR HUMAN 50 UNIT/0.5 ML ML SQ SCH ×4 (06:00→17:21)
[2018-09-10 06:10] LABS: Absolute Lymphocytes (CBC) 2.1 K/uL (0.7-4.9); Absolute Monocytes 1.4 K/uL (0.1-1.3); Absolute Neutrophil 7.3 K/uL (1.8-8.0); Basophils % 0.3 % (0-1.3); Eosinophils % 2.8 % (0-4.4); Hematocrit 22.7 % (36.0-45.0); MCH 29.5 pg (27.0-35.0); MCV 89.2 fL (80-100); MPV 7.3 fL (7.6-11.3); Monocytes % 12.3 % (3.3-12.3); RBC Red Blood Cell Count 2.54 M/uL (3.86-4.86)
[2018-09-10 06:27] LABS: Potassium 4.9 mmol/L (3.5-5.1)
[2018-09-10] MEDS: ASPIRIN 81 MG CHEWABLE TABLET FT SCH (09:00)
[2018-09-10] MEDS: CARVEDILOL 12.5 MG TAB FT SCH ×4 (09:00→21:30)
[2018-09-10] MEDS: MAGNESIUM HYDROXIDE 8% 30 ML FT SCH (09:00)
[2018-09-10] MEDS: ALLOPURINOL 100 MG TAB FT SCH ×2 (09:00→20:30)
[2018-09-10] MEDS: AMLODIPINE 5 MG TAB FT SCH ×4 (09:00→21:30)
[2018-09-10] MEDS: MEMANTINE HCL 10 MG TABLET FT SCH ×2 (09:00→20:30)
[2018-09-10] MEDS: NYSTATIN 100MU/GM CREAM 15GM TOP SCH ×2 (09:00→21:00)
[2018-09-10] MEDS: CEFTRIAXONE/SWI 1gm 1 GM/10 ML SYR IV SCH ×2 (10:11→20:25)
[2018-09-10] MEDS: MULTIVITAMINS 5 ML ORAL SYR FT SCH (10:11)
--- NOTE | 2018-09-10 20:01 | PN ---
Date of Progress Note: 09/10/2018 Subjective: The patient was seen this morning for followup. No new complaints or problems reported by nursing staff. The patient does not communicate or answer any questions, but today I saw a more r esponse from her. She was noted to be moving her hands better than yesterday. Not in any distress. Objective: Vital Signs: Reviewed. HEENT: Unremarkable. Lungs: Clear to auscultation. Heart: Sounds normal. Abdomen: Soft. Bowel sounds normal. No guarding, rigidity, tenderness, or distention. Extremities: No leg edema. Laboratory Data: White count 11.1, hemoglobin 7.5, platelets 328. Sodium 142, potassium 4.9, chlori de 108, bicarb 30, BUN 34, creatinine 1.10, glucose 87. Impression: 1.Volume depletion. 2.Hyperkalemia. 3.Anemia. 4.Hypertension. 5.Urinary tract infection. 6.Diabetes mellitus. 7.Senile dementia. Plan: We will continue current medication, IV fluid. We will repeat blood work tomorrow. No need f or blood transfusion. Continue current antibiotics. Potassium is normal now. Possible discharge to go to correction tomorrow. ANUPAMA/MODL Voice ID: [id number] Report ID: [id number]
[2018-09-10] MEDS: LORAZEPAM 0.5 MG TABLET FT SCH (20:26)
[2018-09-10] MEDS: RISPERIDONE 0.25 MG TABLET FT SCH (20:30)
[2018-09-10] MEDS: CITALOPRAM 10 MG TABLET FT SCH (20:31)
[2018-09-11] MEDS: GLUCERNA 1.5 CAL 1,000 ML BOT FT SCH ×4 (02:27→18:29)
[2018-09-11] MEDS: INSULIN -REGULAR HUMAN 50 UNIT/0.5 ML ML SQ SCH ×4 (06:00→18:00)
[2018-09-11] MEDS: NACHLORIDE 0.45% 1,000 ML IV SCH ×2 (06:49→11:00)
[2018-09-11] MEDS: AMLODIPINE 5 MG TAB FT SCH ×2 (08:49→21:52)
[2018-09-11] MEDS: ALLOPURINOL 100 MG TAB FT SCH ×2 (08:49→21:53)
[2018-09-11] MEDS: MAGNESIUM HYDROXIDE 8% 30 ML FT SCH (08:50)
[2018-09-11] MEDS: CARVEDILOL 12.5 MG TAB FT SCH ×2 (08:50→22:01)
[2018-09-11] MEDS: MEMANTINE HCL 10 MG TABLET FT SCH ×2 (08:50→21:51)
[2018-09-11] MEDS: NYSTATIN 100MU/GM CREAM 15GM TOP SCH ×2 (08:50→21:00)
[2018-09-11] MEDS: ASPIRIN 81 MG CHEWABLE TABLET FT SCH (08:50)
[2018-09-11] MEDS: CEFTRIAXONE/SWI 1gm 1 GM/10 ML SYR IV SCH ×2 (09:46→21:51)
[2018-09-11] MEDS: MULTIVITAMINS 5 ML ORAL SYR FT SCH (09:46)
--- NOTE | 2018-09-11 13:32 | PN ---
Date of Progress Note: 09/11/2018 Subjective: The patient was seen this morning for followup. She was lying in bed. No new complaint s or problems reported by nursing staff. Objective: Vital Signs: Reviewed. HEENT: Unremarkable. Lungs: Clear to auscultation. No rhonchi. No rales. Heart: Sounds normal. Abdomen: Soft, bowel sounds normal. No guarding, rigidity, tenderness, or distention. Extremities: No leg edema. Laboratory Data: No blood work this morning. Yesterday's blood test results reviewed. Fingerstick blood sugar readings reviewed. Impression: 1.Volume depletion. 2.Hyperkalemia. 3.Anemia. 4.Urinary tract infection. 5.Hypertension. 6.Diabetes mellitus. 7.Senile dementia. Plan: We will go ahead and continue current medications. Continue current tube feeding. We will co ntinue IV fluid, but reduce rate. Repeat blood work tomorrow morning, and hopefully plan is to disch arge her to go back to retirement tomorrow depending on her condition. Continue current empiric an tibiotics. The patient will not need to go back with any oral antibiotic upon discharge. We will repeat blood work tomorrow morning and then nitesh campoverde decision regarding discharge. ANUPAMA/MODL Voice ID: [id number] Report ID: [id number]
[2018-09-11] MEDS: CITALOPRAM 10 MG TABLET FT SCH (21:51)
[2018-09-11] MEDS: RISPERIDONE 0.25 MG TABLET FT SCH (21:53)
[2018-09-11] MEDS: LORAZEPAM 0.5 MG TABLET FT SCH (21:53)
[2018-09-12] MEDS: GLUCERNA 1.5 CAL 1,000 ML BOT FT SCH ×4 (00:07→17:46)
[2018-09-12] MEDS: INSULIN -REGULAR HUMAN 50 UNIT/0.5 ML ML SQ SCH ×4 (06:00→18:00)
[2018-09-12 06:43] LABS: Absolute Lymphocytes (CBC) 1.9 K/uL (0.7-4.9); Absolute Monocytes 0.8 K/uL (0.1-1.3); Absolute Neutrophil 4.6 K/uL (1.8-8.0); Basophils % 0.3 % (0-1.3); Eosinophils % 3.6 % (0-4.4); Hematocrit 24.2 % (36.0-45.0); Lymphocytes % 24.6 % (15.3-44.8); MCH 28.9 pg (27.0-35.0); MCV 87.8 fL (80-100); MPV 7.4 fL (7.6-11.3); Monocytes % 10.3 % (3.3-12.3); RBC Red Blood Cell Count 2.75 M/uL (3.86-4.86)
[2018-09-12 06:57] LABS: Magnesium 1.8 mg/dL (1.8-2.4)
[2018-09-12] MEDS: NACHLORIDE 0.45% 1,000 ML IV SCH ×3 (07:00→21:10)
[2018-09-12 07:05] LABS: Potassium 6.1 mmol/L (3.5-5.1)
[2018-09-12] MEDS: AMLODIPINE 5 MG TAB FT SCH ×2 (09:17→21:13)
[2018-09-12] MEDS: CARVEDILOL 12.5 MG TAB FT SCH ×2 (09:18→21:14)
[2018-09-12] MEDS: MEMANTINE HCL 10 MG TABLET FT SCH ×2 (09:18→21:13)
[2018-09-12] MEDS: ASPIRIN 81 MG CHEWABLE TABLET FT SCH (09:18)
[2018-09-12] MEDS: ALLOPURINOL 100 MG TAB FT SCH ×2 (09:18→21:17)
[2018-09-12] MEDS: MAGNESIUM HYDROXIDE 8% 30 ML FT SCH (09:19)
[2018-09-12] MEDS: CEFTRIAXONE/SWI 1gm 1 GM/10 ML SYR IV SCH ×2 (09:19→21:11)
[2018-09-12] MEDS: MULTIVITAMINS 5 ML ORAL SYR FT SCH (09:19)
[2018-09-12] MEDS: NYSTATIN 100MU/GM CREAM 15GM TOP SCH ×2 (11:00→21:14)
[2018-09-12] MEDS ORDERED: SOD POLYSTYREN SUL 15 GM/60 ML UCUP PO ONE ×2 (16:00→21:00)
[2018-09-12] MEDS: CITALOPRAM 10 MG TABLET FT SCH (21:13)
[2018-09-12] MEDS: RISPERIDONE 0.25 MG TABLET FT SCH (21:14)
[2018-09-12] MEDS: LORAZEPAM 0.5 MG TABLET FT SCH (21:14)
--- NOTE | 2018-09-12 23:33 | PN ---
Date of Progress Note: 09/12/2018 Subjective: Patient was seen this morning for followup. She was lying in bed, not in any distress. No new complaints or problems reported by nursing staff. The patient did not communicate as usual. Not in any respiratory distress. Objective: Vital Signs: Reviewed. HEENT: Unremarkable. Lungs: Clear to auscultation. Heart: Sounds normal. Abdomen: Soft. Bowel sounds normal. No guarding, rigidity, tenderness, or distention. Extremities: No leg edema. Laboratory Data: White count 7.5, hemoglobin 8.0, platelets 329. Sodium 138, potassium 6.1, chlorid e 108, bicarb 24, BUN 34, creatinine 1.20, glucose 100, magnesium 1.8. Impression: 1.Volume depletion. 2.Hyperkalemia. 3.Urinary tract infection. 4.Hypertension. 5.Dementia. 6.Diabetes mellitus. Plan: We will continue current medication. Continue IV fluid, IV antibiotics. We will go ahead and give Kayexalate today per order. Repeat blood work tomorrow and there is a good possibility patient may require Kayexalate on a daily basis to control her hyperkalemia problem. Our original plan was to discharge her to go to [facility] today, but because of this recurrence of hyperkalemia problem, we will not be able to discharge her t marge. ANUPAMA/MODL Voice ID: [id number] Report ID: [id number]
[2018-09-13] MEDS: GLUCERNA 1.5 CAL 1,000 ML BOT FT SCH ×4 (00:56→18:12)
[2018-09-13 05:44] LABS: Potassium 5.1 mmol/L (3.5-5.1)
[2018-09-13] MEDS: INSULIN -REGULAR HUMAN 50 UNIT/0.5 ML ML SQ SCH ×4 (06:00→18:00)
[2018-09-13] MEDS: NYSTATIN 100MU/GM CREAM 15GM TOP SCH ×2 (09:00→21:51)
[2018-09-13] MEDS: MULTIVITAMINS 5 ML ORAL SYR FT SCH (09:00)
[2018-09-13] MEDS: SOD POLYSTYREN SUL 15 GM/60 ML UCUP FT SCH (10:01)
[2018-09-13] MEDS: CEFTRIAXONE/SWI 1gm 1 GM/10 ML SYR IV SCH ×2 (10:01→21:48)
[2018-09-13] MEDS: ASPIRIN 81 MG CHEWABLE TABLET FT SCH (10:02)
[2018-09-13] MEDS: ALLOPURINOL 100 MG TAB FT SCH ×2 (10:02→21:49)
[2018-09-13] MEDS: MAGNESIUM HYDROXIDE 8% 30 ML FT SCH (10:02)
[2018-09-13] MEDS: CARVEDILOL 12.5 MG TAB FT SCH ×2 (10:02→21:48)
[2018-09-13] MEDS: MEMANTINE HCL 10 MG TABLET FT SCH ×2 (10:02→21:49)
[2018-09-13] MEDS: AMLODIPINE 5 MG TAB FT SCH ×2 (10:03→21:49)
--- NOTE | 2018-09-13 12:04 | PN ---
Date of Progress Note: 09/13/2018 Subjective: The patient was seen this morning for followup. She was lying in bed, not in distress t marge. So, first day I saw her talking, but whatever she is talking, she is talking on her own, does not make any sense, but this is most that I have seen her in terms of being more awake since she has been in the hospital. She does not answer any questions. Objective: Vital Signs: Reviewed. HEENT: Examination unremarkable. Lungs: Clear to auscultation. Heart: Sounds normal. Abdomen: Soft. Bowel sounds normal. No guarding, rigidity, tenderness, distention. Extremities: No leg edema. Laboratory Data: Sodium 138, potassium 5.1, chloride 107, bicarb 26, BUN 29, creatinine 1.10, glucos e 94. Impression: 1.Volume depletion. 2.Hyperkalemia. 3.Urinary tract infection. 4.Dementia. 5.Hypertension. 6.Diabetes mellitus. Plan: We will go ahead and continue current medications, starting today we will give Kayexalate 30 g on a daily basis per PEG tube. We will monitor blood work tomorrow morning. Possible discharge to go back to [facility] tomorrow. We will discontinue IV fluid and increase her oral intake of water to 300 cc every 4 hours. ANUPAMA/MODL Voice ID: [id number] Report ID: [id number]
[2018-09-13] MEDS: SUPLENA IMPAIRED RENAL 237 ML CAN FT SCH (21:48)
[2018-09-13] MEDS: RISPERIDONE 0.25 MG TABLET FT SCH (21:50)
[2018-09-13] MEDS: CITALOPRAM 10 MG TABLET FT SCH (21:50)
[2018-09-13] MEDS: LORAZEPAM 0.5 MG TABLET FT SCH (21:50)
[2018-09-14] MEDS: INSULIN -REGULAR HUMAN 50 UNIT/0.5 ML ML SQ SCH ×4 (06:00→17:47)
[2018-09-14 07:10] LABS: Absolute Lymphocytes (CBC) 1.6 K/uL (0.7-4.9); Absolute Monocytes 0.8 K/uL (0.1-1.3); Absolute Neutrophil 4.3 K/uL (1.8-8.0); Basophils % 0.4 % (0-1.3); Hematocrit 23.3 % (36.0-45.0); Lymphocytes % 22.5 % (15.3-44.8); MCH 29.6 pg (27.0-35.0); MCV 88.2 fL (80-100); MPV 7.4 fL (7.6-11.3); Monocytes % 11.4 % (3.3-12.3); RBC Red Blood Cell Count 2.64 M/uL (3.86-4.86)
[2018-09-14 07:15] LABS: Magnesium 1.8 mg/dL (1.8-2.4)
[2018-09-14] MEDS ORDERED: MAGNESIUM SULFATE 1 gm IVPB 1 GM/100 ML BAG IV ONE (07:30)
[2018-09-14] MEDS: ALLOPURINOL 100 MG TAB FT SCH ×2 (10:15→21:02)
[2018-09-14] MEDS: MULTIVITAMINS 5 ML ORAL SYR FT SCH (10:15)
[2018-09-14] MEDS: ASPIRIN 81 MG CHEWABLE TABLET FT SCH (10:15)
[2018-09-14] MEDS: AMLODIPINE 5 MG TAB FT SCH ×2 (10:16→21:02)
[2018-09-14] MEDS: CARVEDILOL 12.5 MG TAB FT SCH ×2 (10:17→21:01)
[2018-09-14] MEDS: MEMANTINE HCL 10 MG TABLET FT SCH ×2 (10:18→21:02)
[2018-09-14] MEDS: CEFTRIAXONE/SWI 1gm 1 GM/10 ML SYR IV SCH ×2 (10:18→21:01)
[2018-09-14] MEDS: SOD POLYSTYREN SUL 15 GM/60 ML UCUP FT SCH (10:19)
[2018-09-14] MEDS: MAGNESIUM HYDROXIDE 8% 30 ML FT SCH (10:19)
[2018-09-14] MEDS: NYSTATIN 100MU/GM CREAM 15GM TOP SCH ×2 (10:21→21:00)
[2018-09-14] MEDS: SUPLENA IMPAIRED RENAL 237 ML CAN FT SCH ×5 (10:29→21:03)
[2018-09-14] MEDS: LORAZEPAM 0.5 MG TABLET FT SCH (21:01)
[2018-09-14] MEDS: CITALOPRAM 10 MG TABLET FT SCH (21:02)
[2018-09-14] MEDS: RISPERIDONE 0.25 MG TABLET FT SCH (21:02)
--- NOTE | 2018-09-15 00:47 | PN ---
Date of Progress Note: 09/14/2018 Subjective: The patient was seen this morning for followup. No new complaints or problems reported by nursing staff. The patient was sleeping, did not communicate, did not answer any questions, not i n any respiratory distress. Objective: Vital Signs: Reviewed. HEENT: Unremarkable. Lungs: Clear to auscultation. Heart: Sounds normal. Abdomen: Soft. Bowel sounds normal. No guarding, rigidity, tenderness, or distention. Extremities: No leg edema. Laboratory Data: White count 6.9, hemoglobin 7.8, platelets 348. Sodium 139, potassium 5, chloride 106, bicarb 26, BUN 25, creatinine 1.20, glucose 88, magnesium 1.8. Impression: 1.Volume depletion. 2.Hyperkalemia. 3.Urinary tract infection. 4.Hypertension. 5.Diabetes mellitus. 6.Dementia. Plan: We will continue different tube feeding using Suplena, which has lower potassium content adeola red to Glucerna. Continue Kayexalate 30 g per PEG tube daily. We will repeat blood work tomorrow. Possible discharge to go to correction tomorrow depending on her condition. Anemia count is stable . No need for blood transfusion. ANUPAMA/MODL Voice ID: [id number] Report ID: [id number]
[2018-09-15 05:48] LABS: Potassium 4.1 mmol/L (3.5-5.1)
[2018-09-15] MEDS: INSULIN -REGULAR HUMAN 50 UNIT/0.5 ML ML SQ SCH ×3 (06:00→12:19)
[2018-09-15 08:47] VITALS: O2SAT 92
[2018-09-15] MEDS: AMLODIPINE 5 MG TAB FT SCH (09:07)
[2018-09-15] MEDS: MULTIVITAMINS 5 ML ORAL SYR FT SCH (09:07)
[2018-09-15] MEDS: CARVEDILOL 12.5 MG TAB FT SCH (09:08)
[2018-09-15] MEDS: MEMANTINE HCL 10 MG TABLET FT SCH (09:08)
[2018-09-15] MEDS: ASPIRIN 81 MG CHEWABLE TABLET FT SCH (09:08)
[2018-09-15] MEDS: MAGNESIUM HYDROXIDE 8% 30 ML FT SCH (09:09)
[2018-09-15] MEDS: ALLOPURINOL 100 MG TAB FT SCH (09:09)
[2018-09-15] MEDS: SOD POLYSTYREN SUL 15 GM/60 ML UCUP FT SCH (09:09)
[2018-09-15] MEDS: SUPLENA IMPAIRED RENAL 237 ML CAN FT SCH (09:13)
[2018-09-15] MEDS: NYSTATIN 100MU/GM CREAM 15GM TOP SCH (09:13)
[2018-09-15 14:19] VITALS: BP 153/68; TEMP 97.6
--- NOTE | 2018-09-16 04:04 | DS ---
Date of Discharge: 09/15/2018 The patient was seen this morning for followup. No new complaints or problems reported by nursing aff. Physical Examination: Vital Signs: Reviewed. HEENT: Unremarkable. Lungs: Clear to auscultation. Heart: Sounds normal. Abdomen: Soft. Bowel sounds normal. No guarding, rigidity, tenderness, or distention. Extremities: No leg edema. Discharge Medications And Instructions: Continue all prior half-way medication except; 1.Stop losartan. 2.Give 300 cc of water per PEG tube every 4 hours, flush back tube with 50-100 cc water before and a fter each use. 3.Give Suplena tube feeding instead of Glucerna and give Suplena 1 can, which is 237 cc per PEG tube 4 times a day. 4.Give Kayexalate 30 g per PEG tube every other day. 5.Chem-7 and CBC to be done next week on Thursday which is 09/21/2018. Laboratory Data: Labs done during this hospitalization. Last white count yesterday 6.9, hemoglobin 7.8, platelets 348. Lowest hemoglobin during this hospitalization was 7.1 on 09/09/2018. The patien t did not require any blood transfusion during this hospitalization. Last chemistry today sodium 140 , potassium 4.1, chloride 106, bicarb 28, BUN 21, creatinine 1.20, glucose 92, magnesium 2. Potassiu m when she first came in was 7.2, which was her highest potassium for this hospitalization and potass ium has been normal for last 3 days. Her creatinine when she came in was 1.50, highest creatinine wa s 1.90, and last creatinine today was 1.20. Hospital Course: A 78-year-old female patient who was admitted to the hospital after she had abnorma l outpatient blood tests done. Please see dictated H and P for more information. The patient's BUN and creatinine were elevated. Potassium was elevated. She was sent to emergency room from [facility] with this abnormal blood test, result was confirmed with another blood work and potassium was in fact even higher than earlier. She was admitted to the hospital. The patient was started on IV flui d for volume depletion. She had urinary tract infection, so she was started on IV Rocephin. Urine c ulture did not grow any specific bacteria and Rocephin was continued as empiric antibiotic therapy du ring this hospitalization. Tube feeding was given using Glucerna, but later on per speech therapist' s recommendation, it was changed to Suplena because of the lower potassium content in Suplena versus Glucerna. The patient's hyperkalemia was corrected initially with calcium gluconate, bicarbonate IV, and albuterol nebulizer treatment and Kayexalate IV, D50 and insulin. After potassium normalized, i t went back up again, so we decided to go ahead and start her on Kayexalate dose on a regular basis. We have been giving her every day, but we will try to give her Kayexalate every other day as we have made changes in the formula as mentioned above. Her losartan that she was taking for blood pressure at half-way was discontinued considering this significant hyperkalemia problem. Otherwise, the patient's condition remained clinically stable. Volume depletion problem was corrected using IV flui d and we did have to change IV fluid to half normal saline because of hyponatremia problem which was corrected as well. The patient was discharge to go back to half-way in stable condition with abo ve-mentioned medication and instructions. Final Diagnoses: 1.Hyperkalemia. 2.Volume depletion. 3.Urinary tract infection. 4.Anemia. 5.Hypertension. 6.Diabetes mellitus. 7.Senile dementia. 8.Dermatophytosis, groin. ANUPAMA/MODL Voice ID: [id number] Report ID: [id number]
== END 2018-09-15 13:12 | DRG 641 ==
LOC: ER 21:26 → ERHOLD 09-08 02:20 → 2ND 09-08 02:45
PROVIDERS: ADMIT Internal Medicine; ATTEND Internal Medicine
PROC: 3E0G76Z Introduction of Nutritional Substance into Upper GI, Via Natural or Artificial Opening (ICD-10-PCS; principal; 2018-09-08)
DX: E87.5 Hyperkalemia (principal); N39.0 Urinary tract infection, site not specified; E86.9 Volume depletion, unspecified; Z93.1 Gastrostomy status; B35.6 Tinea cruris; F03.90 Unspecified dementia, unspecified severity, without behavioral disturbance, psychotic disturbance, mood disturbance, and anxiety; D64.9 Anemia, unspecified; E11.9 Type 2 diabetes mellitus without complications; I10 Essential (primary) hypertension
CPT/HCPCS: 36415; 71045; 80048; 80053; 81003; 81015; 82533; 82962; 83605; 83735; 84443; 85025; 87040; 87086; 87088; 93005; 94640; 99285; J0610; J0696; J1100; J3475; J7030

== ENCOUNTER 2018-11-18 21:15 | Emergency (ER) | payer OTHER ==
--- NOTE | 2018-11-18 22:46 | ER ---
Nurse's Notes [facility] Name: Sharda Dewey Age: 78 yrs Sex: Female : 1940 Arrival Date: 11/18/2018 Time: 21:17 Bed 5 Private MD: Diagnosis: Tinea manuum Presentation: 11/18 21:17 Presenting complaint: EMS states: "[facility] said that her hand is swollen and warm to jd3 the touch. they didn't want to x-ray it there so they sent her here. pt is NPO.". Transition of care: patient was not received from another setting of care. Onset of symptoms was November 18, 2018. Risk Assessment: Do you want to hurt yourself or someone else? Patient reports no desire to harm self or others. Initial Sepsis Screen: Does the patient meet any 2 criteria? No. Patient's initial sepsis screen is negative. Does the patient have a suspected source of infection? No. Patient's initial sepsis screen is negative. Care prior to arrival: None. 21:17 Method Of Arrival: EMS: [facility] jd3 21:17 Acuity: TITUS 4 jd3 Historical: - Allergies: 21:25 No Known Allergies; jd3 - Home Meds: 21:25 allopurinol 100 mg Oral tab 1 tab 2 times per day [Active]; amlodipine 5 mg tab 1 tab jd3 twice a day [Active]; Aricept 10 mg Oral tab 1 tab nightly [Active]; aspirin 81 mg Oral chew 1 tab once daily [Active]; carvedilol 12.5 mg Oral tab 1 tab 2 times per day [Active]; Celexa 10 mg Oral tab 1 tab nightly [Active]; ferrous sulfate 325 mg (65 mg iron) Oral tab daily [Active]; lorazepam 0.5 mg Oral tab 1 tab at bedtime [Active]; losartan 100 mg Oral tab 1 tab once daily [Active]; memantine 5 mg Oral tab 1 tabs 2 times per day [Active]; Milk of Magnesia 400 mg/5 mL Oral susp 30 mL every Thursday [Active]; multivitamin Oral tab daily [Active]; Novolog 100 unit/mL Sub-Q soln sliding scale [Active]; risperidone 0.25 mg Oral tab 1 tabs nightly [Active]; TYLENOL 325 MG 2 tab every 6 hours [Active]; Vitamin D Oral 5000 unit daily [Active]; - PMHx: 21:25 Dementia; Diabetes - NIDDM; DYSPHAGIA; Depression; Hypertension; Delusional disorder; jd3 Anxiety; Anemia; Alzheimers; ataxic gait; CAD; Allergic rhinitis; insomnia; Pneumonia; - PSHx: 21:25 PEG tube; jd3 - Immunization history:: Adult Immunizations unknown. - Social history:: Smoking status: unknown. - Ebola Screening: : Patient negative for fever greater than or equal to 101.5 degrees Fahrenheit, and additional compatible Ebola Virus Disease symptoms. Screenin:27 Abuse screen: Denies threats or abuse. Nutritional screening: No deficits noted. jd3 Tuberculosis screening: No symptoms or risk factors identified. Fall Risk Ambulatory Aid- None/Bed Rest/Nurse Assist (0 pts). Gait- Normal/Bed Rest/Wheelchair (0 pts) Mental Status- Oriented to own ability (0 pts). Total Lara Fall Scale indicates No Risk (0-24 pts). Assessment: 21:29 General: Appears in no apparent distress. Behavior is calm, cooperative, appropriate jd3 for age. Pain: Denies pain. Neuro: Level of Consciousness is awake, alert, Oriented to person. Cardiovascular: Capillary refill < 3 seconds Patient's skin is warm and dry. Respiratory: Airway is patent Respiratory effort is even, unlabored, Respiratory pattern is regular, symmetrical. GI: No signs and/or symptoms were reported involving the gastrointestinal system. : No signs and/or symptoms were reported regarding the genitourinary system. EENT: No signs and/or symptoms were reported regarding the EENT system. Derm: Skin is intact, Skin is dry, Skin is normal, Skin temperature is warm. Musculoskeletal: Range of motion: limited in right hand Swelling present in right hand. 22:39 Reassessment: Patient appears in no apparent distress at this time. Patient and/or jd3 family updated on plan of care and expected duration. Pain level reassessed. cleaned with soap and water and dressed right hand. 22:57 Reassessment: Patient appears in no apparent distress at this time. Patient and/or jd3 family updated on plan of care and expected duration. Pain level reassessed. report given to Yue HOPKINS at [place]. 23:46 Reassessment: Patient appears in no apparent distress at this time. Patient and/or jd3 family updated on plan of care and expected duration. Pain level reassessed. report given to EMS service to transport pt back to [place]. Vital Signs: 21:26 BP 135 / 74; Pulse 76; Resp 17 S; Temp 99.6(TE); Pulse Ox 98% on R/A; Weight 72.57 kg jd3 (R); Height 5 ft. 5 in. (165.10 cm) (R); Pain 0/10; 22:22 BP 117 / 72; Pulse 70; Resp 16; Pulse Ox 98% on R/A; mt 23:47 BP 125 / 73; Pulse 72; Resp 18 S; Pulse Ox 98% on R/A; jd3 21:26 Body Mass Index 26.63 (72.57 kg, 165.10 cm) jd3 ED Course: 21:17 Patient arrived in ED. jd3 21:17 Karri Sanchez, RN is Primary Nurse. jd3 21:18 Jose Meadows MD is Attending Physician. tw4 21:21 Triage completed. jd3 21:27 Arm band placed on. jd3 21:31 Patient has correct armband on for positive identification. Bed in low position. Call j light in reach. Side rails up X 1. 22:12 Hand Right 3 View In Process Unspecified. EDMS 23:47 No provider procedures requiring assistance completed. Patient did not have IV access j during this emergency room visit. Administered Medications: 22:52 Drug: Clindamycin 150 mg {Note: given in G-tube.} Route: PO; jd3 23:49 Follow up: Response: No adverse reaction jd3 22:52 Drug: DiFLUcan 150 mg {Note: given in G-tube.} Route: PO; jd3 23:49 Follow up: Response: No adverse reaction jd3 Outcome: 22:45 Discharge ordered by . tw4 23:48 Discharged to snf. Report called to Yue HOPKINSportfolio manager form completed. jd3 23:48 Condition: stable 23:48 Discharge instructions given to family, Instructed on discharge instructions, follow up and referral plans. medication usage, Demonstrated understanding of instructions, follow-up care, medications, Prescriptions given X 1. 23:49 Patient left the ED. j Signatures: Dispatcher [employer] EDMS Sonam Aguilera mt, Jonathon, SANDEEP RN jd3 Jose Meadows MD MD tw4 Corrections: (The following items were deleted from the chart) 21:31 21:17 Presenting complaint: EMS states: "Paul Scott said that her hand is swollen and jruss warm to the touch. they didn't want to x-ray it there so they sent her here." kala
--- NOTE | 2018-11-18 22:46 | EDPHYS ---
Physician Documentation [facility] Name: Sharda Dewey Age: 78 yrs Sex: Female : 1940 Arrival Date: 11/18/2018 Time: 21:17 Bed 5 Private MD: ED Physician Jose Meadows HPI: 11/19 03:29 This 78 yrs old Black Female presents to ER via EMS with complaints of swollen right tw4 hand. 03:29 The rash is located on the lateral aspect of right hand, lateral aspect of right tw4 fingers, medial aspect of right hand and medial aspect of right fingers. The rash can be described as diffuse. Onset: The symptoms/episode began/occurred last week. Severity of symptoms: At their worst the symptoms were. The patient has not experienced similar symptoms in the past. Historical: - Allergies: 11/18 21:25 No Known Allergies; jd3 - Home Meds: 21:25 allopurinol 100 mg Oral tab 1 tab 2 times per day [Active]; amlodipine 5 mg tab 1 tab jd3 twice a day [Active]; Aricept 10 mg Oral tab 1 tab nightly [Active]; aspirin 81 mg Oral chew 1 tab once daily [Active]; carvedilol 12.5 mg Oral tab 1 tab 2 times per day [Active]; Celexa 10 mg Oral tab 1 tab nightly [Active]; ferrous sulfate 325 mg (65 mg iron) Oral tab daily [Active]; lorazepam 0.5 mg Oral tab 1 tab at bedtime [Active]; losartan 100 mg Oral tab 1 tab once daily [Active]; memantine 5 mg Oral tab 1 tabs 2 times per day [Active]; Milk of Magnesia 400 mg/5 mL Oral susp 30 mL every Thursday [Active]; multivitamin Oral tab daily [Active]; Novolog 100 unit/mL Sub-Q soln sliding scale [Active]; risperidone 0.25 mg Oral tab 1 tabs nightly [Active]; TYLENOL 325 MG 2 tab every 6 hours [Active]; Vitamin D Oral 5000 unit daily [Active]; - PMHx: 21:25 Dementia; Diabetes - NIDDM; DYSPHAGIA; Depression; Hypertension; Delusional disorder; jd3 Anxiety; Anemia; Alzheimers; ataxic gait; CAD; Allergic rhinitis; insomnia; Pneumonia; - PSHx: 21:25 PEG tube; jd3 - Immunization history:: Adult Immunizations unknown. - Social history:: Smoking status: unknown. - Ebola Screening: : Patient negative for fever greater than or equal to 101.5 degrees Fahrenheit, and additional compatible Ebola Virus Disease symptoms. ROS: 11/19 03:29 Constitutional: Negative for fever, chills, and weight loss, Cardiovascular: Negative tw4 for chest pain, palpitations, and edema, Respiratory: Negative for shortness of breath, cough, wheezing, and pleuritic chest pain, Abdomen/GI: Negative for abdominal pain, nausea, vomiting, diarrhea, and constipation. MS/extremity: Positive for swelling, tenderness. Exam: 03:29 Constitutional: This is a well developed, well nourished patient who is awake, alert, tw4 and in no acute distress. Head/Face: Normocephalic, atraumatic. Chest/axilla: Normal chest wall appearance and motion. Nontender with no deformity. No lesions are appreciated. Cardiovascular: Regular rate and rhythm with a normal S1 and S2. No gallops, murmurs, or rubs. Normal PMI, no JVD. No pulse deficits. Respiratory: Lungs have equal breath sounds bilaterally, clear to auscultation and percussion. No rales, rhonchi or wheezes noted. No increased work of breathing, no retractions or nasal flaring. Abdomen/GI: Soft, non-tender, with normal bowel sounds. No distension or tympany. No guarding or rebound. No evidence of tenderness throughout. 03:29 Musculoskeletal/extremity: Extremities: noted in the right hand: pain, swelling, flexion conctracture. Vital Signs: 11/18 21:26 BP 135 / 74; Pulse 76; Resp 17 S; Temp 99.6(TE); Pulse Ox 98% on R/A; Weight 72.57 kg jd3 (R); Height 5 ft. 5 in. (165.10 cm) (R); Pain 0/10; 22:22 BP 117 / 72; Pulse 70; Resp 16; Pulse Ox 98% on R/A; mt 23:47 BP 125 / 73; Pulse 72; Resp 18 S; Pulse Ox 98% on R/A; jd3 21:26 Body Mass Index 26.63 (72.57 kg, 165.10 cm) jd3 MDM: 21:18 Patient medically screened. tw4 11/19 03:29 Data reviewed: vital signs, nurses notes. Counseling: I had a detailed discussion with tw4 the patient and/or guardian regarding: the historical points, exam findings, and any diagnostic results supporting the discharge/admit diagnosis. Special discussion: I discussed with the patient/guardian in detail that at this point there is no indication for admission to the hospital. It is understood, however, that if the symptoms persist or worsen the patient needs to return immediately for re-evaluation. 11/18 22:05 Order name: Hand Right 3 View EDMS Administered Medications: 11/18 22:52 Drug: Clindamycin 150 mg {Note: given in G-tube.} Route: PO; jd3 23:49 Follow up: Response: No adverse reaction jd3 22:52 Drug: DiFLUcan 150 mg {Note: given in G-tube.} Route: PO; jd3 23:49 Follow up: Response: No adverse reaction jd3 Disposition: 11/18/18 22:45 Discharged to Home. Impression: Tinea manuum. - Condition is Stable. - Discharge Instructions: Cellulitis, Adult. - Prescriptions for Fluconazole 150 mg Oral Tablet - take 1 tablet by ORAL route once daily; 3 tablet. - Medication Reconciliation Form, Thank You Letter, Antibiotic Education, Prescription Opioid Use form. - Follow up: Private Physician; When: Upon discharge from the Emergency Department; Reason: If symptoms return, Recheck today's complaints, Continuance of care. - Problem is new. - Symptoms have improved. Signatures: Dispatcher [employer] [facility] Mallory Agrawal RN RN fc Davies, Jonathon, RN RN jd3 Wadley, Terrence, MD MD tw4 Corrections: (The following items were deleted from the chart) 22:05 21:37 Hand Left 3 View+RAD.RAD.BRZ ordered. [facility] EDWA 23:49 22:45 11/18/2018 22:45 Discharged to Home. Impression: Tinea manuum. Condition is jd3 Stable. Forms are Medication Reconciliation Form, Thank You Letter, Antibiotic Education, Prescription Opioid Use. Follow up: Private Physician; When: Upon discharge from the Emergency Department; Reason: If symptoms return, Recheck today's complaints, Continuance of care. Problem is new. Symptoms have improved. tw4
[2018-11-18] MEDS ORDERED: FLUCONAZOLE 100 MG TAB ONE (22:47)
[2018-11-18] MEDS ORDERED: CLINDAMYCIN HCL 150 MG CAP ONE (22:51)
[2018-11-19 01:43] VITALS: TEMP 99.6; O2SAT 98
[2018-11-19 01:47] VITALS: BP 125/73
--- NOTE | 2018-11-19 08:17 | RAD REPORT ---
EXAM DESCRIPTION: RAD - Hand Right 3 View - 11/18/2018 10:13 pm CLINICAL HISTORY: SWELLING COMPARISON: No comparisons FINDINGS: Advanced osteopenia of the right hand is seen. Assessment is limited as the patient could not extend fingers completely. The moderately severe multi-joint arthritic changes are present. Vascu lar calcifications are seen. Moderate soft tissue swelling noted. No acute fracture demonstrated.
== END 2018-11-18 23:49 | disposition home or self-care (01) ==
LOC: ER 21:15
DX: B35.2 Tinea manuum (principal); M85.841 Other specified disorders of bone density and structure, right hand; E11.9 Type 2 diabetes mellitus without complications; I10 Essential (primary) hypertension; I25.10 Atherosclerotic heart disease of native coronary artery without angina pectoris; G30.9 Alzheimer's disease, unspecified; F02.80 Dementia in other diseases classified elsewhere, unspecified severity, without behavioral disturbance, psychotic disturbance, mood disturbance, and anxiety; F41.9 Anxiety disorder, unspecified; F32.9 Major depressive disorder, single episode, unspecified; F22 Delusional disorders; D64.9 Anemia, unspecified; G47.00 Insomnia, unspecified; Z79.4 Long term (current) use of insulin; Z79.82 Long term (current) use of aspirin; Z79.899 Other long term (current) drug therapy
CPT/HCPCS: 99284

== ENCOUNTER 2019-04-29 18:55 | Inpatient (IN) | payer OTHER ==
--- NOTE | 2019-04-29 19:43 | RAD REPORT ---
EXAM DESCRIPTION: Charissa Single View04/29/2019 7:32 pm CLINICAL HISTORY: sob COMPARISON: August 2018 FINDINGS: The lungs appear clear of acute infiltrate. The heart is mildly to moderately enlarged Right hemidiaphragm remains elevated
[2019-04-29 19:58] LABS: Protime INR 1.03
[2019-04-29 20:13] LABS: ALT/SGPT 39 U/L (12-78); AST/SGOT 52 U/L (15-37); Albumin 2.9 g/dL (3.4-5.0); Alkaline Phosphatase 141 U/L (45-117); BUN Blood Urea Nitrogen 40 mg/dL (7-18); Bicarbonate 33 mmol/L (21-32); Bilirubin Direct < 0.1 mg/dL (0-0.2); Bilirubin Total 0.2 mg/dL (0.2-1.0); Glucose Level 58 mg/dL (74-106); Magnesium 2.4 mg/dL (1.8-2.4); NT PRO-BNP 464 pg/mL (<450); Potassium 4.9 mmol/L (3.5-5.1); Protein, Total 7.1 g/dL (6.4-8.2); Sodium Level 126 mmol/L (136-145); Troponin (Emerg Dept Use Only) < 0.02 ng/mL (0.0-0.045)
[2019-04-29 20:17] LABS: Urine Bacteria >50 /HPF (<20)
[2019-04-29 20:18] LABS: Urine Culture Reflex Order REFLEXED
[2019-04-29 20:21] LABS: Absolute Lymphocytes (CBC) 1.8 K/uL (0.7-4.9); Absolute Monocytes 0.7 K/uL (0.1-1.3); Absolute Neutrophil 3.1 K/uL (1.8-8.0); Basophils % 0.5 % (0-1.3); Eosinophils % 1.8 % (0-4.4); Hematocrit 28.1 % (36.0-45.0); Lymphocytes % 30.7 % (15.3-44.8); MPV 7.9 fL (7.6-11.3); Monocytes % 12.9 % (3.3-12.3); RBC Red Blood Cell Count 3.23 M/uL (3.86-4.86)
[2019-04-29 20:32] LABS: Urine Blood 2+ (NEG); Urine Glucose NEGATIVE (NEG); Urine Protein 3+ (NEG)
--- NOTE | 2019-04-29 20:39 | EDPHYS ---
Physician Documentation [facility] Name: Sharda Dewey Age: 79 yrs Sex: Female : 1940 Arrival Date: 04/29/2019 Time: 18:58 Bed 2 Private MD: ED Physician Jose Meadows HPI: 04/29 19:53 This 79 yrs old Black Female presents to ER via EMS with complaints of Altered Mental tw4 Status. 19:53 The patient presents with decreased mental status, decreased responsiveness. Onset: The tw4 symptoms/episode began/occurred today. Possible causes: low blood sugar, sepsis, the patient has a known UTI history, the patient lives in a long term, unknown. Associated signs and symptoms: The patient has no apparent associated signs or symptoms. Unable to obtain HPI due to altered mental status, baseline dementia, comatose state. The patient has not experienced similar symptoms in the past. Historical: - Allergies: 19:04 No Known Allergies; tw2 - PMHx: 19:04 Pneumonia; Diabetes - NIDDM; Depression; Delusional disorder; Hypertension; CAD; tw2 Dementia; ataxic gait; Anxiety; Anemia; DYSPHAGIA; Allergic rhinitis; Alzheimers; insomnia; - PSHx: 19:04 PEG tube; tw2 - Immunization history:: Adult Immunizations. - Social history:: Smoking status: . - Ebola Screening: : Patient denies travel to an Ebola-affected area in the 21 days before illness onset. ROS: 19:53 Constitutional: Negative for fever, chills, and weight loss, Eyes: Negative for injury, tw4 pain, redness, and discharge, ENT: Negative for injury, pain, and discharge, Cardiovascular: Negative for chest pain, palpitations, and edema, Respiratory: Negative for shortness of breath, cough, wheezing, and pleuritic chest pain, Abdomen/GI: Negative for abdominal pain, nausea, vomiting, diarrhea, and constipation, MS/Extremity: Negative for injury and deformity, Skin: Negative for injury, rash, and discoloration. 19:53 Neuro: Positive for altered mental status, Negative for dizziness, gait disturbance, headache, hearing loss, tinnitus, tremor, visual changes. Exam: 20:16 Head/Face: Normocephalic, atraumatic. Eyes: Pupils equal round and reactive to light, tw4 extra-ocular motions intact. Lids and lashes normal. Conjunctiva and sclera are non-icteric and not injected. Cornea within normal limits. Periorbital areas with no swelling, redness, or edema. Chest/axilla: Normal chest wall appearance and motion. Nontender with no deformity. No lesions are appreciated. Cardiovascular: Regular rate and rhythm with a normal S1 and S2. No gallops, murmurs, or rubs. Normal PMI, no JVD. No pulse deficits. Respiratory: Lungs have equal breath sounds bilaterally, clear to auscultation and percussion. No rales, rhonchi or wheezes noted. No increased work of breathing, no retractions or nasal flaring. Abdomen/GI: Soft, non-tender, with normal bowel sounds. No distension or tympany. No guarding or rebound. No evidence of tenderness throughout. MS/ Extremity: Pulses equal, no cyanosis. Neurovascular intact. Full, normal range of motion. 20:16 Constitutional: The patient appears comatose 20:16 Neuro: Orientation: unable to test, the patient is comatose, Mentation: unable to test, the patient is comatose, Memory: unable to test, Motor: Vital Signs: 19:01 BP 110 / 58; Pulse 68; Resp 12; Temp 99(TE); Pulse Ox 100% on R/A; tw2 19:55 BP 107 / 71; Pulse 76; Resp 18; Temp 97.7; Pulse Ox 100% on R/A; aa1 21:37 BP 154 / 99; Pulse 89; Resp 16; Pulse Ox 97% on R/A; aa1 22:07 BP 157 / 71; Pulse 77; Resp 16; Temp 98.3; Pulse Ox 99% on R/A; aa1 MDM: 19:08 Patient medically screened. tw4 22:19 Data reviewed: vital signs, nurses notes. Data interpreted: Pulse oximetry: tw4 Interpretation: normal. Physician consultation: German Govea MD was contacted at 20:55, regarding admission, patient's condition, and will see patient in inpatient room, would like medications started, MEROPENEN, D5 NS \T\ 75 CC/HR. 04/29 19:13 Order name: Basic Metabolic Panel; Complete Time: 20:51 tw4 04/29 19:13 Order name: CBC with Diff; Complete Time: 20:50 tw4 04/29 19:13 Order name: LFT's; Complete Time: 20:52 tw4 04/29 19:13 Order name: Magnesium; Complete Time: 20:32 tw4 04/29 20:32 Interpretation: Within normal limits: MG 2.4. tw4 04/29 19:13 Order name: NT PRO-BNP [facility] 04/29 19:13 Order name: PT-INR; Complete Time: 20:32 tw 04/29 20:32 Interpretation: Within normal limits: PT 12.1. 4 04/29 19:13 Order name: Troponin (emerg Dept Use Only); Complete Time: 20:32 04/29 20:32 Interpretation: Within normal limits: TROPED < 0.02. [facility] 04/29 19:13 Order name: Urine Microscopic Only; Complete Time: 20:31 [facility] 04/29 20:31 Interpretation: Normal except: UBACT >50; URBC 5-10; UWBC >50. [facility] 04/29 19:54 Order name: Urine Culture aa1 04/29 20:29 Order name: Urine Dipstick--Ancillary (enter results) ar5 04/29 22:05 Order name: Basic Metabolic Panel [facility]OK 04/29 22:05 Order name: Basic Metabolic Panel [facility] 04/29 22:05 Order name: CBC with Automated Diff [facility]OK 04/29 22:05 Order name: CBC with Automated Diff EDMS 04/29 19:13 Order name: XRAY Chest (1 view); Complete Time: 20:32 [facility] 04/29 19:13 Order name: EKG; Complete Time: 19:15 [facility] 04/29 19:13 Order name: Cardiac monitoring; Complete Time: 19:54 tw4 04/29 19:13 Order name: EKG - Nurse/Tech; Complete Time: 19:55 tw4 04/29 19:13 Order name: IV Saline Lock; Complete Time: 19:55 tw4 04/29 22:05 Order name: NT PRO-BNP [facility]OK 04/29 22:05 Order name: NT PRO-BNP [facility] 04/29 22:05 Order name: Troponin I [facility]OK 04/29 22:05 Order name: Troponin I [facility]OK 04/29 22:05 Order name: Troponin I [facility]OK 04/29 19:13 Order name: Labs collected and sent; Complete Time: 19:54 tw4 04/29 19:13 Order name: O2 Per Protocol; Complete Time: 19:54 tw4 04/29 19:13 Order name: O2 Sat Monitoring; Complete Time: 19:54 tw4 04/29 19:13 Order name: Urine Dipstick-Ancillary (obtain specimen); Complete Time: 19:54 tw4 EC:19 Rate is 66 beats/min. Rhythm is regular. QRS [place] is Normal. [place] interval is normal. QRS tw4 interval is normal. QT interval is normal. No Q waves. T waves are Normal. ST Segment is depressed in leads III, aVF, <1mm. Clinical impression: NSR w/ Non-specific ST/T Changes and Abnormal EKG without significant change. Interpreted by me. Reviewed by me. Administered Medications: 20:56 Not Given (order changed): Rocephin - (cefTRIAXone) 1 grams IVPB once over 30 mins; tw4 (mix in 50 mL NS) 20:57 Not Given (order changed): LevaQUIN 750 mg 150 ml IVPB once over 90 mins tw4 21:03 Drug: Meropenem 1 grams Route: IV; Rate: calculated rate; Site: left upper arm; aa1 21:35 Follow up: IV Status: Completed infusion; IV Intake: 100ml aa1 21:03 Drug: D50W 50 ml Route: IVP; Site: left upper arm; aa1 21:35 Follow up: Response: No adverse reaction; Blood sugar is elevated aa1 21:04 Drug: D5-1/2 NS 1000 ml Route: IV; Rate: 75 ml/hr; Site: left upper arm; aa1 22:05 Follow up: IV Status: Infusion continued upon admission aa1 22:00 Drug: TORadol - Ketorolac 15 mg Route: IVP; Site: left upper arm; aa1 Point of Care Testing: Blood Glucose: 21:40 Blood Glucose: 129 mg/dL; jd3 Ranges: Critical Glucose Levels:Adult <50 mg/dl or >400 mg/dl <40 mg/dl or >180 mg/dl Disposition: 04/29/19 20:38 Hospitalization ordered by German Govea for Inpatient Admission. Preliminary diagnosis are Urinary tract infection, site not specified, Altered mental status, unspecified. - Bed requested for Telemetry/MedSurg (Inpatient). - Status is Inpatient Admission. aa1 - Condition is Serious. - Problem is an ongoing problem. - Symptoms are unchanged. UTI on Admission? Yes Signatures: Dispatcher [employer] EDOK Any Licea RN RN aa1 Mallory Agrawal RN RN fc Randi Umana RN RN tw2 Jose Meadows MD MD tw4 Corrections: (The following items were deleted from the chart) 21:52 20:38 Hospitalization Ordered by A Jeferson ARREOLA for Inpatient Admission. Preliminary fc diagnosis is Urinary tract infection, site not specified; Altered mental status, unspecified. Bed requested for Telemetry/MedSurg (Inpatient). Status is Inpatient Admission. Condition is Serious. Problem is an ongoing problem. Symptoms are unchanged. UTI on Admission? Yes. tw4 22:49 21:52 04/29/2019 20:38 Hospitalization Ordered by A Jeferson ARREOLA for Inpatient Admission. aa1 Preliminary diagnosis is Urinary tract infection, site not specified; Altered mental status, unspecified. Bed requested for Telemetry/MedSurg (Inpatient). Status is Inpatient Admission. Condition is Serious. Problem is an ongoing problem. Symptoms are unchanged. UTI on Admission? Yes. fc
--- NOTE | 2019-04-29 20:39 | ER ---
Nurse's Notes [facility] Name: Sharda Dewey Age: 79 yrs Sex: Female : 1940 Arrival Date: 04/29/2019 Time: 18:58 Bed 2 Private MD: Diagnosis: Urinary tract infection, site not specified;Altered mental status, unspecified Presentation: 04/29 18:58 Presenting complaint: EMS states: pt from [facility], pt is normally altered tw2 mental status, staff says normally she opens her eyes more and now she is not they are concerned that she is septic because she had a UTI last week and has had 3 rounds of antibiotics and she has not improved, pt has PICC line to upper LEFT arm, vs stable , BGL 98. Transition of care: patient was received from another setting of care (long-term care facility), [facility]. Onset of symptoms was April 29, 2019. Risk Assessment: Do you want to hurt yourself or someone else? Patient reports no desire to harm self or others. Initial Sepsis Screen: Does the patient meet any 2 criteria? Altered Mental Status. Does the patient have a suspected source of infection? Yes: Dysuria/Frequency/Urgency/UTI. Care prior to arrival: None. PICC line in place to upper LEFT arm per [facility]. 18:58 Method Of Arrival: EMS: [facility] tw2 18:58 Acuity: TITUS 2 tw2 Triage Assessment: 19:01 General: Appears in no apparent distress. Behavior is unresponsive. Pain: Unable to use tw2 pain scale. AMS. EENT: No signs and/or symptoms were reported regarding the EENT system. Neuro: Level of Consciousness is obtunded. Historical: - Allergies: 19:04 No Known Allergies; tw2 - PMHx: 19:04 Pneumonia; Diabetes - NIDDM; Depression; Delusional disorder; Hypertension; CAD; tw2 Dementia; ataxic gait; Anxiety; Anemia; DYSPHAGIA; Allergic rhinitis; Alzheimers; insomnia; - PSHx: 19:04 PEG tube; tw2 - Immunization history:: Adult Immunizations. - Social history:: Smoking status: . - Ebola Screening: : Patient denies travel to an Ebola-affected area in the 21 days before illness onset. Screenin:04 Abuse screen: Denies threats or abuse. Nutritional screening: No deficits noted. tw2 Tuberculosis screening: No symptoms or risk factors identified. Fall Risk Secondary diagnosis (15 points) dementia, impaired mobility. Assessment: 19:20 General: Appears in no apparent distress. comfortable, Behavior is calm, listless. aa1 Pain: Unable to use pain scale. Patient is disoriented. FLACC scale score is 0 out of 10. Neuro: Level of Consciousness is awake, listless, pt has advanced Alzheimer's and is normally disoriented and non-verbal. Oriented to none Moves all extremities. Speech with expressive aphasia noted, Facial symmetry appears normal, Pupils are PERRLA. Cardiovascular: Heart tones S1 S2 present Rhythm is regular. Respiratory: Airway is patent Respiratory effort is even, unlabored, Respiratory pattern is regular, symmetrical, Breath sounds are clear bilaterally. GI: PEG tube in place, clamped. : Genitalia appear normal. EENT: Poor dentition noted. Derm: Skin is intact, is healthy with good turgor, Skin is pink, warm \T\ dry. Musculoskeletal: Circulation, motion, and sensation intact. Capillary refill < 3 seconds. 21:37 Reassessment: Patient appears in no apparent distress at this time. No changes from aa1 previously documented assessment. Patient and/or family updated on plan of care and expected duration. Pain level reassessed. Awaiting bed assignment; family at bedside. 21:41 Reassessment: notified primary nurse and provider of pt's daughter expressing the pt's jd3 pain status. 22:30 Reassessment: Patient appears in no apparent distress at this time. No changes from aa1 previously documented assessment. Patient and/or family updated on plan of care and expected duration. Pain level reassessed. Report given to April on 4th floor. Vital Signs: 19:01 BP 110 / 58; Pulse 68; Resp 12; Temp 99(TE); Pulse Ox 100% on R/A; tw2 19:55 BP 107 / 71; Pulse 76; Resp 18; Temp 97.7; Pulse Ox 100% on R/A; aa1 21:37 BP 154 / 99; Pulse 89; Resp 16; Pulse Ox 97% on R/A; aa1 22:07 BP 157 / 71; Pulse 77; Resp 16; Temp 98.3; Pulse Ox 99% on R/A; aa1 ED Course: 16:58 Bed in low position. Call light in reach. Side rails up X2. desk monitor on. Pulse tw2 ox on. NIBP on. 18:58 Patient arrived in ED. tw2 19:00 Triage completed. tw2 19:00 Arm band placed on. tw2 19:00 Report given to SANDEEP Langford and SANDEEP Agarwal. tw2 19:08 Jose Meadows MD is Attending Physician. tw4 19:33 Initial lab(s) drawn, by me, sent to lab. aa1 19:34 XRAY Chest (1 view) In Process Unspecified. EDMS 19:37 EKG done, by ED staff, reviewed by Jose Meadows MD. aa1 19:40 Cleaned of incontinence. aa1 19:45 Urine collected: straight cath specimen, cloudy, sediment noted. aa1 19:52 Warm blanket given. Pillow given. aa1 19:59 Any Licea RN is Primary Nurse. aa1 20:37 German Govea MD is Hospitalizing Provider. tw4 21:43 No provider procedures requiring assistance completed. Patient admitted, IV remains in aa1 place. Administered Medications: 20:56 Not Given (order changed): Rocephin - (cefTRIAXone) 1 grams IVPB once over 30 mins; tw4 (mix in 50 mL NS) 20:57 Not Given (order changed): LevaQUIN 750 mg 150 ml IVPB once over 90 mins tw4 21:03 Drug: Meropenem 1 grams Route: IV; Rate: calculated rate; Site: left upper arm; aa1 21:35 Follow up: IV Status: Completed infusion; IV Intake: 100ml aa1 21:03 Drug: D50W 50 ml Route: IVP; Site: left upper arm; aa1 21:35 Follow up: Response: No adverse reaction; Blood sugar is elevated aa1 21:04 Drug: D5-1/2 NS 1000 ml Route: IV; Rate: 75 ml/hr; Site: left upper arm; aa1 22:05 Follow up: IV Status: Infusion continued upon admission aa1 22:00 Drug: TORadol - Ketorolac 15 mg Route: IVP; Site: left upper arm; aa1 Point of Care Testing: Blood Glucose: 21:40 Blood Glucose: 129 mg/dL; jd3 Ranges: Intake: 21:35 IV: 100ml; Total: 100ml. aa1 Outcome: 20:38 Decision to Hospitalize by Provider. tw4 22:40 Admitted to Med/surg accompanied by tech, family with patient, via stretcher, room 420, aa1 with chart, Report called to April 22:40 Condition: stable 22:40 Discharge instructions given to family, Instructed on the need for admit, Demonstrated understanding of instructions. 22:49 Patient left the ED. aa1 Signatures: Dispatcher [employer] EDMS Any Licea, RN RN aa1 Randi Umana RN RN tw2 Karri Sanchez RN RN jd3 Jose Meadows MD MD tw4
[2019-04-29] MEDS ORDERED: D50W 25 GM/50 ML SYRINGE IV ONE (21:11)
[2019-04-29] MEDS ORDERED: Meropenem 1 GM/100 ML BAG ONE (21:11)
[2019-04-29] MEDS ORDERED: D5 0.45 NS 1,000 ML IV ONE (21:12)
[2019-04-29] MEDS ORDERED: IPRATROPIUM BROM 0.5MG/2.5ML NEB PRN (22:03)
[2019-04-29] MEDS ORDERED: ALBUTEROL 2.5 MG/3 ML NEB SOL NEB PRN (22:03)
[2019-04-29] MEDS ORDERED: ACETAMINOPHEN 500 MG TAB PO PRN (22:03)
[2019-04-29] MEDS ORDERED: KETOROLAC 30 MG/ML INJ ONE (22:11)
[2019-04-29] MEDS ORDERED: D50W 25 GM/50 ML SYRINGE IV PRN (23:22)
[2019-04-29] MEDS: DEXTROSE 10%-WATER 500 ML IV SCH (23:40)
[2019-04-29] MEDS: SUPLENA IMPAIRED RENAL 237 ML CAN FT SCH (23:53)
[2019-04-30 00:47] VITALS: BMI 27.4
[2019-04-30 05:32] LABS: Absolute Monocytes 0.9 K/uL (0.1-1.3); Absolute Neutrophil 2.9 K/uL (1.8-8.0); Basophils % 0.4 % (0-1.3); Eosinophils % 2.1 % (0-4.4); Hematocrit 28.6 % (36.0-45.0); Lymphocytes % 33.4 % (15.3-44.8); MPV 7.3 fL (7.6-11.3); RBC Red Blood Cell Count 3.33 M/uL (3.86-4.86)
[2019-04-30 05:48] LABS: Potassium 4.6 mmol/L (3.5-5.1)
[2019-04-30] MEDS: DEXTROSE 10%-WATER 500 ML IV SCH ×4 (06:21→23:49)
[2019-04-30] MEDS: SUPLENA IMPAIRED RENAL 237 ML CAN FT SCH ×2 (08:00→12:28)
[2019-04-30] MEDS: Meropenem 1,000 MG in NA CHLORIDE 0.9% 100 ML IV SCH ×2 (09:00→20:52)
[2019-04-30] MEDS ORDERED: Meropenem 1000 MG/VIAL IV SCH (09:00)
--- NOTE | 2019-04-30 09:01 | EKG ---
Test Date: 2019-04-29 Test Time: 19:33:17 Key Filer: JOSIAH MEASUREMENT RESULTS: Intervals: Rate: 66 MD: 200 QRSD: 82 QT: 366 QTc: 383 [place]: P: 54 MD: 200 QRS: 5 T: 179 INTERPRETIVE STATEMENTS: Normal sinus rhythm ST & T wave abnormality, consider inferior ischemia Abnormal ECG Compared to ECG 09/07/2018 21:39:09 ST (T wave) deviation now present Possible ischemia now present Junctional rhythm no longer present Left ventricular hypertrophy no longer present Early repolarization no longer present Electronically Signed On 04-30-19 09:00:39 CDT by Sree Malagon
[2019-04-30] MEDS ORDERED: ACETAMINOPHEN 325 MG TABLET FT PRN (14:09)
[2019-04-30] MEDS: NA CHLORIDE 0.9% 1,000 ML IV SCH (14:45)
[2019-04-30] MEDS ORDERED: GLUCERNA 1.5 CAL 1,000 ML BOT FT SCH (15:00)
[2019-04-30] MEDS: ENOXAPARIN 30 MG/0.3 ML SQ SCH (16:55)
--- NOTE | 2019-04-30 20:21 | HP ---
Date of Admission: 04/30/2019 Chief Complaint: Fever and altered mental status. History Of Present Illness: This is an 79-year-old female patient who lives at [facility], was sen t to emergency room yesterday after nurse from [facility] contacted me, and informed me of the jonathan ent having fever that started in the morning of 04/29/2019, and she was having altered mental status. The patient is bed-bound due to prior stroke, but her baseline status at [facility] is that every time you try to communicate with her, she would open her eyes and she would smile at you, and someti mes she would follow commands and moves her extremities. Yesterday, nursing staff noted that there w as a change in this mental condition along with the fever. On 04/26/2019, her urinalysis and urine c ulture was done because of concerns about urinary tract infection, and she was started on Bactrim whi le waiting for the culture results and once the culture results came back showing E. coli, which was ESBL. Once we got this report back, Bactrim was discontinued and the patient was started on meropene m 1 g IV piggyback every 12 hours. The patient had received about 3 doses of meropenem at the [facility] prior to arrival to the emergency room for this admission. The patient did not have any fever until the morning of 04/29/2019. After the patient was evaluated in the ER last night, she was admi tted to the hospital. This morning when I saw her, she was lying in bed with her eyes closed. She d id not follow any commands, not in any distress. Allergies: NO KNOWN ALLERGIES. Medications: List reviewed. Review of Systems: HAT CONE INSPECTOR: As mentioned above. Genitourinary: As mentioned above. All other systems unable to obtain because patient does not answer any questions, and there was no fa alicia member at bedside. Family History: Not pertinent. Social History: Negative for smoking, alcohol use. Past Surgical History: PEG tube placement. Past Medical History: Significant for aspiration pneumonia, dysphagia, PEG tube placement July 2018, hypertension, diabetes mellitus, prior history of stroke with right-sided hemiparesis, chronic kidney disease stage 3, volume depletion, urinary tract infections, senile dementia, anemia. Physical Examination: Vital Signs: This morning, temperature 97.2, pulse 76, respiratory rate 16, blood pressure 133/63, o xygen saturation 100% on room air. Height 5 feet 6 inches, weight 170 pounds. General: The patient lying in bed, not in distress, with her eyes closed, does not communicate, does not follow any commands. HEENT: Head atraumatic, normocephalic. Conjunctivae nonerythematous. Sclerae white. Mouth, no thr ush or edema noted. Ears/Nose, no mass, lesion, discharge noted. Neck: Supple. No JVD, lymph nodes, bruit, thyromegaly noted. Lungs: Bilateral good equal air entry. Clear to auscultation. No rhonchi. No rales. Heart: Normal heart sounds, no murmur or gallop. Abdomen: Presence of PEG tube in the upper anterior abdominal wall. Surrounding skin appears normal . Extremities: No leg edema. No calf tenderness. Skin: No rash, ulcer, cellulitis. Lymphatics: No lymph node enlargement in neck, supraclavicular, infraclavicular region. Neuro: The patient does not follow any commands, so detail HAT CONE INSPECTOR exam not possible. Chest: Unremarkable. External Genitalia: Deferred. Rectal: Deferred. Laboratory Data: Yesterday, white count 5.7, hemoglobin 9.3, platelets 244. This morning, white cou nt 6, hemoglobin 9.6, platelets 226. Yesterday, sodium 126, potassium 4.9, chloride 90, bicarb 33, B UN 40, creatinine 1.98, glucose 58. Liver function tests unremarkable, except SGOT 52, troponin less than 0.02. Second and third troponin 0.02. This morning, sodium 124, potassium 4.6, chloride 90, b icarb 29, BUN 38, creatinine 1.86, glucose 83. Chest x-ray, no evidence of acute cardiopulmonary changes. Urine culture from 04/26/2019 showing E. coli, which is ESBL. Impression: 1.Urinary tract infection, organism Escherichia coli, extended-spectrum beta-lactamase. 2.Hyponatremia. 3.Volume depletion. 4.Chronic kidney disease, stage 3. 5.Stroke with right-sided hemiparesis. 6.Hypoglycemia. 7.Type 2 diabetes mellitus. 8.Anemia. 9.Senile dementia. 10.Hypertension. 11.Diabetes mellitus. Plan: We will go ahead and admit the patient to the hospital for further evaluation and management o f this problem. The patient is appropriate for inpatient and is expected to spend 2 midnights in [facility]. We will continue IV antibiotics meropenem per order, monitor her temperature, blood work. IV fluid will be given per order for volume depletion and hyponatremia problem. Hypoglycemia will be t reated with IV glucose solution per order and D50 if needed from time to time. We will give her tube feeding per order, monitor electrolytes, renal function, and blood count, and I will see her tomorro w for followup. ANUPAMA/MODL Voice ID: [id number]
[2019-04-30] MEDS: LORAZEPAM 1 MG TABLET FT SCH (20:52)
[2019-04-30] MEDS: AMLODIPINE 5 MG TAB FT SCH (20:52)
[2019-04-30] MEDS: MEMANTINE HCL 10 MG TABLET FT SCH (20:53)
[2019-04-30] MEDS: ALLOPURINOL 100 MG TAB FT SCH (20:53)
[2019-04-30] MEDS: CARVEDILOL 12.5 MG TAB FT SCH (20:53)
[2019-04-30] MEDS: CITALOPRAM 10 MG TABLET FT SCH (20:53)
[2019-04-30] MEDS: DONEPEZIL HCL 5 MG TAB FT SCH (20:53)
[2019-04-30] MEDS ORDERED: AMLODIPINE 5 MG TAB FT SCH (21:00)
[2019-04-30] MEDS ORDERED: CARVEDILOL 12.5 MG TAB FT SCH (21:00)
[2019-05-01] MEDS: NA CHLORIDE 0.9% 1,000 ML IV SCH ×2 (04:34→09:33)
[2019-05-01 06:40] LABS: Absolute Lymphocytes (CBC) 1.4 K/uL (0.7-4.9); Absolute Monocytes 0.7 K/uL (0.1-1.3); Absolute Neutrophil 1.7 K/uL (1.8-8.0); Basophils % 0.5 % (0-1.3); Eosinophils % 4.1 % (0-4.4); Hematocrit 25.6 % (36.0-45.0); Lymphocytes % 34.8 % (15.3-44.8); MPV 7.9 fL (7.6-11.3); Monocytes % 17.8 % (3.3-12.3); RBC Red Blood Cell Count 2.94 M/uL (3.86-4.86)
[2019-05-01 06:52] LABS: Magnesium 2.3 mg/dL (1.8-2.4); Potassium 4.7 mmol/L (3.5-5.1)
[2019-05-01 08:31] LABS: Anisocytosis 1+; Blood Morphology Comment NOTED (NOT SEEN); Platelet Estimate ADEQ; Urine White Blood Cell Casts OK
[2019-05-01] MEDS: Meropenem 1,000 MG in NA CHLORIDE 0.9% 100 ML IV SCH ×2 (08:44→21:43)
[2019-05-01] MEDS: CARVEDILOL 12.5 MG TAB FT SCH ×2 (08:45→21:45)
[2019-05-01] MEDS: AMLODIPINE 5 MG TAB FT SCH ×2 (08:45→21:44)
[2019-05-01] MEDS: MEMANTINE HCL 10 MG TABLET FT SCH ×2 (08:45→21:44)
[2019-05-01] MEDS: ASPIRIN 81 MG CHEWABLE TABLET FT SCH (08:45)
[2019-05-01] MEDS: ALLOPURINOL 100 MG TAB FT SCH ×2 (08:46→21:44)
[2019-05-01] MEDS: MULTIVITAMINS 5 ML ORAL SYR FT SCH (08:46)
[2019-05-01] MEDS: DEXTROSE 10%-WATER 500 ML IV SCH (15:05)
--- NOTE | 2019-05-01 15:36 | PN ---
Date of Progress Note: 05/01/2019 Subjective: The patient was seen this morning for followup. No new complaints or problems reported by nursing staff. The patient was lying in bed. She was sleeping. She did wake up when I was exami michael her, but did not communicate. Objective: Vital Signs: Reviewed. HEENT: Unremarkable. Lungs: Clear to auscultation. Heart: Sounds normal. Abdomen: Soft. Bowel sounds normal. No guarding, rigidity, tenderness, or distention. Extremities: No leg edema. Laboratory Data: White count 4, hemoglobin 8.9, platelets 225. Sodium 134, potassium 4.7, chloride 100, bicarb 31, BUN 29, creatinine 1.26, glucose 125. Fingerstick blood sugar readings reviewed. Impression: 1.Urinary tract infection, organism Escherichia coli, extended-spectrum beta-lactamases. 2.Hyponatremia. 3.Volume depletion. 4.Stroke with right-sided hemiparesis. Plan: We will go ahead and continue current medications. Patient's hyponatremia has improved. When I examined her, she woke up and she was trying to push my hand away from her. She did not communica te. Fingerstick blood sugar readings reviewed. She is tolerating her back to feeding very well and will continue to monitor fingerstick blood sugar hourly with need for IV D10W depending on her sugar readings as per yesterday's order. I will see her tomorrow for followup and we will reduce her IV fluid and repeat blood work tomorrow morning. ANUPAMA/MODL Voice ID: [id number] Report ID: [id number]
[2019-05-01] MEDS: ENOXAPARIN 30 MG/0.3 ML SQ SCH (16:32)
[2019-05-01] MEDS: LORAZEPAM 1 MG TABLET FT SCH (21:43)
[2019-05-01] MEDS: DONEPEZIL HCL 5 MG TAB FT SCH (21:44)
[2019-05-01] MEDS: CITALOPRAM 10 MG TABLET FT SCH (21:45)
[2019-05-02] MEDS: NA CHLORIDE 0.9% 1,000 ML IV SCH (02:34)
[2019-05-02] MEDS: DEXTROSE 10%-WATER 500 ML IV SCH (05:20)
[2019-05-02 07:33] LABS: Absolute Monocytes 0.6 K/uL (0.1-1.3); Absolute Neutrophil 3.4 K/uL (1.8-8.0); Basophils % 0.5 % (0-1.3); Eosinophils % 3.7 % (0-4.4); Lymphocytes % 18.4 % (15.3-44.8); MPV 7.6 fL (7.6-11.3); Monocytes % 11.6 % (3.3-12.3); RBC Red Blood Cell Count 3.44 M/uL (3.86-4.86)
[2019-05-02] MEDS ORDERED: D5W 1,000 ML IV SCH (08:00)
[2019-05-02] MEDS: JEVITY 1.5 CAL LIQUID 1,000 ML BOT FT SCH ×8 (08:00→14:44)
[2019-05-02] MEDS: ASPIRIN 81 MG CHEWABLE TABLET FT SCH (08:03)
[2019-05-02] MEDS: ALLOPURINOL 100 MG TAB FT SCH ×2 (08:03→20:12)
[2019-05-02] MEDS: AMLODIPINE 5 MG TAB FT SCH ×2 (08:03→20:30)
[2019-05-02] MEDS: MEMANTINE HCL 10 MG TABLET FT SCH ×2 (08:03→20:13)
[2019-05-02] MEDS: CARVEDILOL 12.5 MG TAB FT SCH ×2 (08:09→20:13)
[2019-05-02 08:11] LABS: Potassium 5.7 mmol/L (3.5-5.1)
[2019-05-02] MEDS: SOD POLYSTYREN SUL 15 GM/60 ML UCUP PO SCH ×2 (09:20→20:11)
[2019-05-02] MEDS: MULTIVITAMINS 5 ML ORAL SYR FT SCH (09:21)
[2019-05-02] MEDS: Meropenem 1,000 MG in NA CHLORIDE 0.9% 100 ML IV SCH ×2 (10:50→20:31)
[2019-05-02] MEDS: ENOXAPARIN 30 MG/0.3 ML SQ SCH (16:58)
[2019-05-02] MEDS: CITALOPRAM 10 MG TABLET FT SCH (20:12)
[2019-05-02] MEDS: DONEPEZIL HCL 5 MG TAB FT SCH (20:12)
[2019-05-02] MEDS: LORAZEPAM 1 MG TABLET FT SCH (20:12)
--- NOTE | 2019-05-02 22:59 | PN ---
Subjective: The patient was seen this morning for followup. She was lying in bed, not in any distre ss. Her mental status had improved significantly from the time of admission until today. This naunni ng when I saw her, she looked at me, smiled at me and was noted to be moving her extremities like she normally does at the skilled nursing. Not in any distress. Objective: Vital Signs: Reviewed. HEENT: Unremarkable. Lungs: Clear to auscultation. Heart: Sounds normal. Abdomen: Soft. Bowel sounds normal. No guarding, rigidity, tenderness, distention. Extremities: No leg edema. Laboratory Data: White count 5.2, hemoglobin 10, platelets 261. Sodium 137, potassium 5.7, chloride 104, bicarb 32, BUN 25, creatinine 0.93, glucose 106. Hemoglobin A1c pending. Impression: 1.Urinary tract infection. 2.Hyperkalemia. 3.Anemia. Plan: We will go ahead and continue current IV antibiotics. The patient currently is on IV fluid D1 0W at 30 cc/hour and normal saline at 40 cc/hour. Tolerating IV fluid D10W, start her on IV fluid D5 W and continue to monitor blood sugar every hour if glucose higher than 150, then to discontinue this IV fluid D5W, if it is less than 100, then to start it. I have discontinued her choice DM Diabetic Feeding Formula and will start her on Jevity and start her on Kayexalate 30 g twice a day today and h opefully starting tomorrow will reduce it to either once a day or every other day. The patient was g etting this Kayexalate every other day at skilled nursing, but recently it was discontinued because of l ow potassium of 2.8 done on outpatient basis, so it appears that we have to get her back on the Kayex alate. We will repeat blood work tomorrow. I will see her tomorrow. Possible discharge to go back to skilled nursing tomorrow depending on her condition. ANUPAMA/MODL Voice ID: [id number] Report ID: [id number]
[2019-05-03 06:55] LABS: Absolute Monocytes 0.5 K/uL (0.1-1.3); Basophils % 0.5 % (0-1.3); Eosinophils % 4.5 % (0-4.4); Hematocrit 29.6 % (36.0-45.0); Lymphocytes % 20.8 % (15.3-44.8); MPV 8.4 fL (7.6-11.3); Monocytes % 10.7 % (3.3-12.3); RBC Red Blood Cell Count 3.41 M/uL (3.86-4.86)
[2019-05-03] MEDS ORDERED: D50W 25 GM/50 ML SYRINGE IV PRN (07:47)
[2019-05-03] MEDS: Meropenem 1,000 MG in NA CHLORIDE 0.9% 100 ML IV SCH ×2 (08:24→21:22)
[2019-05-03] MEDS: SOD POLYSTYREN SUL 15 GM/60 ML UCUP PO SCH ×3 (08:25→21:23)
[2019-05-03] MEDS: ASPIRIN 81 MG CHEWABLE TABLET FT SCH (08:25)
[2019-05-03] MEDS: CARVEDILOL 12.5 MG TAB FT SCH ×3 (08:25→21:25)
[2019-05-03] MEDS: MEMANTINE HCL 10 MG TABLET FT SCH ×3 (08:25→21:24)
[2019-05-03] MEDS: AMLODIPINE 5 MG TAB FT SCH ×3 (08:25→21:24)
[2019-05-03] MEDS: ALLOPURINOL 100 MG TAB FT SCH ×3 (08:25→21:25)
[2019-05-03] MEDS: MULTIVITAMINS 5 ML ORAL SYR FT SCH ×2 (08:26→09:00)
[2019-05-03 09:18] LABS: Magnesium 1.7 mg/dL (1.8-2.4); Potassium 5.6 mmol/L (3.5-5.1)
[2019-05-03] MEDS: JEVITY 1.5 CAL LIQUID 1,000 ML BOT FT SCH (14:58)
[2019-05-03 16:17] VITALS: O2SAT 95
[2019-05-03] MEDS: ENOXAPARIN 30 MG/0.3 ML SQ SCH (16:21)
[2019-05-03] MEDS: LORAZEPAM 1 MG TABLET FT SCH (21:22)
[2019-05-03] MEDS: DONEPEZIL HCL 5 MG TAB FT SCH (21:23)
[2019-05-03] MEDS: CITALOPRAM 10 MG TABLET FT SCH (21:25)
--- NOTE | 2019-05-04 01:03 | PN ---
Date of Progress Note: 05/03/2019 Subjective: The patient was seen this morning for followup. She was lying in bed, not in distress. Objective: Vital Signs: Reviewed. HEENT: Examination unremarkable. Lungs: Clear to auscultation. Heart: Sounds normal. Abdomen: Soft. Bowel sounds normal. No guarding, rigidity, tenderness, distention. Extremities: No leg edema. Laboratory Data: White count 4.8, hemoglobin 10.1, platelets 256. Chemistry shows potassium 5.6. Impression: 1.Urinary tract infection, organism Escherichia coli, extended-spectrum beta-lactamases. 2.Volume depletion. 3.Hyperkalemia. 4.Hypertension. Plan: We will continue current IV antibiotics. We will discontinue IV fluid D5W and nurse was instr ucted to continue to check fingerstick blood sugar every hour, and if glucose is less than 80 then to give 1 amp of D50 IV. Continue current tube feeding, and I will see her tomorrow for followup, poss ible discharge to go to intermediate tomorrow depending on her condition. ANUPAMA/MODL Voice ID: [id number] Report ID: [id number]
[2019-05-04] MEDS: ALLOPURINOL 100 MG TAB FT SCH (09:00)
[2019-05-04] MEDS: Meropenem 1,000 MG in NA CHLORIDE 0.9% 100 ML IV SCH (09:30)
[2019-05-04] MEDS: AMLODIPINE 5 MG TAB FT SCH (09:31)
[2019-05-04] MEDS: MULTIVITAMINS 5 ML ORAL SYR FT SCH (09:31)
[2019-05-04] MEDS: MEMANTINE HCL 10 MG TABLET FT SCH (09:31)
[2019-05-04] MEDS: ASPIRIN 81 MG CHEWABLE TABLET FT SCH (09:31)
[2019-05-04] MEDS: CARVEDILOL 12.5 MG TAB FT SCH (09:35)
[2019-05-04] MEDS: SOD POLYSTYREN SUL 15 GM/60 ML UCUP PO SCH (09:35)
[2019-05-04 12:08] VITALS: BP 131/75; TEMP 98.2
--- NOTE | 2019-05-05 05:54 | DS ---
Date of Discharge: 05/04/2019 Disposition: Discharged to go to [facility]. Physical Examination: HEENT: Unremarkable. Lungs: Clear to auscultation. Heart: Sounds normal. Abdomen: Soft. Bowel sounds normal. No guarding, rigidity, tenderness, or distention. Extremities: No leg edema. Laboratories Done During This Hospitalization: Upon admission, white count 5.7, hemoglobin 9.3, plat elets 244. CBC yesterday, white count 4.8, hemoglobin 10.1, platelets 256. Last chemistry today, so dium 139, potassium 5, chloride 102, bicarb 35, BUN 25, creatinine 0.98, glucose 120. Urine culture during this admission growing Enterococcus faecalis and 2 days prior to this admission, the urine cul ture on outpatient basis was growing E coli and it was ESBL. Discharge Medications And Instructions: 1.Continue prior [facility] medication including PEG tube feeding with Suplena. 2.Give ampicillin 500 mg via PEG tube 3 times a day for 1 week. 3.Give meropenem 1000 mg IV piggyback every 12 hours for 5 days. 4.Midline care per protocol. 5.Remove Midline after 5 days. 6.Chem 7 once a week starting next week on Thursday. Hospital Course: An 79-year-old female patient living at [facility], who is bed-bound with prior s troke and she has PEG tube for feeding purpose and all her medication administration purpose. She wa s doing fine in her usual state of health until recently had urinary tract infection and urine cultur e had grown E coli and it was ESBL. So, Midline was placed at the [facility] and the patient was s tarted on IV meropenem 1000 mg every 12 hours. She received 3 doses of this antibiotic and nursing [facility] staff noted that she was having fever with some altered mental status, so at that time decision w as made to send her to the emergency room. After she was evaluated in the ER, she was admitted to [facility]. We decided to continue her meropenem at the hospital and continue her [facility] medic ation. At [facility], she was getting Suplena as a tube feeding. Here at the hospital in the [facility], she was getting Glucerna and as of today, we changed her feeding to Suplena. Initially, her p otassium was normal, but during this hospitalization, about maybe 3 days ago or so, her potassium preston t up to 5.7 and we started her on Kayexalate 30 g twice a day. Her potassium is at 5 today after 2-3 days of Kayexalate therapy. At [facility], she was on Kayexalate every other day, but it was disc ontinued recently because her potassium had dropped low around 2.7-2.8 range. So, what I believe kaitlynn t the patient has tendency to probably hyperkalemia and tube feeding may be playing a role with the h yperkalemia, so using formula like Suplena that has low potassium, probably is more appropriate formu la for her instead of other formula like Glucerna or choice DM, and what I believe that while the harshad barnes was getting feeding formula that is low in potassium and getting Kayexalate, her potassium proba gustavo dropped too low and while in the hospital getting feeding formula like Glucerna, her potassium le ferny started to go up, so I believe that using Suplena, which has low potassium and not giving any Quin exalate, hopefully, we will be able to get her potassium level within normal range, but if needed, we will consider to restart Kayexalate on outpatient basis. We will monitor with electrolytes and bianka l function. While in the hospital. Her mental status improved. The patient had volume depletion, w hich was corrected with IV fluid and her mental status improved back to her usual baseline or almost close to it. Her usual baseline is that she wakes up when you examine her. She does not answer ques tions, but she looks at you, smiles and moves her extremity, and she was noted to be doing all that a s of yesterday. Her repeat urine culture done during this hospitalization showed enterococcus faecal is and according to sensitivity result, we will give her 1 week of ampicillin. The patient was disch arged in stable condition to go back to [facility] with above-mentioned medication and instructions . The patient had hypoglycemia during this hospitalization and she required initially IV fluid D10W subsequently be loaded down to IV fluid D5W and over 24 hours ago, we discontinued her IV fluid compl etely and she is able to maintain her adequate level of glucose without any hypoglycemia problem. Final Diagnoses: 1.Urinary tract infection, organism Escherichia coli, extended-spectrum beta-lactamase and Enterococ cus faecalis. 2.Hyponatremia. 3.Volume depletion. 4.Chronic kidney disease stage 3. 5.Hyperkalemia. 6.Stroke with right-sided hemiparesis. 7.Hypoglycemia. 8.Type 2 diabetes mellitus with hypoglycemia. 9.Anemia. 10.Senile dementia. 11.Hypertension. ANUPAMA/MODL Voice ID: [id number] Report ID: [id number]
== END 2019-05-04 12:45 | DRG 690 ==
LOC: ER 18:55 → 4TH 22:01
PROVIDERS: ADMIT Internal Medicine; ATTEND Internal Medicine
DX: N39.0 Urinary tract infection, site not specified (principal); E87.1 Hypo-osmolality and hyponatremia; I69.351 Hemiplegia and hemiparesis following cerebral infarction affecting right dominant side; B96.20 Unspecified Escherichia coli [E. coli] as the cause of diseases classified elsewhere; Z16.12 Extended spectrum beta lactamase (ESBL) resistance; E86.9 Volume depletion, unspecified; I12.9 Hypertensive chronic kidney disease with stage 1 through stage 4 chronic kidney disease, or unspecified chronic kidney disease; E11.22 Type 2 diabetes mellitus with diabetic chronic kidney disease; N18.3 Chronic kidney disease, stage 3 (moderate); E11.649 Type 2 diabetes mellitus with hypoglycemia without coma; D64.9 Anemia, unspecified; F03.90 Unspecified dementia, unspecified severity, without behavioral disturbance, psychotic disturbance, mood disturbance, and anxiety; Z93.1 Gastrostomy status; R13.10 Dysphagia, unspecified; E87.5 Hyperkalemia; Z74.01 Bed confinement status
CPT/HCPCS: 36415; 71045; 80048; 80076; 81003; 81015; 82962; 83036; 83735; 83880; 84484; 85025; 85610; 87077; 87086; 87088; 87186; 93005; 94760; 96365; 96375; 99285; J1650; J2185; J7030

== ENCOUNTER 2020-06-05 08:45 | Inpatient (IN) | payer OTHER ==
[2020-06-05 09:48] LABS: Protime INR 1.07
[2020-06-05 09:50] LABS: Absolute Lymphocytes (CBC) 1.1 K/uL (0.7-4.9); Basophils % 0.1 % (0-1.3); Hematocrit 22.2 % (36.0-45.0); Lymphocytes % 9.3 % (15.3-44.8); MPV 8.1 fL (7.6-11.3); RBC Red Blood Cell Count 2.57 M/uL (3.86-4.86)
[2020-06-05 10:10] LABS: ALT/SGPT 44 U/L (12-78); AST/SGOT 45 U/L (15-37); Albumin 2.8 g/dL (3.4-5.0); Alkaline Phosphatase 196 U/L (45-117); Amylase 106 U/L (25-115); BUN Blood Urea Nitrogen 51 mg/dL (7-18); Bicarbonate 20 mmol/L (21-32); Bilirubin Direct 0.1 mg/dL (0-0.2); Bilirubin Total 0.3 mg/dL (0.2-1.0); CKMB Creatine Kinase MB 9.2 ng/mL (0.3-3.6); Creatine Phosphokinase 67 U/L (26-192); Glucose Level 111 mg/dL (74-106); Lipase 189 U/L (73-393); NT PRO-BNP 3900 pg/mL (<450); Protein, Total 7.7 g/dL (6.4-8.2); Sodium Level 121 mmol/L (136-145); Troponin (Emerg Dept Use Only) < 0.02 ng/mL (0.0-0.045)
[2020-06-05] MEDS ORDERED: VANCOMYCIN/NS 1 gm 1 GM/250 ML BAG IV ONE (10:15)
[2020-06-05] MEDS ORDERED: CEFEPIME/SWI 1gm 10 ML IV ONE (10:15)
[2020-06-05 10:17] LABS: Blood Morphology Comment NOT SEEN (NOT SEEN); Platelet Estimate ADEQ; Platelets, Giant FEW; Toxic Granulation 1+
[2020-06-05 10:38] LABS: Urine Blood 3+ (NEG); Urine Glucose NEGATIVE (NEG); Urine Protein 3+ (NEG); Urine Specific Gravity 1.025 (1.005-1.030); Urine pH 6.5 (5.0-7.0)
[2020-06-05 10:44] LABS: Magnesium 2.3 mg/dL (1.8-2.4)
[2020-06-05 10:51] LABS: Urine Bacteria LOADED /HPF (<20); Urine Culture Reflex Order REFLEXED; Urine RBC 20-50 /HPF (NONE SEEN)
[2020-06-05 10:52] LABS: Urine Urothelial Cells <5 /HPF (NONE SEEN)
[2020-06-05] MEDS ORDERED: PANTOPRAZOLE 40 MG INJ ONE (10:52)
[2020-06-05] MEDS ORDERED: NA CHLORIDE 0.9% 1,000 ML ONE ×3 (10:52→16:04)
[2020-06-05] MEDS ORDERED: PANTOPRAZOLE INJ 80 MG in NA CHLORIDE 0.9% 250 ML IV ONE (11:00)
--- NOTE | 2020-06-05 11:09 | EDPHYS ---
Physician Documentation [facility] Name: Sharda Dewey Age: 80 yrs Sex: Female : 1940 Arrival Date: 06/05/2020 Time: 08:53 Bed 4 Private MD: ED Physician Vidal Sanchez HPI: 06/05 09:45 This 80 yrs old Black Female presents to ER via EMS with complaints of Low Body Temp. mirian 09:45 The patient has shortness of breath at rest, with light activity. Onset: The mirian symptoms/episode began/occurred 2 day(s) ago. Duration: The symptoms are continuous, and are steadily getting worse. The patient's shortness of breath has no apparent modifying factors. The patient or guardian reports airway noise, cough, difficulty breathing, flu symptoms. Onset: The symptoms/episode began/occurred this morning, today. Modifying factors: The symptoms are alleviated by nothing. the symptoms are aggravated by nothing. FROM [place], [place], HYPOTHERMIC, CONGESTION, BRADYCARDIA. Associated signs and symptoms: Pertinent positives: non-productive cough. Severity of symptoms: At their worst the symptoms were moderate in the emergency department the symptoms are unchanged. Historical: - Allergies: 09:42 No Known Allergies; ph - PMHx: 09:42 Allergic rhinitis; Alzheimers; Anemia; Anxiety; ataxic gait; CAD; Delusional disorder; ph Dementia; Depression; Diabetes - NIDDM; DYSPHAGIA; Hypertension; insomnia; Pneumonia; - PSHx: 09:42 PEG tube; ph - Immunization history:: Adult Immunizations unknown. - Social history:: Smoking status: unknown. - Family history:: not pertinent. ROS: 09:45 Constitutional: Positive for fatigue, malaise. mirian 09:45 Cardiovascular: Positive for palpitations. 09:45 Respiratory: Positive for cough, shortness of breath, at rest. 09:45 Neuro: Positive for altered mental status, erica able to walk, talk, feed herself. Exam: 09:45 Constitutional: The patient appears lethargic. mirian 09:45 Cardiovascular: Rate: bradycardic, actual rate is 38 bpm, Rhythm: regular, Pulses: Pulses are 2+ in bilateral radial, brachial, femoral, popliteal, posterior tibial and and dorsalis pedis arteries.. Heart sounds: normal, Edema: is not appreciated, JVD: is not appreciated. 09:45 Respiratory: mild respiratory distress is noted, Respirations: labored breathing, that is mild, Breath sounds: bronchial sounds, decreased breath sounds, rhonchi, Respiratory rate: 27-35 09:45 Abdomen/GI: Inspection: distension, Bowel sounds: diminished, Palpation: nontender, Liver: no appreciated palpable abnormalities, Hernia: not appreciated, gastrosomy tube. 10:02 ECG was reviewed by the Attending Physician. mirian 10:05 Abdomen/GI: Rectal exam: rectal tone normal, Stool: guaiac positive, black, mirian hemorrhoid(s), are not appreciated, mass, is not appreciated, swelling, is not appreciated, tenderness, is not appreciated. Vital Signs: 09:00 BP 120 / 86; Pulse 27; Resp 16; Temp 93.2(R); Pulse Ox 98% on R/A; ph 09:15 BP 133 / 64; Pulse 38; Resp 15; Pulse Ox 100% ; sv 09:31 BP 83 / 55; Pulse 37; Resp 15; Pulse Ox 94% ; sv 10:00 BP 69 / 46; Pulse 28; Resp 17; Pulse Ox 100% on R/A; sv 10:15 BP 77 / 63; Pulse 32; Resp 13; Temp 92.5(C); Pulse Ox 94% on R/A; sv 11:00 BP 99 / 76; Pulse 31; Resp 16; Pulse Ox 98% on R/A; sv 11:38 BP 104 / 90; Pulse 30; Resp 17; Temp 92.6(C); Pulse Ox 98% on R/A; sv 12:16 BP 73 / 47; Pulse 32; Resp 21; Pulse Ox 95% on R/A; sv 14:16 Weight 72.57 kg; Height 5 ft. 1 in. (154.94 cm); sv 14:16 Body Mass Index 30.23 (72.57 kg, 154.94 cm) sv Procedures: 10:26 Peripheral line: by aseptic technique a peripheral line was placed in the right [facility] external jugular vein. MDM: 09:11 Patient medically screened. [facility] 09:55 Differential diagnosis: Anemia asthma, Bronchitis CHF exacerbation, bronchitis, flu. [facility] Antibiotic administration: zosyn. Differential Diagnosis altered mental status, sepsis. The patient's Wells Deep Vein Thrombosis Score was calculated as follows: Total Score: 0-2 Pts- Low Risk. The patient's pulmonary embolism risk score was calculated as follows: Total Score: 0-2 points. This patient was found to be at low risk for a pulmonary embolism by using the Well's assessment criteria. Immunization status: Pneumococcal vaccine: Influenza vaccine: Data reviewed: vital signs, nurses notes, EMS record, lab test result(s), EKG, radiologic studies. 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 Test interpretation: by ED physician or midlevel provider: ECG, plain radiologic studies. Counseling: I had a detailed discussion with the patient and/or guardian regarding: the historical points, exam findings, and any diagnostic results supporting the discharge/admit diagnosis, lab results, radiology results, the need for further work-up and treatment in the hospital. 06/05 09:25 Order name: Amylase, Serum ph 06/05 09:25 Order name: Basic Metabolic Panel ph 06/05 09:25 Order name: Blood Culture Adult (2) ph 06/05 09:25 Order name: CBC with Diff; Complete Time: 11:00 ph 06/05 09:25 Order name: Ckmb; Complete Time: 11:00 ph 06/05 09:25 Order name: CPK; Complete Time: 11:00 ph 06/05 09:25 Order name: Lactate; Complete Time: 11:00 ph 06/05 09:25 Order name: LFT's; Complete Time: 11:00 ph 06/05 09:25 Order name: Lipase; Complete Time: 11:00 ph 06/05 09:25 Order name: Procalcitonin; Complete Time: 11:00 ph 06/05 09:25 Order name: Protime (+inr); Complete Time: 11:00 ph 06/05 09:25 Order name: Ptt, Activated; Complete Time: 11:00 ph 06/05 09:25 Order name: Troponin (emerg Dept Use Only); Complete Time: 11:00 ph 06/05 09:25 Order name: Urine Microscopic Only; Complete Time: 11:00 ph 06/05 09:26 Order name: Amylase; Complete Time: 11:00 EDMS 06/05 09:26 Order name: Basic Metabolic Panel; Complete Time: 11:00 EDMS 06/05 09:42 Order name: Magnesium mirian 06/05 09:53 Order name: Type And Screen mirian 06/05 09:53 Order name: NT PRO-BNP; Complete Time: 11:00 EDMS 06/05 10:17 Order name: Manual Differential; Complete Time: 11:00 EDMS 06/05 10:30 Order name: Urine Dipstick--Ancillary (enter results); Complete Time: 11:00 em1 06/05 10:45 Order name: Magnesium; Complete Time: 11:00 EDMS 06/05 10:53 Order name: Urine Culture EDMS 06/05 11:07 Order name: Packed RBC Leukored EDMS 06/05 15:07 Order name: Occult Blood--Ancillary sv 06/05 17:05 Order name: Cortisol EDMS 06/05 19:53 Order name: UR SODIUM EDMS 06/05 19:56 Order name: Ur Protein EDMS 06/05 09:25 Order name: Chest Single View XRAY; Complete Time: 13:59 ph 06/05 09:25 Order name: Accucheck; Complete Time: 09:29 ph 06/05 09:25 Order name: Cardiac monitoring; Complete Time: 09:29 ph 06/05 09:25 Order name: EKG - Nurse/Tech; Complete Time: 14:17 ph 06/05 09:25 Order name: IV Saline Lock - Large Bore; Complete Time: 09:29 ph 06/05 09:25 Order name: Labs collected and sent; Complete Time: 09:29 ph 06/05 09:25 Order name: O2 Per Protocol; Complete Time: 09:29 ph 06/05 09:25 Order name: O2 Sat Monitoring; Complete Time: 09:29 ph 06/05 09:42 Order name: EKG; Complete Time: 09:43 mirian 06/05 11:06 Order name: EKG Electrocardiogram; Complete Time: 14:16 EDMS 06/05 11:19 Order name: CONS Physician Consult EDMS 06/05 11:19 Order name: CONS Physician Consult EDMS 06/05 11:19 Order name: CONS Physician Consult EDMS 06/05 19:57 Order name: UR POTASSIUM EDMS 06/05 20:06 Order name: Osmolality, Urine EDMS 06/05 20:29 Order name: Basic Metabolic Panel EDMS 06/05 21:15 Order name: US EDMS 06/06 00:24 Order name: Glucose, Ancillary Testing EDMS 06/05 09:25 Order name: Urine Dipstick-Ancillary (obtain specimen); Complete Time: 10:35 ph 06/05 09:42 Order name: IV Saline Lock; Complete Time: 10:35 mirian 06/05 09:42 Order name: Spring; Complete Time: 09:56 mirian 06/05 10:02 Order name: Ayana. Order: antony [place]; Complete Time: 10:35 mirian EC:02 Rate is 27 beats/min. Rhythm is irregular. QRS [place] is Normal. QRS interval is mirian prolonged. QT interval is normal. No Q waves. T waves are Normal. Clinical impression: 3rd degree heart block. Interpreted by me. Reviewed by me. Administered Medications: 09:29 CANCELLED (Physician Discretion): NS 0.9% (30 ml/kg) 30 ml/kg IV at bolus once; Sepsis sv Protocol 11:12 Drug: Cefepime 1 grams Route: IVPB; Rate: 200 ml/hr; Infused Over: 30 mins; Site: right sv upper arm; 11:14 Follow up: Response: No adverse reaction; IV Status: Completed infusion; IV Intake: sv 10ml ; Given IVP per pharmacy 11:14 Drug: vancoMYCIN 1 grams Route: IVPB; Infused Over: 2 hrs; Site: left hand; sv 13:10 Follow up: Response: No adverse reaction; IV Status: Completed infusion; IV Intake: sv 250ml 11:14 Drug: ProTONIX 40 mg Route: IVP; Site: right upper arm; sv 11:59 Follow up: Response: No adverse reaction sv 11:14 Drug: ProTONIX 40 mg Route: IVP; Site: right upper arm; sv 11:59 Follow up: Response: No adverse reaction sv 11:14 Drug: ProTONIX 8 mg/hr Route: IV; Rate: 25 ml/hr; Site: right upper arm; sv 12:00 Follow up: Response: No adverse reaction; IV Status: Infusion continued upon admission sv 11:15 Drug: NS 0.9% 1000 ml Route: IV; Rate: 1 bolus; Site: right upper arm; sv 12:00 Follow up: Response: No adverse reaction; IV Status: Completed infusion; IV Intake: sv 1000ml 13:36 Drug: D50W 50 ml Route: IVP; Site: right upper arm; sv 14:00 Follow up: Response: No adverse reaction sv 13:36 Drug: Kayexalate 45 grams Route: PO; sv 14:00 Follow up: Response: No adverse reaction sv 13:36 Drug: Albuterol - atroVENT (3:1) (2.5 mg - 0.5 mg) 3 ml Route: Nebulizer; sv 14:00 Follow up: Response: No adverse reaction sv 13:36 Drug: NS 0.9% 1000 ml Route: IV; Rate: 125 ml/hr; Site: left hand; sv 14:00 Follow up: IV Status: Infusion continued upon admission sv 13:38 Drug: Calcium Gluconate 1 grams Route: IVPB; Infused Over: 30 mins; Site: left hand; sv 14:10 Follow up: Response: No adverse reaction; IV Status: Completed infusion; IV Intake: 50mlsv 13:38 Drug: Sodium Bicarbonate 1 amp Route: IVP; Site: right upper arm; sv 14:00 Follow up: Response: No adverse reaction sv 13:38 Drug: Insulin Regular Human 10 units {Co-Signature: aa5 (Becca Bejarano RN).} Route: sv IVP; Site: right upper arm; 14:00 Follow up: Response: No adverse reaction sv Disposition: 06/05/20 11:08 Hospitalization ordered by German Govea for Inpatient Admission. Preliminary diagnosis are Hyperkalemia, Acute kidney failure, Hypotension, Hypothermia, Urinary tract infection, site not specified, Bradycardia, unspecified - 3 rd heart block, Gastrointestinal hemorrhage, unspecified - upper, Anemia, unspecified, Alzheimer's disease, Lobar pneumonia, unspecified organism, Hypo-osmolality and hyponatremia. - Bed requested for Telemetry/MedSurg (Inpatient). - Status is Inpatient Admission. mg2 - Condition is Guarded. - Problem is new. - Symptoms have improved. Signatures: Dispatcher [employer] EDLoretta Young RN RN Vidal Sanchez MD MD cha Hall, Patricia RN RN ph Yue Gamez RN RN Chase Amaya RN RN mg2 Becca Bejarano RN aa5 Corrections: (The following items were deleted from the chart) 09:29 09:25 NS 0.9% (30 ml/kg) 30 ml/kg IV at bolus once; Sepsis Protocol ordered. ph sv 09:43 Magnesium ordered. EDMS EDMS 09:53 09:43 PROBNP+C.LAB.BRZ ordered. [facility] EDMN 13:59 11:08 Hospitalization Ordered by A Jeferson ARREOLA for Inpatient Admission. Preliminary mirian diagnosis is Hyperkalemia; Acute kidney failure; Hypotension; Hypothermia; Urinary tract infection, site not specified; Bradycardia, unspecified - 3 rd heart block; Gastrointestinal hemorrhage, unspecified - upper; Anemia, unspecified. Bed requested for Telemetry/MedSurg (Inpatient). Status is Inpatient Admission. Condition is Guarded. Problem is new. Symptoms have improved. mirian 14:01 13:59 06/05/2020 11:08 Hospitalization Ordered by A Jeferson ARREOLA for Inpatient Admission. mirian Preliminary diagnosis is Hyperkalemia; Acute kidney failure; Hypotension; Hypothermia; Urinary tract infection, site not specified; Bradycardia, unspecified - 3 rd heart block; Gastrointestinal hemorrhage, unspecified - upper; Anemia, unspecified; Alzheimer's disease. Bed requested for Telemetry/MedSurg (Inpatient). Status is Inpatient Admission. Condition is Guarded. Problem is new. Symptoms have improved. mirian 14:17 09:53 Blood Transfusion Consent ordered. mirian sv 14:17 10:05 Central Line Kit ordered. mirian sv 14:20 14:01 06/05/2020 11:08 Hospitalization Ordered by A Jeferson ARREOLA for Inpatient Admission. sv Preliminary diagnosis is Hyperkalemia; Acute kidney failure; Hypotension; Hypothermia; Urinary tract infection, site not specified; Bradycardia, unspecified - 3 rd heart block; Gastrointestinal hemorrhage, unspecified - upper; Anemia, unspecified; Alzheimer's disease; Lobar pneumonia, unspecified organism; Hypo-osmolality and hyponatremia. Bed requested for Telemetry/MedSurg (Inpatient). Status is Inpatient Admission. Condition is Guarded. Problem is new. Symptoms have improved. mirian 06/06 01:40 06/05 14:20 06/05/2020 11:08 Hospitalization Ordered by A Jeferson ARREOLA for Inpatient cg Admission. Preliminary diagnosis is Hyperkalemia; Acute kidney failure; Hypotension; Hypothermia; Urinary tract infection, site not specified; Bradycardia, unspecified - 3 rd heart block; Gastrointestinal hemorrhage, unspecified - upper; Anemia, unspecified; Alzheimer's disease; Lobar pneumonia, unspecified organism; Hypo-osmolality and hyponatremia. Bed requested for [facility] ER HOLD. Status is Inpatient Admission. Condition is Guarded. Problem is new. Symptoms have improved. sv 06/06 02:52 01:40 06/05/2020 11:08 Hospitalization Ordered by A Jeferson ARREOLA for Inpatient Admission. mg2 Preliminary diagnosis is Hyperkalemia; Acute kidney failure; Hypotension; Hypothermia; Urinary tract infection, site not specified; Bradycardia, unspecified - 3 rd heart block; Gastrointestinal hemorrhage, unspecified - upper; Anemia, unspecified; Alzheimer's disease; Lobar pneumonia, unspecified organism; Hypo-osmolality and hyponatremia. Bed requested for Telemetry/MedSurg (Inpatient). Status is Inpatient Admission. Condition is Guarded. Problem is new. Symptoms have improved. cg
--- NOTE | 2020-06-05 11:09 | ER ---
Nurse's Notes [facility] Name: Sharda Dewey Age: 80 yrs Sex: Female : 1940 Arrival Date: 06/05/2020 Time: 08:53 Bed 4 Private MD: Diagnosis: Hyperkalemia;Acute kidney failure;Hypotension;Hypothermia;Urinary tract infection, site not specified;Bradycardia, unspecified- 3 rd heart block;Gastrointestinal hemorrhage, unspecified-upper;Anemia, unspecified;Alzheimer's disease;Lobar pneumonia, unspecified organism;Hypo-osmolality and hyponatremia Presentation: 06/05 09:00 Chief complaint: EMS states: Pt from [place], staff reports that hey are unable to get ph a temperature above 94.0, pt also sounds congested, EMS obtained temporal temp of 97.0, other VSS BP 110/80, HR in 60s, 99% RA, BGL 142, hx of advanced dementia, A\T\O x 1 at baseline. Coronavirus screen:. Coronavirus screen: Patient reports a cough. Patient denies shortness of breath or difficulty breathing. Patient denies measured and/or subjective temperature greater than 100.4F prior to today's visit. Patient denies travel on a cruise ship or to a country the [facility] currently lists as an affected area. Patient denies contact with known and/or suspected case of COVID-19. Ebola Screen: No symptoms or risks identified at this time. Initial Sepsis Screen: Does the patient meet any 2 criteria? Temp <36.0*C (96.8*F)) or > 38.3*C (100.9*F). Altered Mental Status. Yes. Risk Assessment: Do you want to hurt yourself or someone else? Patient reports no desire to harm self or others. Onset of symptoms was June 05, 2020. 09:00 Method Of Arrival: EMS: [facility] 09:03 Acuity: TITUS 1 ss 10:00 Initial Sepsis Screen: Does the patient have a suspected source of infection? Yes: sv Other: low temp. Historical: - Allergies: 09:42 No Known Allergies; ph - PMHx: :42 Allergic rhinitis; Alzheimers; Anemia; Anxiety; ataxic gait; CAD; Delusional disorder; ph Dementia; Depression; Diabetes - NIDDM; DYSPHAGIA; Hypertension; insomnia; Pneumonia; - PSHx: 09:42 PEG tube; ph - Immunization history:: Adult Immunizations unknown. - Social history:: Smoking status: unknown. - Family history:: not pertinent. Screenin:42 Abuse screen: Denies threats or abuse. Denies injuries from another. Nutritional ph screening: No deficits noted. Tuberculosis screening: No symptoms or risk factors identified. Fall Risk None identified. Assessment: 09:10 Reassessment: Upon obtaining vitals pt found to have HR of 27 and rectal temp of 93.2, ph moved to trauma room 4 for further evaluation, ERP notified of VS. 09:30 General: Appears in no apparent distress. uncomfortable, unkempt, Behavior is sv uncooperative. Pain: Unable to use pain scale. Does not appear to understand pain scale. Patient appears confused, aphasic FLACC scale score is 0 out of 10. Neuro: Level of Consciousness is awake, confused, Oriented to none contracted on bilateral arms. Cardiovascular: Pulses are palpable in right radial artery and left radial artery Rhythm is sinus bradycardia. Respiratory: Airway is patent Respiratory effort is even, unlabored, Respiratory pattern is tachypnea. GI: PEG tube in place, clamped. Site clean. Derm: Skin is normal. Musculoskeletal: Range of motion: limited in left elbow and right elbow and left and right hands. 10:30 Reassessment: Patient appears in no apparent distress at this time. No changes from sv previously documented assessment. 11:12 Reassessment: Patient appears in no apparent distress at this time. No changes from sv previously documented assessment. 12:00 Reassessment: Patient appears in no apparent distress at this time. No changes from sv previously documented assessment. Vital Signs: 09:00 BP 120 / 86; Pulse 27; Resp 16; Temp 93.2(R); Pulse Ox 98% on R/A; ph 09:15 BP 133 / 64; Pulse 38; Resp 15; Pulse Ox 100% ; sv 09:31 BP 83 / 55; Pulse 37; Resp 15; Pulse Ox 94% ; sv 10:00 BP 69 / 46; Pulse 28; Resp 17; Pulse Ox 100% on R/A; sv 10:15 BP 77 / 63; Pulse 32; Resp 13; Temp 92.5(C); Pulse Ox 94% on R/A; sv 11:00 BP 99 / 76; Pulse 31; Resp 16; Pulse Ox 98% on R/A; sv 11:38 BP 104 / 90; Pulse 30; Resp 17; Temp 92.6(C); Pulse Ox 98% on R/A; sv 12:16 BP 73 / 47; Pulse 32; Resp 21; Pulse Ox 95% on R/A; sv 14:16 Weight 72.57 kg; Height 5 ft. 1 in. (154.94 cm); sv 14:16 Body Mass Index 30.23 (72.57 kg, 154.94 cm) sv ED Course: 08:53 Patient arrived in ED. em1 08:56 Kayleigh Ruffin, RN is Primary Nurse. iw 09:03 Triage completed. ss 09:09 Primary Nurse role handed off by Kayleigh Ruffin RN sv 09:09 Loretta Joe, SANDEEP is Primary Nurse. sv 09:11 Vidal Sanchez MD is Attending Physician. mirian 09:28 Report received from KENYATTA HOPKINS. sv 09:30 Initial lab(s) drawn, by me, sent to lab. First set of blood cultures drawn by me. ph Inserted saline lock: 22 gauge in left hand, using aseptic technique. Blood collected. 09:43 Patient has correct armband on for positive identification. Placed in gown. Bed in low ph position. Call light in reach. Side rails up X2. dairy worker on. Pulse ox on. NIBP on. 09:43 Arm band placed on Patient placed in an exam room, on food aide, on pulse ph oximetry. 10:00 Dowell cath inserted, using sterile technique, 16 Fr., by me, balloon inflated, to sv gravity drainage, urine specimen collected. other Criticore dowell returned cloudy urine. Patient tolerated poorly. 10:00 Thermoregulation: Franko blanket applied. sv 10:20 T\T\S collected, blood band applied to patient. Inserted saline lock: 22 gauge in right sv upper arm, using aseptic technique. ,using aseptic technique. diffusics Blood collected. Flushed right with 2 ml normal saline. 10:35 Magnesium Sent. sv 10:36 Amylase, Serum Sent. sv 10:36 Basic Metabolic Panel Sent. sv 10:39 X-ray(s) taken. sv 10:51 Chest Single View XRAY In Process Unspecified. EDMS 11:06 German Govea MD is Hospitalizing Provider. mirian 12:00 No provider procedures requiring assistance completed. Patient admitted, IV remains in sv place. intact. Administered Medications: 09:29 CANCELLED (Physician Discretion): NS 0.9% (30 ml/kg) 30 ml/kg IV at bolus once; Sepsis sv Protocol 11:12 Drug: Cefepime 1 grams Route: IVPB; Rate: 200 ml/hr; Infused Over: 30 mins; Site: right sv upper arm; 11:14 Follow up: Response: No adverse reaction; IV Status: Completed infusion; IV Intake: sv 10ml ; Given IVP per pharmacy 11:14 Drug: vancoMYCIN 1 grams Route: IVPB; Infused Over: 2 hrs; Site: left hand; sv 13:10 Follow up: Response: No adverse reaction; IV Status: Completed infusion; IV Intake: sv 250ml 11:14 Drug: ProTONIX 40 mg Route: IVP; Site: right upper arm; sv 11:59 Follow up: Response: No adverse reaction sv 11:14 Drug: ProTONIX 40 mg Route: IVP; Site: right upper arm; sv 11:59 Follow up: Response: No adverse reaction sv 11:14 Drug: ProTONIX 8 mg/hr Route: IV; Rate: 25 ml/hr; Site: right upper arm; sv 12:00 Follow up: Response: No adverse reaction; IV Status: Infusion continued upon admission sv 11:15 Drug: NS 0.9% 1000 ml Route: IV; Rate: 1 bolus; Site: right upper arm; sv 12:00 Follow up: Response: No adverse reaction; IV Status: Completed infusion; IV Intake: sv 1000ml 13:36 Drug: D50W 50 ml Route: IVP; Site: right upper arm; sv 14:00 Follow up: Response: No adverse reaction sv 13:36 Drug: Kayexalate 45 grams Route: PO; sv 14:00 Follow up: Response: No adverse reaction sv 13:36 Drug: Albuterol - atroVENT (3:1) (2.5 mg - 0.5 mg) 3 ml Route: Nebulizer; sv 14:00 Follow up: Response: No adverse reaction sv 13:36 Drug: NS 0.9% 1000 ml Route: IV; Rate: 125 ml/hr; Site: left hand; sv 14:00 Follow up: IV Status: Infusion continued upon admission sv 13:38 Drug: Calcium Gluconate 1 grams Route: IVPB; Infused Over: 30 mins; Site: left hand; sv 14:10 Follow up: Response: No adverse reaction; IV Status: Completed infusion; IV Intake: 50mlsv 13:38 Drug: Sodium Bicarbonate 1 amp Route: IVP; Site: right upper arm; sv 14:00 Follow up: Response: No adverse reaction sv 13:38 Drug: Insulin Regular Human 10 units {Co-Signature: aa5 (Becca Bejarano RN).} Route: sv IVP; Site: right upper arm; 14:00 Follow up: Response: No adverse reaction sv Intake: 11:14 IV: 10ml; Total: 10ml. sv 12:00 IV: 1000ml; Total: 1010ml. sv 13:10 IV: 250ml; Total: 1260ml. sv 14:10 IV: 50ml; Total: 1310ml. sv Outcome: 11:08 Decision to Hospitalize by Provider. [facility] 12:00 Admitted to ER Hold. Please see [facility] for further documentation. sv 12:00 Condition: stable 12:00 Instructed on the need for admit. 06/06 02:52 Patient left the ED. mg2 Signatures: Dispatcher [employer] Loretta Lee RN RN sv Anderson, Corey, MD MD cha Williams, Irene RN Adrian Duran Sabrina Heart RN RN ss Hall, Patricia, RN RN ph Gardose, Michele, RN RN mg2 Becca Bejarano RN aa5
--- NOTE | 2020-06-05 11:10 | RAD REPORT ---
EXAM DESCRIPTION: RAD - Chest Single View - 06/05/2020 10:51 am CLINICAL HISTORY: CONGESTION Chest pain. COMPARISON: Chest Single View dated 04/29/2019; Chest Single View dated 09/07/2018; Chest Single View dated 08/22/2018; Chest Single View dated 08/20/2018 FINDINGS: Portable technique limits examination quality. Mild interstitial pulmonary edema suspected. Patchy opacity is seen in the right upper lobe likely re presenting infiltrate/pneumonia. The heart is moderately enlarged. No displaced fractures. IMPRESSION: Right upper lobe pneumonia is seen superimposed on mild CHF.
[2020-06-05] MEDS ORDERED: CALCIUM GLUCONATE 1gm/100 ML NS (4.65 mEq/100mL) IV ONE ×2 (12:00)
[2020-06-05] MEDS ORDERED: IPRATROPIUM BROM 0.5MG/2.5ML ONE (12:03)
[2020-06-05] MEDS ORDERED: D50W 25 GM/50 ML SYRINGE/VIAL IV ONE ×2 (12:04→15:33)
[2020-06-05] MEDS ORDERED: INSULIN -REGULAR HUMAN 50 UNIT/0.5 ML ML ONE (12:04)
[2020-06-05] MEDS ORDERED: SODIUM BICARB 50 MEQ/50ML VIAL ONE (12:04)
[2020-06-05] MEDS ORDERED: ALBUTEROL 2.5 MG/3 ML NEB SOL ONE (12:04)
--- NOTE | 2020-06-05 12:10 | EKG ---
Test Date: 2020-06-05 Test Time: 09:07:58 Supervisor Waterproofing: TAWNY MEASUREMENT RESULTS: Intervals: Rate: 34 MO: QRSD: 94 QT: 440 QTc: 330 [place]: P: MO: QRS: -25 T: -86 INTERPRETIVE STATEMENTS: Junctional bradycardia with occasional premature ventricular complexes Incomplete right bundle branch block Anterior infarct, age undetermined ST & T wave abnormality, consider inferolateral ischemia Abnormal ECG Compared to ECG 04/29/2019 19:33:17 Ventricular premature complex(es) now present Incomplete right bundle-branch block now present Myocardial infarct finding now present Sinus rhythm no longer present ST (T wave) deviation still present Possible ischemia still present Electronically Signed On 06-05-20 12:09:26 CDT by Sree Malagon
[2020-06-05] MEDS ORDERED: SOD POLYSTYREN SUL 15 GM/60 ML UCUP ONE ×2 (13:02→23:46)
[2020-06-05] MEDS: NA CHLORIDE 0.9% 1,000 ML IV SCH ×2 (13:42→23:42)
[2020-06-05] MEDS ORDERED: ONDANSETRON 4 MG/2 ML VIAL IV PRN (13:42)
[2020-06-05] MEDS ORDERED: ACETAMINOPHEN 325 MG TABLET FT PRN (13:42)
[2020-06-05] MEDS: IPRATROPIUM BROM 0.5MG/2.5ML NEB SCH (14:00)
[2020-06-05] MEDS: ALBUTEROL 2.5 MG/3 ML NEB SOL NEB SCH (14:00)
[2020-06-05 14:16] VITALS: BMI 30.2
[2020-06-05] MEDS ORDERED: NA CHLORIDE 0.9% 1,000 ML IV ONE (15:29)
[2020-06-05] MEDS ORDERED: ALBUTEROL 2.5 MG/3 ML NEB SOL NEB ONE (15:33)
[2020-06-05] MEDS ORDERED: GLUCAGON 1 MG/VIAL IM PRN (15:34)
[2020-06-05] MEDS ORDERED: D50W 25 GM/50 ML SYRINGE/VIAL IV PRN (15:34)
[2020-06-05] MEDS ORDERED: INSULIN -REGULAR HUMAN 50 UNIT/0.5 ML ML IV ONE (15:34)
[2020-06-05] MEDS ORDERED: HYDROCORTISONE SUC 100 MG INJ ONE (17:29)
[2020-06-05] MEDS ORDERED: WATER FOR INJ,STERILE 10 ML ONE (17:29)
[2020-06-05] MEDS: HYDROCORTISONE SUC 100 MG INJ IV SCH (17:31)
--- NOTE | 2020-06-05 19:11 | CON ---
Date of Consultation: 06/05/2020 Reason For Consultation: Elevated BUN and creatinine, hyperkalemia. History Of Present Illness: All the information has been obtained from the record is the patient has advanced dementia and nonverbal. This is an 80-year-old female, halfway resident. The patient was brought because of altered mental status and mild temperature. Reviewing the record for the pat ient, apparently the patient had UTI back in April. At that time, the patient was treated. It was se nsitive to quinolones. The patient had past medical history of dementia, hypertension, diabetes, CVA . The patient apparently in the halfway had this fever for the last 2 days. With altered menta l status and shortness of breath. The patient at the halfway hs been on carvedilol, allopurinol , multivitamin, donepezil, aspirin, amlodipine. Past Medical History: 1.CVA. 2.Diabetes, complicated with neuropathy. 3.Hypertension. 4.Dementia. Social History: Lives in halfway. The rest none obtainable. Surgical History: None obtainable. Family History: None obtainable. Allergies: NO KNOWN DRUGS ALLERGY. Review of Systems: None obtainable. Physical Examination: Vital Signs: When I saw the patient, the patient is lying in bed, no decubitus ulcer. Blood pressur e has been on the lower side on the 70s, pulse systolic on the 70-80. The patient received 1 L of fl uid bolus of normal saline and currently on pulse of 88. Chest: Faint crackles, more prominent left sided. Heart: S1, S2. Systolic murmur. Abdomen: Soft, nontender. Extremities: No edema. Neuro: Moves 4 extremities without any focality again. Skin: On inspection, there is no decubitus ulcer. Laboratory Data: WBC 11.6, H and H 7.4/22.2, platelets 145. Sodium 121, potassium 6, bicarb 20, BUN 51, creatinine of 2, calcium 9.4, magnesium 2.3. LFT within normal limit. BNP of 3900. Urinalysis ; hematuria and cloudy urine. Urine culture sent. Previous culture back in April, Enterococcus faeca lis. Assessment And Plan: 1.Acute kidney injury, secondary to prerenal, possible to gastrointestinal loss/toxic acute tubular necrosis, secondary to urinary tract infection and sepsis, complicated with hyperkalemia and acidosis , non-anion gap. 2.I am going to go ahead and continue fluid resuscitation. The patient looked to me still on the dr y side. We will give another liter of normal saline and continue to maintain blood pressure systolic above 190 or MAP above 65. We will monitor the patient. 3.Hyperkalemia, secondary to renal failure/possible gastrointestinal bleed. I am going to avoid Quin exalate. We will give the patient albuterol and D50 and we will monitor the patient for repeat lab i n 4 hours. 4.Non-anion gap metabolic acidosis with contraction alkalosis, secondary to renal failure/dehydratio n. I am going to start the patient on aggressive hydration and we will follow up. 5.Urinary tract infection. To rule out complicated urinary tract infection, I am going to go ahead and get the renal ultrasound. We will start the patient on quinolones depending on the culture from last visit and we will adjust. 6.Diabetes, as by primary. 7.Dementia. Continue supportive care. 8.Hypertension with the presence of acute kidney injury. Hold all the blood pressure medication. 9.Hyponatremia, depletional, with the presence of hyperkalemia. Adrenal insufficiency needs to be r uled out. I am going to start the patient on aggressive hydration. We will send for cortisol and TS H and we will start the patient on hydrocortisone after. 10.Shock, multifactorial, possible secondary hypovolemic, secondary to poor intake with gastrointest inal bleed. Questionable of adrenal insufficiency given the presence of hyponatremia and hyperkalemi a. We will send for cortisol test. Then, we will start the patient on hydrocortisone and we will fo llow up. Thank you Dr. Govea for allowing us to participate in the care of your patient. LEONEL Voice ID: [id number] Report ID: [id number]
[2020-06-05 19:55] LABS: Urine Protein/Creatinine Ratio 3.11 ratio (<0.15)
[2020-06-05 20:28] LABS: Potassium 4.5 mmol/L (3.5-5.1)
[2020-06-05] MEDS: PANTOPRAZOLE INJ 80 MG in NA CHLORIDE 0.9% 250 ML IV SCH (20:46)
[2020-06-05] MEDS: SOD POLYSTYREN SUL 15 GM/60 ML UCUP PO SCH (21:00)
[2020-06-05] MEDS ORDERED: CEFEPIME 1 GM/VIAL IV SCH (21:00)
--- NOTE | 2020-06-05 21:12 | RAD REPORT ---
EXAM DESCRIPTION: US - Renal Ultrasound-Complete - 06/05/2020 9:02 pm CLINICAL HISTORY: Acute renal insufficiency COMPARISON: 2018 cat scan FINDINGS: The right kidney measures 10 cm with an increased echotexture. Mild right hydronephrosis i s without significant change from the prior CAT scan The left kidney measures 10 cm with an increased echotexture. Hydronephrosis is not seen. A Londono catheter is present within a collapsed bladder IMPRESSION: Increased renal echotexture consistent with parenchymal disease Mild right hydronephrosis is without significant change from the prior exam
[2020-06-06] MEDS ORDERED: NA CHLORIDE 0.9% 1,000 ML ONE (00:18)
[2020-06-06] MEDS ORDERED: EPINEPHRINE INH 0.5 ML VIAL IH ONE (00:41)
[2020-06-06] MEDS ORDERED: IPRATROPIUM BROM 0.5MG/2.5ML ONE (00:42)
[2020-06-06] MEDS ORDERED: ALBUTEROL 2.5 MG/3 ML NEB SOL ONE (00:42)
[2020-06-06] MEDS: IPRATROPIUM BROM 0.5MG/2.5ML NEB SCH ×5 (00:45→20:00)
[2020-06-06] MEDS: ALBUTEROL 2.5 MG/3 ML NEB SOL NEB SCH ×5 (00:45→20:00)
[2020-06-06] MEDS: HYDROCORTISONE SUC 100 MG INJ IV SCH ×3 (03:36→16:17)
--- NOTE | 2020-06-06 04:45 | HP ---
Date of Admission: 06/05/2020 Chief Complaint: Hypothermia. History Of Present Illness: This is an 80-year-old female patient who is bed bound, has a feeding tube and all her medications and nutrition she gets is just through the feeding tube, was sent to emergency room this morning when nurse called and informed me that the patient was not looking good and she was hypothermic with temperature 94 degrees Fahrenheit or so. After the patient was evaluated in the ER, she was found to have multiple medical problems going on all at one time and the patient was admitted to the hospital. Dr. Sanchez in emergency room helped take care of this patient and he also communicated with the patient's son and daughter both, explained all the details and he discussed with family regarding advance directive and called and informed me that the patient's family wants comfort care only, they do not want any pacemaker, no CPR, no defibrillation, no ventilator support, no blood transfusion. I did see her this evening, she was still in the emergency room and after I evaluated her, I also called the patient's son and discussed all the details with him and also verified family's decision regarding do not resuscitate and is requesting IV fluid, IV antibiotics and comfort measures at this point. The patient's son informed me that he has 1 sister and both of them are in agreement with this decision. There are no other siblings. Allergies: NO KNOWN ALLERGIES. Medications: List reviewed. Review of Systems: Constitutional: As mentioned above. All other systems unable to obtain because the patient does not answer any questions. Family History: Not pertinent. Social History: Negative for smoking, alcohol use. Past Surgical History: PEG tube placement. Past Medical History: Aspiration pneumonia, dysphagia, PEG tube placement in July 2018, hypertension, diabetes mellitus, stroke with right-sided hemiparesis, chronic kidney disease stage 3, volume depletion, urinary tract infection, senile dementia, and anemia. Physical Examination: VITAL SIGNS: Blood pressure 120/86, respiratory rate 16, pulse 27, temperature 93.2, oxygen saturation 98% on arrival to the emergency room, last blood pressure recorded was 77/63 when I saw her in the emergency room. General: The patient is lying in bed with mouth open, shallow breathing and she was somnolent, did not wake up to any verbal command. HEENT: Head atraumatic, normocephalic. Conjunctivae nonerythematous. Sclerae white. Mouth, no thrush or edema noted. Ears/Nose, no mass, lesion, discharge noted. Neck: Supple. No JVD, lymph nodes, bruit, thyromegaly noted. Lungs: Bilateral good equal air entry. Clear to auscultation. No rhonchi. No rales. Heart: Normal heart sounds, no murmur or gallop. Abdomen: Soft, bowel sounds normal. No guarding, rigidity, tenderness, mass, hepatosplenomegaly, distention, or bruit noted. Extremities: No leg edema. No calf tenderness. Skin: No rash, ulcer, cellulitis. Lymphatics: No lymph node enlargement in neck, supraclavicular, infraclavicular region. Chest: Unremarkable. External Genitalia: Deferred. Rectal: Deferred. 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 Laboratory Data: White count 11.6, hemoglobin 7.4, and platelets 145. Sodium 121, potassium 6, chloride 90, bicarb 20, BUN 51, creatinine 2.01, and glucose 111. Liver function tests; SGOT 45, SGPT 44, and alkaline phosphatase 196. Troponin less than 0.02. ProBNP 3900. Procalcitonin 0.64. Lactic acid 1.3, urinalysis; 20-50 rbc's, bacteria loaded, leukocyte esterase 3+, wbc's TNTC. EKG shows junctional bradycardia with premature ventricular complex, incomplete right bundle branch block. Chest x-ray shows right upper lobe infiltrate. Impression: 1. Septic shock. 2. Pneumonia. 3. Urinary tract infection. 4. Hyponatremia. 5. Hyperkalemia. 6. Acute kidney injury. 7. Anemia. 8. Heart block. 9. Diabetes mellitus. 10. Stroke. 11. Senile dementia. 12. Volume depletion. Plan: Admit the patient to hospital for further evaluation and management of this problem. The patient is appropriate for inpatient and is expected to spend 2 midnights in hospital. We will go ahead and continue IV fluid, IV antibiotics. The patient has a warming blanket present. Her overall prognosis is very poor. She is very likely not survive this hospitalization and family has decided no aggressive measures, no blood transfusion, no CPR, no pacemaker, no ventilator support, etc. I have confirmed this decision with the patient's son on the phone. He informed me that his sister also agrees with this decision. He was made aware of poor prognosis. I will see her tomorrow morning for followup. COVID-19 test done, result pending. ANUPAMA/RANDALL Voice ID: [id number] MTDD
[2020-06-06 05:50] LABS: Absolute Lymphocytes (CBC) 0.8 K/uL (0.7-4.9); Hematocrit 19.1 % (36.0-45.0); Lymphocytes % 10.5 % (15.3-44.8); MPV 8.3 fL (7.6-11.3); RBC Red Blood Cell Count 2.17 M/uL (3.86-4.86)
[2020-06-06 06:36] LABS: Albumin 2.5 g/dL (3.4-5.0); BUN Blood Urea Nitrogen 42 mg/dL (7-18); Bicarbonate 21 mmol/L (21-32); Ferritin 186.3 ng/mL (8-388); Folic Acid, (Folate) > 20.0 ng/mL (3.1-17.5); Glucose Level 73 mg/dL (74-106); Magnesium 1.8 mg/dL (1.8-2.4); Phosphorus 2.9 mg/dL (2.5-4.9); Potassium 3.4 mmol/L (3.5-5.1); Sodium Level 134 mmol/L (136-145); Transferrin 170 mg/dL (200-360)
[2020-06-06] MEDS: NA CHLORIDE 0.9% 1,000 ML IV SCH ×2 (08:34→22:11)
[2020-06-06] MEDS: PANTOPRAZOLE INJ 80 MG in NA CHLORIDE 0.9% 250 ML IV SCH ×2 (08:35→16:16)
[2020-06-06] MEDS: CEFEPIME/SWI 1gm 10 ML IV SCH (08:35)
[2020-06-06] MEDS: SOD POLYSTYREN SUL 15 GM/60 ML UCUP PO SCH (08:36)
[2020-06-06] MEDS ORDERED: MAGNESIUM SULFATE 1 gm IVPB 1 GM/100 ML BAG IV ONE (10:37)
--- NOTE | 2020-06-06 11:30 | PN ---
Date of Progress Note: 06/06/2020 Subjective: The patient was admitted with acute kidney injury and hyperkalemia secondary to prerenal , secondary to bleed. Apparently, family refused any transfusion or any aggressive measures. Physical Examination: Vital Signs: Blood pressure 136/68, pulse of 71. The patient had good urine output of 400. The pat ient positive balance of 2800. Chest: Crackles, bilateral base. Heart: S1, S2. Systolic murmur. Abdomen: Soft, nontender. Extremities: Trace edema. Neuro: The patient is sleepy, moving 4 extremities. Laboratory Data: WBC 8, H and H 6.3/19.1, platelets 161. Sodium 134, potassium 3.4, bicarb 21, BUN 42, creatinine 1.8, calcium 8.5, phosphorus 2.9, magnesium 1.8. Iron saturation of 18, ferritin 186. Albumin 2.5, corrected calcium is 9.7. Folate of 20. TSH 1.9. Cortisol level of 43. Urinalysis; specific gravity of 1.025, rbc 50, numerous to count. P/C ratio of 3 g. Renal ultrasound showing n ormal size kidney 10 x 10 without any mention of obstruction, but has right hydronephrosis, not dan ed from previous exam. Current Medications: The patient on include cefepime, vancomycin, KCl, normal saline. Assessment And Plan: 1.Acute kidney injury, secondary to prerenal, complicated with hyperkalemia on the recovery. I am g oing to continue hydration and we will monitor the patient. 2.Hyperkalemia, multifactorial, secondary to renal failure/gastrointestinal loss, resolved. Discont inue Kayexalate. 3.Hyponatremia secondary to depletional, resolved. Continue IV fluid. 4.Nephrotic-range proteinuria secondary to urinary tract infection, chronic obstruction. With her a ge and improvement in the kidney function, I doubt to be any autoimmune disease. I do not see the nm ed to further work it up for the time being. 5.Iron-deficiency anemia. Family refused any transfusion. We will start the patient on IV iron. 6.Urinary tract infection. Culture still pending. Continue current antibiotic. Previous culture g row Enterococcus faecalis. We will follow up current culture. 7.Overall, the patient has poor prognosis. We will follow up with the primary. JUANM ANUEL/MARKL Voice ID: [id number] Report ID: [id number]
[2020-06-06] MEDS: SOD FERRIC GLUC COMPLX/SUCROSE 250 MG in NA CHLORIDE 0.9% 250 ML IV SCH (11:37)
--- NOTE | 2020-06-06 12:41 | ECHO ---
HEIGHT: 5 ft 1 in WEIGHT: 160 lb 0 oz DATE OF STUDY: 06/06/[address]: Sree Malagon MD 2-DIMENSIONAL: YES M.MODE: YES DOPPLER: YES COLOR FLOW: YES TDS: NO PORTABLE: NO DEFINITY: NO BUBBLE STUDY: NO DIAGNOSIS: COMPLETE HEART BLOCK CARDIAC HISTORY: CATHERIZATION: SURGERY: PROSTHETIC VALVE: PACEMAKER: MEASUREMENTS (cm) DIASTOLIC (NORMALS) SYSTOLIC (NORMALS) IVSd 0.9 (0.6-1.2) LA Diam 3.5 (1.9-4.0) LVEF 73% LVIDd 4.6 (3.5-5.7) LVIDs 2.7 (2.0-3.5) %FS 42% LVPWd 1.0 (0.6-1.2) Ao Diam 2.6 (2.0-3.7) 2 DIMENSIONAL ASSESSMENT: RIGHT ATRIUM: NORMAL LEFT ATRIUM: NORMAL RIGHT VENTRICLE: NORMAL LEFT VENTRICLE: NORMAL TRICUSPID VALVE: NORMAL MITRAL VALVE: NORMAL PULMONIC VALVE: NORMAL AORTIC VALVE: NORMAL PERICARDIAL EFFUSION: NONE AORTIC ROOT: NORMAL LEFT VENTRICULAR WALL MOTION: NORMAL. DOPPLER/COLOR FLOW: TRACE OF MITRAL AND TRICUSPID REGURGITATION. COMMENTS: TRACE OF MITRAL AND TRICUSPID REGURGITATION. NORMAL LEFT VENTRICULAR SIZE AND FUNCTION. NO WALL MOTION ABNORMALITY. NO EFFUSION. TECHNOLOGIST: DIANA CHAUDHARY
[2020-06-06] MEDS ORDERED: VANCOMYCIN/NS 1 gm 1 GM/250 ML BAG IVPB SCH (15:00)
[2020-06-07] MEDS: ALBUTEROL 2.5 MG/3 ML NEB SOL NEB SCH ×4 (00:15→19:29)
[2020-06-07] MEDS: IPRATROPIUM BROM 0.5MG/2.5ML NEB SCH ×4 (00:15→19:29)
--- NOTE | 2020-06-07 00:36 | PN ---
Date of Progress Note: 06/06/2020 Subjective: The patient was seen this morning for followup. No complaints or problems reported by [facility] staff. Objective: General: She was lying in bed, unresponsive, breathing from mouth, not using any accesso ry muscles of respiration. HEENT: Unremarkable. Lungs: clear to auscultation. Heart: Sounds normal. Abdomen: Soft. Bowel sounds normal. No guarding, rigidity, tenderness, or distention. Extremities: No leg edema. Vital Signs: Reviewed. Laboratory Data: White count was 8 this morning, hemoglobin 6.3, platelets 160. Sodium 134, potassi um 3.4, chloride 102, bicarb 21, BUN 42, creatinine 1.83, glucose 73. Impression: 1.Acute kidney injury. 2.Acute blood loss anemia. 3.Hyponatremia. 4.Hypokalemia. 5.Pneumonia. 6.Urinary tract infection. 7.Septic shock. Plan: We will continue current antibiotics, regular food. Overall prognosis is poor. I will see he r tomorrow for followup. I did talk to Dr. Montemayor from [facility] and canceled GI consultation as the family has made a decision about comfort care only, they do not want any invasive procedure or blood transfusion. ANUPAMA/MODL Voice ID: [id number] Report ID: [id number]
[2020-06-07] MEDS: HYDROCORTISONE SUC 100 MG INJ IV SCH ×3 (00:42→18:11)
--- NOTE | 2020-06-07 02:07 | CON ---
Date of Consultation: 06/06/2020 Reason For Consultation: Complete heart block, hypokalemia, and sepsis. History Of Present Illness: Ms. Dewey is an -kncw-rtd. She has a PEG tube. She has depr ession, delusion, and dementia. Has had a history of CAD, hypertension, and diabetes. She is a do n ot resuscitate. Came in with sepsis and hypokalemia, was noted to be in complete heart block. She w as also very anemic with a hemoglobin of 6.3. Her troponin was negative. Her creatinine was 1.83. Her sodium was 121, potassium was 6. Procalcitonin was 0.64. No chest pain reported and no syncope. Allergies: NONE. Review of Systems: Negative. Social History: Negative. Family History: Noncontributory. Medications At Home: Include aspirin, Norvasc, Coreg, and Ativan. Physical Examination: General: Ms. Dewey appears to be in no acute distress. Her heart rate when I saw her was in the 50 s. There was a junctional bradycardia. Her beta-majo had been held. An echocardiogram is shukri sena. HEENT: Negative. Neck: Supple with no bruit. Chest: Clear. Cardiac: Revealed bradycardia with an S4 gallop and an aortic sclerosis murmur. Abdomen: Benign. Extremities: Revealed no clubbing, cyanosis, or edema. Diagnostic Data: As stated earlier. Impression And Plan: Heart block probably secondary to a combination of beta-blockers in her age and hyperkalemia as well as the renal insufficiency and anemia. I think we need to hold her beta-blocke rs. She is do not resuscitate. I do not think pacemaker is an option at this point. We will see wh at the echocardiogram shows. She needs to be hydrated. Her potassium needs to be corrected. She ma y need some blood transfusion, but I will leave that up to Dr. Govea and her family. Her blood pressu re and diabetes are well controlled at this point. Her dementia is stable. NB/MODL Voice ID: [id number] Report ID: [id number]
[2020-06-07] MEDS: PANTOPRAZOLE INJ 80 MG in NA CHLORIDE 0.9% 250 ML IV SCH ×2 (03:40→14:18)
[2020-06-07] MEDS: NA CHLORIDE 0.9% 1,000 ML IV SCH ×2 (05:42→08:44)
[2020-06-07 06:24] LABS: Absolute Lymphocytes (CBC) 0.6 K/uL (0.7-4.9); Basophils % 0.1 % (0-1.3); Hematocrit 23.4 % (36.0-45.0); Lymphocytes % 6.2 % (15.3-44.8); MPV 7.9 fL (7.6-11.3); RBC Red Blood Cell Count 2.66 M/uL (3.86-4.86)
[2020-06-07 06:51] LABS: Albumin 2.4 g/dL (3.4-5.0); Magnesium 2.1 mg/dL (1.8-2.4); Phosphorus 2.4 mg/dL (2.5-4.9)
[2020-06-07 06:58] LABS: Potassium 2.5 mmol/L (3.5-5.1)
[2020-06-07] MEDS: KCL 20 MEQ/100 mL IVPB 20 MEQ/100 ML BAG IV SCH ×3 (08:45→12:32)
[2020-06-07] MEDS: CEFEPIME/SWI 1gm 10 ML IV SCH (08:46)
--- NOTE | 2020-06-07 10:41 | RAD REPORT ---
EXAM DESCRIPTION: RAD - Chest Single View - 06/07/2020 10:17 am CLINICAL HISTORY: pneumonia COMPARISON: June 05 TECHNIQUE: AP portable chest image was obtained 06/07/2020 10:17 am . FINDINGS: Lung volumes are low and motion degradation is present on this supine examination. Right h emidiaphragm elevation is noted similar to comparison. Right upper lobe opacification is still present. Interstitial opacification is increased in the remai nder of the chest. There has been no improvement from prior imaging. Cardiac silhouette is enlarged, accentuated by rotation. Vasculature is prominent. No pneumothorax o r large pleural effusion. No acute bony abnormality seen. No acute aortic findings suspected. IMPRESSION: Shallow inspiration motion degraded study performed. Right upper lobe pneumonia findings are still present. Interstitial opacification both lung lara no amadou. Early interstitial edema should be considered. Patient can be monitored for any failure or volum e overload findings.
[2020-06-07] MEDS ORDERED: FUROSEMIDE 40 MG/4 ML VIAL IV ONE (11:20)
[2020-06-07] MEDS ORDERED: POTASSIUM CL 40 MEQ in NA CHLORIDE 0.9% 500 ML IV SCH (12:00)
--- NOTE | 2020-06-07 15:19 | PN ---
Date of Progress Note: 06/07/2020 Subjective: The patient was admitted with acute kidney injury secondary to prerenal, secondary to GI loss with hyperkalemia. The patient was started on IV hydration. Kidney function has been improved . Blood pressure has been stabilized. Family decided no blood transfusion. Physical Examination: Vital Signs: When I saw the patient, blood pressure 154/67, pulse of 87. The patient had good urine output of 2500. Chest: Crackles bilateral. Heart: S1 and S2, regular. Abdomen: Soft, nontender. Extremities: Trace edema. Neurologic: The patient is sleepy. Laboratory Data: WBC 9.8, H and H 7.6/23.4, platelets 222. Sodium 143, potassium 2.5, bicarb 21, BU N 31, creatinine 1.2, calcium 8.2, phos 2.4, magnesium 2.1. Iron study, iron saturation 18. Current Medications: The patient on include: 1.Cefepime. 2.Vancomycin. 3.IV iron. 4.Tylenol. 5.IV fluid. 6.Normal saline at 100 per hour. Assessment And Plan: 1.Acute kidney injury secondary to prerenal, recovered, back to baseline, looked to me on the wet si de. I am going to discontinue IV fluid. Give the patient single dose of Lasix and we will monitor. 2.Hypokalemia. We will supplement. 3.Anemia secondary to gastrointestinal bleed. The patient family decided without any invasive proce dure will follow up with the primary. 4.Hyponatremia secondary to depletion, recover, resolve. 5.Iron-deficiency anemia secondary to gastrointestinal loss. Continue IV iron. 6.Urinary tract infection secondary to Klebsiella pneumoniae, sensitive to quinolone and Ancef. I g oing to go ahead and discontinue vancomycin for the time being. Continue cephalosporin. JUAN MANUEL/RANDALL Voice ID: [id number] Report ID: [id number]
[2020-06-07] MEDS ORDERED: D50W 25 GM/50 ML SYRINGE/VIAL IV PRN (15:45)
[2020-06-07] MEDS ORDERED: GLUCAGON 1 MG/VIAL IM PRN (15:45)
--- NOTE | 2020-06-07 15:55 | PN ---
Date of Progress Note: 06/07/2020 Subjective: Ms. Dewey came in initially with hyperkalemia and anemia, complete heart block. Had be en on beta majo which was held. She had a PEG tube. She is a do not resuscitate. Today, she is in sinus rhythm with a heart rate of 79. Her potassium is 2.5. The creatinine is 1.29. She needs h er potassium supplemented. No invasive cardiac workup is recommended. I will discuss the case furth er with Dr. Govea. I agree with her present regimen. We will sign off her case for now. JAZ/RANDALL Voice ID: [id number] Report ID: [id number]
[2020-06-07] MEDS: GLUCERNA 1.5 CAL 1,000 ML BOT FT SCH (16:00)
[2020-06-07] MEDS: INSULIN -REGULAR HUMAN 50 UNIT/0.5 ML ML SQ SCH (18:00)
[2020-06-07] MEDS ORDERED: POTASSIUM 25 MEQ EFFERV TAB PO ONE (18:00)
[2020-06-08] MEDS: IPRATROPIUM BROM 0.5MG/2.5ML NEB SCH ×4 (00:40→20:00)
[2020-06-08] MEDS: ALBUTEROL 2.5 MG/3 ML NEB SOL NEB SCH ×4 (00:40→20:00)
--- NOTE | 2020-06-08 01:03 | PN ---
Date of Progress Note: 06/07/2020 Subjective: The patient was seen this morning for followup. She was lying in bed, not in distress. Objective: Vital Signs: Reviewed. HEENT: Unremarkable. Lungs: Clear to auscultation. Shallow breathing. Heart: Sounds normal. Abdomen: Soft. Bowel sounds normal. No guarding, rigidity, tenderness, or distention. Extremities: No leg edema. Laboratory Data: White count 9.8, hemoglobin 7.6, platelets 222. Sodium 143, potassium 2.5, chloride 114, bicarb 21, BUN 31, creatinine 1.29, glucose 116. Impression: 1. Pneumonia. 2. Urinary tract infection. 3. Acute kidney injury. 4. Volume depletion. 5. Hypokalemia. Plan: We will continue current medications. Follow up on chest x-ray. Continue current antibiotics. PEG tube feeding will be given as per order and I did call the patient's son this evening. Details were discussed with him. Depending on her condition tomorrow, we will decide whether we can discharge her to go back to longterm or not. I also talked to the patient's son and suggested hospice care. He is going to discuss with his sister and they will make the decision together. We will communicate with the patient's son tomorrow again. Replace electrolytes per protocol. ANUPAMA/MODL Voice ID: [id number] Report ID: [id number] MTDD
[2020-06-08] MEDS: KCL 20 MEQ/100 mL IVPB 20 MEQ/100 ML BAG IV SCH ×2 (01:41→04:01)
[2020-06-08] MEDS: HYDROCORTISONE SUC 100 MG INJ IV SCH ×4 (01:42→16:07)
[2020-06-08] MEDS: PANTOPRAZOLE INJ 80 MG in NA CHLORIDE 0.9% 250 ML IV SCH ×2 (01:59→10:19)
[2020-06-08] MEDS: INSULIN -REGULAR HUMAN 50 UNIT/0.5 ML ML SQ SCH ×4 (06:00→17:29)
[2020-06-08 06:04] LABS: Albumin 2.8 g/dL (3.4-5.0); Magnesium 1.8 mg/dL (1.8-2.4); Potassium 3.6 mmol/L (3.5-5.1)
--- NOTE | 2020-06-08 09:53 | P.PN ---
Subjective Date of Service: 06/08/20 Subjective bed bound NH pt , who was admitted for Hypothermia , found to have abnormal labs today No change in clinical status Cr stable Na 145 , will increase free water K 3.6 family to discuss Goal of care will reduce Hydrocortison to 50mg tid Physical exam general: minimall y communicative Neck; Supple, No elevated JVD hear: RRR, normal S1,2 no murmur or rub Chest: CTAB, no rlaes or wheezes Abdomen: Soft , Nt, PEG tube Extremities trace edema Assessment And Plan: [facility] due to dehydration resolved Hyponatremia resolved now sodium on high side will increase free water Hyokalmeia cont current feeding formula replace as needed SOFYA cont IV iron sepsis Cont ABx toatl time spent 40min Physical Examination - Vital Signs Temperature: 98.1 F Blood Pressure: 148/67 Pulse: 99 Respirations: 20 Pulse Ox (%): 93
[2020-06-08] MEDS ORDERED: FUROSEMIDE 40 MG/4 ML VIAL IV ONE (10:08)
[2020-06-08] MEDS: CEFEPIME/SWI 1gm 10 ML IV SCH (10:19)
[2020-06-08] MEDS ORDERED: Meropenem 1000 MG/VIAL IV SCH (11:00)
--- NOTE | 2020-06-08 11:27 | RAD REPORT ---
EXAM DESCRIPTION: RAD - Chest Single View - 06/08/2020 10:50 am CLINICAL HISTORY: pneumoni COMPARISON: June 07 TECHNIQUE: AP portable chest image was obtained 06/08/2020 10:50 am . FINDINGS: Lung volumes are low. Central vasculature and lung markings are prominent. Heart size is s lightly enlarged. Slightly increased opacification is seen in the lower right lung field suspicious f or pneumonia. No measurable pleural effusion and no pneumothorax. No acute bony abnormality seen. No acute aortic findings suspected. IMPRESSION: Underlying CHF/ volume overload findings are evident. Right base opacification is present suspicious for pneumonia.
[2020-06-08] MEDS: Meropenem 1,000 MG in NA CHLORIDE 0.9% 100 ML IV SCH ×2 (12:29→21:22)
[2020-06-08] MEDS ORDERED: POTASSIUM CL SA 10 MEQ TAB PO ONE (15:00)
[2020-06-08] MEDS: GLUCERNA 1.5 CAL 1,000 ML BOT FT SCH (15:36)
[2020-06-08] MEDS ORDERED: POTASSIUM 25 MEQ EFFERV TAB PO ONE (16:00)
[2020-06-08] MEDS: WATER FOR INJ,STERILE 10 ML IV SCH (16:07)
--- NOTE | 2020-06-09 01:11 | PN ---
Date of Progress Note: 06/08/2020 Subjective: The patient was seen this morning. No new complaints or problems reported by the patient's nursing staff. The patient was lying in bed, keeping mouth open, breathing from open, not using any accessory muscles of respiration. She does not respond to any command as indicated. Objective: Vital Signs: Reviewed. HEENT: Unremarkable. Lungs: Clear to auscultation. Heart: Sounds normal. Abdomen: Soft. Bowel sounds normal. No guarding, rigidity, tenderness, or distention. Extremities: No leg edema. Laboratory Data: Sodium 145, potassium 3.6, chloride 114, bicarb 27, BUN 22, creatinine 1.20, glucose 136, phosphorus 1, magnesium 1.8. ProBNP 6095. Chest x-ray shows changes of volume overload as well as congestive heart failure. Urine culture came back Klebsiella and also second organism, which was ESBL, was reported today. Impression: 1. Acute kidney injury. 2. Urinary tract infection. 3. Anemia. 4. Congestive heart failure, acute, diastolic. 5. Pneumonia. Plan: We will go ahead and give Lasix 40 mg IV x1 dose as landscaping supervisor has ordered. This will be her second dose. One dose was given yesterday and second dose was given today. We will repeat chest x-ray tomorrow. She is not getting any IV fluid. She is currently getting IV Protonix drip, which we will discontinue and give her IV Protonix daily starting tomorrow. We will repeat CBC, chemistry, electrolytes tomorrow. Continue current antibiotic. Melatonin was started as per culture and sensitivity result. I did call the patient's daughter per request. Details were discussed with her this morning, and last night, details were discussed with the patient's son. They will both think about hospice care, but at this point, from what I understand, the patient's daughter does not want to consider any hospice care upon discharge, to go back to care home. Unless they change their mind and decision, then they will let us know. At this point, there is no such decision made. We talked about advanced directives. Currently, she is DNR. When I talked to daughter, she informed me that they would like to have a DNR order in place. She thought that there was such order in place and form was signed by family and I did call nurse at the care home, who advised me that there was order even in the past by family, but later on, they revoked the DNR order, so I have requested social service to assist family to get joc-xd-[id number] DNR order in place. We will repeat blood work, chest x-ray tomorrow. I will see her tomorrow. ANUPAMA/MARKL Voice ID: [id number] Report ID: [id number] DEBBIE
[2020-06-09] MEDS: WATER FOR INJ,STERILE 10 ML IV SCH ×3 (01:17→16:26)
[2020-06-09] MEDS: HYDROCORTISONE SUC 100 MG INJ IV SCH ×3 (01:17→16:25)
[2020-06-09] MEDS: ALBUTEROL 2.5 MG/3 ML NEB SOL NEB SCH ×4 (02:00→19:40)
[2020-06-09] MEDS: IPRATROPIUM BROM 0.5MG/2.5ML NEB SCH ×4 (02:00→19:40)
[2020-06-09] MEDS: INSULIN -REGULAR HUMAN 50 UNIT/0.5 ML ML SQ SCH ×5 (04:54→23:46)
--- NOTE | 2020-06-09 07:49 | RAD REPORT ---
EXAM DESCRIPTION: Charissa Single View06/09/2020 7:41 am CLINICAL HISTORY: Chest pain COMPARISON: May 09, 2020 FINDINGS: Mild bilateral pulmonary opacities have partially resolved Heart is mildly enlarged. PICC line in place
[2020-06-09] MEDS: Meropenem 1,000 MG in NA CHLORIDE 0.9% 100 ML IV SCH ×2 (09:52→20:47)
[2020-06-09] MEDS: PANTOPRAZOLE 40 MG INJ IVP SCH (09:58)
[2020-06-09 10:30] LABS: Absolute Lymphocytes (CBC) 2.1 K/uL (0.7-4.9); Basophils % 0.2 % (0-1.3); Hematocrit 21.9 % (36.0-45.0); Lymphocytes % 16.5 % (15.3-44.8); MPV 7.2 fL (7.6-11.3)
[2020-06-09 10:41] LABS: Magnesium 1.5 mg/dL (1.8-2.4); Potassium 4.2 mmol/L (3.5-5.1)
[2020-06-09 10:56] LABS: Basophilic Stippling 1+; Blood Morphology Comment NOTED (NOT SEEN); Platelet Estimate ADEQ
[2020-06-09] MEDS ORDERED: GLUCERNA 1.5 CAL 1,000 ML BOT FT SCH (11:58)
[2020-06-09] MEDS ORDERED: carvediloL 6.25 MG TAB FT ONE (12:00)
[2020-06-09] MEDS: SOD FERRIC GLUC COMPLX/SUCROSE 250 MG in NA CHLORIDE 0.9% 250 ML IV SCH (12:19)
--- NOTE | 2020-06-09 12:21 | PN ---
Date of Progress Note: 06/09/2020 Subjective: The patient was admitted with acute kidney injury with hyperkalemia. The patient had pn eumonia, had severe anemia. The patient's family refused any transfusion. The patient being obtunde d. Physical Examination: Vital Signs: Blood pressure 161/73, pulse of 99, afebrile. The patient had good urine output of 420 0, negative of 2500. Chest: Crackles bilateral. Heart: S1, S2. Systolic murmur. Abdomen: Soft, nontender. Extremities: Trace edema with amputation. Neuro: The patient obtunded. Laboratory Data: WBC 12.7, H and H 7.1/21.9, and platelets 226. Sodium 150, potassium 4.2, bicarb 3 3, BUN 24, creatinine 1, glucose of 159, magnesium 1.5, calcium 8.8. Current Medications: The patient on include: 1.Meropenem. 2.IV iron. 3.Carvedilol 6.25 b.i.d. 4.Tylenol. 5.Lasix. 6.Zofran. 7.Tube feeding. Assessment And Plan: 1.Acute kidney injury secondary to prerenal, recovered, trending down, back to baseline. Still on t he wet side. We will continue diuresis. 2.Hyponatremia, currently hypernatremia, mostly secondary to poor intake. I am going to go ahead an d change tube feeding and we will increase free water. We will continue diuresis. 3.Urinary tract infection secondary to Klebsiella pneumoniae and Escherichia coli multidrug resistan t. The patient was switched to meropenem, which is sensitive to both. Agree current dose appropriat e. 4.Hypomagnesemia. We will supplement. Overall, the patient has poor prognosis. We will follow up. JUAN MANUEL/RANDALL Voice ID: [id number] Report ID: [id number]
--- NOTE | 2020-06-09 12:33 | PN ---
Date of Progress Note: 06/09/2020 Subjective: The patient was seen this morning for followup. She was lying in bed with her mouth open, had some oral secretion in her oropharyngeal area when I saw her and nursing staff was brought in to immediately provide suctioning. The patient is not in any respiratory distress. Objective: Vital Signs: Reviewed. HEENT: Unremarkable. Lungs: Clear to auscultation. Cardiac: Heart sounds normal. Abdomen: Soft. Bowel sounds normal. No guarding, rigidity, tenderness, distention. Extremities: No leg edema. SCD present on both legs. Laboratory Data: White count 12.7, hemoglobin 7.1, platelets 226. Sodium 150, potassium 4.2, chloride 113, bicarb 33, BUN 24, creatinine 1.09, glucose 119, magnesium 1.5. Impression: 1. Pneumonia. 2. Urinary tract infection. 3. Hypernatremia. 4. Anemia. 5. Leukocytosis. Plan: The patient's elevated WBC count could be very likely due to steroid use. Currently, she is on Solu-Cortef. Instructional Manager is managing that. Her sodium level has gone up and we will add free water through her PEG tube feeding. Currently, she is getting Glucerna at 40 cc/hour and she is tolerating that well. I have advised nursing staff to change it to Glucerna 50 cc/hour and it will be diluted with 50% water. We will repeat blood work tomorrow. Chest x- ray from today has shown improvement in bilateral fluid overload that was noted on last couple of x-rays, looks better today. We will continue current antibiotics. Mouth care will be given as per instruction to nursing staff and also was advised to provide oropharyngeal suction every hour and p.r.n. and was advised to bring respiratory therapist to provide some deep suctioning this morning. Nurse was also advised to offload her heels all the time. There was no evidence of any decubitus when I examined her heels today and both heels were offloaded today when I was in room with the nurse. ANUPAMA/MODL Voice ID: [id number] Report ID: [id number] DEBBIE
[2020-06-09] MEDS: carvediloL 6.25 MG TAB FT SCH (20:48)
[2020-06-10] MEDS: HYDROCORTISONE SUC 100 MG INJ IV SCH ×3 (00:34→16:09)
[2020-06-10] MEDS: WATER FOR INJ,STERILE 10 ML IV SCH ×3 (00:34→16:09)
[2020-06-10] MEDS: IPRATROPIUM BROM 0.5MG/2.5ML NEB SCH ×4 (00:45→21:00)
[2020-06-10] MEDS: ALBUTEROL 2.5 MG/3 ML NEB SOL NEB SCH ×4 (00:45→21:00)
[2020-06-10] MEDS: INSULIN -REGULAR HUMAN 50 UNIT/0.5 ML ML SQ SCH ×3 (06:00→18:00)
[2020-06-10] MEDS: PANTOPRAZOLE 40 MG INJ IVP SCH (07:40)
[2020-06-10] MEDS: Meropenem 1,000 MG in NA CHLORIDE 0.9% 100 ML IV SCH ×2 (07:40→20:17)
[2020-06-10] MEDS: carvediloL 6.25 MG TAB FT SCH ×2 (07:41→20:53)
[2020-06-10 08:44] LABS: Potassium 3.6 mmol/L (3.5-5.1)
[2020-06-10 08:46] LABS: Magnesium 1.4 mg/dL (1.8-2.4)
[2020-06-10] MEDS ORDERED: KCL 20 MEQ/100 mL IVPB 20 MEQ/100 ML BAG IV SCH (09:00)
[2020-06-10] MEDS ORDERED: Magnesium Sulfate 2gm IVPB 2 G/50 ML BAG IV ONE (10:00)
[2020-06-10] MEDS ORDERED: FUROSEMIDE 40 MG/4 ML VIAL IV SCH (12:50)
[2020-06-10] MEDS: D5W 1,000 ML with POTASSIUM CL 20 MEQ IV SCH ×2 (13:00)
[2020-06-10] MEDS ORDERED: MAGNESIUM 50% 3 GM in NA CHLORIDE 0.9% 100 ML IV ONE (13:00)
[2020-06-10] MEDS ORDERED: MAGNESIUM SULFATE 1 gm IVPB 1 GM/100 ML BAG IV ONE (14:00)
--- NOTE | 2020-06-10 15:40 | PN ---
Date of Progress Note: 06/10/2020 Subjective: Patient was seen this morning for followup. She was lying in bed, not in distress. Does not communicate or answer any questions. Objective: Vital Signs: Reviewed. HEENT: Unremarkable. Lungs: Clear to auscultation. Heart: Sounds normal. Abdomen: Soft. Bowel sounds normal. No guarding, rigidity, tenderness, or distention. Extremities: No leg edema. Both heels were noted to be offloaded with help of pillow and the patient is on air mattress. Laboratory Data: Sodium 154, potassium 3.6, chloride 119, bicarb 30, BUN 26, creatinine 0.86, glucose 141, magnesium 1.2. Impression: 1. Hypernatremia. 2. Pneumonia. 3. Urinary tract infection. Plan: We will continue current tube feeding, which is 50%strength, so patient is getting water through that and she is getting at 50 cc/hour. This is as of yesterday. Nurse was advised to call analytical lab technician to notify active results and analytical lab technician will make further recommendation on that. We will continue current antibiotics. We will repeat blood work and chest x-ray tomorrow. Replace electrolytes per protocol. ANUPAMA/MODL Voice ID: [id number] Report ID: [id number] DEBBIE
--- NOTE | 2020-06-10 16:55 | PN ---
Date of Progress Note: 06/10/2020 Subjective: The patient was admitted with acute kidney injury, hyperkalemia, septic shock. Family r efused any transfusion even with a significant GI bleed and anemia. Patient had hyperkalemia with hy ponatremia, which is treated conservatively and recovered. Physical Examination: Vital Signs: When I saw the patient, blood pressure 139/69, pulse of 91, afebrile. The patient had good urine output of 3600, the patient negative of 2400. Chest: Clear to auscultation. Heart: S1, S2. Systolic murmur. Abdomen: Soft, nontender. Extremity: Trace edema. Neuro: The patient is sleepy. Laboratory Data: WBC 12.7, H and H 7.1/21.9, platelets 226. Sodium 154, potassium 3.6, bicarb 30, B UN 26, creatinine 0.8, calcium 7, magnesium 1.4. Current Medications: The patient is on include, IV iron, albuterol, meropenem, carvedilol 6.25 b.i.d ., breathing treatment, Zofran, pantoprazole, hydrocortisone 50 t.i.d. Free water. Assessment And Plan: 1.Acute kidney injury secondary to poor perfusion, acute tubular necrosis, prerenal. Recovered, res olved. Currently, looks normal volume to the dry side. We will hold the diuresis. 2.Hypernatremia secondary to diuresis. We will start free water and we will monitor. 3.Urinary tract infection secondary to Klebsiella pneumoniae and Escherichia coli. Continue meropen em. 4.Hypomagnesemia. We will supplement aggressively. We will follow up lab. JUAN MANUEL/RANDALL Voice ID: [id number] Report ID: [id number]
[2020-06-11] MEDS: HYDROCORTISONE SUC 100 MG INJ IV SCH ×3 (00:19→16:31)
[2020-06-11] MEDS: WATER FOR INJ,STERILE 10 ML IV SCH ×3 (00:19→16:31)
[2020-06-11] MEDS: D5W 1,000 ML with POTASSIUM CL 20 MEQ IV SCH ×4 (02:10→15:02)
[2020-06-11] MEDS: ALBUTEROL 2.5 MG/3 ML NEB SOL NEB SCH ×4 (02:50→20:00)
[2020-06-11] MEDS: IPRATROPIUM BROM 0.5MG/2.5ML NEB SCH ×4 (02:50→20:00)
[2020-06-11 04:42] LABS: Absolute Lymphocytes (CBC) 1.2 K/uL (0.7-4.9); Hematocrit 23.8 % (36.0-45.0); Lymphocytes % 10.2 % (15.3-44.8); MPV 7.1 fL (7.6-11.3); RBC Red Blood Cell Count 2.67 M/uL (3.86-4.86)
[2020-06-11 04:55] LABS: Potassium 4.6 mmol/L (3.5-5.1)
[2020-06-11] MEDS: INSULIN -REGULAR HUMAN 50 UNIT/0.5 ML ML SQ SCH ×4 (06:00→17:21)
--- NOTE | 2020-06-11 07:58 | RAD REPORT ---
EXAM DESCRIPTION: Charissa Single View06/11/2020 6:06 am CLINICAL HISTORY: Shortness breath COMPARISON: June 09 FINDINGS: The left lung appears clear. Minimal right lung opacities may represent minimal interstitial pulmonary edema Heart is mildly enlarged. PICC line with its tip in the superior vena cava
--- NOTE | 2020-06-11 08:06 | RAD REPORT ---
EXAM DESCRIPTION: RAD - Chest Single View - 06/08/2020 10:29 pm ADDENDUM #1 COMPARISON REPORT: COMPARISON: 06/08/2020 at 10:38 FINDINGS: The heart is mildly enlarged, stable. There is atherosclerosis of the thoracic aorta. A left-sided PICC line has been placed with distal tip in the superior vena cava The lung lara are clear for active infiltrates. There is mild pulmonary vascular congestion, stable. There are small pleural effusions, stable. IMPRESSION: 1. Successful placement of left-sided PICC line. 2. Mild congestive heart failure, stable. Electronically signed by: Good Ohara MD 06/08/2020 11:32 PM CDT End of Addendum EXAM DESCRIPTION: Chest Single View CLINICAL HISTORY: 80 years Female, S/P PICC insertion COMPARISON: None available. FINDINGS: There is mild cardiomegaly. There is atherosclerosis of the thoracic aorta. A left-sided PICC line is identified with distal tip in superior vena cava. The lung lara are clear of active infiltrates. There is mild pulmonary vascular congestion. There are small pleural effusions. IMPRESSION: 1. Successful placement of left-sided PICC line. 2. Mild congestive heart failure. Electronically signed by: Good Ohara MD 06/08/2020 10:36 PM CDT Due to temporary technical issues with the PACS/Fluency reporting system, reports are being signed by the in house radiologist without review as a courtesy to ensure prompt reporting. The interpreting r adiologist is fully responsible for the content of the report.
[2020-06-11] MEDS: Meropenem 1,000 MG in NA CHLORIDE 0.9% 100 ML IV SCH ×2 (08:37→21:30)
[2020-06-11] MEDS: PANTOPRAZOLE 40 MG INJ IVP SCH (08:38)
[2020-06-11] MEDS: carvediloL 6.25 MG TAB FT SCH ×2 (08:40→21:30)
[2020-06-11] MEDS: SODIUM CHLORIDE 0.9% 10ML INJ IV PRN (08:40)
--- NOTE | 2020-06-12 00:17 | PN ---
Date of Progress Note: 06/11/2020 Subjective: The patient was seen this morning for followup. No new complaints or problems reported by nursing staff. The patient was lying in bed, not in distress. Condition overall remains unchange d. Breathing from her mouth. Objective: Vital Signs: Reviewed. HEENT: Unremarkable. Lungs: Clear to auscultation. Heart: Sounds normal. Abdomen: Soft. Bowel sounds normal. No guarding, rigidity, tenderness, or distention. Extremities: No leg edema. Her both feet were offloaded and she was on air mattress as noted. Laboratory Data: Sodium 144, potassium 4.6, chloride 111, bicarb 29, BUN 31, creatinine 0.96, glucos e 207, magnesium 2. White count 11.9, hemoglobin 7.6, platelets 198. Impression: 1.Pneumonia. 2.Urinary tract infection. 3.Volume depletion. 4.Anemia. Plan: We will continue current medications. We will go ahead and continue IV fluid and PEG tube fee ding with water per order. Continue current antibiotics and I will see her tomorrow. Possible disch arge to go back to [facility] in next day or 2 days. Chest x-ray results reviewed. ANUPAMA/MODL Voice ID: [id number] Report ID: [id number]
[2020-06-12] MEDS: WATER FOR INJ,STERILE 10 ML IV SCH ×2 (00:39→08:46)
[2020-06-12] MEDS: HYDROCORTISONE SUC 100 MG INJ IV SCH (00:40)
[2020-06-12] MEDS: IPRATROPIUM BROM 0.5MG/2.5ML NEB SCH ×4 (01:40→20:56)
[2020-06-12] MEDS: ALBUTEROL 2.5 MG/3 ML NEB SOL NEB SCH ×4 (01:40→20:56)
--- NOTE | 2020-06-12 02:36 | PN ---
Date of Progress Note: 06/11/2020 Chief Complaint: Acute kidney injury associated with septic shock, renal hypoperfusion in setting of septic shock associated with hyperkalemia. History Of Present Illness: The patient developed GI bleeding and tvylx-qx-yxfkxuw anemia. Family r efused blood transfusion. The patient has hyperkalemia and hyponatremia, which was treated conservat ively. Review of Systems: The patient is confused, cannot provide review of systems. Physical Examination: Lungs: Diminished breath sounds at bases. Heart: S1 and S2. Abdomen: Soft, benign. Extremities: Trace edema. Blood Work: Hemoglobin 7.6, WBC 11.9, and platelet count is 198,000. Chemistries show sodium 144, p otassium 4.6, chloride 111, CO2 of 29, BUN 31, creatinine 0.96, glucose is 207, calcium 8.1, and magn esium 2.0. Impression And Plan: 1.Acute kidney injury. Renal function gradually improved. Creatinine level on arrival to the [facility] was 2.01. Continue adequate hydration. 2.Anemia, acute on chronic, is improving gradually. 3.Prerenal azotemia. BUN improved from 51 to 31. There is high BUN- creatinine ratio secondary to prerenal azotemia. The patient is recovering from acute kidney injury. EB/MODL Voice ID: [id number] Report ID: [id number]
[2020-06-12] MEDS ORDERED: GLUCERNA 1.5 CAL 1,000 ML BOT FT SCH (03:58)
[2020-06-12] MEDS: D5W 1,000 ML with POTASSIUM CL 20 MEQ IV SCH ×2 (05:05)
[2020-06-12 05:49] LABS: Basophils % 0.1 % (0-1.3); Hematocrit 23.3 % (36.0-45.0); Lymphocytes % 11.2 % (15.3-44.8); MPV 7.8 fL (7.6-11.3); RBC Red Blood Cell Count 2.62 M/uL (3.86-4.86)
[2020-06-12 06:01] LABS: Magnesium 1.6 mg/dL (1.8-2.4); Potassium 4.6 mmol/L (3.5-5.1)
[2020-06-12] MEDS: INSULIN -REGULAR HUMAN 50 UNIT/0.5 ML ML SQ SCH ×4 (06:32→18:00)
--- NOTE | 2020-06-12 07:21 | RAD REPORT ---
EXAM DESCRIPTION: RAD - Chest Single View - 06/12/2020 6:10 am CLINICAL HISTORY: CHF, pneumonia COMPARISON: Portable June 11 TECHNIQUE: AP portable chest image was obtained 06/12/2020 6:10 am . FINDINGS: Lung volumes are very low. This significantly limits left base assessment and posterior gu tter assessment on the right. No peripheral consolidation in the mid and upper lung lara. Vasculatu re and central lung markings are prominent but slightly improved. Trachea is midline. Left-side PICC line unchanged. Heart size is upper normal, magnified by shallow i nspiration portable technique. Heart size has decreased. No pneumothorax present. No enlarging pleura l effusion. Significant bilateral shoulder joint degenerative change noted. No acute aortic findings suspected. IMPRESSION: CHF/volume overload findings have shown significant but incomplete resolution since June 11. No new mass or consolidation. Lung base assessment is limited due to portable technique and low lung volume.
[2020-06-12] MEDS ORDERED: MAGNESIUM SULFATE 1 gm IVPB 1 GM/100 ML BAG IV ONE (08:00)
[2020-06-12] MEDS: Meropenem 1,000 MG in NA CHLORIDE 0.9% 100 ML IV SCH ×2 (08:26→21:57)
[2020-06-12] MEDS: predniSONE 20 MG TAB FT SCH (08:27)
[2020-06-12] MEDS: carvediloL 6.25 MG TAB FT SCH ×2 (08:27→21:58)
[2020-06-12] MEDS: PANTOPRAZOLE 40 MG INJ IVP SCH (08:28)
[2020-06-12] MEDS: SODIUM CHLORIDE 0.9% 10ML INJ IV PRN (08:28)
[2020-06-12] MEDS: SOD FERRIC GLUC COMPLX/SUCROSE 250 MG in NA CHLORIDE 0.9% 250 ML IV SCH (11:26)
--- NOTE | 2020-06-12 14:30 | P.PN ---
Subjective Date of Service: 06/12/20 Subjective bed bound NH pt , who was admitted for Hypothermia , found to have abnormal labs today No change in clinical status Sodium improving , now on lower normal Cont current free water rate Physical exam general: minimally communicative Neck; Supple, No elevated JVD hear: RRR, normal S1,2 no murmur or rub Chest: CTAB, no rlaes or wheezes Abdomen: Soft , Nt, PEG tube Extremities no edema Assessment And Plan: LUH due to dehydration resolved Hyponatremia resolved now sodium on high side cont current rate of free water Hyokalmeia cont current feeding formula replace as needed SOFYA cont IV iron sepsis Cont ABx total time spent 40min Physical Examination - Vital Signs Temperature: 97.4 F Blood Pressure: 147/83 Pulse: 68 Respirations: 16 Pulse Ox (%): 99
--- NOTE | 2020-06-12 22:42 | PN ---
Date of Progress Note: 06/12/2020 Subjective: The patient was seen this morning for followup. She was lying in bed. Today when I tri ed to talk to her, she opened her eyes and started smiling at me and she was trying to speak, but she was not able to say any specific words. This is the best response that I have seen so far throughou t this hospital stay. She was not in any respiratory distress. Objective: HEENT: Unremarkable. Lungs: Clear to auscultation. Heart: Sounds normal. Abdomen: Soft. Bowel sounds normal. No guarding, rigidity, tenderness, or distention. Extremities: No leg edema. Laboratory Data: White count 8.8, hemoglobin 7.7, platelets 228. Sodium 136, potassium 4.6, chlorid e 105, bicarb 27, BUN 31, creatinine 0.85, glucose 205, magnesium 1.6. Impression: 1.Urinary tract infection. 2.Pneumonia. 3.Hypomagnesemia. 4.Anemia. Plan: We will continue current antibiotic. Discontinue IV fluid. Chest x-ray shows improvement. A s noted on the report, we will continue PEG tube feeding and water through PEG tube per order. Kian nue suction. Social Service was consulted to make arrangements for the patient to [facility] with IV meropenem using current dose for 1 week and possible discharge to go to penitentiary tomorrow. I did call the patient's daug hter and gave her updates. ANUPAMA/MODL Voice ID: [id number] Report ID: [id number]
[2020-06-13] MEDS: IPRATROPIUM BROM 0.5MG/2.5ML NEB SCH ×2 (00:31→08:48)
[2020-06-13] MEDS: ALBUTEROL 2.5 MG/3 ML NEB SOL NEB SCH ×2 (00:31→08:48)
[2020-06-13 04:21] LABS: Absolute Lymphocytes (CBC) 1.8 K/uL (0.7-4.9); Basophils % 0.1 % (0-1.3); Hematocrit 22.3 % (36.0-45.0); Lymphocytes % 25.3 % (15.3-44.8); RBC Red Blood Cell Count 2.51 M/uL (3.86-4.86)
[2020-06-13 04:37] LABS: BUN Blood Urea Nitrogen 31 mg/dL (7-18); Bicarbonate 27 mmol/L (21-32); Glucose Level 109 mg/dL (74-106); Magnesium 1.9 mg/dL (1.8-2.4); Potassium 4.5 mmol/L (3.5-5.1); Sodium Level 138 mmol/L (136-145)
[2020-06-13] MEDS: INSULIN -REGULAR HUMAN 50 UNIT/0.5 ML ML SQ SCH ×3 (06:00→12:00)
[2020-06-13] MEDS: carvediloL 6.25 MG TAB FT SCH (09:24)
[2020-06-13] MEDS: Meropenem 1,000 MG in NA CHLORIDE 0.9% 100 ML IV SCH (09:24)
[2020-06-13] MEDS: predniSONE 20 MG TAB FT SCH (09:24)
[2020-06-13] MEDS: PANTOPRAZOLE 40 MG INJ IVP SCH (09:25)
[2020-06-13 11:26] VITALS: O2SAT 93
[2020-06-13 12:43] VITALS: BP 143/83; TEMP 97.6
--- NOTE | 2020-06-13 20:04 | PN ---
Date of Progress Note: 06/13/2020 Subjective: The patient was admitted with symptomatic anemia, hyperkalemia, acute kidney injury, ove r volume, and pneumonia. The patient was treated. Kidney function has been improved, recovered. Th e patient had hypernatremia treated. Physical Examination: Vital Signs: Blood pressure 143/83, pulse of 70. The patient had good urine output of 1100. Chest: Crackles bilateral base. Heart: S1, S2, systolic murmur. Abdomen: Soft, nontender. Extremities: Trace edema. Neuro: The patient is sleepy. Laboratory Data: WBC 7.2, H and H 7.4/22.3, platelets 252. Sodium 138, potassium 4.5, bicarb 27, BU N 31, creatinine 0.7, calcium 8.3, magnesium 1.9. Current Medications: Include: 1.Breathing treatment. 2.IV iron. 3.Ipratropium. 4.Meropenem. Assessment And Plan: 1.Acute kidney injury secondary to prerenal, complicated with acidosis and hyperkalemia, recovered b ack to baseline, resolved. We will continue to monitor. Discontinue IV fluid. 2.Hypernatremia secondary to poor intake, recovered, resolved. 3.Urinary tract infection secondary to Klebsiella pneumoniae E coli. Continue current antibiotic. 4.Pneumonia. Continue current treatment. 5.Hypomagnesemia status post replacement, resolved. The patient is cleared from the renal standpoint for discharge planning. To follow up with the primary. LEONEL Voice ID: [id number] Report ID: [id number]
--- NOTE | 2020-06-14 03:10 | DS ---
Date of Discharge: 06/13/2020 Disposition: Discharged to go to [facility]. Physical Examination: HEENT: Unremarkable. Lungs: Clear to auscultation. Heart: Sounds normal. Abdomen: Soft. Bowel sounds normal. No guarding, rigidity, tenderness, or distention. Extremities: No leg edema. Laboratory Data: Last blood work today; white count 7.2, hemoglobin 7.4, platelet count of 252. Lowest hemoglobin was 6.3 on 06/06/2020. The patient has not received any blood transfusion during this hospitalization. Last chemistry today; sodium 138, potassium 4.5, chloride 106, bicarb 27, BUN 31, creatinine 0.73, glucose 109. Sputum culture grew Proteus mirabilis and urine culture grew Klebsiella and E coli, which is ESBL. Her COVID-19 test was negative. Hospital Course: An 80-year-old female patient, living at [facility], was sent to emergency room with hypothermia. Please see dictated H and P for more information. After she was evaluated in the emergency room, she was admitted to the hospital. The patient initially had septic shock with pneumonia and urinary tract infection. She had hypothermia along with that. She had hyponatremia and hyperkalemia and acute kidney injury. She also had significant anemia and a heart block. Cardiology consult and Nephrology consultation were requested. Health Education Assistant evaluated her and initially, we did not give her carvedilol that she was taking, but subsequently as her blood pressure went up and she no longer had any bradycardia, we started her on carvedilol. She has tolerated that very well. She did not require any cardiac intervention. For acute kidney injury and hyponatremia, she received IV fluid. Hall Porter also started on IV steroid. Her hyponatremia problem improved and her sodium level was back to normal. Acute kidney injury problem improved also. She initially had high potassium, which was corrected as well. Later on, she developed hypernatremia and this was corrected with IV fluid containing D5 half NS as well as water given through PEG tube. She was given her feeding through PEG tube, which she tolerated very well. Oropharyngeal suction was provided. Her heels were offloaded and she was on air mattress during this hospitalization. Overall, her condition improved. Once we got the culture results back, we changed her antibiotics to meropenem according to culture results. PICC line was placed and it was placed in her left arm. The patient's family did not want any heroic measures. DNR order was written in the chart. They did not want any blood transfusion or any kind of invasive procedures, so GI consultation was canceled. She was given IV Protonix. Overall, her condition has improved. I did talk to patient's son and daughter on multiple occasions and the family would like to have out of hospital DNR in place. Appropriate form was completed with the help of Social Service. Today, the patient was discharged to go back to intermediate in stable condition. Final Diagnoses: 1. Septic shock. 2. Pneumonia. 3. Urinary tract infection. 4. Hyponatremia. 5. Hyperkalemia. 6. Acute kidney injury. 7. Anemia. 8. Heart block. 9. Diabetes mellitus. 10. Stroke. 11. Senile dementia. 12. Volume depletion. Discharge Medications And Instructions: 1. Continue all prior intermediate medications. 2. Use Glucerna for PEG tube feeding at 50 cc/hour and use 50% Glucerna and 50% water for feeding. 3. Keep head and chest elevated all the time and oropharyngeal suction every hour and p.r.n. 4. Mouth care every 6 hours and p.r.n. 5. Prednisone 20 mg daily per PEG tube for 2 days, then 10 mg daily for 2 days, then 5 mg daily for 2 days, then 2.5 mg daily for 2 days, then stop. 6. Meropenem 1000 mg IV piggyback every 12 hours for 1 week. 7. Flush PICC line per protocol. 8. Change PICC line dressing per protocol, remove PICC line after 1 week of IV antibiotic therapy completed. 9. Use air mattress. 10. Change position every 2 hours. 11. Keep heels offloaded all the time. 12. CBC, chem-7 and magnesium level to be done in 2 weeks and then every 2 weeks. ANUPAMA/MODL Voice ID: [id number] Report ID: [id number] DEBBIE
== END 2020-06-13 13:00 | DRG 871 ==
LOC: ER 08:45 → ERHOLD 11:10 → 2ND 06-06 02:30
PROVIDERS: ADMIT Internal Medicine; ATTEND Internal Medicine
PROC: 05HP33Z Insertion of Infusion Device into Right External Jugular Vein, Percutaneous Approach (ICD-10-PCS; principal; 2020-06-05)
PROC: 02HV33Z Insertion of Infusion Device into Superior Vena Cava, Percutaneous Approach (ICD-10-PCS; 2020-06-08)
DX: A41.9 Sepsis, unspecified organism (principal); R65.21 Severe sepsis with septic shock; J18.9 Pneumonia, unspecified organism; I50.31 Acute diastolic (congestive) heart failure; N17.0 Acute kidney failure with tubular necrosis; I69.351 Hemiplegia and hemiparesis following cerebral infarction affecting right dominant side; N39.0 Urinary tract infection, site not specified; E87.1 Hypo-osmolality and hyponatremia; D62 Acute posthemorrhagic anemia; E87.2 Acidosis; E87.0 Hyperosmolality and hypernatremia; E11.22 Type 2 diabetes mellitus with diabetic chronic kidney disease; I12.9 Hypertensive chronic kidney disease with stage 1 through stage 4 chronic kidney disease, or unspecified chronic kidney disease; N18.3 Chronic kidney disease, stage 3 (moderate); F03.90 Unspecified dementia, unspecified severity, without behavioral disturbance, psychotic disturbance, mood disturbance, and anxiety; E87.5 Hyperkalemia; D50.9 Iron deficiency anemia, unspecified; E87.6 Hypokalemia; B96.1 Klebsiella pneumoniae [K. pneumoniae] as the cause of diseases classified elsewhere; E83.42 Hypomagnesemia; Z20.828 Contact with and (suspected) exposure to other viral communicable diseases
CPT/HCPCS: 36415; 36569; 51702; 71045; 76770; 80048; 80069; 80076; 80202; 81003; 81015; 82150; 82274; 82533; 82550; 82553; 82570; 82728; 82746; 82947; 83540; 83605; 83690; 83735; 83880; 83930; 83935; 84132; 84145; 84156; 84300; 84443; 84466; 84484; 85025; 85044; 85610; 85730; 86850; 86900; 86901; 87040; 87070; 87077; 87086; 87088; 87186; 87205; 93005; 93306; 94640; 99291; 99292; C9113; J0610; J0692; J1720; J1940; J2185; J2916; J3370; J3475; J3480; J7030; J7040; J7050; J7512; U0002

== ENCOUNTER 2020-07-17 07:09 | Inpatient (IN) | payer OTHER ==
[2020-07-17] MEDS ORDERED: NA CHLORIDE 0.9% 1,000 ML ONE (07:32)
[2020-07-17] MEDS ORDERED: ALBUTEROL 2.5 MG/3 ML NEB SOL ONE ×3 (07:32→11:43)
[2020-07-17] MEDS ORDERED: IPRATROPIUM BROM 0.5MG/2.5ML ONE ×3 (07:32→11:42)
[2020-07-17] MEDS ORDERED: CEFTRIAXONE/SWI 1gm 1 GM/10 ML SYR ONE (07:32)
[2020-07-17 07:47] LABS: Protime INR 1.05
[2020-07-17 07:50] LABS: Absolute Lymphocytes (CBC) 1.5 K/uL (0.7-4.9); Basophils % 0.2 % (0-1.3); Hematocrit 23.7 % (36.0-45.0); Lymphocytes % 18.4 % (15.3-44.8); MPV 8.3 fL (7.6-11.3); RBC Red Blood Cell Count 2.65 M/uL (3.86-4.86)
[2020-07-17] MEDS ORDERED: INSULIN -REGULAR HUMAN 50 UNIT/0.5 ML ML ONE ×2 (08:04→10:50)
[2020-07-17] MEDS ORDERED: ATROPINE SULF 1 MG/10 ML SYR IV ONE (08:05)
[2020-07-17] MEDS ORDERED: D50W 25 GM/50 ML SYRINGE/VIAL IV ONE ×2 (08:05→09:41)
[2020-07-17 08:15] LABS: ALT/SGPT 72 U/L (12-78); AST/SGOT 71 U/L (15-37); Albumin 2.8 g/dL (3.4-5.0); Alkaline Phosphatase 185 U/L (45-117); BUN Blood Urea Nitrogen 87 mg/dL (7-18); Bicarbonate 25 mmol/L (21-32); Bilirubin Direct < 0.1 mg/dL (0-0.2); Bilirubin Total 0.2 mg/dL (0.2-1.0); Glucose Level 169 mg/dL (74-106); NT PRO-BNP 2205 pg/mL (<450); Protein, Total 7.7 g/dL (6.4-8.2); Sodium Level 129 mmol/L (136-145); Troponin (Emerg Dept Use Only) < 0.02 ng/mL (0.0-0.045)
[2020-07-17 08:18] LABS: Potassium 6.7 mmol/L (3.5-5.1)
--- NOTE | 2020-07-17 08:51 | RAD REPORT ---
EXAM DESCRIPTION: US - Lower Extremity Arterial Bilat - 07/17/2020 7:58 am CLINICAL HISTORY: Leg pain and coldness COMPARISON: None FINDINGS: Waveform of the left common femoral is triphasic Waveform of right common femoral, bilateral Superficial femoral, and popliteal, arteries are biphasic Bilateral dorsalis pedis artery and right posterior tibial arterial waveform is monophasic and dimini shed in amplitude. Left posterior tibial artery was not evaluated secondary to difficulty with patien t positioning A significant stenosis/occlusion not seen IMPRESSION: Moderate distal arterial disease
--- NOTE | 2020-07-17 09:23 | RAD REPORT ---
EXAM DESCRIPTION: Charissa Single View07/17/2020 7:56 am CLINICAL HISTORY: Cough COMPARISON: May 2020 FINDINGS: Mild right basilar atelectasis Left lung appears clear Heart is borderline enlarged
--- NOTE | 2020-07-17 09:43 | ER ---
Nurse's Notes [facility] Name: Sharda Dewey Age: 80 yrs Sex: Female : 1940 Arrival Date: 07/17/2020 Time: 07:12 Bed 3 Private MD: Diagnosis: Hyperkalemia;Altered mental status, unspecified Presentation: 07/17 07:16 Chief complaint: EMS states: Pt from [facility], sent for abnormal labs and congestion, ph potassium reported to be above 8, pt A\T\O x none at baseline, initial EMS vitals, BP 89/52, HR 32. Coronavirus screen: Client denies travel out of the [place] in the last 14 days. Ebola Screen: No symptoms or risks identified at this time. Initial Sepsis Screen: Does the patient meet any 2 criteria? No. Patient's initial sepsis screen is negative. Does the patient have a suspected source of infection? Yes: Productive cough/pneumonia. Risk Assessment: Do you want to hurt yourself or someone else? Patient reports no desire to harm self or others. Onset of symptoms was July 17, 2020. 07:16 Method Of Arrival: EMS: [facility] ph 07:16 Acuity: TITUS 2 ph 08:47 Acuity: TITUS 1 em Historical: - Allergies: 07:24 No Known Allergies; ph - Home Meds: 07:24 allopurinol 100 mg Oral tab 1 tab 2 times per day [Active]; amlodipine 5 mg tab 1 tab ph twice a day [Active]; aspirin 81 mg Oral chew 1 tab once daily [Active]; carvedilol 12.5 mg Oral tab 1 tab 2 times per day [Active]; Celexa 10 mg Oral tab 1 tab nightly [Active]; famotidine 20 mg Oral tab 1 tab once daily [Active]; ferrous sulfate 325 mg (65 mg iron) Oral TbEC [Active]; lorazepam 0.5 mg Oral tab 1 tab at bedtime [Active]; TYLENOL 325 MG 2 tab every 6 hours [Active]; - PMHx: 07:24 Allergic rhinitis; Alzheimers; Anemia; Anxiety; ataxic gait; CAD; Delusional disorder; ph Dementia; Depression; Diabetes - NIDDM; DYSPHAGIA; Hypertension; insomnia; Pneumonia; - PSHx: 07:24 PEG tube; ph - Immunization history:: Adult Immunizations unknown. - Social history:: Smoking status: unknown. Screenin:24 Abuse screen: Denies threats or abuse. Denies injuries from another. Nutritional ph screening: No deficits noted. Tuberculosis screening: No symptoms or risk factors identified. Fall Risk Fall in past 12 months (25 points). Secondary diagnosis (15 points) Alzheimer's, dementia, impaired mobility, IV access (20 points). Ambulatory Aid- None/Bed Rest/Nurse Assist (0 pts). Gait- Impaired (20 pts.). Mental Status- Overestimates/Forgets Limitations (15 pts.). Total Lara Fall Scale indicates High Risk Score (45 or more points). Fall prevention measures have been instituted. Side Rails Up X 2 Placed Close to Nursing Station Frequent Obs/Assessments Occuring As available patient and family educated on Fall Prevention Program and Strategies. Assessment: 07:16 General: Appears comfortable, Behavior is responsive to tactile stimuli, pt nonverbal . em Pain: Unable to use pain scale. Does not appear to understand pain scale. FLACC scale score is 0 out of 10. Neuro: Level of Consciousness is awake, Oriented to none. Cardiovascular: Rhythm is sinus bradycardia. Respiratory: Airway is patent Respiratory effort is even, weak, Respiratory pattern is symmetrical, Sputum is thick, white. GI: PEG tube in place, Site clean. Derm: Skin is intact, is thin, Skin is dry, Skin is normal, Skin temperature is cold. Musculoskeletal: Range of motion: contractures noted to erma. arms. 07:50 Reassessment: HR 28, BP 120/59, provider notified, received new verbal orders for em atropine 1 mg x 1 IVP. 08:30 Reassessment: rectal temp. 93.7, placed pt on bear hugger, received order for Keya Londono. 09:25 Reassessment: repeat glucose 77, provider notified. em 09:30 Reassessment: No changes from previously documented assessment. em 10:00 Reassessment: moved to ER room 3, no change in status, will continue to monitor. em 11:00 Reassessment: Patient appears in no apparent distress at this time. No changes from em previously documented assessment. 11:30 Reassessment: skin cool, normal and dry, pt resting with eyes closed with snoring em respirations, even unlabored respirations. Vital Signs: 07:16 BP 151 / 50; Pulse 54; Resp 16; Pulse Ox 100% on R/A; ph 08:00 BP 120 / 59; Pulse 55; Pulse Ox 99% on R/A; em 08:24 Temp 93.7(R); em 08:30 BP 122 / 60; Pulse 65; Resp 14; Pulse Ox 100% on R/A; em 08:54 BP 99 / 43; Pulse 41; Resp 14; Temp 93.2(C); Pulse Ox 100% on R/A; em 09:15 BP 89 / 38; Pulse 40; Resp 18; Pulse Ox 99% on R/A; em 09:30 BP 86 / 41; Pulse 42; Resp 16; Temp 93.0(C); Pulse Ox 100% on R/A; em 09:40 BP 83 / 45; Pulse 42; Resp 16; Pulse Ox 100% on R/A; em 09:55 BP 98 / 41; Pulse 43; Resp 15; Temp 92.9(C); Pulse Ox 100% on R/A; em 10:06 BP 104 / 41; Pulse 44; Resp 12; Pulse Ox 100% on R/A; em 10:22 BP 85 / 58; Pulse 44; Resp 15; Pulse Ox 97% on R/A; em 10:40 BP 84 / 53; Pulse 43; Resp 14; Temp 93.1(C); Pulse Ox 100% on R/A; em 11:00 BP 95 / 47; Pulse 49; Resp 12; Temp 93.4(C); Pulse Ox 100% on R/A; em 11:22 BP 94 / 48; Pulse 47; Resp 16 S; Temp 93.4(C); Pulse Ox 99% on R/A; em 11:40 BP 126 / 49; Pulse 53; Resp 16; Temp 93.7(C); Pulse Ox 100% on R/A; em ED Course: 07:12 Patient arrived in ED. bd 07:13 Brinda Fox FNP-C is PHCP. snw 07:13 Jose Meadows MD is Attending Physician. snw 07:16 Patient has correct armband on for positive identification. Placed in gown. Bed in low em position. Call light in reach. Side rails up X2. threat monitoring analyst on. Pulse ox on. NIBP on. 07:16 Maintain EMS IV. Dressing intact. Good blood return noted. Site clean \T\ dry. Gauge \T\ em site: 22 L hand. 07:17 Ronni Linda, RN is Primary Nurse. em 07:20 Triage completed. ph 07:24 Arm band placed on Patient placed in an exam room, on threat monitoring analyst, on pulse ph oximetry. 07:56 XRAY Chest (1 view) In Process Unspecified. EDMS 07:58 US Lower Extremity Arterial Bilateral In Process Unspecified. EDMS 08:35 Londono cath inserted, using sterile technique, 16 Fr., by me, balloon inflated, to em gravity drainage, urine specimen collected. 09:41 German Govea MD is Hospitalizing Provider. snw 11:41 No provider procedures requiring assistance completed. Patient admitted, IV remains in em place. Administered Medications: 07:13 Drug: Calcium Chloride 1 grams Route: IVP; Site: left hand; em 08:00 Follow up: Response: No adverse reaction em 07:25 Not Given (Duplicate Order): Calcium Chloride 1 grams IVP once ph 07:35 Drug: Albuterol - atroVENT (3:1) (2.5 mg - 0.5 mg) 3 ml Route: Nebulizer; em 09:00 Follow up: Response: No adverse reaction em 08:17 Drug: Rocephin 1 grams Route: IV; Rate: calculated rate; Site: left hand; em 08:30 Follow up: Response: No adverse reaction; IV Status: Completed infusion; IV Intake: 10mlem 08:20 Drug: NS 0.9% 1000 ml Route: IV; Rate: 75 ml/hr; Site: left hand; em 08:20 Drug: Atropine 1 mg Route: IVP; Site: left hand; em 08:35 Follow up: Response: No adverse reaction; Marked relief of symptoms ph 08:25 Drug: D50W 50 ml Route: IVP; Site: left hand; em 09:30 Follow up: Response: No adverse reaction em 08:30 Drug: Insulin Regular Human 5 units {Co-Signature: ph (Camila Perales RN).} Route: IVP; em Site: left hand; 10:07 Follow up: Response: No adverse reaction em 09:08 Drug: NS 0.9% 500 ml Route: IV; Rate: bolus; Site: left hand; em 10:32 Follow up: IV Status: Completed infusion; IV Intake: 500ml em 09:35 Drug: D50W 50 ml Route: IVP; Site: left hand; em 10:07 Follow up: Response: No adverse reaction em 09:59 Drug: Zosyn 2.25 grams Route: IVPB; Infused Over: 60 mins; Site: left hand; em 11:09 Follow up: Response: No adverse reaction; IV Status: Completed infusion; IV Intake: em 100ml 10:43 Drug: Albuterol - atroVENT (3:1) (2.5 mg - 0.5 mg) 3 ml Route: Nebulizer; em 11:30 Follow up: Response: No adverse reaction em 11:00 Drug: Kayexalate 45 grams Route: PO; em 11:30 Follow up: Response: No adverse reaction em 11:08 Drug: Insulin Regular Human 5 units {Co-Signature: ph (Camila Perales RN).} Route: IVP; em Site: left hand; 11:30 Follow up: Response: No adverse reaction em Intake: 08:30 IV: 10ml; Total: 10ml. em 10:32 IV: 500ml; Total: 510ml. em 11:09 IV: 100ml; Total: 610ml. em Output: 11:53 Urine: 200ml (Londono); Total: 200ml. em Outcome: 09:42 Decision to Hospitalize by Provider. snw 11:41 Admitted to Med/surg accompanied by tech, via stretcher, room 225, Report called to kris Joseph RN 11:41 Condition: stable 11:41 Instructed on the need for admit. 12:18 Patient left the ED. em Signatures: Dispatcher [employer] EDMS Alisia Sanz Shelly, PAPER CONE DRYING MACHINE OPERATOR-C PAPER CONE DRYING MACHINE OPERATOR-Csnw Ronni Linda, RN RN em Camila Perales RN RN ph Camila Perales RN ph Corrections: (The following items were deleted from the chart) 10:04 08:54 BP 99 / 43; Pulse 41bpm; Resp 14bpm; Pulse Ox 100% RA; Temp 98.2F Catheter; em em
--- NOTE | 2020-07-17 09:43 | EDPHYS ---
Physician Documentation [facility] Name: Sharda Dewey Age: 80 yrs Sex: Female : 1940 Arrival Date: 07/17/2020 Time: 07:12 Bed 3 Private MD: ED Physician Jose Meadows HPI: 07/17 07:32 This 80 yrs old Black Female presents to ER via EMS with complaints of congestion, low snw HR. 07:32 Pt at ID, DNR on record, labs reveal hyperkalemia, ID staff noted decreased snw responsiveness, congestion, bradycardia. Onset: The symptoms/episode began/occurred at an unknown time. Severity of symptoms: At their worst the symptoms were moderate in the emergency department the symptoms are unchanged. It is unknown whether or not the patient has had similar symptoms in the past. It is unknown whether or not the patient has recently seen a physician. Historical: - Allergies: 07:24 No Known Allergies; ph - Home Meds: 07:24 allopurinol 100 mg Oral tab 1 tab 2 times per day [Active]; amlodipine 5 mg tab 1 tab ph twice a day [Active]; aspirin 81 mg Oral chew 1 tab once daily [Active]; carvedilol 12.5 mg Oral tab 1 tab 2 times per day [Active]; Celexa 10 mg Oral tab 1 tab nightly [Active]; famotidine 20 mg Oral tab 1 tab once daily [Active]; ferrous sulfate 325 mg (65 mg iron) Oral TbEC [Active]; lorazepam 0.5 mg Oral tab 1 tab at bedtime [Active]; TYLENOL 325 MG 2 tab every 6 hours [Active]; - PMHx: 07:24 Allergic rhinitis; Alzheimers; Anemia; Anxiety; ataxic gait; CAD; Delusional disorder; ph Dementia; Depression; Diabetes - NIDDM; DYSPHAGIA; Hypertension; insomnia; Pneumonia; - PSHx: 07:24 PEG tube; ph - Immunization history:: Adult Immunizations unknown. - Social history:: Smoking status: unknown. ROS: 07:27 Eyes: Negative for injury, pain, redness, and discharge, ENT: Negative for injury, snw pain, and discharge, Neck: Negative for injury, pain, and swelling, Cardiovascular: Negative for chest pain, palpitations, and edema. 07:27 Abdomen/GI: Negative for abdominal pain, nausea, vomiting, diarrhea, and constipation, Back: Negative for injury and pain, : Negative for injury, bleeding, discharge, and swelling, MS/Extremity: Negative for injury and deformity, Skin: Negative for injury, rash, and discoloration, Psych: Negative for depression, anxiety, suicide ideation, homicidal ideation, and hallucinations. 07:27 Constitutional: Positive for malaise. 07:27 Respiratory: Positive for congestion. 07:27 Neuro: Positive for less responsive than norm per ID nurses. Exam: 07:21 Head/Face: Normocephalic, atraumatic. Eyes: Pupils equal round and reactive to light, snw extra-ocular motions intact. Lids and lashes normal. Conjunctiva and sclera are non-icteric and not injected. Cornea within normal limits. Periorbital areas with no swelling, redness, or edema. 07:21 Neck: Trachea midline, no thyromegaly or masses palpated, and no cervical lymphadenopathy. Supple, full range of motion without nuchal rigidity, or vertebral point tenderness. No Meningismus. Chest/axilla: Normal chest wall appearance and motion. Nontender with no deformity. No lesions are appreciated. 07:21 Cardiovascular: Junctional rhythm with bradycardia at 35bpm, a normal S1 and S2. No gallops, murmurs, or rubs. Normal PMI, no JVD. Cold lower extremities, left greater than right Abdomen/GI: Soft, non-tender, with normal bowel sounds. No distension or tympany. No guarding or rebound. No evidence of tenderness throughout. Back: No spinal tenderness. No costovertebral tenderness. Full range of motion. 07:21 Constitutional: The patient appears frail, lethargic, obese. 07:21 ENT: Mouth: Oral mucosa: dry. 07:21 Cardiovascular: Rate: bradycardic, Rhythm: regular, Pulses: no pulse deficits are appreciated, Heart sounds: normal. 07:21 Respiratory: the patient does not display signs of respiratory distress, Respirations: shallow respirations, that is mild, that is moderate, Breath sounds: rhonchi. 07:21 Skin: Appearance: Color: dusky, Temperature: cold, Moisture: dry. 07:21 Neuro: Orientation: unable to test, Mentation: sleepy, Memory: unable to test, Gait: not tested. seizure activity, is not displayed by the patient. 11:31 ECG was reviewed by the Attending Physician. snw Vital Signs: 07:16 BP 151 / 50; Pulse 54; Resp 16; Pulse Ox 100% on R/A; ph 08:00 BP 120 / 59; Pulse 55; Pulse Ox 99% on R/A; em 08:24 Temp 93.7(R); em 08:30 BP 122 / 60; Pulse 65; Resp 14; Pulse Ox 100% on R/A; em 08:54 BP 99 / 43; Pulse 41; Resp 14; Temp 93.2(C); Pulse Ox 100% on R/A; em 09:15 BP 89 / 38; Pulse 40; Resp 18; Pulse Ox 99% on R/A; em 09:30 BP 86 / 41; Pulse 42; Resp 16; Temp 93.0(C); Pulse Ox 100% on R/A; em 09:40 BP 83 / 45; Pulse 42; Resp 16; Pulse Ox 100% on R/A; em 09:55 BP 98 / 41; Pulse 43; Resp 15; Temp 92.9(C); Pulse Ox 100% on R/A; em 10:06 BP 104 / 41; Pulse 44; Resp 12; Pulse Ox 100% on R/A; em 10:22 BP 85 / 58; Pulse 44; Resp 15; Pulse Ox 97% on R/A; em 10:40 BP 84 / 53; Pulse 43; Resp 14; Temp 93.1(C); Pulse Ox 100% on R/A; em 11:00 BP 95 / 47; Pulse 49; Resp 12; Temp 93.4(C); Pulse Ox 100% on R/A; em 11:22 BP 94 / 48; Pulse 47; Resp 16 S; Temp 93.4(C); Pulse Ox 99% on R/A; em 11:40 BP 126 / 49; Pulse 53; Resp 16; Temp 93.7(C); Pulse Ox 100% on R/A; em MDM: 07:20 Patient medically screened. snw 07:59 Data reviewed: vital signs, nurses notes. Data interpreted: Pulse oximetry: on room air snw is 100 %. Interpretation: normal. ED course: pt became more bradycardic at 30, Atropine 1mg ivp given. Nebs continue, D50 and Insulin 5 units iv. HR to 65bpm. 09:40 Counseling: I had a detailed discussion with the patient and/or guardian regarding: the snw historical points, exam findings, and any diagnostic results supporting the discharge/admit diagnosis, lab results, radiology results, the need for further work-up and treatment in the hospital. Physician consultation: A Jeferson ARREOLA was called at 09:40, was contacted at 09:40, regarding admission, patient's condition, DNR in possession, family updated on condition and DNR status confirmed. 07/17 07:18 Order name: Basic Metabolic Panel; Complete Time: 08:18 snw 07/17 07:18 Order name: CBC with Diff; Complete Time: 07:54 snw 07/17 07:18 Order name: LFT's; Complete Time: 08:18 snw 07/17 07:18 Order name: Magnesium; Complete Time: 08:18 snw 07/17 07:18 Order name: NT PRO-BNP; Complete Time: 08:18 snw 07/17 07:18 Order name: PT-INR; Complete Time: 07:54 snw 07/17 07:18 Order name: Troponin (emerg Dept Use Only); Complete Time: 08:18 snw 07/17 07:18 Order name: Blood Culture Adult (2) snw 07/17 07:18 Order name: Procalcitonin; Complete Time: 08:20 snw 07/17 07:18 Order name: Lactate; Complete Time: 08:06 snw 07/17 07:18 Order name: COVID-19 snw 07/17 07:18 Order name: Urine Culture snw 07/17 07:57 Order name: Glucose, Ancillary Testing; Complete Time: 07:58 EDMS 07/17 09:36 Order name: Chem 7; Complete Time: 10:27 snw 07/17 07:18 Order name: XRAY Chest (1 view); Complete Time: 09:33 snw 07/17 07:18 Order name: US Lower Extremity Arterial Bilateral; Complete Time: 08:56 snw 07/17 09:38 Order name: Glucose, Ancillary Testing; Complete Time: 09:39 EDMS 07/17 10:13 Order name: Urine Dipstick--Ancillary (enter results) bd 07/17 10:21 Order name: Urine Dipstick-Ancillary; Complete Time: 10:27 EDMS 07/17 10:26 Order name: Glucose, Ancillary Testing; Complete Time: 10:27 EDMS 07/17 11:26 Order name: Chem 7 em 07/17 11:27 Order name: SARS-COV-2 RT PCR; Complete Time: 11:28 EDMS 07/17 11:46 Order name: Glucose, Ancillary Testing; Complete Time: 14:10 EDMS 07/17 12:09 Order name: Troponin I; Complete Time: 14:10 EDMS 07/17 07:18 Order name: EKG; Complete Time: 07:18 snw 07/17 07:18 Order name: Cardiac monitoring; Complete Time: 07:19 snw 07/17 07:18 Order name: EKG - Nurse/Tech; Complete Time: 08:53 snw 07/17 07:18 Order name: IV Saline Lock; Complete Time: 07:19 snw 07/17 07:18 Order name: Labs collected and sent; Complete Time: 08:53 snw 07/17 07:18 Order name: O2 Per Protocol; Complete Time: 07:18 snw 07/17 07:18 Order name: O2 Sat Monitoring; Complete Time: 07:18 snw 07/17 07:18 Order name: FSBS; Complete Time: 07:46 snw 07/17 07:18 Order name: Londono; Complete Time: 08:53 snw 07/17 10:33 Order name: Frankolucinda Mendez; Complete Time: 10:36 snw EC:19 Rate is 35 beats/min. Rhythm is regular. QRS Reeves is Normal. QRS interval is normal. snw Clinical impression: Suggests hyperkalemia. Administered Medications: 07:13 Drug: Calcium Chloride 1 grams Route: IVP; Site: left hand; em 08:00 Follow up: Response: No adverse reaction em 07:25 Not Given (Duplicate Order): Calcium Chloride 1 grams IVP once ph 07:35 Drug: Albuterol - atroVENT (3:1) (2.5 mg - 0.5 mg) 3 ml Route: Nebulizer; em 09:00 Follow up: Response: No adverse reaction em 08:17 Drug: Rocephin 1 grams Route: IV; Rate: calculated rate; Site: left hand; em 08:30 Follow up: Response: No adverse reaction; IV Status: Completed infusion; IV Intake: 10mlem 08:20 Drug: NS 0.9% 1000 ml Route: IV; Rate: 75 ml/hr; Site: left hand; em 08:20 Drug: Atropine 1 mg Route: IVP; Site: left hand; em 08:35 Follow up: Response: No adverse reaction; Marked relief of symptoms ph 08:25 Drug: D50W 50 ml Route: IVP; Site: left hand; em 09:30 Follow up: Response: No adverse reaction em 08:30 Drug: Insulin Regular Human 5 units {Co-Signature: swapna (Camila Perales RN).} Route: IVP; em Site: left hand; 10:07 Follow up: Response: No adverse reaction em 09:08 Drug: NS 0.9% 500 ml Route: IV; Rate: bolus; Site: left hand; em 10:32 Follow up: IV Status: Completed infusion; IV Intake: 500ml em 09:35 Drug: D50W 50 ml Route: IVP; Site: left hand; em 10:07 Follow up: Response: No adverse reaction em 09:59 Drug: Zosyn 2.25 grams Route: IVPB; Infused Over: 60 mins; Site: left hand; em 11:09 Follow up: Response: No adverse reaction; IV Status: Completed infusion; IV Intake: em 100ml 10:43 Drug: Albuterol - atroVENT (3:1) (2.5 mg - 0.5 mg) 3 ml Route: Nebulizer; em 11:30 Follow up: Response: No adverse reaction em 11:00 Drug: Kayexalate 45 grams Route: PO; em 11:30 Follow up: Response: No adverse reaction em 11:08 Drug: Insulin Regular Human 5 units {Co-Signature: swapna (Camila Perales RN).} Route: IVP; em Site: left hand; 11:30 Follow up: Response: No adverse reaction em Disposition: 19:55 Co-signature as Attending Physician, Jose Meadows MD I agree with the assessment and tw4 plan of care. Disposition: 07/17/20 09:42 Hospitalization ordered by Germna Govea for Inpatient Admission. Preliminary diagnosis are Hyperkalemia, Altered mental status, unspecified. - Bed requested for Telemetry/MedSurg (Inpatient). - Status is Inpatient Admission. em - Condition is Critical. - Problem is an ongoing problem. - Symptoms have worsened. Signatures: Dispatcher [employer] EDMS Alisia Sanz Brinda Arevalo, PLANT CONTROL AIDE-C PLANT CONTROL AIDE-Csnw Ronni Linda, RN RN em Camila Perales RN RN ph Jose Meadows MD MD tw4 Camila Perales RN ph Corrections: (The following items were deleted from the chart) 10:59 09:42 Hospitalization Ordered by A Jeferson ARREOLA for Inpatient Admission. Preliminary bd diagnosis is Hyperkalemia; Altered mental status, unspecified. Bed requested for Telemetry/MedSurg (Inpatient). Status is Inpatient Admission. Condition is Critical. Problem is an ongoing problem. Symptoms have worsened. snw 12:18 10:59 07/17/2020 09:42 Hospitalization Ordered by A Jeferson ARREOLA for Inpatient Admission. em Preliminary diagnosis is Hyperkalemia; Altered mental status, unspecified. Bed requested for Telemetry/MedSurg (Inpatient). Status is Inpatient Admission. Condition is Critical. Problem is an ongoing problem. Symptoms have worsened. bd
[2020-07-17] MEDS ORDERED: PIPER/TAZO/NS 3.375gm 3.375 GM/100 ML BAG ONE (09:51)
[2020-07-17 10:01] LABS: Potassium 6.2 mmol/L (3.5-5.1)
[2020-07-17 10:21] LABS: Urine Blood NEGATIVE (NEG); Urine Glucose NEGATIVE (NEG); Urine Protein 1+ (NEG); Urine Specific Gravity 1.015 (1.005-1.030)
--- NOTE | 2020-07-17 10:43 | EKG ---
Test Date: 2020-07-17 Test Time: 07:14:15 Director [facility]: PH MEASUREMENT RESULTS: Intervals: Rate: 35 MT: QRSD: 88 QT: 498 QTc: 380 [place]: P: MT: QRS: -15 T: -65 INTERPRETIVE STATEMENTS: Junctional bradycardia Low voltage QRS Inferior infarct, age undetermined Cannot rule out Anterior infarct, age undetermined Abnormal ECG Compared to ECG 06/05/2020 09:07:58 Low QRS voltage now present Ventricular premature complex(es) no longer present Incomplete right bundle-branch block no longer present ST (T wave) deviation no longer present Possible ischemia no longer present Myocardial infarct finding still present Electronically Signed On 07-17-20 10:43:14 CDT by Sree Malagon
[2020-07-17] MEDS ORDERED: SOD POLYSTYREN SUL 15 GM/60 ML UCUP ONE (10:52)
[2020-07-17] MEDS ORDERED: NA CHLORIDE 0.9% 1,000 ML IV SCH (11:09)
[2020-07-17] MEDS: ALBUTEROL 2.5 MG/3 ML NEB SOL NEB SCH ×5 (11:09→23:39)
[2020-07-17] MEDS ORDERED: IPRATROPIUM BROM 0.5MG/2.5ML NEB PRN (11:09)
[2020-07-17 12:23] VITALS: BMI 27.6
[2020-07-17 12:38] LABS: Potassium 5.8 mmol/L (3.5-5.1)
[2020-07-17] MEDS ORDERED: SOD POLYSTYREN SUL 15 GM/60 ML UCUP FT ONE (14:00)
[2020-07-17] MEDS: IPRATROPIUM BROM 0.5MG/2.5ML NEB PRN ×2 (15:26→20:13)
[2020-07-17] MEDS: PIPER/TAZO/NS 2.25gm 2.25 GM/50 ML BAG IVPB SCH (17:00)
[2020-07-17] MEDS: D5 0.9 NS 1,000 ML IV SCH (22:48)
[2020-07-18] MEDS: PIPER/TAZO/NS 2.25gm 2.25 GM/50 ML BAG IVPB SCH ×3 (00:36→16:08)
--- NOTE | 2020-07-18 01:18 | HP ---
Date of Admission: 07/17/2020 Chief Complaint: Shortness of breath, low blood pressure, abnormal blood test. History Of Present Illness: An 80-year-old female [facility], who had her routine blood work done this morning and her potassium was reported at 7.8. Nurse called me early this morning as soon as she got this test results back and she also informed me that patient was having shortness of breath. She was trying to oropharyngeal suction, but she was still having rapid shallow breathing and blood pressure was running on the low side. With all that, she was sent to emergency room. After she was evaluated in the ER, she was admitted to the hospital. During her stay in the ER, she was having low blood pressure along with that and normal blood work results. She was treated for hyperkalemia, hypotension, and results of her test done in the emergency room reviewed with the ER provider. The ER provider also called and confirmed with the patient's daughter regarding do not resuscitate order. The patient has out of hospital DNR order and we will write DNR order in the chart as per decision made by family. She was treated for high potassium and empiric antibiotics were started. When I saw her, she was in her room, lying in bed with her eyes closed, did not answer any questions, did not wake up, but some spontaneous movement noted. Allergies: NO KNOWN ALLERGIES. Review of Systems: Respiratory: As mentioned above. Cardiovascular: As mentioned above. All other systems reviewed and negative. Medications: List reviewed. Family History: Not pertinent. Social History: Negative for smoking or alcohol use. Past Surgical History: PEG tube placement. Past Medical History: Aspiration pneumonia, dysphagia, PEG tube placement in July 2018, hypertension, diabetes mellitus, stroke with right-sided hemiparesis, volume depletion, urinary tract infection, senile dementia, and anemia. Physical Examination: Vital Signs: When she first came into emergency room, her temperature was low at 93.7, lowest blood pressure in the emergency room was 83/45. On the floor, her initial vital signs showed temperature 97.5, pulse 52, respiratory rate 18, blood pressure 116/58, and oxygen saturation 100% on room air. Height 5 feet 1 inch, weight 146 pounds. General: Awake, alert, oriented, not in distress. HEENT: Head atraumatic, normocephalic. Conjunctivae nonerythematous. Sclerae white. Mouth, no thrush or edema noted. Ears/Nose, no mass, lesion, discharge noted. Neck: Supple. No JVD, lymph nodes, bruit, thyromegaly noted. Lungs: Some minimum rales noted in lower lung lara. Not using any accessory muscles of respiration. Heart: Normal heart sounds. No murmur or gallop. Abdomen: Soft. Presence of PEG tube. No guarding, rigidity, tenderness, distention. Extremities: No leg edema. No calf tenderness. Skin: No rash, ulcer, cellulitis. Lymphatics: No lymph node enlargement in neck, supraclavicular, infraclavicular region. Chest: Unremarkable. External Genitalia: Deferred. Rectal: Deferred. TIMING ADJUSTER: The patient is lying in bed with her eyes closed. Does not follow any commands. Does communicate. Does not talk. She has her hands flexed and this is her chronic finding. Laboratory Data: White count 8.4, hemoglobin 8, platelets 181. Initial sodium 129, potassium 6.7, chloride 97, bicarb 25, BUN 87, creatinine 2.54, glucose 169, calcium 10.8. Liver function tests unremarkable except alkaline phosphatase 185. Procalcitonin 0.16. Last chemistry today showed sodium 133, potassium 5.8, chloride 102, bicarb 24, BUN 85, creatinine 2.38, glucose 123. Troponin less than 0.0. Arterial Doppler of the left lower extremity shows moderate distal peripheral arterial disease and ER provider ordered that because she felt like the patient's leg or foot was cold to touch when I examined her, she had normal temperature on both legs and feet. Chest x-ray shows right basilar atelectasis, heart is borderline enlarged. Impression: 1. Acute renal failure. 2. Hyperkalemia. 3. Hyponatremia. 4. Anemia. 5. Hypothermia. 6. Stroke. 7. Peripheral arterial disease. 8. Rule out pneumonia. Plan: We will admit the patient to hospital for further evaluation and management of this problem. The patient is appropriate for inpatient and is expected to spend 2 midnights in the hospital. We will continue IV fluid. The patient has received treatment for hyperkalemia in the form of IV D50 with insulin, calcium gluconate, and Kayexalate and nebulizer treatment. After the last chemistry result, Kayexalate was ordered per PEG tube. Empiric antibiotic will be given using Zosyn. DNR order was written in the chart and ER provider has confirmed this decision with the patient's daughter. We will call the patient's daughter and discuss details. We will also go ahead and get serum cortisol level. Feeding tube only use for nutritional purpose. See order for details and I will see her tomorrow for followup. When I saw her, her heels were offloaded. ANUPAMA/MODL Voice ID: [id number]
[2020-07-18] MEDS: IPRATROPIUM BROM 0.5MG/2.5ML NEB PRN ×3 (03:59→16:00)
[2020-07-18] MEDS: ALBUTEROL 2.5 MG/3 ML NEB SOL NEB SCH ×5 (03:59→21:00)
[2020-07-18 05:00] LABS: Absolute Lymphocytes (CBC) 1.3 K/uL (0.7-4.9); Basophils % 0.1 % (0-1.3); Lymphocytes % 19.9 % (15.3-44.8); MPV 8.1 fL (7.6-11.3); RBC Red Blood Cell Count 2.29 M/uL (3.86-4.86)
[2020-07-18 05:03] LABS: Hematocrit 20.5 % (36.0-45.0)
[2020-07-18 05:13] LABS: Potassium 3.7 mmol/L (3.5-5.1)
[2020-07-18] MEDS ORDERED: COSYNTROPIN 0.25 MG VIAL IV SCH (08:00)
[2020-07-18] MEDS: FAMOTIDINE 20 MG/2 ML VIAL IV SCH (08:45)
--- NOTE | 2020-07-18 10:38 | RAD REPORT ---
EXAM DESCRIPTION: RAD - Chest Single View - 07/17/2020 10:53 pm CLINICAL HISTORY: PICC placement TECHNIQUE: Single frontal view of the chest is submitted. COMPARISON: 06/08/2020 FINDINGS: Heart: The cardiothoracic silhouette is enlarged, stable. Lungs: Mild central pulmonary vascular and interstitial prominence and patchy bilateral perihilar opa cities. Right midlung nodular opacity measuring approximately 2.3 cm not definitively seen on the tania or. Mediastinum: Thoracic aortic atherosclerosis. Pleura: No appreciable effusion. No pneumothorax. Bones: Multilevel spondylosis. No acute fracture. Upper abdomen: Stable elevation of the right hemidiaphragm. Other: Interval placement of a right upper extremity PICC. The tip projects over the cavoatrial junct ion. IMPRESSION: 1. Right upper extremity PICC tip projects over the cavoatrial junction. 2. Findings which may be related to mild pulmonary congestion. Superimposed infection not excluded. 3. Right midlung nodular opacity measuring approximately 2.3 cm not definitively seen on the prior. This may be infectious or inflammatory in etiology. Follow-up chest CT is recommended in order to ex clude underlying mass/malignancy. Electronically signed by: Laury Lucio MD 07/17/2020 11:04 PM CDT Due to temporary technical issues with the PACS/Fluency reporting system, reports are being signed by the in house radiologist without review as a courtesy to ensure prompt reporting. The interpreting r adiologist is fully responsible for the content of the report.
[2020-07-18] MEDS: D5 0.9 NS 1,000 ML IV SCH ×2 (11:20→16:10)
[2020-07-18] MEDS ORDERED: NA CHLORIDE 0.9% 250 ML ONE ×2 (12:07→17:16)
[2020-07-18] MEDS: GLUCERNA 1.5 CAL 1,000 ML BOT FT SCH (17:19)
[2020-07-19] MEDS: PIPER/TAZO/NS 2.25gm 2.25 GM/50 ML BAG IVPB SCH ×3 (00:04→16:45)
[2020-07-19 00:41] LABS: Hematocrit 27.5 % (36.0-45.0)
[2020-07-19] MEDS: ALBUTEROL 2.5 MG/3 ML NEB SOL NEB SCH ×7 (00:48→23:10)
--- NOTE | 2020-07-19 01:10 | PN ---
Date of Progress Note: 07/18/2020 Subjective: The patient was seen this morning for followup. She was lying in bed, not in any distre ss, does not answer any questions, does not respond to any verbal command. Objective: Vital Signs: Reviewed. HEENT: Unremarkable. Lungs: Clear to auscultation. Heart: Sounds normal. Abdomen: Soft. Bowel sounds normal. No guarding, rigidity, tenderness, or distention. Extremities: No leg edema. Laboratory Data: White count 6.4, hemoglobin 6.7, platelets 160. Sodium 143, potassium 3.7, chlorid e 109, bicarb 28, BUN 66, creatinine 2.07, glucose 81. Impression: 1.Acute kidney failure. 2.Hyperkalemia. 3.Hyponatremia. 4.Anemia. Plan: We will go ahead and continue IV fluid reduced rate, Cortrosyn stimulation test was done today , results reviewed, and the patient does not have any evidence of adrenal insufficiency. Potassium l evel has been corrected. Renal function is improving. We will continue IV fluid per order. Restart her PEG tube feeding per order and empiric antibiotics will be continued. I will see her tomorrow f or followup. ANUPAMA/MODL Voice ID: [id number] Report ID: [id number]
[2020-07-19] MEDS: D5 0.9 NS 1,000 ML IV SCH (06:03)
[2020-07-19 08:20] LABS: Potassium 2.7 mmol/L (3.5-5.1)
[2020-07-19] MEDS: FAMOTIDINE 20 MG/2 ML VIAL IV SCH (09:01)
[2020-07-19] MEDS: KCL 20 MEQ/100 mL IVPB 20 MEQ/100 ML BAG IV SCH ×3 (09:01→13:51)
[2020-07-19] MEDS ORDERED: carvediloL 6.25 MG TAB FT ONE (09:14)
[2020-07-19] MEDS: D5 0.45 NS 1,000 ML IV SCH (09:52)
[2020-07-19] MEDS: GLUCERNA 1.5 CAL 1,000 ML BOT FT SCH (17:17)
[2020-07-19] MEDS: carvediloL 6.25 MG TAB FT SCH (21:01)
--- NOTE | 2020-07-20 00:10 | PN ---
Date of Progress Note: 07/19/2020 Subjective: The patient was seen this morning for followup lying in bed, not in any distress. Does not answer any questions. Does not for follow any commands. Objective: Vital Signs: Reviewed. HEENT: Unremarkable. Lungs: Clear to auscultation. Heart: Sounds normal. Abdomen: Soft. Bowel sounds normal. No guarding, rigidity, tenderness, or distention. Extremities: No leg edema. Diagnostic Studies: Hemoglobin this morning was 9.1 after 2 units of PRBC blood transfusion. Sodium 147, potassium 2.7, chloride 115, bicarb 26, BUN 32, creatinine 1.41, glucose 257. Impression: 1.Acute kidney failure. 2.Hypokalemia. 3.Anemia. 4.Diabetes mellitus. Plan: We will continue current medication. Continue current empiric antibiotics. IV fluid will be continued. Replace electrolytes per protocol. We will see her tomorrow for followup. The patient w ill continue to receive PEG tube feeding per order. ANUPAMA/MODL Voice ID: [id number] Report ID: [id number]
[2020-07-20] MEDS: PIPER/TAZO/NS 2.25gm 2.25 GM/50 ML BAG IVPB SCH ×3 (01:00→16:00)
[2020-07-20] MEDS: ALBUTEROL 2.5 MG/3 ML NEB SOL NEB SCH ×5 (03:11→20:34)
[2020-07-20] MEDS: D5 0.45 NS 1,000 ML IV SCH (05:37)
[2020-07-20] MEDS: carvediloL 6.25 MG TAB FT SCH (07:45)
[2020-07-20] MEDS: FAMOTIDINE 20 MG/2 ML VIAL IV SCH (07:46)
[2020-07-20 08:12] LABS: Absolute Lymphocytes (CBC) 1.2 K/uL (0.7-4.9); Basophils % 0.4 % (0-1.3); Hematocrit 28.7 % (36.0-45.0); Lymphocytes % 9.2 % (15.3-44.8); MPV 7.8 fL (7.6-11.3); RBC Red Blood Cell Count 3.21 M/uL (3.86-4.86)
[2020-07-20 08:31] LABS: Magnesium 1.7 mg/dL (1.8-2.4); Potassium 4.4 mmol/L (3.5-5.1)
[2020-07-20 09:43] LABS: Blood Morphology Comment NOT SEEN (NOT SEEN); Platelet Estimate ADEQ; White Blood Cell Scan OK
[2020-07-20] MEDS ORDERED: MAGNESIUM SULFATE 1 gm IVPB 1 GM/100 ML BAG IV ONE (11:30)
--- NOTE | 2020-07-20 13:00 | RAD REPORT ---
EXAM DESCRIPTION: RAD - Chest Single View - 07/20/2020 11:51 am CLINICAL HISTORY: r/o pneumonia COMPARISON: July 17 TECHNIQUE: AP portable chest image was obtained 07/20/2020 11:51 am . FINDINGS: Lung volumes are low. Right upper lobe infiltrative process is present similar or slightly worse than the July 17 examination. Patchy left upper lobe opacification also present. Stranding i n each lower lung field has not changed. Right upper extremity PICC line remains in place. Heart and vasculature are normal. No measurable pleural effusion and no pneumothorax. No acute bony abnormality seen. No acute aortic findings suspected. IMPRESSION: Mild or early right upper lobe pneumonia. Patchy left upper lobe and right lung base opacification can be monitored on subsequent imaging.
[2020-07-20] MEDS: GLUCERNA 1.5 CAL 1,000 ML BOT FT SCH (14:11)
--- NOTE | 2020-07-20 15:07 | PN ---
Date of Progress Note: 07/20/2020 Subjective: The patient was seen this morning for followup. She was lying in bed, not in any respir atory distress. Does not answer any questions or respond to any verbal commands. Objective: Vital Signs: Reviewed. HEENT: Unremarkable. Lungs: Bilateral rales noted, especially with the coughing. Heart: Sounds normal. Abdomen: Soft. Bowel sounds normal. No guarding, rigidity, tenderness, distention. Extremities: No leg edema. Laboratory Data: White count has gone up slightly today to 13.2, hemoglobin 9.5, platelets 176. Sod ium 144, potassium 4.4, chloride 115, bicarb 25, BUN 23, creatinine 1.26, magnesium 1.7, glucose 115. Impression: 1.Acute renal failure, resolved. 2.Anemia. 3.Stroke. 4.Diabetes mellitus. 5.Rule out aspiration pneumonia. Plan: The patient remains on Zosyn, we will continue that. Her white count has started to go up tod ay. I have ordered a chest x-ray, we will review that and make a decision about if we need to add or change antibiotics or not. Continue feeding. Continue suction per order. Her both feet remains of floaded and her head and chest remains elevated at 45 degree all the time. We will increase the dose of antihypertensive medication on basis of her blood pressure readings from 6.25 mg 2 times a day to 12.5 mg 2 times a day of carvedilol was ordered. What I am concerned about is increase white count and the way her lung sounds are in spite of doing everything we can not do help to take care of it co ncerned that she is not able to clear her oropharyngeal secretion and there is a possibility that she may have some reflux and aspiration problem, so the biggest concern in somebody like her would be on going risk of recurrent aspiration and aspiration pneumonia type of problem. I did reach out to jonathan fuentes's daughter and explained her all this information and informed her that we can not prevent this p roblem from happening as while in the hospital. I am concerned about her lung sounds worse today com pared to last couple of days in spite of us doing everything and when she goes back to longterm, the same thing possibly could happen. She was in the hospital with almost similar presentation about a month ago and we dealing with same problem now, so recurrent problem like this and hospital admiss ion is unfortunately going to continue and I did give my recommendation that family should consider h ospice care and in that case, if she ends up getting where she normally ends up in the hospital emerg ency room and hospital stay instead of that we will let the God and nature to take its course and anu p her comfortable at longterm, if she is on hospice care. All these details were discussed with the patient's daughter today. She is going to communicate with her brother and then make a decision. ANUPAMA/MARKL Voice ID: [id number] Report ID: [id number]
[2020-07-20] MEDS ORDERED: VANCOMYCIN/NS 1 gm 1 GM/250 ML BAG IVPB SCH (15:45)
[2020-07-20] MEDS ORDERED: VANCOMYCIN 1.75 GM in NA CHLORIDE 0.9% 500 ML IVPB ONE (16:00)
[2020-07-20] MEDS ORDERED: VANCOMYCIN 1.25 GM in NA CHLORIDE 0.9% 250 ML IVPB SCH (16:00)
[2020-07-20] MEDS: carvediloL 12.5 MG TAB FT SCH (20:35)
[2020-07-21] MEDS: PIPER/TAZO/NS 2.25gm 2.25 GM/50 ML BAG IVPB SCH ×3 (00:29→16:17)
[2020-07-21] MEDS: ALBUTEROL 2.5 MG/3 ML NEB SOL NEB SCH ×7 (00:44→23:40)
[2020-07-21] MEDS: D5 0.45 NS 1,000 ML IV SCH (02:16)
[2020-07-21 05:41] LABS: Potassium 4.5 mmol/L (3.5-5.1)
[2020-07-21 05:42] LABS: Magnesium 1.8 mg/dL (1.8-2.4)
[2020-07-21] MEDS ORDERED: MAGNESIUM SULFATE 1 gm IVPB 1 GM/100 ML BAG IV ONE (09:00)
[2020-07-21] MEDS: FAMOTIDINE 20 MG/2 ML VIAL IV SCH (09:45)
[2020-07-21] MEDS: carvediloL 12.5 MG TAB FT SCH ×2 (09:45→20:26)
[2020-07-21] MEDS ORDERED: FUROSEMIDE 20 MG/ 2ML VIAL IV ONE (11:00)
--- NOTE | 2020-07-21 11:54 | PN ---
Date of Progress Note: 07/21/2020 Subjective: The patient was seen this morning for followup. She was lying in bed, not in any distre ss. Does not respond to any verbal command. Objective: Vital Signs: Reviewed. HEENT: Unremarkable. Lungs: Bilateral scattered rales noted, more today than yesterday. Heart: Sounds normal. Abdomen: Soft. Bowel sounds normal. No guarding, rigidity, tenderness, or distention. Extremities: No leg edema. Laboratory Data: Sodium 140, potassium 4.5, chloride 110, bicarb 26, BUN 20, creatinine 1.17, glucos e 122, magnesium 1.8. Impression: 1.Pneumonia. 2.Acute kidney failure, resolved. 3.Anemia. 4.Stroke. 5.Diabetes mellitus. 6.Hypertension. Plan: We will go ahead and continue current antibiotic, which is Zosyn and vancomycin. The patient' s renal function is back to normal. Currently, she is getting IV fluid D5 half-normal saline at 50 c c/hour, which we will discontinue that. I am concerned about possibility of her retaining some fluid in her lungs along with pneumonia and we will go ahead and give 20 mg of Lasix IV x1 dose this morni ng. Discontinue IV fluid. Continue current antibiotic. Continue current PEG tube feeding and we wi ll repeat chest x-ray and blood work tomorrow. I did try to reach out to the patient's daughter today to discuss details, but she did not answer. ANUPAMA/MODL Voice ID: [id number] Report ID: [id number]
[2020-07-21] MEDS ORDERED: NITROGLYCERIN 1 GM PKT TD STA (12:25)
[2020-07-21] MEDS ORDERED: FUROSEMIDE 40 MG/4 ML VIAL ONE (12:35)
[2020-07-21] MEDS ORDERED: FUROSEMIDE 40 MG/4 ML VIAL IV ONE (13:00)
[2020-07-22] MEDS: PIPER/TAZO/NS 2.25gm 2.25 GM/50 ML BAG IVPB SCH ×3 (00:12→16:23)
[2020-07-22] MEDS: ALBUTEROL 2.5 MG/3 ML NEB SOL NEB SCH ×6 (03:10→23:30)
[2020-07-22] MEDS ORDERED: VANCOMYCIN 1.25 GM in NA CHLORIDE 0.9% 250 ML IVPB SCH (04:00)
[2020-07-22 06:38] LABS: Basophils % 0.2 % (0-1.3); Hematocrit 28.3 % (36.0-45.0); MPV 7.7 fL (7.6-11.3); RBC Red Blood Cell Count 3.19 M/uL (3.86-4.86)
[2020-07-22 06:53] LABS: Magnesium 1.9 mg/dL (1.8-2.4); Potassium 4.2 mmol/L (3.5-5.1)
--- NOTE | 2020-07-22 08:41 | RAD REPORT ---
EXAM DESCRIPTION: RAD - Chest Single View - 07/22/2020 6:35 am CLINICAL HISTORY: pneumonia COMPARISON: July 20, July 17 TECHNIQUE: AP portable chest image was obtained 07/22/2020 6:35 am . FINDINGS: Lung volumes are reduced compared to July 12 imaging. Respiratory motion is present. Pne umonia changes in the right upper lobe and in the left lung field do appear slightly improved given t he low lung volume pattern. No evidence for progression. No evidence for new or progressive failure/ volume overload. Heart size is enlarged by portable technique and low lung volume. Change in heart size is not suspec amadou. Vasculature remains prominent but stable. PICC line remains in place on the right. No measurable pleural effusion and no pneumothorax. No acute bony abnormality seen. No acute aortic findings suspe cted. IMPRESSION: Low lung volume motion degraded examination shows partial clearing of pneumonia changes since July 20.
[2020-07-22] MEDS: FAMOTIDINE 20 MG/2 ML VIAL IV SCH (09:27)
[2020-07-22] MEDS: carvediloL 12.5 MG TAB FT SCH ×2 (09:27→20:58)
[2020-07-22] MEDS ORDERED: SENOSIDES 8.6 MG TAB FT PRN (10:53)
[2020-07-22] MEDS: GLUCERNA 1.5 CAL 1,000 ML BOT FT SCH (13:42)
--- NOTE | 2020-07-22 14:01 | PN ---
Date of Progress Note: 07/22/2020 Subjective: Patient was seen this morning for followup. She was lying in bed, not in any distress. She was smiling when I tried to communicate with her, did not answer any questions. Overall, her co ndition appears better today than yesterday, not in any respiratory distress. Objective: HEENT: Unremarkable. Lungs: Clear to auscultation. Heart: Sounds normal. Abdomen: Soft. Bowel sounds normal. No guarding, rigidity, tenderness, distention. Extremities: No leg edema. Skin: Some faint redness, diffuse, involving lower abdominal wall and bilateral upper posterolateral thigh area and medial thigh area. Laboratory Data: White count 12, hemoglobin 9.3, platelets 203. Sodium 143, potassium 4.2, chloride 109, bicarb 28, BUN 27, creatinine 1.20, glucose 126. Magnesium is 1.9. Chest x-ray from today jessica ws partial clearing of pneumonia. Impression: 1.Pneumonia. 2.Anemia. 3.Hypertension. Plan: We will continue current medications. Continue current antibiotic. I did talk to nurse and i nformed her to apply some skin lotion to her skin, but also to make sure that her vancomycin gets inf used slowly to avoid any chances of red man syndrome type of problem and we will monitor her skin con dition. Meanwhile, continue current medications, antibiotics. Her lung sounds are better today than yesterday. I will see her t omorrow for followup. ANUPAMA/MODL Voice ID: [id number] Report ID: [id number]
[2020-07-22] MEDS: VANCOMYCIN 1.5 GM in NA CHLORIDE 0.9% 500 ML IVPB SCH (16:23)
[2020-07-22] MEDS: CITALOPRAM 10 MG TABLET FT SCH (20:57)
[2020-07-22] MEDS: allopurinoL 100 MG TAB FT SCH (20:58)
[2020-07-23] MEDS: PIPER/TAZO/NS 2.25gm 2.25 GM/50 ML BAG IVPB SCH ×3 (00:33→16:58)
[2020-07-23] MEDS: VANCOMYCIN 1.5 GM in NA CHLORIDE 0.9% 500 ML IVPB SCH (03:07)
[2020-07-23] MEDS: ALBUTEROL 2.5 MG/3 ML NEB SOL NEB SCH ×5 (03:55→23:55)
[2020-07-23 04:57] LABS: Absolute Lymphocytes (CBC) 1.1 K/uL (0.7-4.9); Basophils % 0.1 % (0-1.3); Hematocrit 28.5 % (36.0-45.0); Lymphocytes % 10.6 % (15.3-44.8); MPV 7.9 fL (7.6-11.3); RBC Red Blood Cell Count 3.17 M/uL (3.86-4.86)
[2020-07-23 05:12] LABS: Magnesium 1.9 mg/dL (1.8-2.4); Potassium 4.6 mmol/L (3.5-5.1)
--- NOTE | 2020-07-23 08:50 | RAD REPORT ---
EXAM DESCRIPTION: Charissa Single View07/23/2020 8:35 am CLINICAL HISTORY: Chest pain COMPARISON: July 22, 2020 FINDINGS: No significant change in the mild to moderate right and mild left pulmonary opacities like ly pneumonia Heart is mildly enlarged. PICC line remains in place
[2020-07-23] MEDS: allopurinoL 100 MG TAB FT SCH ×3 (08:58→21:14)
[2020-07-23] MEDS: carvediloL 12.5 MG TAB FT SCH ×5 (08:58→21:14)
[2020-07-23] MEDS: ASPIRIN 81 MG CHEWABLE TABLET FT SCH ×2 (08:58→09:00)
[2020-07-23] MEDS: FAMOTIDINE 20 MG/2 ML VIAL IV SCH (08:59)
[2020-07-23] MEDS: GLUCERNA 1.5 CAL 1,000 ML BOT FT SCH (09:12)
[2020-07-23] MEDS ORDERED: D5 0.9 NS 1,000 ML IV SCH (15:00)
[2020-07-23] MEDS: CITALOPRAM 10 MG TABLET FT SCH (21:13)
--- NOTE | 2020-07-23 23:44 | PN ---
Date of Progress Note: 07/23/2020 Subjective: The patient was seen this morning for followup. No new complaints or problems reported by nursing staff except after I visited the patient, nurse reported that the patient's PEG tube was n ot functioning. It was clogged up and she was not able to make it work. So, at that time, IV fluid was ordered and GI consultation was requested. Objective: HEENT: Unremarkable. Lungs: Clear to auscultation. Heart: Sounds normal. Abdomen: Soft. Bowel sounds normal. No guarding, rigidity, tenderness, or distention. Extremities: No leg edema. Laboratory Data: White count 10.6, hemoglobin 9.2, platelets 220. Sodium 143, potassium 4.6, chlori de 110, bicarb 29, BUN 29, creatinine 1.16, glucose 123, magnesium 1.9. Impression: 1.Pneumonia. 2.Anemia. 3.Hypertension. 4.Diabetes mellitus. Plan: GI consultation was requested for malfunctioning of the PEG tube and meanwhile IV fluid was or dered. Subsequently, nurse contacted and informed me that PEG tube has started to work again, so we will continue feeding per PEG tube and we will go ahead and discontinue IV fluid. Continue current a ntibiotics and I will see her tomorrow for followup. Possible discharge to go to [facility] tomorrow depending on her condition. ANUPAMA/MODL Voice ID: [id number] Report ID: [id number]
[2020-07-24] MEDS: PIPER/TAZO/NS 2.25gm 2.25 GM/50 ML BAG IVPB SCH ×3 (01:04→16:09)
[2020-07-24] MEDS: ALBUTEROL 2.5 MG/3 ML NEB SOL NEB SCH ×5 (03:35→20:20)
[2020-07-24] MEDS: FAMOTIDINE 20 MG/2 ML VIAL IV SCH (08:36)
[2020-07-24] MEDS: carvediloL 12.5 MG TAB FT SCH ×2 (08:37→22:13)
[2020-07-24] MEDS: ASPIRIN 81 MG CHEWABLE TABLET FT SCH (08:37)
[2020-07-24] MEDS: allopurinoL 100 MG TAB FT SCH ×2 (08:37→22:13)
[2020-07-24] MEDS: CLOTRIMAZ/BETAMETH CREAM 15GM TOP SCH ×2 (08:39→22:14)
[2020-07-24] MEDS: D5 0.9 NS 1,000 ML IV SCH (13:46)
[2020-07-24] MEDS: CITALOPRAM 10 MG TABLET FT SCH (22:13)
--- NOTE | 2020-07-24 22:51 | PN ---
Date of Progress Note: 07/24/2020 Subjective: The patient was seen this morning for followup. No new complaints or problems reported by nursing staff. This morning when I saw her, she was lying in bed, not in distress. Objective: HEENT: Unremarkable. Lungs: Clear to auscultation. Heart: Sounds normal. Abdomen: Soft. Bowel sounds normal. No guarding, rigidity, tenderness, or distention. Extremities: No leg edema. Impression: 1.Pneumonia. 2.Anemia. 3.Stroke. 4.Hypertension. 5.Diabetes mellitus. Plan: When I saw her this morning, the patient was doing fine and yesterday we had problem with her PEG tube not functioning, but subsequently nurse was able to get her PEG tube to function again, so s he was getting her PEG tube feeding and after I saw her today, same problem happened and nurse was no t able to get her back tube to work again. GI consultation was requested from Dr. Montemayor, who will evaluate the patient and take care of this malfunctioning PEG tube. Meanwhile, we will go ahead and give her IV fluids per order. Continue other current medical management. I will see her tomorrow f or followup. Once back tube problem gets resolved, then our plan is to discharge her to go to [facility]. ANUPAMA/MODL Voice ID: [id number] Report ID: [id number]
[2020-07-25] MEDS: ALBUTEROL 2.5 MG/3 ML NEB SOL NEB SCH ×6 (00:21→20:03)
[2020-07-25] MEDS: PIPER/TAZO/NS 2.25gm 2.25 GM/50 ML BAG IVPB SCH ×3 (01:17→18:37)
[2020-07-25] MEDS: FAMOTIDINE 20 MG/2 ML VIAL IV SCH (08:35)
[2020-07-25] MEDS: CLOTRIMAZ/BETAMETH CREAM 15GM TOP SCH ×2 (08:36→22:00)
[2020-07-25 08:52] LABS: Absolute Lymphocytes (CBC) 1.6 K/uL (0.7-4.9); Basophils % 0.2 % (0-1.3); Hematocrit 29.7 % (36.0-45.0); Lymphocytes % 10.3 % (15.3-44.8); MPV 7.9 fL (7.6-11.3); RBC Red Blood Cell Count 3.25 M/uL (3.86-4.86)
[2020-07-25 09:00] LABS: Magnesium 1.8 mg/dL (1.8-2.4)
--- NOTE | 2020-07-25 09:22 | RAD REPORT ---
EXAM DESCRIPTION: RAD - Chest Single View - 07/25/2020 9:04 am CLINICAL HISTORY: pneumonia COMPARISON: July 23 TECHNIQUE: AP portable chest image was obtained 07/25/2020 9:04 am . FINDINGS: Lung volumes remain low. PICC line remains in place. Right lung field pneumonia changes ma y be fractionally improved. Change from July 23 is very minimal. Left lung field is better aerated on the current examination. Trachea remains midline. No progressive lung parenchymal process. Heart a nd vasculature are normal. No measurable pleural effusion and no pneumothorax. No acute bony abnormal ity seen. No acute aortic findings suspected. IMPRESSION: Right upper lobe pneumonia is still present. There is been very slight improvement since July 23. Better aeration of the left lung field. No progressive lung parenchymal process.
[2020-07-25] MEDS: D5 0.9 NS 1,000 ML IV SCH (09:59)
[2020-07-25] MEDS: ASPIRIN 81 MG CHEWABLE TABLET FT SCH (10:00)
[2020-07-25] MEDS: carvediloL 12.5 MG TAB FT SCH ×2 (10:00→21:47)
[2020-07-25] MEDS: allopurinoL 100 MG TAB FT SCH ×2 (10:00→21:47)
[2020-07-25 10:01] LABS: Platelet Estimate ADEQ; White Blood Cell Scan OK
[2020-07-25 10:02] LABS: Anisocytosis 1+; Blood Morphology Comment NOTED (NOT SEEN)
[2020-07-25] MEDS ORDERED: MAGNESIUM SULFATE 1 gm IVPB 1 GM/100 ML BAG IV ONE (10:30)
[2020-07-25] MEDS: GLUCERNA 1.5 CAL 1,000 ML BOT FT SCH ×3 (12:19→21:00)
[2020-07-25] MEDS: CITALOPRAM 10 MG TABLET FT SCH (21:47)
--- NOTE | 2020-07-26 00:03 | PN ---
Date of Progress Note: 07/25/2020 Subjective: The patient was seen this morning for followup. No new complaints or problems reported by nursing staff. The patient remains sleepy, not communicating or answering any questions. Objective: Vital Signs: Reviewed. HEENT: Unremarkable. Lungs: Clear to auscultation. Heart: Sounds normal. Abdomen: Soft. Bowel sounds normal. No guarding, rigidity, tenderness, distention. Extremities: No leg edema. Impression: 1.Pneumonia. 2.Anemia. 3.Diabetes mellitus. 4.Hypertension. 5.Acute renal failure, resolved. Plan: We will continue current medication. Continue IV fluid. We will follow up with Dr. Montemayor from [facility] for malfunctioning of the PEG tube. Once that problem is resolved, we will plan to d ischarge her to go back to assisted. ANUPAMA/MODL Voice ID: [id number] Report ID: [id number]
[2020-07-26] MEDS: PIPER/TAZO/NS 2.25gm 2.25 GM/50 ML BAG IVPB SCH ×3 (00:55→17:41)
[2020-07-26] MEDS: ALBUTEROL 2.5 MG/3 ML NEB SOL NEB SCH ×6 (04:08→20:10)
[2020-07-26] MEDS: D5 0.9 NS 1,000 ML IV SCH (06:40)
[2020-07-26] MEDS: IPRATROPIUM BROM 0.5MG/2.5ML NEB PRN ×4 (08:00→20:10)
[2020-07-26 08:13] LABS: Absolute Lymphocytes (CBC) 1.3 K/uL (0.7-4.9); Basophils % 0.2 % (0-1.3); Hematocrit 27.7 % (36.0-45.0); Lymphocytes % 7.8 % (15.3-44.8); MPV 7.4 fL (7.6-11.3); RBC Red Blood Cell Count 3.09 M/uL (3.86-4.86)
[2020-07-26 08:41] LABS: Magnesium 1.8 mg/dL (1.8-2.4); Potassium 4.6 mmol/L (3.5-5.1)
[2020-07-26] MEDS: GLUCERNA 1.5 CAL 1,000 ML BOT FT SCH ×4 (09:00→21:02)
[2020-07-26] MEDS: CLOTRIMAZ/BETAMETH CREAM 15GM TOP SCH ×2 (09:32→20:58)
[2020-07-26] MEDS: ASPIRIN 81 MG CHEWABLE TABLET FT SCH (09:32)
[2020-07-26] MEDS: carvediloL 12.5 MG TAB FT SCH ×2 (09:32→21:00)
[2020-07-26] MEDS: allopurinoL 100 MG TAB FT SCH ×2 (09:32→21:00)
[2020-07-26] MEDS: FAMOTIDINE 20 MG/2 ML VIAL IV SCH (09:32)
[2020-07-26] MEDS ORDERED: MAGNESIUM SULFATE 1 gm IVPB 1 GM/100 ML BAG IV ONE (11:00)
[2020-07-26] MEDS: DOXYCYCLINE 100 MG in NA CHLORIDE 0.9% 100 ML IVPB SCH ×2 (12:07→20:58)
[2020-07-26] MEDS: CITALOPRAM 10 MG TABLET FT SCH (21:00)
--- NOTE | 2020-07-27 00:42 | PN ---
Date of Progress Note: 07/26/2020 Subjective: The patient was seen this morning for followup. She was lying in bed, not in any distre ss. Objective: Vital Signs: Reviewed. HEENT: Unremarkable. Lungs: Clear to auscultation. Heart: Sounds normal. Abdomen: Soft. Bowel sounds normal. No guarding, rigidity, tenderness, or distention. Extremities: No leg edema. Skin: Rash from lower abdomen and upper thigh has improved. Laboratory Data: White count 16.1, hemoglobin 8.9, platelets 307. Sodium 146, potassium 4.6, chlori de 115, bicarb 28, BUN 17, creatinine 0.99, glucose 112, magnesium 1.8. Impression: 1.Pneumonia. 2.Anemia. 3.Acute kidney injury. 4.Diabetes mellitus. 5.Hypertension. 6.Mild functioning PEG tube. Plan: The patient's PEG tube is functioning well after Dr. Montemayor evaluated her. He changed her f eeding from continuous to bolus feeding and we will continue that, discontinue IV fluid, continue her current antibiotic which is Zosyn, and we will add doxycycline. We will repeat COVID-19 test and I will see her tomorrow for followup. Chest x-ray has shown improvement in pneumonia as per last chest x-ray. ANUPAMA/MODL Voice ID: [id number] Report ID: [id number]
[2020-07-27] MEDS: PIPER/TAZO/NS 2.25gm 2.25 GM/50 ML BAG IVPB SCH ×2 (01:24→09:00)
[2020-07-27] MEDS: ALBUTEROL 2.5 MG/3 ML NEB SOL NEB SCH ×7 (04:00→23:00)
[2020-07-27 04:57] LABS: Magnesium 1.9 mg/dL (1.8-2.4); Potassium 4.9 mmol/L (3.5-5.1)
[2020-07-27] MEDS: IPRATROPIUM BROM 0.5MG/2.5ML NEB PRN ×2 (07:55→11:45)
[2020-07-27] MEDS: DOXYCYCLINE 100 MG in NA CHLORIDE 0.9% 100 ML IVPB SCH (09:00)
[2020-07-27 09:04] LABS: Absolute Lymphocytes (CBC) 1.6 K/uL (0.7-4.9); Basophils % 0.4 % (0-1.3); Hematocrit 27.8 % (36.0-45.0); Lymphocytes % 10.1 % (15.3-44.8); MPV 7.3 fL (7.6-11.3); RBC Red Blood Cell Count 3.12 M/uL (3.86-4.86)
--- NOTE | 2020-07-27 09:36 | RAD REPORT ---
EXAM DESCRIPTION: RAD - Chest Single View - 07/27/2020 9:11 am CLINICAL HISTORY: pneumonia Chest pain. COMPARISON: Chest Single View dated 07/25/2020; Chest Single View dated 07/23/2020; Chest Single View d ated 07/22/2020; Chest Single View dated 07/20/2020 FINDINGS: Portable technique limits examination quality. Mild bilateral interstitial lung opacities appear unchanged since comparative study. The heart is upp er limit normal in size. Prominent degenerative changes are present both shoulders.Right PICC line is unchanged in position. IMPRESSION: Stable chest since 07/25/2020.
[2020-07-27] MEDS: FAMOTIDINE 20 MG/2 ML VIAL IV SCH (09:40)
[2020-07-27] MEDS: allopurinoL 100 MG TAB FT SCH ×2 (09:40→21:07)
[2020-07-27] MEDS: GLUCERNA 1.5 CAL 1,000 ML BOT FT SCH ×4 (09:40→21:08)
[2020-07-27] MEDS: carvediloL 12.5 MG TAB FT SCH ×2 (09:40→21:06)
[2020-07-27] MEDS: ASPIRIN 81 MG CHEWABLE TABLET FT SCH (09:40)
[2020-07-27] MEDS: CLOTRIMAZ/BETAMETH CREAM 15GM TOP SCH ×2 (09:41→21:07)
[2020-07-27] MEDS: METHYLPREDNISOLONE 40 MG INJ IV ONE ×2 (09:41→10:00)
[2020-07-27] MEDS ORDERED: FUROSEMIDE 20 MG/ 2ML VIAL IV ONE (12:00)
--- NOTE | 2020-07-27 16:07 | PN ---
Date of Progress Note: 07/27/2020 Subjective: The patient was seen this morning for followup. She was lying in bed, not in distress. Vital signs reviewed. When I saw her, she remains unresponsive, does not communicate, does not answ er any questions. Objective: HEENT: Unremarkable. Lungs: Clear to auscultation. Heart: Sounds normal. Abdomen: Soft. Bowel sounds normal. No guarding, rigidity, tenderness, or distention. Extremities: No leg edema. Skin: Today shows diffuse rash, pink macular rash, scattered all over her body, mainly her abdomen, chest, neck, both legs and arms. This is significantly different compared to how it was in last few days. Laboratory Data: Sodium 145, potassium 4.9, chloride 111, bicarb 27, BUN 20, creatinine 0.91. White count 16.2, hemoglobin 9.1, platelets 353. Impression: 1.Pneumonia. 2.Rash. 3.Anemia. Plan: The patient's WBC count is more less same today as yesterday. Yesterday, we added doxycycline . Prior to that she had a minimal amount of rash in her lower abdomen and upper thigh, which actuall y had improved over last 2 to 3 days with some topical cream, but today she has significantly worseni ng of the rash as noted. The patient has been getting Zosyn from the time of admission and later on vancomycin was added, which we discontinued few days ago and yesterday doxycycline was added. So at this point, we are not sure about this current rash that she has whether it is due to Zosyn or doxycy sweeney. We will not blame it on vancomycin as patient has not received any vancomycin in last few day s. In any case today, I have discontinued both antibiotics Zosyn and doxycycline, 1 dose of IV Solu- Medrol was ordered. Chest x-ray was done today, which shows bilateral increased interstitial marking . This could be due to either pneumonia or fluid buildup, so we will give 20 mg Lasix IV x1 dose. I will repeat another chest x-ray tomorrow. We will continue bolus tube feeding on her. ANUPAMA/MODL Voice ID: [id number] Report ID: [id number]
[2020-07-27] MEDS: CITALOPRAM 10 MG TABLET FT SCH (21:07)
[2020-07-28] MEDS: ALBUTEROL 2.5 MG/3 ML NEB SOL NEB SCH ×6 (03:05→23:30)
[2020-07-28] MEDS: IPRATROPIUM BROM 0.5MG/2.5ML NEB PRN ×2 (08:05→15:20)
[2020-07-28] MEDS: CLOTRIMAZ/BETAMETH CREAM 15GM TOP SCH ×2 (08:14→20:20)
[2020-07-28] MEDS: carvediloL 12.5 MG TAB FT SCH ×2 (08:14→20:19)
[2020-07-28] MEDS: FAMOTIDINE 20 MG/2 ML VIAL IV SCH (08:14)
[2020-07-28] MEDS: allopurinoL 100 MG TAB FT SCH ×2 (08:14→20:19)
[2020-07-28] MEDS: ASPIRIN 81 MG CHEWABLE TABLET FT SCH (08:14)
[2020-07-28] MEDS: GLUCERNA 1.5 CAL 1,000 ML BOT FT SCH ×4 (08:17→20:22)
--- NOTE | 2020-07-28 09:23 | RAD REPORT ---
EXAM DESCRIPTION: RAD - Chest Single View - 07/28/2020 7:14 am CLINICAL HISTORY: pneumonia Chest pain. COMPARISON: Chest Single View dated 07/27/2020; Chest Single View dated 07/25/2020; Chest Single View da amadou 07/23/2020; Chest Single View dated 07/22/2020 FINDINGS: Portable technique limits examination quality. Mild improvement in bilateral pulmonary opacities is noted since comparative chest radiograph. The he art is mildly enlarged with a tortuous thoracic aorta. Right-sided PICC line has tip in the SVC, unch anged.Prominent degenerative changes present both shoulders. IMPRESSION: Mild improvement lung aeration is seen since comparative study.
[2020-07-28] MEDS ORDERED: FUROSEMIDE 20 MG/ 2ML VIAL IV ONE (10:34)
[2020-07-28] MEDS ORDERED: METHYLPREDNISOLONE 40 MG INJ IV ONE (10:34)
--- NOTE | 2020-07-28 12:58 | PN ---
Date of Progress Note: 07/28/2020 Subjective: The patient was seen this morning for followup. When I saw her she was lying in bed. S he was coughing a little bit when I was in the room with her and appeared to have some mucus in her m outh. So, I did provide her immediate suction at that time and that actually helped to resolve her s ymptoms. She was not in any respiratory distress. Objective: Vital signs: Reviewed. HEENT: Unremarkable. Lungs: Clear to auscultation. Heart: Sounds normal. Abdomen: Soft. Bowel sounds normal. No guarding, rigidity, tenderness, or distention. Extremities: No leg edema. Skin: The patient has a rash from yesterday. The intensity of the rash is less compared to yesterda y. Distribution remains the same but it is definitely better looking today and seems to be fading aw ay compared to yesterday after she received 1 dose of Solu-Medrol and her antibiotics were discontinu ed yesterday. Laboratory Data: Chest x-ray shows improvement in bilateral interstitial markings. Impression: 1.Pneumonia, improved. 2.Rash. 3.Hypertension. 4.Diabetes mellitus. Plan: We will continue current PEG tube feeding, which is bolus feeding. Antibiotics were discontin ued yesterday. We will not give any further antibiotic at this point as the patient has received matilde quate number of antibiotic therapy and now especially with allergic reaction that she developed, we d o not need to give any different antibiotic as she already has received 10 days of IV antibiotics dur ing this hospital stay. She received 1 dose of Lasix 20 mg IV yesterday. We will do another dose to day and I will repeat blood work and chest x-ray tomorrow. I will also give 1 dose of Solu-Medrol 40 mg IV today. I will evaluate he r again tomorrow. ANUPAMA/MODL Voice ID: [id number] Report ID: [id number]
[2020-07-28] MEDS: CITALOPRAM 10 MG TABLET FT SCH (20:21)
[2020-07-28] MEDS ORDERED: ACETAMINOPHEN 160 MG/5 ML UCUP PO PRN (20:28)
[2020-07-28] MEDS ORDERED: VANCOMYCIN/NS 1 gm 1 GM/250 ML BAG IVPB SCH (20:30)
[2020-07-28] MEDS ORDERED: WATER FOR INJ,STERILE 10 ML IV ONE (21:00)
[2020-07-28] MEDS ORDERED: CEFTRIAXONE 1 GM/NS 50 ML 1 GM/50 ML BAG IV SCH (21:00)
[2020-07-28] MEDS ORDERED: CEFTRIAXONE 1000 MG/VIAL IVP ONE (21:00)
[2020-07-28] MEDS ORDERED: VANCOMYCIN/NS 1 gm 1 GM/250 ML BAG IVPB ONE (21:15)
[2020-07-28 21:32] LABS: Urine Appearance CLOUDY; Urine Bilirubin NEGATIVE (NEG); Urine Blood NEGATIVE (NEG); Urine Color YELLOW; Urine Glucose NEGATIVE (NEG); Urine Protein NEGATIVE (NEG); Urine Urobilinogen 0.2 mg/dL (0.2-1.0)
[2020-07-28 21:43] LABS: Urine Culture Reflex Order NOT NEEDED
[2020-07-28 21:45] LABS: Urine Bacteria <20 /HPF (<20); Urine RBC NONE SEEN /HPF (NONE SEEN); Urine Yeast MANY (NONE SEEN); Urine Yeast with Hyphae PRESENT
[2020-07-28] MEDS: CEFTRIAXONE/SWI 1gm 1 GM/10 ML SYR IVP SCH (21:56)
[2020-07-28] MEDS ORDERED: VANCOMYCIN 1.25 GM in NA CHLORIDE 0.9% 250 ML IVPB SCH (22:00)
[2020-07-28] MEDS: VANCOMYCIN 1.25 GM in NA CHLORIDE 0.9% 250 ML IVPB SCH (23:00)
[2020-07-28] MEDS ORDERED: [UNRECOGNIZED DRUG - REMARK] IV SCH ×2 (23:30)
[2020-07-28] MEDS ORDERED: NA CHLORIDE 0.9% 250 ML ONE (23:44)
[2020-07-28] MEDS ORDERED: VANCOMYCIN 1 GM/VIAL ONE (23:46)
[2020-07-28] MEDS ORDERED: VANCOMYCIN 500 MG/VIAL ONE (23:47)
[2020-07-29] MEDS: ALBUTEROL 2.5 MG/3 ML NEB SOL NEB SCH ×6 (03:20→23:30)
[2020-07-29 07:06] LABS: Absolute Lymphocytes (CBC) 1.2 K/uL (0.7-4.9); Basophils % 0.3 % (0-1.3); Hematocrit 27.4 % (36.0-45.0); MPV 7.7 fL (7.6-11.3)
[2020-07-29 07:21] LABS: Magnesium 1.6 mg/dL (1.8-2.4); Potassium 3.9 mmol/L (3.5-5.1)
[2020-07-29] MEDS ORDERED: MAGNESIUM SULFATE 1 gm IVPB 1 GM/100 ML BAG IV ONE (08:00)
--- NOTE | 2020-07-29 08:45 | RAD REPORT ---
EXAM DESCRIPTION: Charissa Single View07/29/2020 6:51 am CLINICAL HISTORY: Chest pain COMPARISON: July 28, 2020 FINDINGS: No significant change in mild right pulmonary opacities. Left pulmonary opacities appear mostly resolved. Heart is borderline enlarged. PICC line remains in place
[2020-07-29] MEDS ORDERED: CEFTRIAXONE/SWI 1gm 1 GM/10 ML SYR IVP SCH (09:00)
[2020-07-29 09:07] LABS: Blood Morphology Comment NOT SEEN (NOT SEEN); Platelet Estimate ADEQ
[2020-07-29] MEDS: CEFTRIAXONE/SWI 1gm 1 GM/10 ML SYR IVP SCH ×2 (09:25→21:26)
[2020-07-29] MEDS: carvediloL 12.5 MG TAB FT SCH ×2 (09:26→21:27)
[2020-07-29] MEDS: allopurinoL 100 MG TAB FT SCH ×2 (09:26→21:26)
[2020-07-29] MEDS: FAMOTIDINE 20 MG/2 ML VIAL IV SCH (09:26)
[2020-07-29] MEDS: ASPIRIN 81 MG CHEWABLE TABLET FT SCH (09:26)
[2020-07-29] MEDS: GLUCERNA 1.5 CAL 1,000 ML BOT FT SCH ×4 (09:27→21:28)
[2020-07-29] MEDS: CLOTRIMAZ/BETAMETH CREAM 15GM TOP SCH ×2 (09:27→21:26)
[2020-07-29] MEDS ORDERED: METHYLPREDNISOLONE 40 MG INJ IV ONE (10:22)
[2020-07-29 13:01] LABS: C.diff Antigen/Toxin Ag neg : Tox neg (NEG : NEG)
[2020-07-29] MEDS: CITALOPRAM 10 MG TABLET FT SCH (21:26)
--- NOTE | 2020-07-29 21:42 | PN ---
Date of Progress Note: 07/29/2020 Subjective: Patient was seen this morning for followup, lying in bed, not in any distress. Objective: Vital Signs: Reviewed. HEENT: Unremarkable. Lungs: Bilateral good equal air entry, not in any respiratory distress. Heart: Sounds normal. Abdomen: Soft. Bowel sounds normal. No guarding, rigidity, tenderness, or distention. Extremities: No leg edema. Skin: Presence of rash noted, distribution remains unchanged, but intensity is getting better. It i s even better compared to yesterday. It is drying up. There is no new rash noted. Laboratory Data: White count 17.5, hemoglobin 8.9, platelets 419. Sodium 144, potassium 3.9, chlori de 107, bicarb 31, BUN 28, creatinine 1.13, glucose 142, magnesium 1.6. Impression: 1.Pneumonia. 2.Hypomagnesemia. 3.Anemia. Plan: Yesterday evening, patient started to have fever. So, at that time, we did blood cultures, ur inalysis, urine culture and urinalysis was unremarkable. Londono catheter was removed today and we belem l continue empiric antibiotic, which was started yesterday, which is ceftriaxone and vancomycin. We will repeat blood work and chest x-ray tomorrow morning and we will give 1 dose of Solu-Medrol 40 mg IV today. This is her third day of getting this dose because of allergic reaction, which is likely due to prior antibiotic use. I will see her tomorrow for followup. ANUPAMA/MODL Voice ID: [id number] Report ID: [id number]
[2020-07-30] MEDS: ALBUTEROL 2.5 MG/3 ML NEB SOL NEB SCH ×6 (03:25→23:30)
[2020-07-30 06:33] LABS: Basophils % 0.1 % (0-1.3); Hematocrit 26.4 % (36.0-45.0); Lymphocytes % 7.6 % (15.3-44.8); MPV 7.9 fL (7.6-11.3)
[2020-07-30 06:53] LABS: Magnesium 1.8 mg/dL (1.8-2.4); Potassium 3.9 mmol/L (3.5-5.1)
[2020-07-30] MEDS: GLUCERNA 1.5 CAL 1,000 ML BOT FT SCH (09:00)
[2020-07-30] MEDS: carvediloL 12.5 MG TAB FT SCH ×2 (09:25→20:11)
[2020-07-30] MEDS: allopurinoL 100 MG TAB FT SCH ×2 (09:25→20:11)
[2020-07-30] MEDS: ASPIRIN 81 MG CHEWABLE TABLET FT SCH (09:25)
[2020-07-30] MEDS: FAMOTIDINE 20 MG/2 ML VIAL IV SCH (09:25)
[2020-07-30] MEDS: CEFTRIAXONE/SWI 1gm 1 GM/10 ML SYR IVP SCH ×2 (09:26→20:11)
[2020-07-30] MEDS: GLUCERNA 1.2 CAL 1,000 ML BOT FT SCH ×4 (09:26→20:11)
[2020-07-30] MEDS: CLOTRIMAZ/BETAMETH CREAM 15GM TOP SCH ×2 (09:27→20:11)
--- NOTE | 2020-07-30 10:40 | PN ---
Date of Progress Note: 07/30/2020 Subjective: The patient was seen this morning for followup. No new complaints or problems reported by nursing staff. The patient looked a little more responsive today. She was trying to say some wor ds but no clear words coming out of her mouth and this is her baseline, but at least this is better t sarmiento last few days. Not in any distress. Objective: Vital Signs: Reviewed. HEENT: Examination unremarkable. Lungs: Clear to auscultation. Heart: Sounds normal. Abdomen: Soft. Bowel sounds normal. No guarding, rigidity, tenderness, or distention. Extremities: No leg edema. Skin: Has some skin peeling off from different body regions and this is from allergic reaction that she had with the rash, which has healed very well after 3 days of daily use of IV steroid medication. Today, her rash looks significantly better, almost resolved now. What she has is just some dry ski n that is peeling off. Laboratory Data: White count 13.4, hemoglobin 8.6, platelets 425. Sodium 141, potassium 3.9, chlori de 106, bicarb 33, BUN 30, creatinine 0.88, glucose 168, magnesium 1.8. Impression: 1.Pneumonia. 2.Anemia. 3.Allergic reaction to antibiotics. 4.Hypertension. Plan: We will continue current medication. Continue ceftriaxone and vancomycin, which was started d ay before yesterday and we will repeat blood work tomorrow. We will repeat chest x-ray tomorrow and possible discharge to go to half-way either tomorrow or day after tomorrow depending on patient's condition and upon discharge the patient to continue IV antibiotics at half-way for about 1 week. ANUPAMA/MODL Voice ID: [id number] Report ID: [id number]
[2020-07-30] MEDS ORDERED: MAGNESIUM SULFATE 1 gm IVPB 1 GM/100 ML BAG IV ONE (11:00)
[2020-07-30] MEDS: VANCOMYCIN 1.25 GM in NA CHLORIDE 0.9% 250 ML IVPB SCH (11:15)
[2020-07-30] MEDS: CITALOPRAM 10 MG TABLET FT SCH (20:11)
[2020-07-31] MEDS: ALBUTEROL 2.5 MG/3 ML NEB SOL NEB SCH ×5 (03:30→19:20)
[2020-07-31 05:07] LABS: Absolute Lymphocytes (CBC) 1.3 K/uL (0.7-4.9); Basophils % 0.4 % (0-1.3); Hematocrit 27.6 % (36.0-45.0); Lymphocytes % 12.6 % (15.3-44.8); MPV 7.7 fL (7.6-11.3); RBC Red Blood Cell Count 3.13 M/uL (3.86-4.86)
[2020-07-31 05:14] LABS: Magnesium 1.8 mg/dL (1.8-2.4); Potassium 3.9 mmol/L (3.5-5.1)
--- NOTE | 2020-07-31 08:35 | RAD REPORT ---
EXAM DESCRIPTION: RAD - Chest Single View - 07/31/2020 6:39 am CLINICAL HISTORY: pneumonia Chest pain. COMPARISON: Chest Single View dated 07/29/2020; Chest Single View dated 07/28/2020; Chest Single View da amadou 07/27/2020; Chest Single View dated 07/25/2020 FINDINGS: Portable technique limits examination quality. Bilateral pulmonary opacities have mildly improved since 07/29/2020 study. The heart is mildly enlarg ed in size. Right-sided PICC line is unchanged position.Degenerative changes are present both shoulde rs. IMPRESSION: Mild improvement in lung aeration is seen since 07/29/2020 prior study.
[2020-07-31] MEDS ORDERED: MAGNESIUM SULFATE 1 gm IVPB 1 GM/100 ML BAG IV ONE (09:00)
[2020-07-31] MEDS: ASPIRIN 81 MG CHEWABLE TABLET FT SCH (09:42)
[2020-07-31] MEDS: carvediloL 12.5 MG TAB FT SCH ×2 (09:42→20:08)
[2020-07-31] MEDS: allopurinoL 100 MG TAB FT SCH ×2 (09:42→20:08)
[2020-07-31] MEDS: GLUCERNA 1.2 CAL 1,000 ML BOT FT SCH ×4 (09:43→20:10)
[2020-07-31] MEDS: CLOTRIMAZ/BETAMETH CREAM 15GM TOP SCH ×2 (09:43→20:06)
[2020-07-31] MEDS: FAMOTIDINE 20 MG/2 ML VIAL IV SCH (09:50)
[2020-07-31] MEDS: CEFTRIAXONE/SWI 1gm 1 GM/10 ML SYR IVP SCH ×2 (09:55→20:06)
[2020-07-31] MEDS ORDERED: WATER FOR INJ,STERILE 10 ML IV ONE (11:00)
[2020-07-31] MEDS ORDERED: ALTEPLASE 2 MG/VIAL IV SCH (11:00)
[2020-07-31] MEDS: CITALOPRAM 10 MG TABLET FT SCH (20:07)
--- NOTE | 2020-07-31 22:16 | PN ---
Date of Progress Note: 07/31/2020 Subjective: The patient was seen this morning for followup. She was sleeping, not in any distress. Objective: Vital Signs: Reviewed. HEENT: Unremarkable. Lungs: Clear to auscultation. Heart: Sounds normal. Abdomen: Soft. Bowel sounds normal. No guarding, rigidity, tenderness, or distention. Extremities: No leg edema. Skin: Some peeling of skin from rash that she had, which has healed now. Laboratory Data: White count 10, hemoglobin 9.1, platelets 430. Sodium 139, potassium 3.9, chloride 104, bicarb 33, BUN 24, creatinine 0.78, glucose 125, magnesium 1.8. Impression: 1.Pneumonia. 2.Anemia. 3.Hypertension. Plan: The patient's blood pressure was on lower side this morning and order was written to hold carv edilol if systolic blood pressure less than 120. We will continue current antibiotic. Chest x-ray s hows improvement in pneumonia. Social Service was consulted to make arrangements for IV antibiotics to be continued at senior living for 1 week and these arrangements will be made tonight at nursing [facility]. We will get the dose tonight. So, we will plan to discharge her to go back to senior living tomorrow. ANUPAMA/MODL Voice ID: [id number] Report ID: [id number]
[2020-07-31] MEDS ORDERED: VANCOMYCIN 1.5 GM in NA CHLORIDE 0.9% 500 ML IVPB SCH (23:00)
[2020-08-01] MEDS: ALBUTEROL 2.5 MG/3 ML NEB SOL NEB SCH ×3 (01:15→08:00)
[2020-08-01 05:07] LABS: Absolute Lymphocytes (CBC) 1.2 K/uL (0.7-4.9); Basophils % 0.3 % (0-1.3); Hematocrit 27.2 % (36.0-45.0); Lymphocytes % 14.5 % (15.3-44.8); MPV 8.1 fL (7.6-11.3); RBC Red Blood Cell Count 3.08 M/uL (3.86-4.86)
[2020-08-01 05:20] LABS: BUN Blood Urea Nitrogen 24 mg/dL (7-18); Bicarbonate 31 mmol/L (21-32); Glucose Level 126 mg/dL (74-106); Potassium 4.2 mmol/L (3.5-5.1); Sodium Level 139 mmol/L (136-145)
[2020-08-01 08:42] VITALS: BP 112/73; TEMP 97
[2020-08-01] MEDS: carvediloL 12.5 MG TAB FT SCH (09:00)
[2020-08-01] MEDS: CEFTRIAXONE/SWI 1gm 1 GM/10 ML SYR IVP SCH (09:30)
[2020-08-01] MEDS: ASPIRIN 81 MG CHEWABLE TABLET FT SCH (09:30)
[2020-08-01] MEDS: FAMOTIDINE 20 MG/2 ML VIAL IV SCH (09:30)
[2020-08-01] MEDS: allopurinoL 100 MG TAB FT SCH (09:30)
[2020-08-01] MEDS: CLOTRIMAZ/BETAMETH CREAM 15GM TOP SCH (09:31)
[2020-08-01] MEDS: GLUCERNA 1.2 CAL 1,000 ML BOT FT SCH (09:31)
[2020-08-01 10:30] VITALS: O2SAT 98
== END 2020-08-01 11:20 | DRG 682 ==
LOC: ER 07:09 → ERHOLD 10:02 → 2ND 11:39
PROVIDERS: ADMIT Internal Medicine; ATTEND Internal Medicine
PROC: 02HV33Z Insertion of Infusion Device into Superior Vena Cava, Percutaneous Approach (ICD-10-PCS; principal; 2020-07-17)
PROC: 30233N1 Transfusion of Nonautologous Red Blood Cells into Peripheral Vein, Percutaneous Approach (ICD-10-PCS; 2020-07-18)
DX: N17.9 Acute kidney failure, unspecified (principal); J18.9 Pneumonia, unspecified organism; E87.1 Hypo-osmolality and hyponatremia; K94.23 Gastrostomy malfunction; E87.5 Hyperkalemia; Z66 Do not resuscitate; I10 Essential (primary) hypertension; D64.9 Anemia, unspecified; T68.XXXA Hypothermia, initial encounter; Z79.82 Long term (current) use of aspirin; Z79.899 Other long term (current) drug therapy; I25.10 Atherosclerotic heart disease of native coronary artery without angina pectoris; E11.51 Type 2 diabetes mellitus with diabetic peripheral angiopathy without gangrene; E87.6 Hypokalemia; Y84.8 Other medical procedures as the cause of abnormal reaction of the patient, or of later complication, without mention of misadventure at the time of the procedure; R21 Rash and other nonspecific skin eruption; T36.95XA Adverse effect of unspecified systemic antibiotic, initial encounter; E83.42 Hypomagnesemia; Z20.828 Contact with and (suspected) exposure to other viral communicable diseases
CPT/HCPCS: 36415; 36430; 36569; 51702; 71045; 80048; 80076; 80202; 81001; 81003; 82024; 82274; 82533; 82947; 83605; 83735; 83880; 84132; 84145; 84484; 85014; 85018; 85025; 85610; 86850; 86900; 86901; 87040; 87086; 87088; 87205; 87324; 87449; 93005; 93925; 94640; 96361; 96365; 96375; 99291; J0696; J0834; J1940; J2543; J2920; J2997; J3370; J3475; J3480; J7030; J7040; J7042; J7050; J7799; P9016; U0002; U0003

== ENCOUNTER 2020-08-13 11:59 | Inpatient (IN) | payer OTHER ==
[2020-08-13 13:10] LABS: Basophils % 0.3 % (0-1.3); Hematocrit 27.1 % (36.0-45.0); Lymphocytes % 14.4 % (15.3-44.8); MPV 8.3 fL (7.6-11.3); RBC Red Blood Cell Count 3.07 M/uL (3.86-4.86)
[2020-08-13 13:34] LABS: BUN Blood Urea Nitrogen 35 mg/dL (7-18); Bicarbonate 30 mmol/L (21-32); Creatine Phosphokinase 55 U/L (26-192); Glucose Level 79 mg/dL (74-106); NT PRO-BNP 168 pg/mL (<450); Sodium Level 128 mmol/L (136-145); Troponin (Emerg Dept Use Only) < 0.02 ng/mL (0.0-0.045)
[2020-08-13 13:40] LABS: Potassium 5.8 mmol/L (3.5-5.1)
[2020-08-13] MEDS ORDERED: NA CHLORIDE 0.9% 500 ML ONE (14:08)
--- NOTE | 2020-08-13 15:29 | RAD REPORT ---
EXAM DESCRIPTION: RAD - Chest Single View - 08/13/2020 2:18 pm CLINICAL HISTORY: COUGH COMPARISON: July 31 TECHNIQUE: AP portable chest image was obtained 08/13/2020 2:18 pm . FINDINGS: Lung volumes are very low. This accentuates the baseline interstitial pattern. No new mass or consolidation. PICC line has been removed since the prior study. Heart size is prominent but stab le. Vasculature within normal limits for shallow inspiration portable exam. No measurable pleural eff usion and no pneumothorax. No acute bony abnormality seen. No acute aortic findings suspected. IMPRESSION: Limited shallow inspiration exam not clearly different from comparison.
[2020-08-13 15:45] LABS: Urine Blood 1+ (NEG); Urine Glucose NEGATIVE (NEG); Urine Protein 1+ (NEG); Urine Specific Gravity 1.015 (1.005-1.030); Urine pH 7.5 (5.0-7.0)
[2020-08-13 15:50] LABS: Urine Bacteria 20-50 /HPF (<20); Urine Culture Reflex Order NOT NEEDED; Urine Yeast PRESENT (NONE SEEN)
[2020-08-13 15:51] LABS: Urine Amorphous Sediment 1+ /HPF (NONE SEEN)
[2020-08-13] MEDS ORDERED: CEFTRIAXONE/SWI 1gm 1 GM/10 ML SYR ONE (16:17)
--- NOTE | 2020-08-13 16:33 | EDPHYS ---
Physician Documentation [facility] Name: Sharda Dewey Age: 80 yrs Sex: Female : 1940 Arrival Date: 08/13/2020 Time: 12:03 Bed 18 Private MD: ED Physician Landry Aguirre HPI: 08/13 12:15 This 80 yrs old Black Female presents to ER via Unassigned with complaints of low rn temperature. 12:15 Per EMS report, [facility] checked her temperature today, and was low, per report rn around 94 degrees, has had "URI" recently that is not better, but report is that she is at her baseline mentally. + vascular dementia. They do report "more gurgly" lately. . Onset: The symptoms/episode began/occurred at an unknown time. Severity of symptoms: At their worst the symptoms were moderate in the emergency department the symptoms are unchanged. It is unknown whether or not the patient has had similar symptoms in the past. It is unknown whether or not the patient has recently seen a physician. Historical: - Allergies: 12:37 No Known Allergies; jl7 - Home Meds: 14:19 allopurinol 100 mg Oral tab 1 tab 2 times per day [Active]; amlodipine 5 mg tab 1 tab jl7 twice a day [Active]; aspirin 81 mg Oral chew 1 tab once daily [Active]; Celexa 10 mg Oral tab 1 tab nightly [Active]; Vitamin D Oral 5000 unit daily [Active]; carvedilol 12.5 mg Oral tab 1 tab 2 times per day [Active]; Lasix 40 mg Oral tab 2 tabs once daily [Active]; sennosides 8.6 mg oral tab [Active]; Voltaren Oral [Active]; - PMHx: 12:37 Allergic rhinitis; Alzheimers; Anemia; Anxiety; ataxic gait; CAD; Delusional disorder; jl7 Dementia; Depression; Diabetes - NIDDM; DYSPHAGIA; Hypertension; insomnia; Pneumonia; - PSHx: 12:37 PEG tube; jl7 - Immunization history:: Adult Immunizations up to date. - Social history:: Smoking status: Patient denies any tobacco usage or history of. - Unable to obtain history due to: baseline dementia. ROS: 12:15 Unable to obtain ROS due to baseline dementia. rn Exam: 12:15 Constitutional: Awake, alert, does not follow commands Head/Face: Normocephalic, rn atraumatic. ENT: No stridor Cardiovascular: Bradycardic, regular Respiratory: coarse bilateral breath sounds, no retractions Abdomen/GI: + feeding tube in place, no abd tenderness. Skin: Warm, dry MS/ Extremity: Pulses equal, no cyanosis. Neurovascular intact. Full, normal range of motion. Equal circumference. Neuro: Awake, + bilateral upper ext contractures, weak bilateral lower extremities with hypotonia. Vital Signs: 12:00 BP 123 / 94; Pulse 51; Resp 15; Pulse Ox 100% ; jl7 13:30 BP 139 / 90; Pulse 51; Resp 13 S; Temp 88.4(C); Pulse Ox 100% on R/A; jl7 14:03 BP 106 / 71; Pulse 48; Resp 12; Temp 88.8; Pulse Ox 100% ; jl7 14:30 BP 120 / 65; Pulse 52; Resp 14; Temp 89.1; Pulse Ox 100% ; jl7 15:30 BP 117 / 70; Pulse 54; Resp 15 S; Temp 90.4; Pulse Ox 100% on R/A; jl7 16:30 BP 136 / 88; Pulse 65; Resp 15; Temp 91.8; Pulse Ox 100% ; jl7 17:30 BP 139 / 78; Pulse 79; Resp 17; Pulse Ox 100% ; jl7 MDM: 12:03 Patient medically screened. rn 16:31 Differential Diagnosis sepsis, UTI, dehydration, electrolyte abnormality, hypothermia. rn Data reviewed: vital signs, nurses notes, lab test result(s), radiologic studies, plain films, and as a result, I will admit patient. Counseling: I had a detailed discussion with the patient and/or guardian regarding: the historical points, exam findings, and any diagnostic results supporting the discharge/admit diagnosis, lab results, radiology results, the need for further work-up and treatment in the hospital. Response to treatment: the patient's symptoms have mildly improved after treatment, and as a result, I will admit patient. Admission orders: after a detailed discussion of the patient's condition and case, the admit orders are written by me. 08/13 12: Order name: C-Reactive Protein; Complete Time: 13:43 rn 08/13 12:06 Order name: Urine Culture rn 08/13 12:06 Order name: Sputum Culture rn 08/13 12:06 Order name: Basic Metabolic Panel; Complete Time: 13:43 rn 08/13 12:06 Order name: Blood Culture Adult (2) rn 08/13 12:06 Order name: CBC with Diff; Complete Time: 13:20 rn 08/13 12:06 Order name: CPK; Complete Time: 13:43 rn 08/13 12:06 Order name: Lactate; Complete Time: 13:43 rn 08/13 12:06 Order name: Procalcitonin; Complete Time: 15:05 rn 08/13 12:06 Order name: Protime (+inr); Complete Time: 13:20 rn 08/13 12:06 Order name: Ptt, Activated; Complete Time: 13:20 rn 08/13 12:06 Order name: Troponin (emerg Dept Use Only); Complete Time: 13:43 rn 08/13 12:06 Order name: Urine Microscopic Only; Complete Time: 15:53 rn 08/13 12:06 Order name: COVID-19 rn 08/13 12:06 Order name: Chest Single View XRAY; Complete Time: 15:44 rn 08/13 12:06 Order name: Accucheck; Complete Time: 13:06 rn 08/13 12:06 Order name: Cardiac monitoring; Complete Time: 13:06 rn 08/13 12:06 Order name: EKG - Nurse/Tech; Complete Time: 14:32 rn 08/13 12:06 Order name: IV Saline Lock - Large Bore; Complete Time: 13:06 rn 08/13 12:06 Order name: Labs collected and sent; Complete Time: 13:06 rn 08/13 12:06 Order name: O2 Per Protocol; Complete Time: 13:04 rn 08/13 12:06 Order name: O2 Sat Monitoring; Complete Time: 13:04 rn 08/13 12:06 Order name: Urine Dipstick-Ancillary (obtain specimen); Complete Time: 14:33 rn 08/13 12:06 Order name: BNP; Complete Time: 13:43 rn 08/13 12:06 Order name: Londono; Complete Time: 14:06 rn 08/13 13:18 Order name: Glucose, Ancillary Testing; Complete Time: 13:20 EDMS 08/13 13:46 Order name: Urine Dipstick--Ancillary (enter results); Complete Time: 15:53 bd 08/13 17:20 Order name: Franko Mendez; Complete Time: 17:23 rn Administered Medications: 14:11 Drug: NS 0.9% 500 ml Route: IV; Rate: bolus; Site: left hand; jl7 14:45 Follow up: Response: No adverse reaction; IV Status: Completed infusion; IV Intake: jl7 500ml 16:45 Drug: Rocephin 1 grams Route: IV; Rate: calculated rate; Site: left hand; jl7 16:48 Follow up: Response: No adverse reaction; IV Status: Completed infusion jl7 Disposition: 08/13/20 16:32 Hospitalization ordered by German Govea for Inpatient Admission. Preliminary diagnosis are Hypothermia, Urinary tract infection, site not specified, Dehydration. - Bed requested for Telemetry/MedSurg (Inpatient). - Status is Inpatient Admission. jl7 - Condition is Stable. - Problem is new. - Symptoms have improved. Signatures: Dispatcher [employer] EDMS Alisia Sanz Roman, MD MD rn Leal, Jahala, RN RN jl7 Corrections: (The following items were deleted from the chart) 17:32 16:32 Hospitalization Ordered by A Jeferson ARREOLA for Inpatient Admission. Preliminary bd diagnosis is Hypothermia; Urinary tract infection, site not specified; Dehydration. Bed requested for Telemetry/MedSurg (Inpatient). Status is Inpatient Admission. Condition is Stable. Problem is new. Symptoms have improved. rn 18:35 17:32 08/13/2020 16:32 Hospitalization Ordered by A Jeferson ARREOLA for Inpatient Admission. jl7 Preliminary diagnosis is Hypothermia; Urinary tract infection, site not specified; Dehydration. Bed requested for Telemetry/MedSurg (Inpatient). Status is Inpatient Admission. Condition is Stable. Problem is new. Symptoms have improved. bd
--- NOTE | 2020-08-13 16:33 | ER ---
Nurse's Notes [facility] Name: Sharda Dewey Age: 80 yrs Sex: Female : 1940 Arrival Date: 08/13/2020 Time: 12:03 Bed 18 Private MD: Diagnosis: Hypothermia;Urinary tract infection, site not specified;Dehydration Presentation: 08/13 12:00 Chief complaint: EMS states: [facility] reports hypothermic, 89.5 rectal. Coronavirus jl7 screen: Client denies travel out of the [place] in the last 14 days. congestion, Client presents with at least one sign or symptom that may indicate coronavirus-19. Standard/surgical mask placed on the client. Provider contacted for isolation considerations. Ebola Screen: No symptoms or risks identified at this time. Initial Sepsis Screen: Does the patient meet any 2 criteria? Temp <36.0*C (96.8*F)) or > 38.3*C (100.9*F). No. Patient's initial sepsis screen is negative. Does the patient have a suspected source of infection? No. Patient's initial sepsis screen is negative. Risk Assessment: Do you want to hurt yourself or someone else? Patient reports no desire to harm self or others. Onset of symptoms is unknown. Care prior to arrival: None. Transition of care: patient was received from another setting of care (long-term care facility), [facility]. 12:00 Method Of Arrival: EMS: [facility] jl7 12:00 Acuity: TITUS 3 jl7 Historical: - Allergies: 12:37 No Known Allergies; jl7 - Home Meds: 14:19 allopurinol 100 mg Oral tab 1 tab 2 times per day [Active]; amlodipine 5 mg tab 1 tab jl7 twice a day [Active]; aspirin 81 mg Oral chew 1 tab once daily [Active]; Celexa 10 mg Oral tab 1 tab nightly [Active]; Vitamin D Oral 5000 unit daily [Active]; carvedilol 12.5 mg Oral tab 1 tab 2 times per day [Active]; Lasix 40 mg Oral tab 2 tabs once daily [Active]; sennosides 8.6 mg oral tab [Active]; Voltaren Oral [Active]; - PMHx: 12:37 Allergic rhinitis; Alzheimers; Anemia; Anxiety; ataxic gait; CAD; Delusional disorder; jl7 Dementia; Depression; Diabetes - NIDDM; DYSPHAGIA; Hypertension; insomnia; Pneumonia; - PSHx: 12:37 PEG tube; jl7 - Immunization history:: Adult Immunizations up to date. - Social history:: Smoking status: Patient denies any tobacco usage or history of. - Unable to obtain history due to: baseline dementia. Screenin:10 Abuse screen: unable to assess. jl7 12:10 Nutritional screening: PEG tube in place. Tuberculosis screening: No symptoms or risk jl7 factors identified. Fall Risk No fall in past 12 months (0 pts). Secondary diagnosis (15 points) impaired mobility, CVA, IV access (20 points). Ambulatory Aid- None/Bed Rest/Nurse Assist (0 pts). Gait- Normal/Bed Rest/Wheelchair (0 pts) Mental Status- Overestimates/Forgets Limitations (15 pts.). Total Lara Fall Scale indicates High Risk Score (45 or more points). Fall prevention measures have been instituted. Side Rails Up X 2 Placed Close to Nursing Station Frequent Obs/Assessments Occuring As available patient and family educated on Fall Prevention Program and Strategies. Assessment: 12:00 General: Appears in no apparent distress. uncomfortable. Pain: Unable to use pain jl7 scale. Does not appear to understand pain scale. Neuro: Level of Consciousness is awake, Oriented to none. Cardiovascular: Patient's skin is warm and dry. Respiratory: Airway is patent Respiratory effort is even, unlabored, Respiratory pattern is regular, symmetrical. Derm: Skin is dry, Skin is normal, Skin temperature is cold. Musculoskeletal: Range of motion: limited in all extremities. 13:30 Reassessment: Franko Mendez placed on pt. jl7 14:00 Reassessment: Patient appears in no apparent distress at this time. No changes from jl7 previously documented assessment. 15:00 Reassessment: Patient appears in no apparent distress at this time. No changes from jl7 previously documented assessment. 16:00 Reassessment: Patient appears in no apparent distress at this time. No changes from jl7 previously documented assessment. 17:00 Reassessment: Patient appears in no apparent distress at this time. No changes from jl7 previously documented assessment. Vital Signs: 12:00 BP 123 / 94; Pulse 51; Resp 15; Pulse Ox 100% ; jl7 13:30 BP 139 / 90; Pulse 51; Resp 13 S; Temp 88.4(C); Pulse Ox 100% on R/A; jl7 14:03 BP 106 / 71; Pulse 48; Resp 12; Temp 88.8; Pulse Ox 100% ; jl7 14:30 BP 120 / 65; Pulse 52; Resp 14; Temp 89.1; Pulse Ox 100% ; jl7 15:30 BP 117 / 70; Pulse 54; Resp 15 S; Temp 90.4; Pulse Ox 100% on R/A; jl7 16:30 BP 136 / 88; Pulse 65; Resp 15; Temp 91.8; Pulse Ox 100% ; jl7 17:30 BP 139 / 78; Pulse 79; Resp 17; Pulse Ox 100% ; jl7 ED Course: 12:03 Patient arrived in ED. rn 12:03 Landry Aguirre MD is Attending Physician. rn 12:08 Agustín Rodriguez RN is Primary Nurse. jl7 12:10 Patient has correct armband on for positive identification. Placed in gown. Bed in low jl7 position. Call light in reach. Side rails up X2. nurse monitoring on. Pulse ox on. NIBP on. 12:35 Triage completed. jl7 12:37 Arm band placed on right wrist. jl7 12:59 [id number]. bd 13:00 Inserted saline lock: 22 gauge in left hand, using aseptic technique. Blood collected. jl7 13:00 Initial lab(s) drawn, by wi, sent to lab. First set of blood cultures drawn by wi. jl7 13:30 Speci-cath kit inserted, using sterile technique, 16 Fr., specimen obtained. returned jl7 clear yellow urine. Patient tolerated well. 13:45 COVID-19 swab sent to lab. jl7 13:50 Second set of blood cultures drawn by wi. jl7 14:17 Chest Single View XRAY In Process Unspecified. EDMS 14:26 EKG done, by ED staff, reviewed by Landry Aguirre MD. 3 14:33 EKG done, by ED staff, reviewed by Landry Aguirre MD. jl7 16:31 German Govea MD is Hospitalizing Provider. rn 18:33 No provider procedures requiring assistance completed. Patient admitted, IV remains in jl7 place. intact, No redness/swelling at site. Administered Medications: 14:11 Drug: NS 0.9% 500 ml Route: IV; Rate: bolus; Site: left hand; jl7 14:45 Follow up: Response: No adverse reaction; IV Status: Completed infusion; IV Intake: jl7 500ml 16:45 Drug: Rocephin 1 grams Route: IV; Rate: calculated rate; Site: left hand; jl7 16:48 Follow up: Response: No adverse reaction; IV Status: Completed infusion jl7 Intake: 14:45 IV: 500ml; Total: 500ml. jl7 Outcome: 16:32 Decision to Hospitalize by Provider. rn 18:33 Admitted to Tele accompanied by tech, via stretcher, room 230, with chart, Report jl7 called to SANDEEP Serna 18:33 Condition: stable 18:33 Discharge instructions given to patient, Instructed on the need for admit, Demonstrated understanding of pt is non-verbal 18:35 Patient left the ED. jl7 Signatures: Dispatcher [employer] EDMS Alisia Sanz Roman, MD MD rn Leal, Jahala, RN RN jl7 Bonnie Leon 3
[2020-08-13] MEDS ORDERED: ONDANSETRON 4 MG/2 ML VIAL IV PRN (19:24)
[2020-08-13] MEDS ORDERED: VANCOMYCIN/NS 1 gm 1 GM/250 ML BAG IVPB SCH (20:00)
[2020-08-13 20:04] LABS: Potassium 5.7 mmol/L (3.5-5.1)
[2020-08-13] MEDS: D5 0.45 NS 1,000 ML IV SCH (20:23)
[2020-08-13] MEDS ORDERED: VANCOMYCIN 1 GM/VIAL ONE (22:15)
[2020-08-13] MEDS ORDERED: NA CHLORIDE 0.9% 250 ML ONE (22:17)
[2020-08-13] MEDS ORDERED: SOD POLYSTYREN SUL 15 GM/60 ML UCUP PO ONE (22:23)
[2020-08-13 23:19] VITALS: BMI 27.2
--- NOTE | 2020-08-14 00:15 | HP ---
Date of Admission: 08/13/2020 Chief Complaint: Hypothermia. History Of Present Illness: This is an 80-year-old female [facility], who is bed bound, has a PEG tube for feeding purpose, and does not communicate, does not answer any questions. Has had 2 prior hospital admissions with similar problems of hypothermia, low blood pressure and low sodium, elevated potassium. Workup done so far including cortisol stimulation test was negative for any kind of adrenal insufficiency problem. She was at [facility] in stable condition, all of a batres dden this morning when nurse called me, informed me that her body temperature was around 88-89 degree s Fahrenheit. She was advised to send the patient to emergency room right away. After the patient w as evaluated in the ER, she was admitted to the hospital. When I saw her this evening, she was lying in bed in her room, not in any distress, does not answer any questions, lying in bed with her eyes c losed. Allergies: NO KNOWN ALLERGIES. Medications: List reviewed. Review of Systems: Constitutional: As mentioned above. All other systems reviewed and negative. Medications: Medication list reviewed. Family History: Not pertinent. Social History: Negative for smoking or alcohol use. Past Surgical History: Significant for PEG tube placement. Past Medical History: Significant for aspiration pneumonia, dysphagia, PEG tube placement in 2017, hypertension, diabetes mellitus, stroke with right-sided hemiparesis, volume depletion, urin tatyana tract infection, senile dementia, anemia. Physical Examination: Vital Signs: Her temperature when she arrived to the emergency room was 88.8 degree Fahrenheit, puls e 79, respiratory rate 17, blood pressure 139/78, oxygen saturation 100%. General: The patient is lying in bed, not in any distress, does not answer any question, does not fo llow any commands. HEENT: Head atraumatic, normocephalic. Conjunctivae nonerythematous. Sclerae white. Mouth, no thr [facility] or edema noted. Ears/Nose, no mass, lesion, discharge noted. Neck: Supple. No JVD, lymph nodes, bruit, thyromegaly noted. Lungs: Bilateral good equal air entry. Clear to auscultation. No rhonchi. No rales. Heart: Normal heart sounds, no murmur or gallop. Abdomen: Presence of PEG tube, otherwise abdomen soft. Bowel sounds normoactive. No guarding, rigi dity, tenderness, or distention. Extremities: No leg edema. No calf tenderness. Skin: Has some dry scaly skin over extremities. Lymphatics: No lymph node enlargement in neck, supraclavicular, infraclavicular region. Neuro: No focal neurological deficit. Chest: Unremarkable. External Genitalia: Deferred. Rectal: Deferred. CONSTRUCTION PROJECT MGR: Contracture of her extremities present. Laboratory Data: Sodium 128, potassium 5.8, chloride 93, bicarb 30, BUN 35, creatinine 0.95, glucose 79, lactic acid 0.6. Procalcitonin less than 0.05. CRP 32.10. Urinalysis; 1+ leukocyte esterase, 5-10 wbc's, 20-50 bacteria. Chest x-ray; shallow inspiration, otherwise no acute changes. White cou nt 6.9, hemoglobin 9, platelets 314. Impression: 1.Hypothermia. 2.Hyponatremia. 3.Hyperkalemia. 4.Urinary tract infection. 5.Diabetes mellitus. 6.Stroke. 7.Dementia. 8.PEG tube placement. 9.Anemia, unspecified. Plan: We will admit the patient to hospital for further evaluation and management of this problem. The patient is appropriate for inpatient and is expected to spend 2 midnights in the hospital. We wi ll go ahead and continue IV fluid, IV antibiotics per order. We will repeat chemistry this evening. PEG tube feeding will be given per order. We will monitor blood pressure and give antihypertensive medications as it becomes necessary. Diabetes will be managed with sliding scale insulin. Overall, prognosis is poor. During last hospital stay, her advance directive was do not resuscitate, and I wi ll communicate with the patient's family member to confirm that decision. I did talk to the patient' s daughter during the last hospital stay regarding hospice care, but she was not able to make any dec ision at that point, and we will bring up that discussion again. ANUPAMA/MODL Voice ID: [id number]
[2020-08-14] MEDS: CEFTRIAXONE/SWI 1gm 1 GM/10 ML SYR IV SCH ×2 (05:31→17:09)
[2020-08-14] MEDS: D5 0.45 NS 1,000 ML IV SCH ×2 (05:33→15:23)
[2020-08-14] MEDS ORDERED: CEFTRIAXONE 1000 MG/VIAL IVP ONE (06:00)
[2020-08-14] MEDS ORDERED: CEFTRIAXONE 1 GM/NS 50 ML 1 GM/50 ML BAG IV SCH ×2 (06:00→21:00)
[2020-08-14] MEDS ORDERED: WATER FOR INJ,STERILE 10 ML IV ONE (06:00)
[2020-08-14 06:21] LABS: Basophils % 0.3 % (0-1.3); Hematocrit 25.9 % (36.0-45.0); Lymphocytes % 14.5 % (15.3-44.8); MPV 8.6 fL (7.6-11.3); RBC Red Blood Cell Count 2.91 M/uL (3.86-4.86)
[2020-08-14 06:35] LABS: Potassium 4.9 mmol/L (3.5-5.1)
[2020-08-14] MEDS: allopurinoL 100 MG TAB FT SCH ×2 (08:15→22:13)
[2020-08-14] MEDS: SENOSIDES 8.6 MG TAB FT SCH (08:15)
[2020-08-14] MEDS: ASPIRIN 81 MG CHEWABLE TABLET FT SCH (08:15)
[2020-08-14] MEDS: GLUCERNA 1.2 CAL 1,000 ML BOT FT SCH ×5 (08:28→22:13)
--- NOTE | 2020-08-14 23:01 | PN ---
Date of Progress Note: 08/14/2020 Subjective: The patient was seen this morning for followup. No new complaints or problems reported by the patient's nursing staff. The patient was lying in bed, unresponsive, not in any distress. Objective: Vital Signs: Reviewed. HEENT: Unremarkable. Lungs: Clear to auscultation. Heart: Sounds normal. Abdomen: Soft. Bowel sounds normal. No guarding, rigidity, tenderness, or distention. Extremities: No leg edema. Laboratory Data: White count 7.1, hemoglobin 8.7, platelets 269. Sodium 134, potassium 4.9, chlorid e 108, bicarb 33, BUN 20, creatinine 1.10. Impression: 1.Urinary tract infection. 2.Hyponatremia. 3.Hyperkalemia. 4.Hypothermia, resolved. 5.Hypertension. 6.Diabetes mellitus. Plan: We will continue current medication. Follow up on culture results, which is pending. Continu e current empiric antibiotics and depending on the culture results, we will decide about culture spec ific antibiotics. I did call the patient's daughter this evening, talked to her, advanced directives discussed and DNR order was confirmed, and we will write such order in the chart. The patient's family has decided not to consider hospice care. I will see her tomorrow for followup. ANUPAMA/MODL Voice ID: [id number] Report ID: [id number]
[2020-08-15] MEDS: D5 0.45 NS 1,000 ML IV SCH (01:01)
[2020-08-15] MEDS: GLUCERNA 1.2 CAL 1,000 ML BOT FT SCH ×3 (02:09→11:24)
[2020-08-15] MEDS: CEFTRIAXONE/SWI 1gm 1 GM/10 ML SYR IV SCH ×2 (05:57→17:03)
[2020-08-15] MEDS ORDERED: VANCOMYCIN 1.25 GM in NA CHLORIDE 0.9% 250 ML IVPB SCH (06:00)
[2020-08-15] MEDS: ASPIRIN 81 MG CHEWABLE TABLET FT SCH (08:25)
[2020-08-15] MEDS: allopurinoL 100 MG TAB FT SCH ×2 (08:25→21:51)
[2020-08-15] MEDS: SENOSIDES 8.6 MG TAB FT SCH (08:25)
[2020-08-15] MEDS: AMLODIPINE 5 MG TAB FT SCH ×2 (08:27→21:52)
[2020-08-15] MEDS: carvediloL 12.5 MG TAB FT SCH ×2 (08:28→21:51)
[2020-08-15] MEDS: FUROSEMIDE 20 MG TABLET FT SCH (08:28)
--- NOTE | 2020-08-15 12:06 | EKG ---
Test Date: 2020-08-13 Test Time: 14:26:19 Chief Of Pediatric Urology: LIA MEASUREMENT RESULTS: Intervals: Rate: 54 AR: 196 QRSD: 88 QT: 452 QTc: 428 Erskine: P: 25 AR: 196 QRS: -15 T: -45 INTERPRETIVE STATEMENTS: Sinus bradycardia Possible Anterior infarct, age undetermined Abnormal ECG Compared to ECG 07/17/2020 07:14:15 No significant changes Electronically Signed On 08-15-20 12:01:50 CDT by Sree Malagon
[2020-08-15] MEDS: GLUCERNA 1.5 CAL 1,000 ML BOT FT SCH ×2 (17:03→21:53)
[2020-08-15] MEDS: CITALOPRAM 10 MG TABLET FT SCH (21:51)
--- NOTE | 2020-08-16 00:55 | PN ---
Date of Progress Note: 08/15/2020 Subjective: The patient was seen this morning for followup. does not answer any question s. Objective: VITAL SIGNS: Reviewed. HEENT: Unremarkable. Lungs: Clear to auscultation. No rhonchi or rales. Heart: Sounds normal. Abdomen: Soft. Bowel sounds normal. No guarding, rigidity, tenderness, or distention. Extremities: No leg edema. Laboratory Data: Culture remains negative so far. Impression: 1.Urinary tract infection. 2.Hypothermia. 3.Hyponatremia. 4.Hyperkalemia. Plan: We will continue current medication. Continue tube feeding per order. Continue empiric antib iotics. We will get blood work done tomorrow. If possible, [facility] . ANUPAMA/MODL Voice ID: [id number] Report ID: [id number]
[2020-08-16 04:30] LABS: Absolute Lymphocytes (CBC) 1.3 K/uL (0.7-4.9); Basophils % 0.5 % (0-1.3); Hematocrit 26.6 % (36.0-45.0); Lymphocytes % 16.9 % (15.3-44.8); MPV 8.6 fL (7.6-11.3)
[2020-08-16 04:45] LABS: Magnesium 1.9 mg/dL (1.8-2.4); Potassium 4.7 mmol/L (3.5-5.1)
[2020-08-16] MEDS: CEFTRIAXONE/SWI 1gm 1 GM/10 ML SYR IV SCH ×2 (05:21→16:45)
[2020-08-16] MEDS: VANCOMYCIN/NS 1 gm 1 GM/250 ML BAG IVPB SCH (05:22)
[2020-08-16] MEDS: SENOSIDES 8.6 MG TAB FT SCH (08:52)
[2020-08-16] MEDS: AMLODIPINE 5 MG TAB FT SCH ×2 (08:52→22:08)
[2020-08-16] MEDS: FUROSEMIDE 20 MG TABLET FT SCH (08:52)
[2020-08-16] MEDS: carvediloL 12.5 MG TAB FT SCH ×2 (08:53→22:07)
[2020-08-16] MEDS: allopurinoL 100 MG TAB FT SCH ×2 (08:53→22:08)
[2020-08-16] MEDS: GLUCERNA 1.5 CAL 1,000 ML BOT FT SCH ×4 (08:53→22:08)
[2020-08-16] MEDS: ASPIRIN 81 MG CHEWABLE TABLET FT SCH (08:53)
--- NOTE | 2020-08-16 20:54 | PN ---
Date of Progress Note: 08/15/2020 Subjective: The patient was seen this morning for followup. No new complaints or problems reported by nursing staff. The patient was lying in bed, not in any distress, does not communicate, does not answer any questions. Objective: Vital Signs: Reviewed. HEENT: Examination unremarkable. Lungs: Clear to auscultation. Heart: Sounds normal. Abdomen: Soft. Bowel sounds normal. No guarding, rigidity, tenderness, or distention. Extremities: No leg edema. Impression: 1.Urinary tract infection. 2.Hypothermia. 3.Hyponatremia. 4.Hyperkalemia. Plan: We will continue current medication. Continue current empiric antibiotics. Cultures remained negative so far. We will see her tomorrow for followup. [facility]. ANUPAMA/MODL Voice ID: [id number] Report ID: [id number]
[2020-08-16] MEDS: CITALOPRAM 10 MG TABLET FT SCH (22:07)
[2020-08-17] MEDS: CEFTRIAXONE/SWI 1gm 1 GM/10 ML SYR IV SCH (05:54)
[2020-08-17] MEDS: AMLODIPINE 5 MG TAB FT SCH ×2 (09:35→21:32)
[2020-08-17] MEDS: allopurinoL 100 MG TAB FT SCH ×2 (09:35→21:35)
[2020-08-17] MEDS: carvediloL 12.5 MG TAB FT SCH ×2 (09:35→21:26)
[2020-08-17] MEDS: Levofloxacin500mg IV 500 MG/100 ML BAG IV SCH (09:36)
[2020-08-17] MEDS: FUROSEMIDE 20 MG TABLET FT SCH (09:36)
[2020-08-17] MEDS: ASPIRIN 81 MG CHEWABLE TABLET FT SCH (09:36)
[2020-08-17] MEDS: SENOSIDES 8.6 MG TAB FT SCH (09:36)
[2020-08-17] MEDS: GLUCERNA 1.5 CAL 1,000 ML BOT FT SCH ×4 (09:37→21:30)
--- NOTE | 2020-08-17 09:38 | RAD REPORT ---
EXAM DESCRIPTION: Charissa Single View08/17/2020 9:15 am CLINICAL HISTORY: Cough COMPARISON: August 13, 2020 FINDINGS: The lungs appear clear of acute infiltrate. The heart is mildly to moderately enlarged IMPRESSION: No acute abnormalities displayed
--- NOTE | 2020-08-17 10:22 | PN ---
Date of Progress Note: 08/17/2020 Subjective: The patient was seen this morning for followup. No new complaints or problems reported by nursing staff. The patient was lying in bed, does not answer any question, not in any distress. Objective: Vital Signs: Reviewed. HEENT: Unremarkable. Lungs: Clear to auscultation. Heart: Sounds normal. Abdomen: Soft. Bowel sounds normal. No guarding, rigidity, tenderness, or distention. Extremities: No leg edema. Laboratory Data: Sputum culture is growing Pseudomonas and it is sensitive to Levaquin and some othe r antibiotics. Urine culture negative. Impression: 1.Urinary tract infection. 2.Rule out pneumonia. 3.Anemia. Plan: We will get a chest x-ray done on her today. Discontinue ceftriaxone and we will start her on Levaquin. Depending on the chest x-ray result, we will be making decision if the patient can be dis charged to go back to alf today with oral Levaquin or not. Continue current tube feeding. ANUPAMA/MODL Voice ID: [id number] Report ID: [id number]
[2020-08-17] MEDS: VANCOMYCIN/NS 1 gm 1 GM/250 ML BAG IVPB SCH (17:12)
[2020-08-17] MEDS: CITALOPRAM 10 MG TABLET FT SCH (21:26)
[2020-08-18 08:31] LABS: Absolute Lymphocytes (CBC) 1.2 K/uL (0.7-4.9); Basophils % 0.6 % (0-1.3); Hematocrit 27.4 % (36.0-45.0); Lymphocytes % 19.8 % (15.3-44.8); RBC Red Blood Cell Count 3.05 M/uL (3.86-4.86)
[2020-08-18 08:45] LABS: Magnesium 1.8 mg/dL (1.8-2.4); Potassium 5.4 mmol/L (3.5-5.1)
[2020-08-18] MEDS: Levofloxacin500mg IV 500 MG/100 ML BAG IV SCH (08:54)
[2020-08-18] MEDS: AMLODIPINE 5 MG TAB FT SCH (08:55)
[2020-08-18] MEDS: carvediloL 12.5 MG TAB FT SCH (08:55)
[2020-08-18] MEDS: allopurinoL 100 MG TAB FT SCH (08:55)
[2020-08-18] MEDS: FUROSEMIDE 20 MG TABLET FT SCH (08:55)
[2020-08-18] MEDS: SENOSIDES 8.6 MG TAB FT SCH (08:55)
[2020-08-18] MEDS: ASPIRIN 81 MG CHEWABLE TABLET FT SCH (08:56)
[2020-08-18] MEDS: GLUCERNA 1.5 CAL 1,000 ML BOT FT SCH ×3 (08:56→17:00)
[2020-08-18 09:57] VITALS: TEMP 97.1
[2020-08-18] MEDS ORDERED: SOD POLYSTYREN SUL 15 GM/60 ML UCUP FT ONE (11:23)
[2020-08-18 12:10] VITALS: O2SAT 93
[2020-08-18 17:40] VITALS: BP 126/59
== END 2020-08-18 19:30 | DRG 923 ==
LOC: ER 11:59 → ERHOLD 17:31 → 2ND 18:29
PROVIDERS: ADMIT Internal Medicine; ATTEND Internal Medicine
DX: T68.XXXA Hypothermia, initial encounter (principal); E87.1 Hypo-osmolality and hyponatremia; N39.0 Urinary tract infection, site not specified; E11.9 Type 2 diabetes mellitus without complications; I10 Essential (primary) hypertension; E87.5 Hyperkalemia; F03.90 Unspecified dementia, unspecified severity, without behavioral disturbance, psychotic disturbance, mood disturbance, and anxiety; D64.9 Anemia, unspecified; B96.5 Pseudomonas (aeruginosa) (mallei) (pseudomallei) as the cause of diseases classified elsewhere; Z66 Do not resuscitate; Z93.1 Gastrostomy status; Z20.828 Contact with and (suspected) exposure to other viral communicable diseases
CPT/HCPCS: 36415; 71045; 80048; 80202; 81003; 81015; 82550; 82565; 82947; 83036; 83605; 83735; 83880; 84145; 84484; 85025; 85610; 85730; 86140; 87040; 87070; 87077; 87086; 87088; 87186; 87205; 93005; 96361; 96374; 99285; J0696; J3370; J7040; J7050; J7799; U0003